=== PATIENT | male | born 1935 | race Caucasian/White ===

== ENCOUNTER 2023-01-03 14:04 | Inpatient (IN) ==
--- NOTE | 2023-01-03 14:29 | Emergency Department Note ---
Impression & Plan SOB (shortness of breath), Bilateral edema of lower extremity, CHF (congestive heart failure), PAD (peripheral artery disease) ED Provider Note INFORMANT: Patient and ED PROVIDER(S): Roberto Up MD CHIEF COMPLAINT: Shortness of breath PLAN: Disposition: Admitted Condition: Good Outpatient prescription management: none Referral: None MEDICAL DECISION MAKING: Patient was evaluated. Physical examination was concerning for possible CHF. He did have swelling in there was asymmetry in coloration of the legs. With decreased pulses the patient underwent ultrasound imaging as well as blood work. Chest x-ray was concerning for CHF. The patient's ECG did show a mildly fast A-fib. There is no ischemia. Urinalysis was unremarkable. Thankfully ultrasound did not reveal any evidence of DVT. The patient did have peripheral artery disease noted on arterial scan but no significant occlusion warrant emergent intervention. CBC showed a mild anemia. The patient's lactate was negative. Chemistry panel was unremarkable. Troponin negative but the BNP was elevated consistent with CHF. Patient was given IV Lasix. Since this is a new diagnosis for him further management in the hospital is felt to be appropriate. Patient and were informed and were in agreement. [facility] Case was discussed and diagnostics were reviewed. Patient was evaluated in the ER and admitted for further management. After review of the information above and other included data, I feel the patient requires admission for further management. Triage Nursing notes reviewed and agree them. Vital Signs: reviewed and remarkable for no significant abnormalities Prior /Outside records reviewed: Prior outside hospitalization for GI bleed discharge summary reviewed. Differential diagnosis: CHF, anemia, reactive airway disease, pneumonia, pneumothorax, COPD, infections, cardiac ischemia, pulmonary embolism, musculoskeletal, gastrointestinal, as well as other pathologies. Diagnostics, as interpreted by me: ECG: Twelve-lead ECG reveals atrial fibrillation at [address] elevation. Cardiac Monitoring: Cardiac monitoring ordered by me: The patient was placed on continuous cardiac monitoring and observed. It revealed a atrial fibrillation at 88 bpm. Imaging studies: Chest x-ray consistent with CHF. Ultrasound and arterial duplex as noted above. I refer you to the EMR for further details. HPI: The patient is a 87 year old male who presents to the Emergency Room with complaints of shortness of breath. This started over the last week and is worse today. Patient states he has had swelling in his legs from time to time but they seem to be worse. He also notes some occasional redness in the left leg but it is much worse today. The the patient also notes the following associated symptoms, fatigue. Patient was admitted for a GI bleed last month at [facility] in [place]. He did receive a blood transfusion. No identifiable source was found. The patient has taken no medication for relieving factors. Current pain is rated as 0/10. Pt denies LOC, headache, fevers, chills, diaphoresis, visual changes, neck pain, chest pain, nausea, vomiting, abdominal pain, back pain, melena, hematochezia, urinary symptoms, numbness, lymphadenopathy, rash, or other complaints. PAST MEDICAL HISTORY: See Below, GI bleed PAST SURGICAL HISTORY: See Below, SOCIAL HISTORY: See Below, retired HOME MEDICATIONS: See Below ALLERGIES: See Below VITALS: See Below PHYSICAL EXAMINATION: GENERAL: Awake, alert, tired-appearing, in no distress HENT: Normocephalic, atraumatic. Oropharynx unremarkable. EYES: Normal conjunctiva. Sclera non-icteric. NECK: Inspection normal. Non-tender. Supple. No nuchal rigidity. FROM. No masses. RESPIRATORY: Clear to auscultation. No wheezes. No rales. Normal respiratory effort. CARDIAC: Tachycardic rate. Normal rhythm. No murmurs. No rubs. Extremities warm and well perfused. Pulses equal. No JVD. GI: Soft, non-distended. No tenderness to palpation. No rebound or guarding. No masses. RECTAL: Deferred. MUSCULOSKELETAL: Atraumatic. Chest examination reveals no tenderness. The back is symmetrical on inspection without obvious abnormality. There is no CVA tenderness to palpation. No joint edema. LOWER EXTREMITIES: Calves are equal size bilaterally and non-tender. 2+ pitting edema. Left-sided erythematous discoloration. Capillary refill is diminished on the left side to about 3 to 4 seconds. NEURO: Normal sensorium. No sensory or motor deficits noted. SKIN: No rash or jaundice noted. Past Med/Surg History Medical History (Updated 01/03/23 @ 22:50 by Roberto Up MD) Aortic stenosis Benign prostatic hyperplasia without urinary obstruction Elevated PSA GIB (gastrointestinal bleeding) No pertinent family history No pertinent past medical history PAF (paroxysmal atrial fibrillation) Surgical History History of dental surgery Family History (Updated 01/03/23 @ 19:04 by Gisel Hughes DO) Other Heart disease Social History Smoking Status: Current some day smoker Second Hand Exposure: No; Do You Dip or Chew Tobacco: No; Tobacco Cessation Education Requested by Patient: No Hx Alcohol Use: Yes Alcohol type: beer Hx Substance Use: No Preferred Language: Vietnamese Communication Ability: Effective As400 Developer Required: No Beliefs That Will Affect Care: None marital status: Current Living Situation: Spouse current occupational status: employed Other Information That Helps Us Care for You: No Feels Safe at Home: Yes Safety Concerns: Feels Safe At This Time Assistive Devices: Brace/Splint/Immobilizer, Cane, Glasses and Walker Assistive Devices Comment: top partial Allergies Allergies Allergy/AdvReac Type Severity Reaction Status Date / Time No Known Allergies Allergy Unknown Verified 01/03/23 15:26 Home Meds Home Medications Medication Instructions Recorded Confirmed latanoprost 0.005 % eye drops 1 drp OPB HS 02/06/20 01/03/23 calcium 600 mg-D3 800 unit-mag11 1 tab PO DAILY 11/20/22 01/03/23 50 ew-egci-zllxki-susanne-s.borat tablet (Caltrate 600-D Plus Minerals) cholecalciferol (vitamin D3) 50 50 mcg PO DAILY 11/20/22 01/03/23 mcg (2,000 unit) tablet metoprolol succinate 25 mg 12.5 mg PO BID 11/20/22 01/03/23 tablet,extended release 24 hr pantoprazole 40 mg tablet,delayed 40 mg PO DAILY 11/20/22 01/03/23 release denosumab 60 mg/mL subcutaneous See Rx Instructions subcut .COMPLEX 12/02/22 01/03/23 syringe (Prolia) Previous Rx's Medication Instructions Recorded tamsulosin 0.4 mg capsule 0.4 mg PO DAILY #30 caps 06/01/22 apixaban 2.5 mg tablet (Eliquis) 2.5 mg PO BID #60 tabs 12/04/22 Results & Data (ED) Vital Signs Vital Signs - 24 hr 01/03/23 14:06 01/03/23 16:38 01/03/23 16:38 Temperature 36.4 C L Temperature Source Temporal Artery Scan Pulse Rate 107 H 93 H Pulse Rate [Apical] 92 H Respiratory Rate 18 14 14 Respiratory Effort / Characteristics Non-Labored Non-Labored Spontaneous Respiratory Depth Normal Normal Respiratory Pattern Regular Blood Pressure 123/73 Blood Pressure [Left Arm] 124/105 H Blood Pressure Mean 89 Blood Pressure Mean [Left Arm] 111 Blood Pressure Position Sitting Pulse Oximetry 96 95 95 Oxygen Delivery Method Room Air Room Air Room Air Sepsis Recent Fever Within 48 Hours No Sepsis New/Unexplained Change in Mental Status No Sepsis Action Taken by Nursing No Action Required Laboratory Data 01/03/23 14:25 01/03/23 14:25 Lab Results 01/03/23 01/03/23 01/03/23 Range/Units 14:13 14:25 14:25 WBC (4.8-10.8) K/ul RBC (4.70-6.10) M/uL Hgb (14.0-18.0) g/dl Hct (42.0-52.0) % MCV (80.0-100.0) fL MCH (25.0-34.0) pg MCHC (32.0-36.0) g/dL RDW Std Deviation (36.4-46.3) fL RDW Coeff of Don (11.5-14.5) % Plt Count (130-400) K/uL MPV (9.4-12.4) fL Immature Gran % (Auto) % Neut % (Auto) % Lymph % (Auto) % Cottle % (Auto) % Eos % (Auto) % Baso % (Auto) % Neut # (Auto) (1.40-6.50) K/uL Lymph # (Auto) (1.2-3.4) K/uL Cottle # (Auto) (0.11-0.59) K/uL Eos # (Auto) (0-0.50) K/uL Baso # (Auto) (0-0.2) K/uL Immature Gran # (Auto) (0.01-0.20) K/uL PT 10.8 (9.0-12.0) Seconds INR 1.0 (0.9-1.1) Sodium (136-145) mmol/L Potassium (3.5-5.1) mmol/L Chloride (98-107) mmol/L Carbon Dioxide (21-32) mmol/L Anion Gap (3-11) BUN (6-23) mg/dl Creatinine (0.6-1.4) mg/dl Est Cr Clr Drug Dosing ml/min Est GFR ( Amer) ml/min Est GFR (Non-Af Amer) ml/min BUN/Creatinine Ratio (10-20) Glucose (70-99(Fasting)) mg/dl Lactate (0.4-2.0) mmol/L Calcium (8.5-10.1) mg/dl Magnesium (1.7-2.4) mg/dl Total Bilirubin (0.2-1.0) mg/dl AST (13-39) U/L ALT (7-52) U/L Alkaline Phosphatase (34-104) U/L Troponin I High Sens (0-20) pg/ml B-Natriuretic Peptide (0-100) pg/ml Total Protein (6.0-8.3) gm/dl Albumin (3.4-5.0) gm/dl Globulin (2.5-4.0) gm/dl Albumin/Globulin Ratio (0.9-2) TSH (0.300-4.500) uIu/ml Urine Color Urine Appearance (Clear) Urine pH (4.5-7.5) Ur Specific [place] (1.000-1.030) Urine Protein (Negative) Urine Glucose (UA) (Negative) Urine Ketones (Negative) Urine Blood (Negative) Urine Nitrite (Negative) Urine Bilirubin (Negative) Urine Urobilinogen (Negative) Ur Leukocyte Esterase (Negative) SARS-CoV-2, RNA, NAAT NEGATIVE (NEGATIVE) Blood Type A Positive Antibody Screen NEGATIVE 01/03/23 01/03/23 01/03/23 Range/Units 14:25 14:25 14:25 WBC 6.26 (4.8-10.8) K/ul RBC 3.42 L (4.70-6.10) M/uL Hgb 10.3 L (14.0-18.0) g/dl Hct 30.9 L (42.0-52.0) % MCV 90.4 (80.0-100.0) fL MCH 30.1 (25.0-34.0) pg MCHC 33.3 (32.0-36.0) g/dL RDW Std Deviation 50.0 H (36.4-46.3) fL RDW Coeff of Don 15.0 H (11.5-14.5) % Plt Count 266 (130-400) K/uL MPV 9.6 (9.4-12.4) fL Immature Gran % (Auto) 0.5 % Neut % (Auto) 74.9 % Lymph % (Auto) 13.1 % Cottle % (Auto) 9.7 % Eos % (Auto) 1.6 % Baso % (Auto) 0.2 % Neut # (Auto) 4.69 (1.40-6.50) K/uL Lymph # (Auto) 0.82 L (1.2-3.4) K/uL Cottle # (Auto) 0.61 H (0.11-0.59) K/uL Eos # (Auto) 0.10 (0-0.50) K/uL Baso # (Auto) 0.01 (0-0.2) K/uL Immature Gran # (Auto) 0.03 (0.01-0.20) K/uL PT (9.0-12.0) Seconds INR (0.9-1.1) Sodium 136 (136-145) mmol/L Potassium 4.4 (3.5-5.1) mmol/L Chloride 107 (98-107) mmol/L Carbon Dioxide 26 (21-32) mmol/L Anion Gap 3 (3-11) BUN 31 H (6-23) mg/dl Creatinine 1.20 (0.6-1.4) mg/dl Est Cr Clr Drug Dosing 37.0 ml/min Est GFR ( Amer) 63.1 ml/min Est GFR (Non-Af Amer) 54.4 ml/min BUN/Creatinine Ratio 25.8 H (10-20) Glucose 102 H (70-99(Fasting)) mg/dl Lactate (0.4-2.0) mmol/L Calcium 9.9 (8.5-10.1) mg/dl Magnesium 1.9 (1.7-2.4) mg/dl Total Bilirubin 0.5 (0.2-1.0) mg/dl AST 30 (13-39) U/L ALT 22 (7-52) U/L Alkaline Phosphatase 64 (34-104) U/L Troponin I High Sens 9.2 (0-20) pg/ml B-Natriuretic Peptide 237 H (0-100) pg/ml Total Protein 7.6 (6.0-8.3) gm/dl Albumin 4.0 (3.4-5.0) gm/dl Globulin 3.6 (2.5-4.0) gm/dl Albumin/Globulin Ratio 1.1 (0.9-2) TSH (0.300-4.500) uIu/ml Urine Color Urine Appearance (Clear) Urine pH (4.5-7.5) Ur Specific [place] (1.000-1.030) Urine Protein (Negative) Urine Glucose (UA) (Negative) Urine Ketones (Negative) Urine Blood (Negative) Urine Nitrite (Negative) Urine Bilirubin (Negative) Urine Urobilinogen (Negative) Ur Leukocyte Esterase (Negative) SARS-CoV-2, RNA, NAAT (NEGATIVE) Blood Type Antibody Screen 01/03/23 01/03/23 01/03/23 Range/Units 14:25 14:26 14:47 WBC (4.8-10.8) K/ul RBC (4.70-6.10) M/uL Hgb (14.0-18.0) g/dl Hct (42.0-52.0) % MCV (80.0-100.0) fL MCH (25.0-34.0) pg MCHC (32.0-36.0) g/dL RDW Std Deviation (36.4-46.3) fL RDW Coeff of Don (11.5-14.5) % Plt Count (130-400) K/uL MPV (9.4-12.4) fL Immature Gran % (Auto) % Neut % (Auto) % Lymph % (Auto) % Cottle % (Auto) % Eos % (Auto) % Baso % (Auto) % Neut # (Auto) (1.40-6.50) K/uL Lymph # (Auto) (1.2-3.4) K/uL Cottle # (Auto) (0.11-0.59) K/uL Eos # (Auto) (0-0.50) K/uL Baso # (Auto) (0-0.2) K/uL Immature Gran # (Auto) (0.01-0.20) K/uL PT (9.0-12.0) Seconds INR (0.9-1.1) Sodium (136-145) mmol/L Potassium (3.5-5.1) mmol/L Chloride (98-107) mmol/L Carbon Dioxide (21-32) mmol/L Anion Gap (3-11) BUN (6-23) mg/dl Creatinine (0.6-1.4) mg/dl Est Cr Clr Drug Dosing ml/min Est GFR ( Amer) ml/min Est GFR (Non-Af Amer) ml/min BUN/Creatinine Ratio (10-20) Glucose (70-99(Fasting)) mg/dl Lactate 1.0 (0.4-2.0) mmol/L Calcium (8.5-10.1) mg/dl Magnesium (1.7-2.4) mg/dl Total Bilirubin (0.2-1.0) mg/dl AST (13-39) U/L ALT (7-52) U/L Alkaline Phosphatase (34-104) U/L Troponin I High Sens (0-20) pg/ml B-Natriuretic Peptide (0-100) pg/ml Total Protein (6.0-8.3) gm/dl Albumin (3.4-5.0) gm/dl Globulin (2.5-4.0) gm/dl Albumin/Globulin Ratio (0.9-2) TSH 2.603 (0.300-4.500) uIu/ml Urine Color Yellow Urine Appearance Clear (Clear) Urine pH 6.5 (4.5-7.5) Ur Specific [place] 1.015 (1.000-1.030) Urine Protein Negative (Negative) Urine Glucose (UA) Negative (Negative) Urine Ketones Negative (Negative) Urine Blood Negative (Negative) Urine Nitrite Negative (Negative) Urine Bilirubin Negative (Negative) Urine Urobilinogen Negative (Negative) Ur Leukocyte Esterase Negative (Negative) SARS-CoV-2, RNA, NAAT (NEGATIVE) Blood Type Antibody Screen Administered Medications Apixaban (Apixaban 2.5 Mg Tab) 2.5 mg PO BID UYKI Stop: 02/02/23 21:30 Last Admin: 02/19/23 22:22 Dose: 2.5 mg Documented By: MILAN Latanoprost (Latanoprost 0.005% Op Soln 2.5 Ml Btl) 1 drops OPB HS YUKI Stop: 02/02/23 21:30 Last Admin: 01/03/23 21:55 Dose: Not Given Documented By: MILAN Metoprolol Succinate (Metoprolol Succ 25mg Ext Rel Tab) 25 mg PO BID YUKI Stop: 02/02/23 21:30 Last Admin: 01/03/23 22:22 Dose: 25 mg Documented By: MILAN Discontinued Medications Furosemide (Furosemide Inj 20 Mg/2 Ml Vial) 20 mg IV ONE ONE Stop: 01/03/23 17:55 Last Admin: 01/03/23 18:06 Dose: 20 mg Documented By: RACHEL Ioversol (Optiray 320 500ml) 109 ml IV ONCE ONE Stop: 01/03/23 20:08 Last Admin: 01/03/23 20:09 Dose: 109 ml Documented By: EDK Imaging Data Radiologist's Impression: Chest X-Ray 01/03/23 14:14 SINGLE VIEW CHEST CLINICAL HISTORY: Dyspnea. FINDINGS: An AP, portable, upright chest radiograph is compared to study dated 01/24/2008. The examination is degraded by portable technique and patient rotation. The heart is enlarged noting atherosclerotic calcification of the thoracic ureter. There is pulmonary vascular congestion with mild interstitial edema. There are small pleural effusions with dependent consolidation. No pneumothorax is seen. The skeletal structures are osteopenic. There are healed left-sided rib fractures. IMPRESSION: 1. Cardiomegaly with evidence of congestive failure and pulmonary edema. 2. Small pleural effusions. ACT 112: Negative or not required by law. Electronically signed by: Zhou Gregg M.D. 01/03/2023 3:05 PM Duplex Scan Lower Extremity Artery 01/03/23 14:24 ULTRASOUND LEFT LOWER EXTREMITY ARTERIAL CLINICAL HISTORY: Left leg swelling. Decreased capillary refill and pulses in the left leg. COMPARISON STUDY: No priors. FINDINGS: Real-time grayscale and color Doppler sonography of the arteries of the left lower extremity is performed from the inguinal crease to the foot. FINDINGS: Atherosclerotic plaque and irregularity is seen throughout the arteries of the left lower extremity. There are triphasic waveforms in the common femoral artery with velocities measuring up to 117 cm/s. The profunda femoris artery is patent with velocities measuring up to 95 cm/s. Triphasic and biphasic arterial waveforms are seen within the superficial femoral and popliteal arteries. Velocities in the superficial femoral artery measure up to 90 cm/s, and velocities in the popliteal artery measure up to 133 cm/s. There is a blunted arterial upstroke in the calf arteries. The waveforms are monophasic. There is two-vessel runoff to the foot. No flow is seen within the mid to distal peroneal artery. The anterior tibial and posterior tibial arteries are patent of the foot. Arterial velocities within the calf vessels measure up to 112 cm/s. The dorsalis pedis is patent with velocities measuring up to 41 cm/s. Soft tissue edema is present in the calf. IMPRESSION: 1. Atherosclerotic plaque and peripheral vascular disease as above. 2. There is no flow shown within the mid to distal peroneal artery in the calf. The vessel may be diminutive or occluded. 3. The remaining arteries of the left lower extremity are patent. There is no sonographic evidence of focal high-grade stenosis. Dictated: 01/03/2023 4:09 PM Transcribed: 01/03/2023 4:33 PM Etelvina [id number] Electronically signed by: Zhou Gregg M.D. 01/03/2023 5:08 PM Venous Doppler Study 01/03/23 14:24 ULTRASOUND LEFT LOWER EXTREMITY VENOUS CLINICAL HISTORY: Left lower extremity edema. COMPARISON STUDY: No priors. TECHNIQUE: Real-time, grayscale, and color Doppler sonography of the deep veins of the left lower extremity was performed from the inguinal crease to the calf. Compression and augmentation were utilized. FINDINGS: There is no sonographic evidence of deep venous thrombosis identified in the left lower extremity. The common femoral, superficial femoral, and popl iteal veins are patent and normally compressible. The greater saphenous vein and the profunda femoris vein at the junction with the common femoral vein are clear. The visualized calf veins are patent. Soft tissue edema is seen in the left leg. IMPRESSION: There is no sonographic evidence of deep venous thrombosis identified in the left lower extremity. ACT 112: Negative or not required by law. Electronically signed by: Zhou Gregg M.D. 01/03/2023 4:06 PM Discharge Plan Visit Data Chief Complaint: Weakness Stated Complaint: WEAKNESS,FILLING UP WITH FLUID ED Provider: Roberto Up Discharge Problem: SOB (shortness of breath), Bilateral edema of lower extremity, CHF (congestive heart failure), PAD (peripheral artery disease) Patient Disposition: Admitted As Inpatient Discharge Instructions Interventions: ED Discharge Assessment Last Done: 01/03/23 21:14
[2023-01-03 14:40] LABS: Basophils # (auto) 0.01 K/uL (0-0.2); Basophils % (auto) 0.2 %; Eosinophils % (auto) 1.6 %; Hematocrit (blood only) 30.9 % (42.0-52.0); Hemoglobin 10.3 g/dl (14.0-18.0); Immature Granulocytes # (auto) 0.03 K/uL (0.01-0.20); Immature Granulocytes % (auto) 0.5 %; Lymphocytes # (auto) 0.82 K/uL (1.2-3.4); Lymphocytes % (auto) 13.1 %; Mean Corpuscular Hemoglobin 30.1 pg (25.0-34.0); Mean Corpuscular Hgb Conc 33.3 g/dL (32.0-36.0); Mean Corpuscular Volume 90.4 fL (80.0-100.0); Mean Platelet Volume 9.6 fL (9.4-12.4); Monocytes # (auto) 0.61 K/uL (0.11-0.59); Monocytes % (auto) 9.7 %; Neutrophils # (auto) 4.69 K/uL (1.40-6.50); Neutrophils % (auto) 74.9 %; Platelet Count 266 K/uL (130-400); Red Blood Count 3.42 M/uL (4.70-6.10); White Blood Count 6.26 K/ul (4.8-10.8)
[2023-01-03 14:58] LABS: Albumin Globulin Ratio 1.1 (0.9-2); BUN Creatinine Ratio 25.8 (10-20); Bilirubin,Total 0.5 mg/dl (0.2-1.0); Calcium 9.9 mg/dl (8.5-10.1); Est GFR (African American) 63.1 ml/min; Est GFR (Non-African American) 54.4 ml/min; Globulin 3.6 gm/dl (2.5-4.0); Magnesium 1.9 mg/dl (1.7-2.4); Potassium 4.4 mmol/L (3.5-5.1); Total Protein 7.6 gm/dl (6.0-8.3)
[2023-01-03 15:01] LABS: Appearance Urine Clear (Clear); Bilirubin Urine Negative (Negative); Blood Urine Negative (Negative); Color Urine Yellow; Glucose Urine UA Negative (Negative); Ketones Urine Negative (Negative); Leukocyte Esterase Urine Negative (Negative); Nitrite Urine Negative (Negative); Protein Urine Negative (Negative); Specific Gravity Urine 1.015 (1.000-1.030); Urobilinogen Urine Negative (Negative); pH Urine 6.5 (4.5-7.5)
[2023-01-03 15:04] LABS: Troponin I High Sensitivity 9.2 pg/ml (0-20)
--- NOTE | 2023-01-03 15:07 | XRay Report ---
SINGLE VIEW CHEST CLINICAL HISTORY: Dyspnea. FINDINGS: An AP, portable, upright chest radiograph is compared to study dated 01/24/2008. The examina tion is degraded by portable technique and patient rotation. The heart is enlarged noting atheroscle rotic calcification of the thoracic ureter. There is pulmonary vascular congestion with mild intersti tial edema. There are small pleural effusions with dependent consolidation. No pneumothorax is seen. The skeletal structures are osteopenic. There are healed left-sided rib fractures. IMPRESSION: 1. Cardiomegaly with evidence of congestive failure and pulmonary edema. 2. Small pleural effusions. ACT 112: Negative or not required by law. Electronically signed by: Zhou Gregg M.D. 01/03/2023 3:05 PM
[2023-01-03 15:18] LABS: Prothrombin Time 10.8 Seconds (9.0-12.0)
--- NOTE | 2023-01-03 16:09 | Ultrasound Report ---
ULTRASOUND LEFT LOWER EXTREMITY VENOUS CLINICAL HISTORY: Left lower extremity edema. COMPARISON STUDY: No priors. TECHNIQUE: Real-time, grayscale, and color Doppler sonography of the deep veins of the left lower ext remity was performed from the inguinal crease to the calf. Compression and augmentation were utilized . FINDINGS: There is no sonographic evidence of deep venous thrombosis identified in the left lower ext remity. The common femoral, superficial femoral, and popliteal veins are patent and normally compress ible. The greater saphenous vein and the profunda femoris vein at the junction with the common femora l vein are clear. The visualized calf veins are patent. Soft tissue edema is seen in the left leg. IMPRESSION: There is no sonographic evidence of deep venous thrombosis identified in the left lower e xtremity. ACT 112: Negative or not required by law. Electronically signed by: Zhou Gregg M.D. 01/03/2023 4:06 PM
--- NOTE | 2023-01-03 17:10 | Ultrasound Report ---
ULTRASOUND LEFT LOWER EXTREMITY ARTERIAL CLINICAL HISTORY: Left leg swelling. Decreased capillary refill and pulses in the left leg. COMPARISON STUDY: No priors. FINDINGS: Real-time grayscale and color Doppler sonography of the arteries of the left lower extremit y is performed from the inguinal crease to the foot. FINDINGS: Atherosclerotic plaque and irregularity is seen throughout the arteries of the left lower e xtremity. There are triphasic waveforms in the common femoral artery with velocities measuring up to 117 cm/s. The profunda femoris artery is patent with velocities measuring up to 95 cm/s. Triphasic an d biphasic arterial waveforms are seen within the superficial femoral and popliteal arteries. Velocit ies in the superficial femoral artery measure up to 90 cm/s, and velocities in the popliteal artery m easure up to 133 cm/s. There is a blunted arterial upstroke in the calf arteries. The waveforms are m onophasic. There is two-vessel runoff to the foot. No flow is seen within the mid to distal peroneal artery. The anterior tibial and posterior tibial arteries are patent of the foot. Arterial velocities within the calf vessels measure up to 112 cm/s. The dorsalis pedis is patent with velocities measuri ng up to 41 cm/s. Soft tissue edema is present in the calf. IMPRESSION: 1. Atherosclerotic plaque and peripheral vascular disease as above. 2. There is no flow shown within the mid to distal peroneal artery in the calf. The vessel may be dim inutive or occluded. 3. The remaining arteries of the left lower extremity are patent. There is no sonographic evidence of focal high-grade stenosis. Dictated: 01/03/2023 4:09 PM Transcribed: 01/03/2023 4:33 PM Etelvina [id number] [email or web address] Electronically signed by: Zhou Gregg M.D. 01/03/2023 5:08 PM
[2023-01-03] MEDS ORDERED: FUROSEMIDE INJ 20 MG/2 ML VIAL IV ONE (17:54)
--- NOTE | 2023-01-03 18:20 | History & Physical Report ---
Date of Service January 03, 2023 Assessment & Plan (1) Acute diastolic (congestive) heart failure: Plan: Possible episode of acute diastolic heart failure, as patient was given this diagnosis at recent admission at [facility] in [place] over the holidays. Chest x-ray does show evidence of congestive failure and pulmonary edema with small bilateral pleural effusions. Patient received Lasix 20 mg IV in the ER, will measure intake/output overnight and if tolerated by kidneys and with good output will continue in the morning. Echocardiogram to evaluate for diastolic dysfunction. Low-sodium diet while admitted. (2) Aortic stenosis: Plan: Per Cardiology notes, previous Echo suggests moderate , but may be closer to severe given his small stature. Patient with about 6 months of worsening SOB having to take breaks (for example when he was working on his yard this summer), though acutely worse over the last week or so. While patient could have possible exacerbation of diastolic heart failure as described above, it is also possible that severe aortic stenosis could cause buildup of fluid and pulmonary edema. Lasix as described above. Cardiology consulted and appreciate recommendations, given patient's age I am unsure if surgery for (if deemed to be severe enough for surgical correction) would even be an option, however would appreciate Cardiology's input. Repeat echocardiogram as described above. (3) Persistent atrial fibrillation: Plan: History of persistent A-fib per recent cardiology notes, on Eliquis 2.5 mg twice daily and metoprolol succinate 12.5 mg twice daily. Heart rate on admission of 107, now down to 90s without intervention. Telemetry for cardiac monitoring. Continue Eliquis, and will increase metoprolol succinate to 25 mg twice daily given heart rate of 90-100s and elevated diastolic blood pressure. (4) Occlusion of left peroneal artery: Plan: Patient with 1 week history of left lower extremity rubor from the knee down, as well as some cramping with walking that he has noticed over the last several days. Ultrasound duplex/Doppler done, no signs of deep vein thrombosis however does have a mid/distal left peroneal artery occlusion. CTA aorta with runoff ordered, and vascular surgery consulted, appreciate re commendations. (5) Hypertension: Plan: Will increase metoprolol succinate dosing as above. Plan Presents presented to the patient is a full code Low-sodium diet Patient will continue Eliquis for DVT prophylaxis To med/telemetry for cardiac monitoring History of Present Illness Chief Complaint: Shortness of breath Primary Care Provider: Fransisco Moncada MD 87-year-old male past medical history significant for persistent atrial fibrillation on Eliquis 2.5 mg twice daily, moderate aortic stenosis, recent hospitalization for upper GI bleed and acute diastolic heart failure at [facility] from 11/08/2022 - 11/18/2022 presented to the ER for a couple of days to 1 week of worsening shortness of breath, but no chest pain, abdominal pain. He also notes some pain in the lower extremities he describes as cramping over the last few days. In the ER patient vital signs were 36.4 C, heart rate of 107, blood pressure 123/73, saturating to 96% on room air. Patient was noted to have a WBC count of 6.26, hemoglobin 10.3, creatinine 1.20 with a baseline around 1.1, BNP of 237 without a baseline to compare, normal TSH, normal UA, COVID negative. Due to left lower extremity redness/swelling compared to the right lower extremity, Doppler was done without evidence of DVT. Patient also had an arterial duplex of the same leg that showed mid/distal peroneal artery reduced/absent flow, otherwise no sonographic evidence of focal high-grade stenosis. Chest x-ray showed cardiomegaly with evidence of congestive failure and pulmonary edema, with small bilateral pleural effusions. Patient was given furosemide 20 mg IV x1 and blood cultures were collected. Hospitalist service was consulted for pulmonary edema/suspicion of acute diastolic CHF exacerbation. Allergies Allergy/AdvReac Type Severity Reaction Status Date / Time No Known Allergies Allergy Unknown Verified 01/03/23 15:26 Home Medications Medication Instructions Recorded Confirmed Type latanoprost 0.005 % eye drops 1 drp OPB HS 02/06/20 01/03/23 History tamsulosin 0.4 mg capsule 0.4 mg PO DAILY #30 caps 06/01/22 01/03/23 Rx calcium 600 mg-D3 800 unit-mag11 1 tab PO DAILY 11/20/22 01/03/23 History 50 lt-gjab-hhvgip-susanne-s.borat tablet (Caltrate 600-D Plus Minerals) cholecalciferol (vitamin D3) 50 50 mcg PO DAILY 11/20/22 01/03/23 History mcg (2,000 unit) tablet metoprolol succinate 25 mg 12.5 mg PO BID 11/20/22 01/03/23 History tablet,extended release 24 hr pantoprazole 40 mg tablet,delayed 40 mg PO DAILY 11/20/22 01/03/23 History release denosumab 60 mg/mL subcutaneous See Rx Instructions subcut .COMPLEX 12/02/22 01/03/23 History syringe (Prolia) apixaban 2.5 mg tablet (Eliquis) 2.5 mg PO BID #60 tabs 12/04/22 01/03/23 Rx Past Med/Surg History Medical History (Updated 01/03/23 @ 19:19 by Gisel Hughes, ) Aortic stenosis Benign prostatic hyperplasia without urinary obstruction Elevated PSA GIB (gastrointestinal bleeding) No pertinent family history No pertinent past medical history PAF (paroxysmal atrial fibrillation) Surgical History History of dental surgery Family History (Updated 01/03/23 @ 19:04 by Gisel Hughes DO) Other Heart disease Social History Smoking Status: Never smoker Hx Alcohol Use: Yes Hx Substance Use: No marital status: current occupational status: employed Feels Safe at Home: Yes Review of Systems Review of Systems: All systems reviewed & are unremarkable except as noted in HPI & below Physical Exam Constitutional: well developed and well nourished; no acute distress Eyes: PERRL, conjunctivae normal, anicteric sclerae ENMT: external ear and nose normal, oropharynx normal Neck: trachea midline, no thyromegaly Respiratory: normal respiratory effort, lungs clear to auscultation Cardiovascular: RRR, no murmur, no edema Gastrointestinal (Abdomen): normal bowel sounds, soft, nontender, no hepatosplenomegaly Musculoskeletal: no cyanosis or clubbing, extremities motor strength 5/5 Skin: no rashes, warm and dry Neurologic: AAOx3, normal speech. PERRLA, EOMI, no nystagmus. Normal visual acuity bilaterally. Bilateral UE, LE, and face without sensory or motor deficits. No pronator drift. No tremor. No ataxia. Psychiatric: A+Ox3, euthymic affect Results & Data Results & Data ([facility]) Vital Signs (Past 12 Hours) Vital Signs Temp Pulse Pulse Resp BP BP Pulse Ox 01/03/23 16:38 93 H 14 95 01/03/23 16:38 92 H 14 124/105 H 95 01/03/23 14:06 36.4 C L 107 H 18 123/73 96 O2 Del Method 01/03/23 16:38 Room Air 01/03/23 16:38 Room Air 01/03/23 14:06 Room Air PG Care Time/CCT Total # of Minutes Spent Total Time Spent with Patient: Total time spent is greater than 50% in coordination of care (as documented) at patient's floor/unit and/or counseling patient: Coding Level of Care Code 27859 INT INP/OBS CARE 3/75MIN Diagnoses Acute diastolic (congestive) heart failure I50.31 Aortic stenosis I35.0 Persistent atrial fibrillation I48.19 Occlusion of left peroneal artery I70.202 Hypertension I10
[2023-01-03] MEDS ORDERED: OPTIRAY 320 500ml IV ONE (20:07)
[2023-01-03] MEDS ORDERED: POLYETHYLENE (MIRALAX) 17 GM PACK PO PRN (21:31)
[2023-01-03] MEDS ORDERED: ACETAMINOPHEN 325 MG TAB PO PRN (21:31)
[2023-01-03] MEDS ORDERED: ONDANSETRON INJ 2 MG/ML 2 ML VIAL IV PRN (21:31)
[2023-01-03] MEDS: LATANOPROST 0.005% OP SOLN 2.5 ML BTL OPB SCH (21:55)
[2023-01-03] MEDS: APIXABAN 2.5 MG TAB PO SCH (22:22)
[2023-01-03] MEDS: METOPROLOL SUCC 25MG EXT REL TAB PO SCH (22:22)
--- NOTE | 2023-01-04 07:52 | CT Scan Report ---
BRANDON turner shanice CLINICAL HISTORY: left peroneal artery occlusion TECHNIQUE: TECHNIQUE: Multidetector row helical CT of the abdomen, pelvis and bilateral lower extremi ties down through the feet was performed, following intravenous administration of iodinated contrast. No oral contrast was administered. Automated dose lowering techniques and/or adjustment according to patient size were utilized for this exam. Coronal and sagittal reformations were obtained. MIP and 3 D volume rendered reconstructions were obtained. CT DOSE: 750.79 mGy.cm Comparison: None available at the time of this dictation. FINDINGS: Lower chest: Bilateral pleural effusions are seen with underlying atelectasis. Liver: Unremarkable. No focal lesions are seen. Gallbladder and biliary tree: No calcified gallstones. Normal caliber wall. No intra- or extrahepatic biliary ductal dilation. Pancreas: Unremarkable, no focal lesions. Spleen: Unremarkable. Adrenals: Unremarkable. Kidneys and ureters: Subcentimeter hypodensities are too small to characterize. Bladder: Unremarkable. Reproductive organs: Marked prostatomegaly is seen. Bowel: Unremarkable. Lymph nodes Retroperitoneal: Unremarkable. Pelvic: Unremarkable. Mesenteric: Unremarkable. Peritoneum: Normal. Abdominal wall: Bilateral inguinal hernias containing loops of bowel noted. Bones: Posterior fixation hardware is in the lumbosacral spine. CT angiogram: The abdominal aortic contours appear intact without evidence of aneurysmal dilatation a nd/or dissection. Scattered atherosclerotic calcifications of the abdominal aorta and its major bran ches. The origins of the celiac axis, superior mesenteric, inferior mesenteric and bilateral renal arteries are remarkable for a critical stenosis of the superior mesenteric artery and approximately 50% steno sis of the celiac. Single bilateral renal arteries are noted.. The right common iliac artery is patent. The right internal iliac artery is patent. The right exter nal iliac artery is patent. The right common femoral artery is patent. The right deep femoral arter y is patent. The right superficial femoral artery is patent. The right popliteal artery is patent. There is three-vessel runoff of the origins of the calf vessels, although evaluation is limited by e xtensive atherosclerotic disease. The right anterior tibial is patent. The posterior tibial artery i s occluded. The right peroneal artery is patent. Two-vessel runoff is identified down to the level o f the right foot. The left common iliac artery is patent. The left internal iliac artery is patent. The left external iliac artery is patent. The left common femoral artery is patent. The left deep femoral artery con tains extensive multifocal atherosclerotic disease with likely hemodynamically significant stenosis. The left superficial femoral artery contains extensive multifocal atherosclerotic disease of hemodyna mically significant stenosis. The left popliteal artery is patent. Evaluation of runoff vessels is l imited by extensive atherosclerosis. The left anterior tibial is patent. The left posterior tibial artery may be occludedThe left peroneal artery is patent. Vessel is identified down to the level of the left foot. There is extensive subcutaneous soft tissue edema and fat stranding, left greater than right. IMPRESSION: Atherosclerotic disease is seen with atherosclerotic disease is seen with critical stenosis at the benz perior mesenteric artery. Two-vessel runoff is seen bilaterally with apparent occlusion of the tire worker ior tibial arteries. The left peroneal artery appears patent although significant atherosclerotic dis ease is seen. Multifocal hemodynamically significant stenosis is seen in the left superficial femoral vein. Soft tissue stranding is seen in the lower extremities. Additional findings as above. ACT 112: Negative or not required by law. Electronically signed by: Amandeep Winter M.D. 01/04/2023 7:50 AM
[2023-01-04 08:02] LABS: Basophils # (auto) 0.01 K/uL (0-0.2); Basophils % (auto) 0.2 %; Eosinophils # (auto) 0.16 K/uL (0-0.50); Eosinophils % (auto) 2.8 %; Hemoglobin 10.4 g/dl (14.0-18.0); Immature Granulocytes # (auto) 0.02 K/uL (0.01-0.20); Immature Granulocytes % (auto) 0.4 %; Lymphocytes # (auto) 0.75 K/uL (1.2-3.4); Lymphocytes % (auto) 13.3 %; Mean Corpuscular Hemoglobin 29.9 pg (25.0-34.0); Mean Corpuscular Hgb Conc 33.5 g/dL (32.0-36.0); Mean Corpuscular Volume 89.1 fL (80.0-100.0); Mean Platelet Volume 9.9 fL (9.4-12.4); Monocytes # (auto) 0.57 K/uL (0.11-0.59); Monocytes % (auto) 10.1 %; Neutrophils # (auto) 4.14 K/uL (1.40-6.50); Neutrophils % (auto) 73.2 %; Platelet Count 249 K/uL (130-400); RDW Coefficient of Variation 14.7 % (11.5-14.5); RDW Standard Deviation 47.7 fL (36.4-46.3); Red Blood Count 3.48 M/uL (4.70-6.10); White Blood Count 5.65 K/ul (4.8-10.8)
[2023-01-04] MEDS: METOPROLOL SUCC 25MG EXT REL TAB PO SCH (08:09)
[2023-01-04] MEDS: PANTOprazole 40 MG TAB PO SCH (08:14)
[2023-01-04] MEDS: APIXABAN 2.5 MG TAB PO SCH ×2 (08:15→20:08)
[2023-01-04] MEDS: TAMSULOSIN HCL 0.4 MG CAP PO SCH (08:15)
[2023-01-04 08:20] LABS: BUN Creatinine Ratio 22.7 (10-20); Calcium 9.5 mg/dl (8.5-10.1); Creatinine Clr Calc Pharmacy 35.3 ml/min; Est GFR (African American) 63.7 ml/min; Potassium 4.3 mmol/L (3.5-5.1)
[2023-01-04] MEDS ORDERED: FUROSEMIDE INJ 20 MG/2 ML VIAL IV SCH (09:00)
--- NOTE | 2023-01-04 09:21 | Electrocardiogram Report ---
Test Reason : Blood Pressure : / mmHG Vent. Rate : 102 BPM Atrial Rate : 119 BPM P-R Int : 000 ms QRS Dur : 082 ms QT Int : 346 ms P-R-T Axes : 000 027 038 degrees QTc Int : 450 ms Poor data quality, interpretation may be adversely affected Atrial fibrillation with rapid ventricular response Abnormal ECG When compared with ECG of 24-JAN-2008 15:15, Atrial fibrillation has replaced Sinus rhythm Nonspecific T wave abnormality now evident in Inferior leads Confirmed by Erick Mayes ([id number]) on 01/04/2023 9:21:17 AM Referred By: Confirmed By:Carlos Mayes
--- NOTE | 2023-01-04 09:51 | Hospitalist Progress Note ---
Date of Service January 04, 2023 Assessment & Plan (1) Acute diastolic (congestive) heart failure: Plan: Joey Mejia is a 87 male with a PMH of persistent atrial fibrillation on Eliquis 2.5 mg twice daily, moderate aortic stenosis, recent hospitalization for upper GI bleed and acute diastolic heart failure at [facility] from 11/08/2022 - 11/18/2022 presented with progressive SOB and leg swelling. Differential diagnosis for the dyspnea includes diastolic CHF vs. Atrial fibrillation vs. Aortic stenosis. Acute diastolic congestive heart failure - Possible episode of acute diastolic heart failure, as patient was given this d iagnosis at recent admission at [facility] in [place] over the holidays. - Chest x-ray does show evidence of congestive failure and pulmonary edema with small bilateral pleural effusions. - Patient received Lasix 20 mg IV in the ER 01/03, - 01/04 BUN and Cr 1.19 , continue Lasix 20 mg, diuresing 900 mL - Per cardiology's recommendations, okay to switch to Lasix 40mg PO daily - Echocardiogram: EF 55-60%, unable to evaluate for diastolic dysfunction given Afib - Admitted at 59 kg, down to 56 kg 01/04 - Low-sodium diet while admitted. (2) Aortic stenosis: Plan: - Per Cardiology notes, previous Echo suggests moderate , but may be closer to severe given his small stature. - Patient with about 6 months of worsening SOB having to take breaks (for example when he was working on his yard this summer), though acutely worse over the last week or so. - While patient could have possible exacerbation of diastolic heart failure as described above, it is also possible that severe aortic stenosis could cause buildup of fluid and pulmonary edema. Lasix as described above. - Cardiology consulted and appreciate recommendations, given patient's age I am unsure if surgery for (if deemed to be severe enough for surgical correction) would even be an option, however would appreciate Cardiology's input. - ECHO 01/04 - Aortic valve heavily calcified, severity could not be determined (3) Persistent atrial fibrillation: Plan: - History of persistent A-fib per recent cardiology notes, on Eliquis 2.5 mg twice daily and metoprolol succinate 12.5 mg twice daily. - Heart rate on admission of 107, now down to 90s without intervention. Telemetry for cardiac monitoring. - Continue Eliquis, metoprolol succinate 25mg BID, decreased to 12.5 2/20 pm as pressures running 120s/60s, heart rate of 90-100s (4) Occlusion of left peroneal artery: Plan: - Patient with 1 week history of left lower extremity rubor from the knee down, as well as some cramping with walking that he has noticed over the last several days. - Ultrasound duplex/Doppler done, no signs of deep vein thrombosis however does have a mid/distal left peroneal artery occlusion. - CTA aorta with runoff showed atherosclerotic disease and SMA stenosis, and vascular surgery consulted, no evidence of peripheral vascular disease noted (5) Hypertension: Plan: - Metoprolol 25 mg BID, 12.5mg given 2/20 pm, will hold and reassess tomorrow Plan Code status: full Diet: Low-sodium DVT ppx: continue Eliquis Diso: med/telemetry Admission and Anticipated Discharge Date Admission Date: January 03, 2023 Supervising Physician Co-Signing Physician Notes Attending attestation Pt seen and examined in concert with Dr. Howard, St. Dr. Gautam. In agreement with the documented findings as noted in the documentation with any exceptions or additions as noted here. Reports ongoing improvement in shortness of breath and good response to diuretic subjectively. On examination, S1/S2 nl IRR no audible MCG. CTAB without rales, possibly some decreased BS bilateral bases. Abd NT/ND BS+ve. 1+ pitting edema to the midshin bilaterally, nonTTP HFpEF with acute exacerbation in the setting of moderate - good response to diuresis. Dry wt appears to be ~54 kg. Cr non-elevated today. Will continue furosemide diuresis and monitor response. Hypotension, mild, in the setting of HTN - rec'd half dose of metoprolol 12.5mg in PM and holding tomorrow - consider 12.5mg BID vs. alternative regimen. Close BP monitoring for PM hours Else see resident documentation as noted. Subjective Joey Mejia is 87-year-old male past medical history significant for persistent atrial fibrillation on Eliquis 2.5 mg twice daily, moderate aortic stenosis, recent hospitalization for upper GI bleed and acute diastolic heart failure at [facility] from 11/08/2022 - 11/18/2022 presented to the ER for a couple of days to 1 week of worsening shortness of breath, but no chest pain, and some pain in the left lower extremity he describes as cramping over the last few days. BNP on admission was 237 and workup thus far has been CXR positive for cardiomegaly and small b/t pleural effusions without pulmonary edema. Doppler negative for DVT. He was given furosemide 20 mg IV in the ED and today. Today he feels improved from admission. He reports no shortness of breath and mild discomfort in the left leg. He reports no orthopnea and no changes in his diet this weekend prior to admission. He has not previously been admitted with shortness of breath since a diagnosis of diastolic CHF in [place] 11/05. Review of Systems Review of Systems: See HPI Physical Exam Constitutional: well developed and well nourished; no acute distress Eyes: PERRL, conjunctivae normal, anicteric sclerae ENMT: external ear and nose normal, oropharynx normal Respiratory: normal respiratory effort, lungs clear to auscultation Cardiovascular: RRR, no murmur, no edema Gastrointestinal (Abdomen): normal bowel sounds, soft, nontender, no hepatosplenomegaly Musculoskeletal: no cyanosis or clubbing, extremities motor strength 5/5 Trace edema left ankle Psychiatric: A+Ox3, euthymic affect Results & Data Results & Data ([facility]) Vital Signs (Past 12 Hours) Vital Signs Temp Pulse Resp BP Pulse Ox O2 Del Method 01/04/23 07:43 37.6 C H 72 18 127/65 90 Room Air 01/04/23 05:01 36.6 C 97 H 19 118/67 94 Room Air 01/03/23 22:00 Room Air 01/03/23 22:54 36.5 C 96 H 18 124/68 94 Room Air Laboratory Results 01/04/23 07:33 01/04/23 07:33
--- NOTE | 2023-01-04 11:19 | Consultation ---
Date of Consultation January 04, 2023 Assessment & Plan (1) PAD (peripheral artery disease): This patient's leg discomfort is not associated with peripheral vascular occlusive disease. He does however have significant peripheral disease with no evidence of tissue loss of the lower extremity and no complaints of claudication. At this point no intervention is needed. He can be followed up as an outpatient for his peripheral disease. If he develops ulceration of the lower extremities or rest pain or significant claudication then intervention may be needed of the infrapopliteal arteries and the stenotic superficial femoral arteries of the lower extremities. Thank you very much for letting us participate in the care of this patient. History of Present Illness Reason for Consultation: Peripheral vascular occlusive disease Attending Physician: Arnav Rodriguez MD History of Present Illness This is an 87-year-old gentleman who was admitted for congestive heart failure both systolic and diastolic. He is also complaining of leg discomfort over the last few weeks. This was not associated with walking. Prior to this he was walking daily and not having any claudication. He denies any ulcerations of his lower extremities. He did have a lower extremity arterial and CT angiogram which showed multiple areas of stenosis in his lower extremity arteries and occlusions in the infrapopliteal arteries. Allergies Allergy/AdvReac Type Severity Reaction Status Date / Time No Known Allergies Allergy Unknown Verified 01/03/23 15:26 Home Medications Medication Instructions Recorded Confirmed Type latanoprost 0.005 % eye drops 1 drp OPB HS 02/06/20 01/03/23 History tamsulosin 0.4 mg capsule 0.4 mg PO DAILY #30 caps 06/01/22 01/03/23 Rx calcium 600 mg-D3 800 unit-mag11 1 tab PO DAILY 11/20/22 01/03/23 History 50 ym-nizs-rracqj-susanne-s.borat tablet (Caltrate 600-D Plus Minerals) cholecalciferol (vitamin D3) 50 50 mcg PO DAILY 11/20/22 01/03/23 History mcg (2,000 unit) tablet metoprolol succinate 25 mg 12.5 mg PO BID 11/20/22 01/03/23 History tablet,extended release 24 hr pantoprazole 40 mg tablet,delayed 40 mg PO DAILY 11/20/22 01/03/23 History release denosumab 60 mg/mL subcutaneous See Rx Instructions subcut .COMPLEX 12/02/22 01/03/23 History syringe (Prolia) apixaban 2.5 mg tablet (Eliquis) 2.5 mg PO BID #60 tabs 12/04/22 01/03/23 Rx Patient History Medical History Aortic stenosis Benign prostatic hyperplasia without urinary obstruction Elevated PSA GIB (gastrointestinal bleeding) No pertinent family history No pertinent past medical history PAF (paroxysmal atrial fibrillation) Surgical History History of dental surgery Family History Other Heart disease Social History Smoking Status: Current some day smoker Second Hand Exposure: No; Do You Dip or Chew Tobacco: No; Tobacco Cessation Education Requested by Patient: No Hx Alcohol Use: Yes Alcohol type: beer Hx Substance Use: No Preferred Language: Yoruba Communication Ability: Effective Mixer Tender Required: No Beliefs That Will Affect Care: None marital status: Current Living Situation: Spouse current occupational status: employed Other Information That Helps Us Care for You: No Feels Safe at Home: Yes Safety Concerns: Feels Safe At This Time Assistive Devices: Brace/Splint/Immobilizer, Cane, Glasses and Walker Assistive Devices Comment: top partial Review of Systems Review of Systems: All systems reviewed & are unremarkable except as noted in HPI & below Physical Exam Constitutional: WD/WN, vitals as above Cardiovascular: Rate/Rhythm: regular rate and regular rhythm Vessels: femoral pulses present; + posterior tibial pulses abnormal and + dorsalis pedis pulses abnormal Extremities: normal capillary refill and + edema Gastrointestinal (Abdomen): Inspection/Auscultation: abdomen normal to inspection; abdomen not distended Percussion/Palpation: abdomen nontender Musculoskeletal: no cyanosis or clubbing, extremities motor strength 5/5 Neurologic: CN's II-XI intact bilaterally and moves all extremities Psychiatric: Orientation: alert and oriented x 3 Results & Data ([facility]) Vital Signs (Past 12 Hours) Vital Signs Temp Pulse Resp BP Pulse Ox O2 Del Method 01/04/23 10:17 Room Air 01/04/23 07:43 37.6 C H 72 18 127/65 90 Room Air 01/04/23 05:01 36.6 C 97 H 19 118/67 94 Room Air
--- NOTE | 2023-01-04 11:24 | Electrocardiogram Report ---
Test Reason : Blood Pressure : / mmHG Vent. Rate : 093 BPM Atrial Rate : 192 BPM P-R Int : 000 ms QRS Dur : 088 ms QT Int : 372 ms P-R-T Axes : 000 040 039 degrees QTc Int : 462 ms Poor data quality, interpretation may be adversely affected Atrial fibrillation Abnormal ECG When compared with ECG of 03-JAN-2023 14:27, (unconfirmed) No significant change was found Confirmed by Erick Mayes ([id number]) on 01/04/2023 11:23:54 AM Referred By: REFERRED SELF Confirmed By:Carlos Mayes
--- NOTE | 2023-01-04 12:04 | XCELERA ---
[id number]
--- NOTE | 2023-01-04 14:16 | Cardiology Consultation ---
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 Chronic severe valvular disorder accounts for the diastolic heart failure even in the absence of known diastolic dysfunction. He is diuresed about 900 mL net negative. By physical exam he is near euvolemic. He had not been on any loop diuretic prior to admission as an outpatient. I would transition him to oral Lasix 40 mg p.o. daily. (2) Persistent atrial fibrillation: Heart rate was up but is now back down to normal. Treat infection. He should be taking metoprolol succinate ER which was provided as 12.5 mg p.o. twice daily because of hypotensive episodes when taking a full dose at 1 time. He should also take the Eliquis 2.5 mg p.o. twice daily. Caveat to that would be hold the Eliquis if he is to undergo any vascular procedures. (3) PAD (peripheral artery disease): It appears that most of his disease is chronic. No acute occlusions. No evidence of critical limb ischemia. Does not report claudication. Vascular surgery to evaluate. Probably continued Eliquis plus or minus aspirin/Plavix. He does have a history of GI bleed which is why he is not currently on aspirin. Further recommendations per vascular surgery. (4) Hypertension: Blood pressure is adequately controlled at this time. Continue metoprolol succinate. (5) Atherogenic dyslipidemia: This was not previously documented. Patient is high risk. High intensity statin therapy has been recommended. Plan Patient most likely appropriate for discharge by tomorrow. We will follow. History of Present Illness Reason for Consultation: CHF, aortic stenosis Attending Physician: Arnav Rodriguez MD History of Present Illness 87-year-old gentleman whom I see in the outpatient setting for aortic stenosis and atrial fibrillation. He is admitted at this time for acute on chronic decompensated diastolic heart failure and UTI. Patient states that he actually had significant left lower extremity pain and swelling with associated redness. He says it is mostly numb at this point. He also had been noting increased shortness of breath. BNP was found to be mildly elevated and his chest x-ray was suggestive of mild pulmonary edema and small bilateral pleural effusions. He has persistent atrial fibrillation and his heart rate has been elevated somewhat compared to baseline. Patient's had no change in his medical regimen. He was admitted and diuresed. At this time, he reports significantly improved shortness of breath. He denies any anginal type chest pain. Denies syncope, near syncope, orthopnea, PND, racing heartbeat, and states that his edema is improving. He has undergone abdominal aortography and bilateral lower extremity arterial runoff. 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 There was no significant aortopathy. The bilateral iliofemoral vessels were patent. There was atherosclerosis in the more distal vessels although the popliteals were patent. Left SFA was noted to have likely hemodynamically significant disease which is asymmetric compared to the right SFA. Appears to have occluded bilateral posterior tibialis arteries (likely chronic) the left peroneal has severe disease whereas the right does not. Bilateral dorsalis pedis were patent. DVT was excluded. An echocardiogram was performed. He has normal LV size and systolic function, normal EF. Diastolic dysfunction cannot be assessed secondary to persistent atrial fibrillation. Unfortunately, assessment of the aortic valve was inadequate with regard to evaluation for severity. At least mild eccentric mitral regurgitation was noted. Heavily calcified aortic and mitral valve. Allergies Allergy/AdvReac Type Severity Reaction Status Date / Time No Known Allergies Allergy Unknown Verified 01/03/23 15:26 Home Medications Medication Instructions Recorded Confirmed Type latanoprost 0.005 % eye drops 1 drp OPB HS 02/06/20 01/03/23 History tamsulosin 0.4 mg capsule 0.4 mg PO DAILY #30 caps 06/01/22 01/03/23 Rx calcium 600 mg-D3 800 unit-mag11 1 tab PO DAILY 11/20/22 01/03/23 History 50 ru-dmyu-dhlxhl-susanne-s.borat tablet (Caltrate 600-D Plus Minerals) cholecalciferol (vitamin D3) 50 50 mcg PO DAILY 11/20/22 01/03/23 History mcg (2,000 unit) tablet metoprolol succinate 25 mg 12.5 mg PO BID 11/20/22 01/03/23 History tablet,extended release 24 hr pantoprazole 40 mg tablet,delayed 40 mg PO DAILY 11/20/22 01/03/23 History release denosumab 60 mg/mL subcutaneous See Rx Instructions subcut .COMPLEX 12/02/22 01/03/23 History syringe (Prolia) apixaban 2.5 mg tablet (Eliquis) 2.5 mg PO BID #60 tabs 12/04/22 01/03/23 Rx Patient History Medical History Aortic stenosis Benign prostatic hyperplasia without urinary obstruction Elevated PSA GIB (gastrointestinal bleeding) No pertinent family history No pertinent past medical history PAF (paroxysmal atrial fibrillation) Surgical History History of dental surgery Family History Other Heart disease Social History Smoking Status: Current some day smoker Second Hand Exposure: No; Do You Dip or Chew Tobacco: No; Tobacco Cessation Education Requested by Patient: No Hx Alcohol Use: Yes Alcohol type: beer Hx Substance Use: No Preferred Language: Sammarinese Communication Ability: Effective Magnetic Locater Required: No Beliefs That Will Affect Care: None marital status: Current Living Situation: Spouse current occupational status: employed Other Information That Helps Us Care for You: No Feels Safe at Home: Yes Safety Concerns: Feels Safe At This Time Assistive Devices: Brace/Splint/Immobilizer, Cane, Glasses and Walker Assistive Devices Comment: top partial Review of Systems Review of Systems: Negative except as per HPI Physical Exam Constitutional: WD/WN, vitals as above Eyes: Extraocular muscles intact. Sclera are anicteric ENMT: Oral mucosa is pink, dry, and intact. Neck: No JVD. Respiratory: Clear to auscultation bilaterally. No wheezing, rhonchi, or rales. Fair air movement. Cardiovascular: Irregular rhythm with a normal rate. Grade 3 out of 6 systolic murmur. Trace to 1+ bilateral ankle edema. Musculoskeletal: no cyanosis or clubbing, extremities motor strength 5/5 Left lower extremity with erythema. Left foot cool and pale. No cyanosis. Neurologic: Cognition is intact. Speech is fluent. No focal deficits. Ambulates to the bedside commode. Psychiatric: A+Ox3, euthymic affect Results & Data ([facility]) Vital Signs (Past 12 Hours) Vital Signs Temp Pulse Pulse Resp BP Pulse Ox O2 Del Method 01/04/23 12:09 93 H 01/04/23 11:44 36.6 C 80 14 108/59 L 95 Room Air 01/04/23 10:17 Room Air 01/04/23 07:43 37.6 C H 72 18 127/65 90 Room Air 01/04/23 05:01 36.6 C 97 H 19 118/67 94 Room Air PG Care Time/CCT Total # of Minutes Spent Total Time Spent with Patient: Total time spent is greater than 50% in coordination of care (as documented) at patient's floor/unit and/or counseling patient: [place] [address] INT INP/OBS CARE 255MIN Patient Type New Diagnoses Acute diastolic (congestive) heart failure I50.31 Persistent atrial fibrillation I48.19 PAD (peripheral artery disease) I73.9 Hypertension I10 Atherogenic dyslipidemia E78.5
[2023-01-04] MEDS: LATANOPROST 0.005% OP SOLN 2.5 ML BTL OPB SCH (20:07)
[2023-01-04] MEDS ORDERED: METOPROLOL SUCC 25MG EXT REL TAB PO ONE ×2 (21:00)
--- NOTE | 2023-01-05 07:14 | Hospitalist Progress Note ---
Date of Service January 05, 2023 Assessment & Plan (1) Acute diastolic (congestive) heart failure: Plan: Joey Mejia is a 87 male with a PMH of persistent atrial fibrillation on Eliquis 2.5 mg twice daily, moderate aortic stenosis, recent hospitalization for upper GI bleed and acute diastolic heart failure at [facility] from 11/08/2022 - 11/18/2022 presented with progressive SOB and leg swelling. Differential diagnosis for the dyspnea includes diastolic CHF vs. Atrial fibrillation vs. Aortic stenosis. Acute diastolic congestive heart failure - Possible episode of acute diastolic heart failure, as patient was given this d iagnosis at recent admission at [facility] in [place] over the holidays. - Chest x-ray does show evidence of congestive failure and pulmonary edema with small bilateral pleural effusions. - Patient received Lasix 20 mg IV in the ER 01/03, - 01/05 BUN 34 and Cr 1.41 , continue Lasix 40 mg, diuresing 900 mL - Per cardiology's recommendations, okay to switch to Lasix 40mg PO daily - Echocardiogram: EF 55-60%, unable to evaluate for diastolic dysfunction given Afib - Admitted 01/03 at 59 kg, down to 52.8 kg 01/05 - Low-sodium diet while admitted. (2) Aortic stenosis: Plan: - Per Cardiology notes, previous Echo suggests moderate , but may be closer to severe given his small stature. - Patient with about 6 months of worsening SOB having to take breaks (for example when he was working on his yard this summer), though acutely worse over the last week or so. - While patient could have possible exacerbation of diastolic heart failure as described above, it is also possible that severe aortic stenosis could cause buildup of fluid and pulmonary edema. Lasix as described above. - Cardiology consulted and appreciate recommendations, given patient's age I am unsure if surgery for (if deemed to be severe enough for surgical correction) would even be an option, however would appreciate Cardiology's input. - ECHO 01/04 - Aortic valve heavily calcified, severity could not be determined (3) Persistent atrial fibrillation: Plan: - History of persistent A-fib per recent cardiology notes, on Eliquis 2.5 mg twice daily and metoprolol succinate 12.5 mg twice daily. - Heart rate on admission of 107, now down to 90s without intervention. Telemetry for cardiac monitoring. - Continue Eliquis, metoprolol succinate 25mg BID, decreased to 12.5 2/20 pm as pressures running 120s/60s, heart rate of 90-100s (4) Occlusion of left peroneal artery: Plan: - Patient with 1 week history of left lower extremity rubor from the knee down, as well as some cramping with walking that he has noticed over the last several days. - Ultrasound duplex/Doppler done, no signs of deep vein thrombosis however does have a mid/distal left peroneal artery occlusion. - CTA aorta with runoff showed atherosclerotic disease and SMA stenosis, and vascular surgery consulted, no evidence of peripheral vascular disease noted (5) Hypertension: Plan: - Metoprolol 25 mg BID, 12.5mg given 2/20 pm, will hold and reassess tomorrow Plan Code status: full Diet: Low-sodium DVT ppx: continue Eliquis Diso: med/telemetry Admission and Anticipated Discharge Date Admission Date: January 04, 2023 Subjective Joey Mejia is 87-year-old male past medical history significant for persistent atrial fibrillation on Eliquis 2.5 mg twice daily, moderate aortic stenosis, recent hospitalization for upper GI bleed and acute diastolic heart failure at [facility] from 11/08/2022 - 11/18/2022 presented to the ER for a couple of days to 1 week of worsening shortness of breath, but no chest pain, and some pain in the left lower extremity he describes as cramping over the last few days. BNP on admission was 237 and workup thus far has been CXR positive for cardiomegaly and small b/t pleural effusions without pulmonary edema. Doppler negative for DVT. He was given furosemide 20 mg IV in the ED. Feels the same as yesterday. He reports no shortness of breath at rest or on exertion and significant decrease in fluid in left leg. Review of Systems Review of Systems: See HPI Physical Exam Constitutional: well developed and well nourished; no acute distress Eyes: PERRL, conjunctivae normal, anicteric sclerae ENMT: external ear and nose normal, oropharynx normal Respiratory: normal respiratory effort, lungs clear to auscultation Cardiovascular: Rate/Rhythm: + irregularly irregular Heart Sounds: normal S1 and normal S2 trace left ankel edema Gastrointestinal (Abdomen): normal bowel sounds, soft, nontender, no hepatosplenomegaly Musculoskeletal: no cyanosis or clubbing, extremities motor strength 5/5 Skin: left leg erythema Psychiatric: A+Ox3, euthymic affect Results & Data Results & Data ([facility]) Vital Signs (Past 12 Hours) Vital Signs Temp Pulse Resp BP Pulse Ox O2 Del Method 01/05/23 04:38 36.6 C 86 18 104/74 91 Room Air 01/04/23 20:00 36.7 C 82 19 122/77 97 Room Air 01/04/23 19:57 Room Air 01/04/23 19:52 36.4 C L 82 20 101/62 96 Room Air Laboratory Results 01/04/23 07:33 01/05/23 06:59
[2023-01-05] MEDS: TAMSULOSIN HCL 0.4 MG CAP PO SCH (07:25)
[2023-01-05] MEDS: APIXABAN 2.5 MG TAB PO SCH (07:26)
[2023-01-05] MEDS: PANTOprazole 40 MG TAB PO SCH (07:27)
[2023-01-05 07:42] LABS: Albumin Globulin Ratio 1.1 (0.9-2); Albumin Level 3.8 gm/dl (3.4-5.0); BUN Creatinine Ratio 24.1 (10-20); Bilirubin,Total 0.8 mg/dl (0.2-1.0); Calcium 9.2 mg/dl (8.5-10.1); Chol HDL Ratio 2.6 (0-5); Creatinine Clr Calc Pharmacy 28.1 ml/min; Est GFR (African American) 51.9 ml/min; Est GFR (Non-African American) 44.8 ml/min; Globulin 3.5 gm/dl (2.5-4.0); Potassium 4.2 mmol/L (3.5-5.1); Total Protein 7.3 gm/dl (6.0-8.3)
[2023-01-05] MEDS ORDERED: METOPROLOL SUCC 25MG EXT REL TAB PO SCH (09:00)
[2023-01-05] MEDS ORDERED: FUROSEMIDE 40 MG TAB PO SCH (09:00)
[2023-01-05] MEDS ORDERED: ATORVASTATIN 40 MG TAB PO SCH (09:00)
--- NOTE | 2023-01-05 10:49 | Electrocardiogram Report ---
Test Reason : Blood Pressure : / mmHG Vent. Rate : 082 BPM Atrial Rate : 375 BPM P-R Int : 000 ms QRS Dur : 092 ms QT Int : 388 ms P-R-T Axes : 000 038 034 degrees QTc Int : 453 ms Atrial fibrillation Nonspecific ST abnormality Abnormal ECG When compared with ECG of 04-JAN-2023 04:39, No significant change was found Confirmed by Erick Mayes ([id number]) on 01/05/2023 10:48:56 AM Referred By: REFERRED SELF Confirmed By:Carlos Mayes
--- NOTE | 2023-01-05 15:29 | Discharge Summary ---
Date of Service January 05, 2023 Admission HPI Per Admitting Provider 87-year-old male past medical history significant for persistent atrial fibrillation on Eliquis 2.5 mg twice daily, moderate aortic stenosis, recent hospitalization for upper GI bleed and acute diastolic heart failure at [facility] from 11/08/2022 - 11/18/2022 presented to the ER for a couple of days to 1 week of worsening shortness of breath, but no chest pain, abdominal pain. He also notes some pain in the lower extremities he describes as cramping over the last few days. In the ER patient vital signs were 36.4 C, heart rate of 107, blood pressure 123/73, saturating to 96% on room air. Patient was noted to have a WBC count of 6.26, hemoglobin 10.3, creatinine 1.20 with a baseline around 1.1, BNP of 237 without a baseline to compare, normal TSH, normal UA, COVID negative. Due to left lower extremity redness/swelling compared to the right lower extremity, Doppler was done without evidence of DVT. Patient also had an arterial duplex of the same leg that showed mid/distal peroneal artery reduced/absent flow, otherwise no sonographic evidence of focal high-grade stenosis. Chest x-ray showed cardiomegaly with evidence of congestive failure and pulmonary edema, with small bilateral pleural effusions. Patient was given furosemide 20 mg IV x1 and blood cultures were collected. Hospitalist service was consulted for pulmonary edema/suspicion of acute diastolic CHF exacerbation. Admission Exam Per Admitting Provider Constitutional: well developed and well nourished; no acute distress Eyes: PERRL, conjunctivae normal, anicteric sclerae ENMT: external ear and nose normal, oropharynx normal Neck: trachea midline, no thyromegaly Respiratory: normal respiratory effort, lungs clear to auscultation Cardiovascular: RRR, no murmur, no edema Gastrointestinal (Abdomen): normal bowel sounds, soft, nontender, no hepatosplenomegaly Musculoskeletal: no cyanosis or clubbing, extremities motor strength 5/5 Skin: no rashes, warm and dry Neurologic: AAOx3, normal speech. PERRLA, EOMI, no nystagmus. Normal visual acuity bilaterally. Bilateral UE, LE, and face without sensory or motor deficits. No pronator drift. No tremor. No ataxia. Psychiatric: A+Ox3, euthymic affect Principal Diagnosis Fluid overload Discharge Exam Constitutional WD/WN, vitals as above Eyes PERRL, conjunctivae normal, anicteric sclerae Respiratory normal respiratory effort, lungs clear to auscultation Cardiovascular Rate/Rhythm: + irregularly irregular Heart Sounds: normal S1 and normal S2 no edema Gastrointestinal (Abdomen) normal bowel sounds, soft, nontender, no hepatosplenomegaly Skin Mild erythema left lower leg without rash, abrasions, or tenderness Psychiatric A+Ox3, euthymic affect Discharge Data Allergies Allergy/AdvReac Type Severity Reaction Status Date / Time No Known Allergies Allergy Unknown Verified 01/03/23 15:26 Consultations 01/03/23 18:09 ED Decision to Admit Stat 01/03/23 19:03 Consult Vascular Surgery Routine 01/04/23 07:00 Consult Cardiology Routine Ordered Studies 01/03/23 14:24 US arterial duplex LE LT Stat US venous doppler LE LT Stat 01/03/23 19:18 CTA abd aorta runof w con [CT ang AA runof w inc wo ifdon] Routine Hospital Course (1) Acute diastolic (congestive) heart failure: (2) Aortic stenosis: (3) Persistent atrial fibrillation: (4) Occlusion of left peroneal artery: (5) Hypertension: Plan Joey Mejia is a 87 male with a PMH of persistent atrial fibrillation on Eliquis 2.5 mg twice daily, moderate aortic stenosis, recent hospitalization for upper GI bleed and acute diastolic heart failure at [facility] from 11/08/2022 - 11/18/2022 presented with progressive SOB and leg swelling. Differential diagnosis for the dyspnea includes diastolic CHF vs. Atrial fibrillation vs. Aortic stenosis. Acute diastolic congestive heart failure - Possible episode of acute diastolic heart failure, as patient was given this diagnosis at recent admission at [facility] in [place] over the holidays. - Chest x-ray does show evidence of congestive failure and pulmonary edema with small bilateral pleural effusions. - Patient received Lasix 20 mg IV 01/03 +01/04, transitioned - Transitioned to PO Lasix 40mg on 01/05, cummulitive I & O's I: 1495 ml O:2975 ml Balance: -1480 ml - Echocardiogram: EF 55-60%, unable to evaluate for diastolic dysfunction given Afib - Admitted at 59 kg, down to 52.8 kg - Admitted Cr 1.2, Cr 1.41 on 01/05 - Recommend BMP in 1 week to monitor renal function, outpatient PCP and cardiology appointment Aortic stenosis: Plan: - Per Cardiology notes, previous Echo suggests moderate , but may be closer to severe given his small stature. - Patient with about 6 months of worsening SOB having to take breaks (for example when he was working on his yard this summer), though acutely worse over the last week or so. - While patient could have possible exacerbation of diastolic heart failure as described above, it is also possible that severe aortic stenosis could cause buildup of fluid and pulmonary edema. Lasix as described above. - Cardiology consulted and appreciate recommendations, given patient's age I am unsure if surgery for (if deemed to be severe enough for surgical correction) would even be an option, however would appreciate Cardiology's input. - ECHO 01/04 - Aortic valve heavily calcified, severity could not be determined Persistent atrial fibrillation: Plan: - History of persistent A-fib per recent cardiology notes, on Eliquis 2.5 mg twice daily and metoprolol succinate 12.5 mg twice daily. - Heart rate on admission of 107, now down to 90s without intervention. Telemetry for cardiac monitoring. - Metoprol increased to 25mg BID 01/03 and 01/04 as pressures running 120s/60s, heart rate of 90-100s, reduced back to 12.5mg - Recommend continue Eliquis 2.5mg BID and Metoprolol 12.5mg BID Occlusion of left peroneal artery: Plan: - Patient with 1 week history of left lower extremity rubor from the knee down, as well as some cramping with walking that he has noticed over the last several days. - Ultrasound duplex/Doppler done, no signs of deep vein thrombosis however does have a mid/distal left peroneal artery occlusion. - CTA aorta with runoff showed atherosclerotic disease and SMA stenosis, and vascular surgery consulted and his symptoms do not appear to be associated with PAD - Started on atorvastatin 40 mg daily per cardiology recommendations - Vascular intervention recommended only if patient develops rest pain, claudication, or ulceration of the lower extremity Hypertension: Plan: - Pressures running 100s/50s on 25 mg metoprolol BID, dose reduced - Metoprolol 12.5 mg BID per cardiology recommendation Total Time Total Time Spent Total Time Spent (In Minutes): See attending attestation Discharge Plan Discharge Items Patient Disposition: Home - Self-Care Reason For Visit: SOB, /DISTOLIC CHF, LLE PERONEAL OCCL. Discharge Diagnosis: Acute on chronic diastolic heart failure Activity: Per Instructions section Non-emergency contact: Primary Care Provider and Associate Sales Representative Call non-emergency contact if: you have any medication questions and your symptoms worsen Follow-up/Referrals: Fransisco Moncada MD [Primary Care Provider] - Diet: Regular Addtl Attending Provider Instructions: You were admitted with hypervolemia, or extra fluid that was likely caused by a combination of factors related to your heart. We started you on a dieretic m ediation to help you get rid of some of the fluid. This medication is called Laxis. We would like you to continue to take this medication once a day. You should have lab work checked in 1 week by either your manager business process or your primary care doctor to make sure that your kidneys are tolerating this medication. You should check you weight a few times a week. If it increases or decreases by more than a few pounds, you should call your manager business process or primary care doctor as your dose of Lasix may need to be adjusted. Medication Changes We would started you on Atorvastatin for your cholesterol. This was sent to your pharmacy. You should take your metoprolol 12.5mg BID. A discharge summary will be sent to your primary care physician to ensure continuity of care. Please bring this discharge summary with you to your next office appointment so that your provider can review it at that time. Follow-up appointments: Make a follow-up appointment with your PCP within the next week. It is very important that you follow up with them shortly after discharge from the hospital. Please go to cardiology appointment on 01/12. Medications: Your medication list has been reviewed and reconciled upon discharge to ensure accuracy and continuity of care. An updated list of all your medications is included with your hospital discharge paperwork. Please review this list closely, and make note of any changes. CONTACT YOUR PRIMARY CARE PROVIDER if you experience any of the following: You have increased swelling or weight gain. Difficulty following your treatment plan, or difficulty taking medications CALL 911 OR GO TO THE EMERGENCY DEPARTMENT if you experience any of the following: Sudden, severe abdominal pain or nausea/vomiting Severe chest pain, or chest pain that radiates (moves) to your jaw or arm Sudden, severe shortness of breath or difficulty breathing Thank you for allowing us to participate in your care. Pending Studies at Discharge: No Stand-Alone Forms: My [facility] [place], Smoking Cessation Medications and DC Order Prescriptions: New furosemide 40 mg Tablet 40 mg PO QAM 30 Days Qty: 30 0RF metoprolol succinate 25 mg Tablet Extended Release 24 Hr 12.5 mg PO BID 30 Days Qty: 60 0RF atorvastatin 40 mg Tablet 40 mg PO QAM Qty: 30 0RF Continued tamsulosin 0.4 mg capsule 0.4 mg PO DAILY Qty: 30 11RF latanoprost 0.005 % drops 1 drp OPB HS cholecalciferol (vitamin D3) 50 mcg (2,000 unit) tablet 50 mcg PO DAILY Caltrate 600-D Plus Minerals 600 mg calcium- 800 unit-50 mg tablet 1 tab PO DAILY pantoprazole 40 mg tablet,delayed release (DR/EC) 40 mg PO DAILY Prolia 60 mg/mL syringe See Rx Instructions subcut .COMPLEX Rx Instructions: subcutaneously q 6 months; Last rec. before winter due soon Eliquis 2.5 mg tablet 2.5 mg PO BID Qty: 60 11RF Discontinued metoprolol succinate 25 mg tablet extended release 24 hr 12.5 mg PO BID Discharge Orders: Discharge Order- CHF (Routine); Ordered 01/05/23 Ordered By: Madyson Howard Admission Data Admit Date/Time: 01/04/23 15:45 Attending Provider: Arnav Rodriguez Admit Provider: Gisel Hughes Primary Care Provider: Fransisco Moncada Other Providers: Rush Connell ; Elmer Montgomery ; Gisel Hughes Other Interventions: Discharge Summary Assessment (RN) Last Done: 01/05/23 16:25 Supervising Physician Co-Signing Physician Notes Attending attestation Pt seen and examined in concert with Dr. Howard, . Dr. Gautam. In agreement with the documented findings as noted in the resident documentation with any exceptions or additions as noted here. Significant improvement in shortness of breath and leg swelling subjectively. On examination, S1/S2 nl RRR no MCG. CTAB. Abd NT/ND BS+ve. Resolution of bilateral lower extremity edema without appreciable TTP, induration or erythema of the LE. HFpEF with acute exacerbation in the setting of aortic stenosis - cardio consult - transition to PO furosemide 40mg daily on discharge with recommendation for repeat BMP in 1 wk to assess renal function. Counseling re: sodium intake (including in candy, which he has at bedside). Follow up encourage w/ cardiology for ongoing management. Atrial fibrillation - metoprolol 12.5mg BID 2/2 low BP and stable HR. Continue apixaban. Else see resident documentation as noted. Total attending physician time spent with this patient's care on the day of discharge: 35 minutes.
== END 2023-01-05 17:53 | disposition home or self-care (01) | DRG 291 ==
LOC: 2S 14:04 → ED 14:04 → SUATTDRO 19:03 → 2S 21:14

== ENCOUNTER 2023-03-18 09:59 | Inpatient (IN) ==
[2023-03-18 11:32] LABS: Alanine Aminotransferase 28 U/L (7-52); Albumin Globulin Ratio 1.2 (0.9-2); Alkaline Phosphatase 69 U/L (34-104); Anion Gap 9 (3-11); Aspartate Aminotransferase 38 U/L (13-39); BUN Creatinine Ratio 27.3 (10-20); Bilirubin,Total 0.6 mg/dl (0.2-1.0); Blood Urea Nitrogen 45 mg/dl (6-23); Calcium 9.2 mg/dl (8.6-10.3); Carbon Dioxide 26 mmol/L (21-32); Chloride 102 mmol/L (98-107); Est GFR (African American) 42.9 ml/min; Globulin 3.4 gm/dl (2.5-4.0); Glucose 97 mg/dl (70-99(Fasting)); Sodium 137 mmol/L (136-145); Total Protein 7.4 gm/dl (6.0-8.3)
[2023-03-18 11:38] LABS: Troponin I High Sensitivity 14.8 pg/ml (0-20)
[2023-03-18 12:08] LABS: Hemoglobin 6.3 g/dl (14.0-18.0); Mean Corpuscular Hemoglobin 24.3 pg (25.0-34.0); Mean Corpuscular Hgb Conc 31.5 g/dL (32.0-36.0); Mean Corpuscular Volume 77.2 fL (80.0-100.0); Mean Platelet Volume 9.5 fL (9.4-12.4); Platelet Count 248 K/uL (130-400); RDW Coefficient of Variation 16.1 % (11.5-14.5); RDW Standard Deviation 45.4 fL (36.4-46.3); Red Blood Count 2.59 M/uL (4.70-6.10); White Blood Count 5.27 K/ul (4.8-10.8)
[2023-03-18 12:11] LABS: Anisocytosis Present; Basophils # (auto) 0.01 K/uL (0-0.2); Basophils % (auto) 0.2 %; Eosinophils # (auto) 0.05 K/uL (0-0.50); Eosinophils % (auto) 0.9 %; Immature Granulocytes # (auto) 0.02 K/uL (0.01-0.20); Immature Granulocytes % (auto) 0.4 %; Lymphocytes # (auto) 0.57 K/uL (1.2-3.4); Lymphocytes % (auto) 10.8 %; Monocytes # (auto) 0.55 K/uL (0.11-0.59); Monocytes % (auto) 10.4 %; Neutrophils # (auto) 4.07 K/uL (1.40-6.50); Neutrophils % (auto) 77.3 %; Ovalocytes 1+; Polychromasia 1+; Tear Drop Cells 1+
--- NOTE | 2023-03-18 12:31 | XRay Report ---
TWO VIEW CHEST CLINICAL HISTORY: Atypical chest pain. FINDINGS: PA and lateral chest radiographs are compared to study dated 01/03/2023. The PA view is degr aded by patient rotation and apical lordotic positioning. The heart is enlarged indenting atheroscler otic calcification of the thoracic aorta. The pulmonary vasculature is noncongested. Emphysematous ch vinay is suspected. Chronic interstitial thickening is similar to previous. There is a small right ple ural effusion with right basilar atelectasis. There is no airspace consolidation typical for pneumoni a. No pneumothorax is seen. The skeletal structures are osteopenic. There are chronic/healed left-gaviota ed rib fractures. Fusion hardware is noted the lumbar spine. An indeterminant metallic structure proj ects over the left upper quadrant. IMPRESSION: 1. Cardiomegaly and suspect emphysema. There is no radiographic evidence of congestive failure. 2. Small right pleural effusion. This was also seen on 01/03/2023. 3. An indeterminant metallic structure projects over the left upper quadrant of the abdomen. Correlat e clinically. ACT 112: Negative or not required by law. Electronically signed by: Zhou Gregg M.D. 03/18/2023 12:30 PM
[2023-03-18 12:32] LABS: Partial Thromboplastin Ratio 0.8; Partial Thromboplastin Time 23.8 Seconds (21.0-31.0); Prothrombin Time 11.4 Seconds (9.0-12.0)
[2023-03-18] MEDS ORDERED: SODIUM CHLORIDE 0.9% 250 ML IV PRN (13:11)
[2023-03-18] MEDS ORDERED: PANTOprazole 40 MG in SYRINGE 0 ML IV ONE (13:39)
--- NOTE | 2023-03-18 13:45 | Emergency Department Note ---
Impression & Plan GRAY (dyspnea on exertion), Anemia ED Provider Note ED Provider Note NAME: MACK CADENA AGE:87 SEX: Male : 1935 ARRIVES VIA: Private vehicle INFORMANT: Patient ED PROVIDER(s): Sunni Jaimes DO CHIEF COMPLAINT: Shortness of breath with exertion HPI: This is an 87-year-old male was sent to the emergency room from the cardiology office today due to concern for increased dyspnea with exertion. Patient with extensive cardiac history. Patient has had prior congestive heart failure, does have atrial fibrillation and is anticoagulated. Patient denies any recent fevers, chills, URI symptoms, or worsening cough. He states his breathing is worse with any movement or exertion but improves with rest. He d enies any coming chest pain or pressure. Family at bedside states he has been having issues since he was hospitalized at [facility] outside of [place] around [place]. She states at that time he was found to have a GI bleed. He states he is still taking the stomach medication daily. He does not know what his last blood counts were. He is still taking anticoagulation. Patient denies noting any recent black or bloody stools. Denies hemoptysis or hematuria. He denies any abdominal pain. Patient states he does have leg swelling and takes a diuretic daily. He states the diuretic does help with his leg swelling. states yesterday he swallowed the capsule for a capsule endoscopy due to his prior history of GI bleed. PAST MEDICAL HISTORY:See Below PAST SURGICAL HISTORY:See Below FAMILY HISTORY:See Below SOCIAL HISTORY:See Below HOME MEDICATIONS:See Below ALLERGIES:See Below VITALS:See Below PHYSICAL EXAMINATION: GENERAL: alert, well appearing, well nourished, no distress, non-toxic EYE EXAM: normal conjunctiva, PERRL and EOM's grossly intact OROPHARYNX: no exudate, no erythema, lips, buccal mucosa, and tongue normal and mucous membranes are moist NECK: supple, no nuchal rigidity, no adenopathy, non-tender LUNGS: Clear to auscultation. Normal chest wall mechanics, no w/r/r HEART: no murmurs, S1 normal and S2 normal ABDOMEN: abdomen soft, non-tender, normo-active bowel sounds, no masses, no rebound or guarding. BACK: Back is symmetrical on inspection and there is no deformity, no midline tenderness, no CVA tenderness. SKIN: no rashes, petechiae, orbruising UPPER EXTREMITIES: upper extremities are grossly normal. FROM, nml pulses b/l. LOWER EXTREMITIES: 2+ b/l L>R pitting edema. FROM, nml pulses b/l. NEURO EXAM: Normal sensorium, cranial nerves II-XII grossly intact, normal speech, no facial droop,nogross weakness of arms, no gross weakness of legs. Gross sensation intact. No ataxia. Vital Signs: reviewed and remarkable Differential Diagnosis: CHF, ACS, dysrhythmia, electrolyte abnormality, JOSEPH, anemia, pneumonia, URI, as well as others were considered MEDICAL DECISION MAKING: This is an 87-year-old male presents emergency department due to concern for dyspnea with exertion worsening over the last 2 weeks. Patient was seen by cardiology and referred here for additional evaluation given his extensive cardi ac history as well as concern for other pathology. Labs drawn and sent, IV established, EKG and chest x-ray performed and interpreted by me at bedside. Patient found to have profound anemia despite not noting any recent blood loss including no melena or hematochezia. Patient is still anticoagulated. We did discuss transfusion at bedside as well as need for additional imaging. Patient states he has been compliant with his pantoprazole as with his prior episode back in October it was thought he had had GI bleed secondary to peptic ulcer disease. Blood consent signed at bedside and 2 units were ordered. IV Protonix was added additionally as a precaution. While patient does have significant cardiac history I suspect more acutely that the new anemia especially in comparison to prior H&H in EMR and is likely contributing to his symptoms. Case discussed with hospitalist for additional evaluation and management. Consultation(s): 1348: Discussed with Dr. Hinton. ER Treatment Provided: See below Diagnostics Interpreted By Me: -ECG: Atrial flutter at 110, normal QRS and QTc, normal axis, nonspecific ST/T w ave changes -Cardiac Monitoring: An order was placed for continuous cardiac monitoring. The monitor shows a rate of 104 with a.fib rhythm. -Laboratory studies: As stated above and show below. -Imaging studies: X-ray Chest: A single view study of the chest was reviewed and was negative for cardiomegaly, focal infiltrate, effusion, pulmonary edema, or wide mediastinum. Triage Nursing Note Reviewed Prior/Outside Records Reviewed - prior cardiology visit Critical Care: Critical care of 41 min performed to assess and manage high likelihood of life- threatening anemia, involving labs and imaging performed with assessment to evaluate dyspnea on exertion diagnosis with frequent reassessment. This time includes bedside time, treatment discussions with patient/family/consultants, documentation time and excludes procedure time. Past Med/Surg History Medical History Aortic stenosis Benign prostatic hyperplasia without urinary obstruction Bilateral edema of lower extremity Elevated PSA GIB (gastrointestinal bleeding) No pertinent family history No pertinent past medical history PAF (paroxysmal atrial fibrillation) SOB (shortness of breath) Surgical History History of dental surgery Family History Other Heart disease Social History Smoking Status: Current every day smoker Second Hand Exposure: No; Do You Dip or Chew Tobacco: No; Hx Alcohol Use: Yes Alcohol type: beer Hx Substance Use: No Preferred Language: Maldivian Communication Ability: Effective 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 Beliefs That Will Affect Care: None marital status: Current Living Situation: Spouse current occupational status: employed Other Information That Helps Us Care for You: No Feels Safe at Home: Yes Safety Concerns: Feels Safe At This Time Assistive Devices: Walker Allergies Allergies Allergy/AdvReac Type Severity Reaction Status Date / Time No Known Allergies Allergy Unknown Verified 03/18/23 09:08 Home Meds Home Medications Medication Instructions Recorded Confirmed latanoprost 0.005 % eye drops 1 drp OPB HS 02/06/20 03/18/23 calcium 600 mg-D3 800 unit-mag11 1 tab PO DAILY 11/20/22 03/18/23 50 kc-qqaj-pvruwi-susanne-s.borat tablet (Caltrate 600-D Plus Minerals) cholecalciferol (vitamin D3) 50 50 mcg PO DAILY 11/20/22 03/18/23 mcg (2,000 unit) tablet pantoprazole 40 mg tablet,delayed 40 mg PO DAILY 11/20/22 03/18/23 release denosumab 60 mg/mL subcutaneous See Rx Instructions subcut .COMPLEX 12/02/22 03/18/23 syringe (Prolia) diphenhydramine 25 1 - 2 tab PO HS 03/18/23 03/18/23 mg-acetaminophen 500 mg tablet (Tylenol PM Extra Strength) metoprolol succinate 25 mg 25 mg PO .ON HOLD 03/18/23 03/18/23 tablet,extended release 24 hr multivitamin 1 tab PO DAILY 03/18/23 03/18/23 tamsulosin 0.4 mg capsule 0.4 mg PO QPM 03/18/23 03/18/23 Previous Rx's Medication Instructions Recorded apixaban 2.5 mg tablet (Eliquis) 2.5 mg PO BID #180 tabs 02/23/23 atorvastatin 40 mg tablet 20 mg PO QAM #45 tabs 02/23/23 furosemide 40 mg tablet 40 mg PO QAM #90 tabs 03/02/23 Results & Data (ED) Vital Signs Vital Signs - 24 hr 03/18/23 10:08 03/18/23 12:51 03/18/23 12:51 Temperature Source Oral Pulse Rate 112 H 113 H Pulse Rate [Apical] 113 H Pulse Rhythm [Apical] Regular Pulse Strength [Apical] Normal Respiratory Rate 16 15 15 Respiratory Effort / Characteristics Non-Labored Spontaneous Respiratory Depth Normal Respiratory Pattern Regular Blood Pressure 101/60 Blood Pressure [Right Arm] 130/80 Blood Pressure Mean 73 Blood Pressure Mean [Right Arm] 96 Blood Pressure Position Sitting Blood Pressure Position [Right Arm] Semi-fowlers Pulse Oximetry 99 98 99 Oxygen Delivery Method Room Air Room Air Room Air Sepsis Recent Fever Within 48 Hours No Sepsis New/Unexplained Change in Mental Status No Sepsis Action Taken by Nursing No Action Required 03/18/23 12:53 03/18/23 13:02 Temperature Source Pulse Rate 104 H Pulse Rate [Apical] Pulse Rhythm [Apical] Pulse Strength [Apical] Respiratory Rate Respiratory Effort / Characteristics Respiratory Depth Respiratory Pattern Blood Pressure Blood Pressure [Right Arm] Blood Pressure Mean Blood Pressure Mean [Right Arm] Blood Pressure Position Blood Pressure Position [Right Arm] Pulse Oximetry 98 Oxygen Delivery Method Room Air Sepsis Recent Fever Within 48 Hours Sepsis New/Unexplained Change in Mental Status Sepsis Action Taken by Nursing Laboratory Data 03/18/23 10:55 03/18/23 10:55 Lab Results 03/18/23 03/18/23 03/18/23 Range/Units 10:55 10:55 10:55 WBC 5.27 (4.8-10.8) K/ul RBC 2.59 L (4.70-6.10) M/uL Hgb 6.3 L* (14.0-18.0) g/dl Hct 20.0 L* (42.0-52.0) % MCV 77.2 L (80.0-100.0) fL MCH 24.3 L (25.0-34.0) pg MCHC 31.5 L (32.0-36.0) g/dL RDW Std Deviation 45.4 (36.4-46.3) fL RDW Coeff of Don 16.1 H (11.5-14.5) % Plt Count 248 (130-400) K/uL MPV 9.5 (9.4-12.4) fL Immature Gran % (Auto) 0.4 % Neut % (Auto) 77.3 % Lymph % (Auto) 10.8 % [place] % (Auto) 10.4 % Eos % (Auto) 0.9 % Baso % (Auto) 0.2 % Neut # (Auto) 4.07 (1.40-6.50) K/uL Lymph # (Auto) 0.57 L (1.2-3.4) K/uL [place] # (Auto) 0.55 (0.11-0.59) K/uL Eos # (Auto) 0.05 (0-0.50) K/uL Baso # (Auto) 0.01 (0-0.2) K/uL Immature Gran # (Auto) 0.02 (0.01-0.20) K/uL Polychromasia 1+ Anisocytosis Present Tear Drop Cells 1+ Ovalocytes 1+ PT 11.4 (9.0-12.0) Seconds INR 1.0 (0.9-1.1) APTT 23.8 (21.0-31.0) Seconds PTT Ratio 0.8 Sodium 137 (136-145) mmol/L Potassium 4.0 (3.5-5.1) mmol/L Chloride 102 (98-107) mmol/L Carbon Dioxide 26 (21-32) mmol/L Anion Gap 9 (3-11) BUN 45 H (6-23) mg/dl Creatinine 1.65 H (0.6-1.4) mg/dl Est Cr Clr Drug Dosing Not Reportable Est GFR ( Amer) 42.9 ml/min Est GFR (Non-Af Amer) 37.0 ml/min BUN/Creatinine Ratio 27.3 H (10-20) Glucose 97 (70-99(Fasting)) mg/dl Calcium 9.2 (8.6-10.3) mg/dl Total Bilirubin 0.6 (0.2-1.0) mg/dl AST 38 (13-39) U/L ALT 28 (7-52) U/L Alkaline Phosphatase 69 (34-104) U/L Troponin I High Sens 14.8 (0-20) pg/ml Total Protein 7.4 (6.0-8.3) gm/dl Albumin 4.0 (3.4-5.0) gm/dl Globulin 3.4 (2.5-4.0) gm/dl Albumin/Globulin Ratio 1.2 (0.9-2) SARS-CoV-2 (PCR) (Negative) Influenza Type A (PCR) (Neg) Influenza Type B (PCR) (Neg) RSV (RT-PCR) (Neg) 03/18/23 Range/Units 13:58 WBC (4.8-10.8) K/ul RBC (4.70-6.10) M/uL Hgb (14.0-18.0) g/dl Hct (42.0-52.0) % MCV (80.0-100.0) fL MCH (25.0-34.0) pg MCHC (32.0-36.0) g/dL RDW Std Deviation (36.4-46.3) fL RDW Coeff of Don (11.5-14.5) % Plt Count (130-400) K/uL MPV (9.4-12.4) fL Immature Gran % (Auto) % Neut % (Auto) % Lymph % (Auto) % [place] % (Auto) % Eos % (Auto) % Baso % (Auto) % Neut # (Auto) (1.40-6.50) K/uL Lymph # (Auto) (1.2-3.4) K/uL [place] # (Auto) (0.11-0.59) K/uL Eos # (Auto) (0-0.50) K/uL Baso # (Auto) (0-0.2) K/uL Immature Gran # (Auto) (0.01-0.20) K/uL Polychromasia Anisocytosis Tear Drop Cells Ovalocytes PT (9.0-12.0) Seconds INR (0.9-1.1) APTT (21.0-31.0) Seconds PTT Ratio Sodium (136-145) mmol/L Potassium (3.5-5.1) mmol/L Chloride (98-107) mmol/L Carbon Dioxide (21-32) mmol/L Anion Gap (3-11) BUN (6-23) mg/dl Creatinine (0.6-1.4) mg/dl Est Cr Clr Drug Dosing Est GFR ( Amer) ml/min Est GFR (Non-Af Amer) ml/min BUN/Creatinine Ratio (10-20) Glucose (70-99(Fasting)) mg/dl Calcium (8.6-10.3) mg/dl Total Bilirubin (0.2-1.0) mg/dl AST (13-39) U/L ALT (7-52) U/L Alkaline Phosphatase (34-104) U/L Troponin I High Sens (0-20) pg/ml Total Protein (6.0-8.3) gm/dl Albumin (3.4-5.0) gm/dl Globulin (2.5-4.0) gm/dl Albumin/Globulin Ratio (0.9-2) SARS-CoV-2 (PCR) NEGATIVE (Negative) Influenza Type A (PCR) Negative (Neg) Influenza Type B (PCR) Negative (Neg) RSV (RT-PCR) Negative (Neg) Administered Medications Atorvastatin Calcium (Atorvastatin 20 Mg Tab) 20 mg PO QAM YUKI Stop: 04/18/23 08:59 Last Admin: 03/19/23 08:54 Dose: 20 mg Documented By: CA Calcium/Vitamin D (Calcium 600mg + Vit D 400 Iu Tab) 1 tab PO DAILY YUKI Stop: 04/18/23 08:59 Last Admin: 03/19/23 08:54 Dose: 1 tab Documented By: JOHN Pantoprazole Sodium 40 mg/ (Syringe) 10 mls @ 5 mls/min IV BID YUKI Stop: 04/17/23 20:59 Last Admin: 03/19/23 08:53 Dose: 5 mls/min Documented By: Admin: 03/18/23 21:19 Dose: 5 mls/min Documented By: TARIK Sodium Chloride (Nss 1000ml) 1,000 mls @ 80 mls/hr IV .[id number] YUKI Stop: 04/18/23 08:29 Last Admin: 03/19/23 08:59 Dose: 80 mls/hr Documented By: JOHN Latanoprost (Latanoprost 0.005% Op Soln 2.5 Ml Btl) 1 drops OPB HS YUKI Stop: 04/17/23 20:59 Last Admin: 03/18/23 21:16 Dose: 1 drops Documented By: TARIK Melatonin (Melatonin 3 Mg Tab) 3 mg PO HS PRN PRN Reason: Sleep Stop: 04/17/23 22:00 Last Admin: 03/18/23 22:21 Dose: 3 mg Documented By: TARIK Tamsulosin HCl (Tamsulosin Hcl 0.4 Mg Cap) 0.4 mg PO QPM YUKI Stop: 04/17/23 20:59 Last Admin: 03/18/23 21:17 Dose: 0.4 mg Documented By: TARIK Vitamin D (Cholecalciferol 1,000 Units 25 Mcg Tab) 2,000 units PO DAILY YUKI Stop: 04/18/23 08:59 Last Admin: 03/19/23 08:54 Dose: 2,000 units Documented By: JOHN Discontinued Medications Pantoprazole Sodium 40 mg/ (Syringe) 10 mls @ 5 mls/min IV NOW ONE Stop: 03/18/23 13:40 Last Admin: 03/18/23 14:02 Dose: 5 mls/min Documented By: Imaging Data Radiologist's Impression: Chest X-Ray 03/18/23 10:09 TWO VIEW CHEST CLINICAL HISTORY: Atypical chest pain. FINDINGS: PA and lateral chest radiographs are compared to study dated 01/03/2023. The PA view is degraded by patient rotation and apical lordotic positioning. The heart is enlarged indenting atherosclerotic calcification of the thoracic aorta. The pulmonary vasculature is noncongested. Emphysematous change is suspected. Chronic interstitial thickening is similar to previous. There is a small right pleural effusion with right basilar atelectasis. There is no airspace consolidation typical for pneumonia. No pneumothorax is seen. The skeletal structures are osteopenic. There are chronic/healed left-sided rib fractures. Fusion hardware is noted the lumbar spine. An indeterminant metallic structure projects over the left upper quadrant. IMPRESSION: 1. Cardiomegaly and suspect emphysema. There is no radiographic evidence of congestive failure. 2. Small right pleural effusion. This was also seen on 01/03/2023. 3. An indeterminant metallic structure projects over the left upper quadrant of the abdomen. Correlate clinically. ACT 112: Negative or not required by law. Electronically signed by: Zhou Gregg M.D. 03/18/2023 12:30 PM Discharge Plan Visit Data Chief Complaint: Cardiac Assessment Stated Complaint: HEART ISSUE, REF BY DOC ED Provider: Sunni Jaimes Discharge Problem: GRAY (dyspnea on exertion), Anemia Patient Disposition: Admitted As Inpatient Discharge Instructions Interventions: ED Discharge Assessment Last Done: 03/18/23 15:44
--- NOTE | 2023-03-18 14:02 | History & Physical Report ---
Date of Service March 18, 2023 Assessment & Plan (1) Acute blood loss anemia: Plan: Hgb 6.6. Suspect acute blood loss with symptoms getting worse over the last 2 weeks. FOB pending Video capsule endoscopy performed at [facility] GI clinic yesterday - results not available on admission Consult GI to consider repeat EGD NPO Pantoprazole 40mg IV BID Hold Eliquis Transfuse 2 units of packed RBCs. Aim Hgb > 8 in setting of continued GI bleed. (2) GIB (gastrointestinal bleeding): Plan: as above (3) CHF (congestive heart failure): Plan: LVEF 55-60%. Appears euvolemic currently. Suspect this shortness of breath due to acute blood loss anemia rather than CHF. Continue Lasix in AM (4) PAD (peripheral artery disease): (5) Persistent atrial fibrillation: Plan: Current rate appropriate for anemia. Usually on metoprolol succinate 25mg PO daily, will continue with hold parameters starting tomorrow Anticoagulation on hold due to acute blood loss anemia (6) Benign prostatic hyperplasia with urinary obstruction: Plan: Continue tamsulosin 0.4mg PO HS (7) Aortic stenosis: Plan: Mild to moderate on echo in February Plan VTE Prophylaxis - SCDs Diet - NPO Disposition - admit to PCU Admission and Anticipated Discharge Date Admission Date: March 18, 2023 History of Present Illness Chief Complaint: Shortness of breath Primary Care Provider: Fransisco Moncada MD Joey Mejia is an 87 year old male who presents to the ER with 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 No associated dizziness or chest pain. He followed up with cardiology today and was advised to go to the ER due to low BP and concern for hypervolemia. In the ER he was noted to be significantly anemic with hemoglobin 6.3 (previously 10.2 in January 25). He denies any melena, hematochezia, hematemesis or hemoptysis. He was hospitalized at [facility] from November 08, 2022 to November 18, 2022 due to an upper GI bleed. EGD showed LA grade A esophagitis, small punctate ulcer seen in lower esophagus and gastritis. He was treated with IV pantoprazole and transfused 1 unit packed RBCs. He reports ongoing shortness of breath on exertion since then but much worse in the last 2 weeks. He underwent small bowel capsule endoscopy at [facility] GI yesterday - no known results at this time and gastroenterology notes not available on admission. Allergies Allergy/AdvReac Type Severity Reaction Status Date / Time No Known Allergies Allergy Unknown Verified 03/18/23 09:08 Home Medications Medication Instructions Recorded Confirmed Type latanoprost 0.005 % eye drops 1 drp OPB HS 02/06/20 03/18/23 History calcium 600 mg-D3 800 unit-mag11 1 tab PO DAILY 11/20/22 03/18/23 History 50 mw-rfcs-uhdiez-susanne-s.borat tablet (Caltrate 600-D Plus Minerals) cholecalciferol (vitamin D3) 50 50 mcg PO DAILY 11/20/22 03/18/23 History mcg (2,000 unit) tablet pantoprazole 40 mg tablet,delayed 40 mg PO DAILY 11/20/22 03/18/23 History release denosumab 60 mg/mL subcutaneous See Rx Instructions subcut .COMPLEX 12/02/22 03/18/23 History syringe (Prolia) apixaban 2.5 mg tablet (Eliquis) 2.5 mg PO BID #180 tabs 02/23/23 03/18/23 Rx atorvastatin 40 mg tablet 20 mg PO QAM #45 tabs 02/23/23 03/18/23 Rx furosemide 40 mg tablet 40 mg PO QAM #90 tabs 03/02/23 03/18/23 Rx diphenhydramine 25 1 - 2 tab PO HS 03/18/23 03/18/23 History mg-acetaminophen 500 mg tablet (Tylenol PM Extra Strength) metoprolol succinate 25 mg 25 mg PO .ON HOLD 03/18/23 03/18/23 History tablet,extended release 24 hr multivitamin 1 tab PO DAILY 03/18/23 03/18/23 History tamsulosin 0.4 mg capsule 0.4 mg PO QPM 03/18/23 03/18/23 History Past Med/Surg History Medical History Aortic stenosis Benign prostatic hyperplasia without urinary obstruction Bilateral edema of lower extremity Elevated PSA GIB (gastrointestinal bleeding) No pertinent family history No pertinent past medical history PAF (paroxysmal atrial fibrillation) SOB (shortness of breath) Surgical History History of dental surgery Family History Other Heart disease Social History Smoking Status: Current every day smoker Second Hand Exposure: No; Do You Dip or Chew Tobacco: No; Hx Alcohol Use: Yes Alcohol type: beer Hx Substance Use: No Preferred Language: Armenian Communication Ability: Effective 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 Beliefs That Will Affect Care: None marital status: Current Living Situation: Spouse current occupational status: employed Other Information That Helps Us Care for You: No Feels Safe at Home: Yes Safety Concerns: Feels Safe At This Time Assistive Devices: Walker Review of Systems Review of Systems: All systems reviewed & are unremarkable except as noted in HPI & below Physical Exam Constitutional: well developed; + not well nourished and no acute distress Eyes: + corneal abnormality (pale); normal pupil size ENMT: external ear and nose normal, oropharynx normal Respiratory: normal respiratory effort; no respiratory distress Auscultation: + breath sounds absent (right base) and + crackles (left base); no diminished lung sounds, no rhonchi and no wheezes Cardiovascular: Rate/Rhythm: regular rate and + irregularly irregular Heart Sounds: + murmur Extremities: normal capillary refill and + pedal edema (L > R 1+ pitting edema); no calf tenderness Gastrointestinal (Abdomen): normal bowel sounds, soft, nontender, no hepatosplenomegaly Skin: no rashes, warm and dry Psychiatric: A+Ox3, euthymic affect Results & Data Results & Data Vital Signs (Past 12 Hours) Vital Signs Pulse Pulse Resp BP BP Pulse Ox O2 Del Method 03/18/23 13:02 104 H 03/18/23 12:53 98 Room Air 03/18/23 12:51 113 H 15 130/80 99 Room Air 03/18/23 12:51 113 H 15 98 Room Air 03/18/23 10:08 112 H 16 101/60 99 Room Air Laboratory Results Abnormal lab results 03/18/23 03/18/23 Range/Units 10:55 10:55 RBC 2.59 L (4.70-6.10) M/uL Hgb 6.3 L* (14.0-18.0) g/dl Hct 20.0 L* (42.0-52.0) % MCV 77.2 L (80.0-100.0) fL MCH 24.3 L (25.0-34.0) pg MCHC 31.5 L (32.0-36.0) g/dL RDW Coeff of Don 16.1 H (11.5-14.5) % Lymph # (Auto) 0.57 L (1.2-3.4) K/uL BUN 45 H (6-23) mg/dl Creatinine 1.65 H (0.6-1.4) mg/dl BUN/Creatinine Ratio 27.3 H (10-20) Diagnostic Findings TWO VIEW CHEST CLINICAL HISTORY: Atypical chest pain. FINDINGS: PA and lateral chest radiographs are compared to study dated 01/03/2023. The PA view is degraded by patient rotation and apical lordotic positioning. The heart is enlarged indenting atherosclerotic calcification of the thoracic aorta. The pulmonary vasculature is noncongested. Emphysematous change is suspected. Chronic interstitial thickening is similar to previous. There is a small right pleural effusion with right basilar atelectasis. There is no airspace consolidation typical for pneumonia. No pneumothorax is seen. The skeletal structures are osteopenic. There are chronic/healed left-sided rib fractures. Fusion hardware is noted the lumbar spine. An indeterminant metallic structure projects over the left upper quadrant. IMPRESSION: 1. Cardiomegaly and suspect emphysema. There is no radiographic evidence of congestive failure. 2. Small right pleural effusion. This was also seen on 01/03/2023. 3. An indeterminant metallic structure projects over the left upper quadrant of the abdomen. Correlate clinically. Medications Administered ER Medications Given: Pantoprazole 40mg IV ECG Rate (beats per minute): 109 Rhythm: atrial fibrillation Findings: no acute ischemic change Comparison ECG Date: from (Jan 05, 2023) Change: no significant change Code Status & VTE Plan Code Status Full VTE Prophylaxis Plan VTE Prophylaxis will be ordered: Yes PG Care Time/CCT Total # of Minutes Spent Total Time Spent with Patient: Total time spent is greater than 50% in coordination of care (as documented) at patient's floor/unit and/or counseling patient: Coding Level of Care Code 13542 INT INP/OBS CARE 3/75MIN Diagnoses Acute blood loss anemia D62 GIB (gastrointestinal bleeding) K92.2 CHF (congestive heart failure) I50.9 PAD (peripheral artery disease) I73.9 Persistent atrial fibrillation I48.19 Benign prostatic hyperplasia with urinary obstruction N40.1; N13.8 Aortic stenosis I35.0
[2023-03-18 14:35] LABS: Reticulocyte % 2.4 % (0.5-2.0); Reticulocytes # 0.06 10^6/uL (0.02-0.10)
[2023-03-18 14:52] LABS: Influenza A virus by PCR Negative (Neg); Influenza B virus by PCR Negative (Neg); RSV by PCR Negative (Neg); SARS CoV2 RNA(COVID-19) Ceph NEGATIVE (Negative)
[2023-03-18 15:03] LABS: Ferritin 14.3 ng/ml (8-388)
[2023-03-18 15:13] LABS: Vitamin B12 400 pg/ml (180-914)
[2023-03-18] MEDS ORDERED: ONDANSETRON INJ 2 MG/ML 2 ML VIAL IV PRN (15:50)
[2023-03-18 19:55] LABS: Hematocrit (blood only) 21.9 % (42.0-52.0); Hemoglobin 6.9 g/dl (14.0-18.0)
[2023-03-18] MEDS: LATANOPROST 0.005% OP SOLN 2.5 ML BTL OPB SCH (21:16)
[2023-03-18] MEDS: TAMSULOSIN HCL 0.4 MG CAP PO SCH (21:17)
[2023-03-18] MEDS: PANTOprazole 40 MG in SYRINGE 0 ML IV SCH (21:19)
[2023-03-18] MEDS ORDERED: MELATONIN 3 MG TAB PO PRN (22:01)
[2023-03-19 00:56] LABS: Mean Corpuscular Hemoglobin 25.6 pg (25.0-34.0); Mean Corpuscular Volume 79.9 fL (80.0-100.0); Mean Platelet Volume 10.2 fL (9.4-12.4); Platelet Count 210 K/uL (130-400); RDW Coefficient of Variation 15.6 % (11.5-14.5); RDW Standard Deviation 45.3 fL (36.4-46.3); Red Blood Count 3.13 M/uL (4.70-6.10); White Blood Count 4.71 K/ul (4.8-10.8)
[2023-03-19 06:55] LABS: Basophils # (auto) 0.01 K/uL (0-0.2); Basophils % (auto) 0.2 %; Eosinophils # (auto) 0.11 K/uL (0-0.50); Eosinophils % (auto) 2.3 %; Hemoglobin 8.4 g/dl (14.0-18.0); Immature Granulocytes # (auto) 0.01 K/uL (0.01-0.20); Immature Granulocytes % (auto) 0.2 %; Lymphocytes % (auto) 8.5 %; Mean Corpuscular Hemoglobin 25.8 pg (25.0-34.0); Mean Corpuscular Hgb Conc 32.3 g/dL (32.0-36.0); Mean Platelet Volume 9.6 fL (9.4-12.4); Monocytes # (auto) 0.43 K/uL (0.11-0.59); Monocytes % (auto) 9.1 %; Neutrophils # (auto) 3.74 K/uL (1.40-6.50); Neutrophils % (auto) 79.7 %; Platelet Count 200 K/uL (130-400); RDW Coefficient of Variation 15.6 % (11.5-14.5); RDW Standard Deviation 45.4 fL (36.4-46.3); Red Blood Count 3.25 M/uL (4.70-6.10)
[2023-03-19 07:19] LABS: Calcium 8.8 mg/dl (8.6-10.3); Creatinine Clr Calc Pharmacy 26.8 ml/min; Est GFR (African American) 52.4 ml/min; Est GFR (Non-African American) 45.2 ml/min; Potassium 3.6 mmol/L (3.5-5.1)
[2023-03-19] MEDS ORDERED: SODIUM CHLORIDE 0.9% 1000ML 1,000 ML IV SCH (08:30)
[2023-03-19] MEDS ORDERED: IRON SUCROSE 200 MG in 0.9 % SODIUM CHLORIDE 100 ML IV ONE (08:45)
[2023-03-19] MEDS: PANTOprazole 40 MG in SYRINGE 0 ML IV SCH (08:53)
[2023-03-19] MEDS: ATORVASTATIN 20 MG TAB PO SCH (08:54)
[2023-03-19] MEDS: CHOLECALCIFEROL 1,000 UNITS 25 MCG TAB PO SCH (08:54)
[2023-03-19] MEDS: CALCIUM 600MG + VIT D 400 IU TAB PO SCH (08:54)
[2023-03-19] MEDS ORDERED: FUROSEMIDE 40 MG TAB PO SCH (09:00)
--- NOTE | 2023-03-19 12:04 | Gastrointestinal Consultation ---
Date of Consultation March 19, 2023 Assessment & Plan (1) Iron deficiency anemia: (2) PAF (paroxysmal atrial fibrillation): (3) PAD (peripheral artery disease): Plan 87 y/o male with multiple co-morbidities including , heart failure, chronic anemia, now admitted with SOB and acute on chronic iron deficiency anemia without GI bleeding. He's he had no melena, hematochezia, hematemesis (prior to admission and since then). He recently had VCE 5/ w/o evidence of bleeding in the small bowel. He had h/o melena in 10/2022 and EGD findings at that time were mild (had LA Grade A esophagitis) and he has been tx w/ PPI. He had colonoscopy 2 years ago for TAN which showed only diverticular disease. HGB improved with transfusion x 2 (6.4->8.4). Abd soft, nontender. - As he had no overt GIB, HGB stable, and recent EGD in 10/2022 w/ mild disease - will defer repeat endoscopy at this time as it would likely be low yield - Etiology of his anemia isn't clear. It's possible he has AVM's with occult GIB in the setting of AC use, however again VCE was unremarkable - Would recommend considering hematology referral to manage his iron treatment and determine whether non-GI etiology could be sought of his anemia - Consider discussion w/ Cardiology whether pt would benefit from continued AC use - Agree with iron supplementation. Pt should have his blood counts monitored on an OP basis after DC - Pt has not seen VCE pass - metallic structure seen over the LUQ on CXR yesterd ay could be the capsule. Will discuss with attending whether he needs repeat imaging at this time - Clear liquid diet for now - Trend H&H, transfuse PRN Thank you for allowing us to participate in the care of this patient. Please call with any acute changes, questions or concerns. Please see addendum below with additional recommendation from my supervising physician. Supervising Physician Co-Signing Physician Notes I have personally seen and examined the patient with Emily Segura PA-C. Her note reflects my exam and findings. I agree with her impression and plan. Capsule seems to be in the colon (splenic flex). No abdominal pain so no need to follow progress of capsule (it will pass). Patient should stay on iron supplementation indefinitely. Raz Mar M.D. History of Present Illness Reason for Consultation: acute blood loss anemia, capsule endo yesterday Requesting Physician: Dr. Hinton Attending Physician: Jesus Lobato MD History of Present Illness This is an 87 y/o male with PMHx diastolic heart failure, , PAD, HTN, and others, admitted after presenting with SOB. Found to have acute on chronic iron deficiency anemia (HGB 6.4, was 10 in January 2023) and he was transfused 2 units pRBC and getting IV venofer this AM. HGB improved to 8.4. CXR w/ cardiomegaly, small pleural effusion. This AM states he feels somewhat better. Has some ongoing dyspnea with exertion but no CP, abd pain. Bowels move well (1 BM in the last few days) and stools are brown. Denies melena, hematochezia, hematemesis, change in appetite. Vit B12, and folic acid WNL. November 08 2022, he experienced several episodes of black, loose, tarry BMs and was admitted to [facility] in [place] and Hb was 10, received one unit of RBCs and underwent EGD on 11/10/2022 w/ Grade A esophagitis but no clear bleeding site/cause of melena. He was placed on Pantoprazole 40mg daily. After that episode of melena, in November 2022, he was started on Eliquis daily for persistent A-fib given his high CHADs2-VASC score. He has been diagnosed with moderate aortic stenosis. He has severe PAD (and was seen by vascular surgery who recommended medical mgmt only). The pt has been experiencing a lot of exertional SOB, all beginning at the time of the melena episode in October, and continuing since then. He has a chronic history of iron deficiency anemia going back at least a few years. A colonoscopy and EGD were done in 02/2021 for this reason and was unrevealing as to source. Colonoscopy showed pancolonic diverticulosis, hemorrhoids. I don't have the EGD report to review. Recommended repeat for colonoscopy was 5 years because he has a history of colon polyps. Recently had VCE on 03/17/23 - the visualized small intestine was normal, although exam somewhat limited by fair prep. Pt has not seen the capsule pass since swallowing it. Colonoscopy was deferred due to pt preference, hx of colonoscopy 2 yrs ago, general frailty including CHF, valvular heart disease. Recent Diagnostic Testing: Labs: Hb 10 at the time of melena at [place] ->13 at the time of discharge after transfusions -> 10.2 at [facility] on 01/25/23. MCV has been normal. Estimated GFR 40 - 50. EGD at [place] in [place] Nov 09 2022: Grade A esophagitis. Most recent colonoscopy 2020 - tics and hemorrhoids VCE 03/17/23: The entire visualized small intestine was normal, although exam somewhat limited by prep. CTA 2022: Atherosclerotic disease is seen with atherosclerotic disease is seen with critical stenosis at the superior mesenteric artery. Two-vessel runoff is seen bilaterally with apparent occlusion of the posterior tibial arteries. The left peroneal artery appears patent although significant atherosclerotic disease is seen. Multifocal hemodynamically significant stenosis is seen in the left sup erficial femoral vein. Soft tissue stranding is seen in the lower extremities. Additional findings as above. CTA 2021: 1. No evidence of active extravasation into the small or large bowel lumen. 2. Prominent vessels abutting the cecum which could represent a colonic angiodysplasia or AVM, as above. 3. Prominent atherosclerosis. 4. Small left lower lobe pulmonary nodule for which follow-up is recommended as per the Fleischner Society criteria listed below. 5. Complex cystic lesion with coarse calcification in the right kidney. This is incompletely assessed due to artifact from the orthopedic hardware. Further evaluation with MRI is recommended. 6. Colonic diverticulosis without definite evidence of acute diverticulitis. 7. Additional chronic and incidental findings, as above. Allergies Allergy/AdvReac Type Severity Reaction Status Date / Time No Known Allergies Allergy Unknown Verified 03/18/23 09:08 Home Medications Medication Instructions Recorded Confirmed Type latanoprost 0.005 % eye drops 1 drp OPB HS 02/06/20 03/18/23 History calcium 600 mg-D3 800 unit-mag11 1 tab PO DAILY 11/20/22 03/18/23 History 50 am-sjdx-nzrjgy-susanne-s.borat tablet (Caltrate 600-D Plus Minerals) cholecalciferol (vitamin D3) 50 50 mcg PO DAILY 11/20/22 03/18/23 History mcg (2,000 unit) tablet pantoprazole 40 mg tablet,delayed 40 mg PO DAILY 11/20/22 03/18/23 History release denosumab 60 mg/mL subcutaneous See Rx Instructions subcut .COMPLEX 12/02/22 03/18/23 History syringe (Prolia) apixaban 2.5 mg tablet (Eliquis) 2.5 mg PO BID #180 tabs 02/23/23 03/18/23 Rx atorvastatin 40 mg tablet 20 mg PO QAM #45 tabs 02/23/23 03/18/23 Rx furosemide 40 mg tablet 40 mg PO QAM #90 tabs 03/02/23 03/18/23 Rx diphenhydramine 25 1 - 2 tab PO HS 03/18/23 03/18/23 History mg-acetaminophen 500 mg tablet (Tylenol PM Extra Strength) metoprolol succinate 25 mg 25 mg PO .ON HOLD 03/18/23 03/18/23 History tablet,extended release 24 hr multivitamin 1 tab PO DAILY 03/18/23 03/18/23 History tamsulosin 0.4 mg capsule 0.4 mg PO QPM 03/18/23 03/18/23 History Patient History Medical History Aortic stenosis Benign prostatic hyperplasia without urinary obstruction Bilateral edema of lower extremity Elevated PSA GIB (gastrointestinal bleeding) No pertinent family history No pertinent past medical history PAF (paroxysmal atrial fibrillation) SOB (shortness of breath) Surgical History History of dental surgery Family History Other Heart disease Social History Smoking Status: Current every day smoker Second Hand Exposure: No; Do You Dip or Chew Tobacco: No; Hx Alcohol Use: Yes Alcohol type: beer Hx Substance Use: No Preferred Language: Turkish Communication Ability: Effective Naturopathic Doctor Required: No Beliefs That Will Affect Care: None marital status: Current Living Situation: Spouse current occupational status: employed Other Information That Helps Us Care for You: No Feels Safe at Home: Yes Safety Concerns: Feels Safe At This Time Assistive Devices: Walker Review of Systems Review of Systems: All systems reviewed & are unremarkable except as noted in HPI & below Physical Exam Constitutional: well developed and comfortable; no acute distress (chronically ill) Eyes: Sclera anicteric, no conjunctival injection ENMT: moist mucous membranes, no pallor Neck: trachea midline supple Respiratory: normal respiratory effort, lungs clear to auscultation Cardiovascular: + systolic murmur, no edema Gastrointestinal (Abdomen): normal bowel sounds, soft, nontender, no hepatosplenomegaly Inspection/Auscultation: abdomen not distended Skin: no rashes, warm and dry Neurologic: alert and oriented x 3, no obvious focal neuro deficit Psychiatric: normal mood and affect Results & Data Vital Signs (Past 12 Hours) Vital Signs Temp Pulse Pulse Resp BP Pulse Ox O2 Del Method 03/19/23 08:07 36.4 C L 100 H 18 123/80 95 Room Air 03/19/23 07:00 98 H 03/19/23 03:58 36.8 C 98 H 20 117/82 92 Room Air 03/19/23 02:15 77 Laboratory Results 03/19/23 03/19/23 03/19/23 Range/Units 06:07 06:07 00:29 WBC 4.70 L 4.71 L (4.8-10.8) K/ul RBC 3.25 L 3.13 L (4.70-6.10) M/uL Hgb 8.4 L 8.0 L (14.0-18.0) g/dl Hct 26.0 L 25.0 L (42.0-52.0) % MCV 80.0 79.9 L (80.0-100.0) fL MCH 25.8 25.6 (25.0-34.0) pg MCHC 32.3 32.0 (32.0-36.0) g/dL RDW Std Deviation 45.4 45.3 (36.4-46.3) fL RDW Coeff of Don 15.6 H 15.6 H (11.5-14.5) % Plt Count 200 210 (130-400) K/uL MPV 9.6 10.2 (9.4-12.4) fL Immature Gran % (Auto) 0.2 % Neut % (Auto) 79.7 % Lymph % (Auto) 8.5 % [place] % (Auto) 9.1 % Eos % (Auto) 2.3 % Baso % (Auto) 0.2 % Reticulocyte % (Auto) (0.5-2.0) % Neut # (Auto) 3.74 (1.40-6.50) K/uL Lymph # (Auto) 0.40 L (1.2-3.4) K/uL [place] # (Auto) 0.43 (0.11-0.59) K/uL Eos # (Auto) 0.11 (0-0.50) K/uL Baso # (Auto) 0.01 (0-0.2) K/uL Reticulocyte # (0.02-0.10) 10^6/uL Immature Gran # (Auto) 0.01 (0.01-0.20) K/uL Polychromasia Anisocytosis Tear Drop Cells Ovalocytes PT (9.0-12.0) Seconds INR (0.9-1.1) APTT (21.0-31.0) Seconds PTT Ratio Sodium 139 (136-145) mmol/L Potassium 3.6 (3.5-5.1) mmol/L Chloride 106 (98-107) mmol/L Carbon Dioxide 24 (21-32) mmol/L Anion Gap 9 (3-11) BUN 35 H (6-23) mg/dl Creatinine 1.40 (0.6-1.4) mg/dl Est Cr Clr Drug Dosing 26.8 ml/min Est GFR ( Amer) 52.4 ml/min Est GFR (Non-Af Amer) 45.2 ml/min BUN/Creatinine Ratio 25.0 H (10-20) Glucose 81 (70-99(Fasting)) mg/dl Calcium 8.8 (8.6-10.3) mg/dl Iron (35-175) mcg/dl TIBC (250-450) mcg/dl Unsaturated IBC (155-355) mcg/dl Transferrin % Sat (20-50) % Ferritin (8-388) ng/ml B-Natriuretic Peptide (0-100) pg/ml Vitamin B12 (180-914) pg/ml Folate (>5.38) ng/ml SARS-CoV-2 (PCR) (Negative) Influenza Type A (PCR) (Neg) Influenza Type B (PCR) (Neg) RSV (RT-PCR) (Neg) Blood Type Antibody Screen Crossmatch 03/18/23 03/18/23 03/18/23 Range/Units 19:11 14:15 14:15 WBC (4.8-10.8) K/ul RBC (4.70-6.10) M/uL Hgb 6.9 L* (14.0-18.0) g/dl Hct 21.9 L (42.0-52.0) % MCV (80.0-100.0) fL MCH (25.0-34.0) pg MCHC (32.0-36.0) g/dL RDW Std Deviation (36.4-46.3) fL RDW Coeff of Don (11.5-14.5) % Plt Count (130-400) K/uL MPV (9.4-12.4) fL Immature Gran % (Auto) % Neut % (Auto) % Lymph % (Auto) % [place] % (Auto) % Eos % (Auto) % Baso % (Auto) % Reticulocyte % (Auto) (0.5-2.0) % Neut # (Auto) (1.40-6.50) K/uL Lymph # (Auto) (1.2-3.4) K/uL [place] # (Auto) (0.11-0.59) K/uL Eos # (Auto) (0-0.50) K/uL Baso # (Auto) (0-0.2) K/uL Reticulocyte # (0.02-0.10) 10^6/uL Immature Gran # (Auto) (0.01-0.20) K/uL Polychromasia Anisocytosis Tear Drop Cells Ovalocytes PT (9.0-12.0) Seconds INR (0.9-1.1) APTT (21.0-31.0) Seconds PTT Ratio Sodium (136-145) mmol/L Potassium (3.5-5.1) mmol/L Chloride (98-107) mmol/L Carbon Dioxide (21-32) mmol/L Anion Gap (3-11) BUN (6-23) mg/dl Creatinine (0.6-1.4) mg/dl Est Cr Clr Drug Dosing ml/min Est GFR ( Amer) ml/min Est GFR (Non-Af Amer) ml/min BUN/Creatinine Ratio (10-20) Glucose (70-99(Fasting)) mg/dl Calcium (8.6-10.3) mg/dl Iron (35-175) mcg/dl TIBC (250-450) mcg/dl Unsaturated IBC (155-355) mcg/dl Transferrin % Sat (20-50) % Ferritin (8-388) ng/ml B-Natriuretic Peptide 214 H (0-100) pg/ml Vitamin B12 400 (180-914) pg/ml Folate > 22.30 (>5.38) ng/ml SARS-CoV-2 (PCR) (Negative) Influenza Type A (PCR) (Neg) Influenza Type B (PCR) (Neg) RSV (RT-PCR) (Neg) Blood Type Antibody Screen Crossmatch 03/18/23 03/18/23 03/18/23 Range/Units 14:15 14:15 14:15 WBC (4.8-10.8) K/ul RBC (4.70-6.10) M/uL Hgb (14.0-18.0) g/dl Hct (42.0-52.0) % MCV (80.0-100.0) fL MCH (25.0-34.0) pg MCHC (32.0-36.0) g/dL RDW Std Deviation (36.4-46.3) fL RDW Coeff of Don (11.5-14.5) % Plt Count (130-400) K/uL MPV (9.4-12.4) fL Immature Gran % (Auto) % Neut % (Auto) % Lymph % (Auto) % [place] % (Auto) % Eos % (Auto) % Baso % (Auto) % Reticulocyte % (Auto) 2.4 H (0.5-2.0) % Neut # (Auto) (1.40-6.50) K/uL Lymph # (Auto) (1.2-3.4) K/uL [place] # (Auto) (0.11-0.59) K/uL Eos # (Auto) (0-0.50) K/uL Baso # (Auto) (0-0.2) K/uL Reticulocyte # 0.06 (0.02-0.10) 10^6/uL Immature Gran # (Auto) (0.01-0.20) K/uL Polychromasia Anisocytosis Tear Drop Cells Ovalocytes PT (9.0-12.0) Seconds INR (0.9-1.1) APTT (21.0-31.0) Seconds PTT Ratio Sodium (136-145) mmol/L Potassium (3.5-5.1) mmol/L Chloride (98-107) mmol/L Carbon Dioxide (21-32) mmol/L Anion Gap (3-11) BUN (6-23) mg/dl Creatinine (0.6-1.4) mg/dl Est Cr Clr Drug Dosing ml/min Est GFR ( Amer) ml/min Est GFR (Non-Af Amer) ml/min BUN/Creatinine Ratio (10-20) Glucose (70-99(Fasting)) mg/dl Calcium (8.6-10.3) mg/dl Iron 19 L (35-175) mcg/dl TIBC 407 (250-450) mcg/dl Unsaturated IBC 388 H (155-355) mcg/dl Transferrin % Sat 5 L (20-50) % Ferritin 14.3 (8-388) ng/ml B-Natriuretic Peptide (0-100) pg/ml Vitamin B12 (180-914) pg/ml Folate (>5.38) ng/ml SARS-CoV-2 (PCR) (Negative) Influenza Type A (PCR) (Neg) Influenza Type B (PCR) (Neg) RSV (RT-PCR) (Neg) Blood Type A Positive Antibody Screen NEGATIVE Crossmatch See Detail 03/18/23 03/18/23 03/18/23 Range/Units 13:58 10:55 10:55 WBC 5.27 (4.8-10.8) K/ul RBC 2.59 L (4.70-6.10) M/uL Hgb 6.3 L* (14.0-18.0) g/dl Hct 20.0 L* (42.0-52.0) % MCV 77.2 L (80.0-100.0) fL MCH 24.3 L (25.0-34.0) pg MCHC 31.5 L (32.0-36.0) g/dL RDW Std Deviation 45.4 (36.4-46.3) fL RDW Coeff of Odn 16.1 H (11.5-14.5) % Plt Count 248 (130-400) K/uL MPV 9.5 (9.4-12.4) fL Immature Gran % (Auto) 0.4 % Neut % (Auto) 77.3 % Lymph % (Auto) 10.8 % [place] % (Auto) 10.4 % Eos % (Auto) 0.9 % Baso % (Auto) 0.2 % Reticulocyte % (Auto) (0.5-2.0) % Neut # (Auto) 4.07 (1.40-6.50) K/uL Lymph # (Auto) 0.57 L (1.2-3.4) K/uL [place] # (Auto) 0.55 (0.11-0.59) K/uL Eos # (Auto) 0.05 (0-0.50) K/uL Baso # (Auto) 0.01 (0-0.2) K/uL Reticulocyte # (0.02-0.10) 10^6/uL Immature Gran # (Auto) 0.02 (0.01-0.20) K/uL Polychromasia 1+ Anisocytosis Present Tear Drop Cells 1+ Ovalocytes 1+ PT 11.4 (9.0-12.0) Seconds INR 1.0 (0.9-1.1) APTT 23.8 (21.0-31.0) Seconds PTT Ratio 0.8 Sodium (136-145) mmol/L Potassium (3.5-5.1) mmol/L Chloride (98-107) mmol/L Carbon Dioxide (21-32) mmol/L Anion Gap (3-11) BUN (6-23) mg/dl Creatinine (0.6-1.4) mg/dl Est Cr Clr Drug Dosing ml/min Est GFR ( Amer) ml/min Est GFR (Non-Af Amer) ml/min BUN/Creatinine Ratio (10-20) Glucose (70-99(Fasting)) mg/dl Calcium (8.6-10.3) mg/dl Iron (35-175) mcg/dl TIBC (250-450) mcg/dl Unsaturated IBC (155-355) mcg/dl Transferrin % Sat (20-50) % Ferritin (8-388) ng/ml B-Natriuretic Peptide (0-100) pg/ml Vitamin B12 (180-914) pg/ml Folate (>5.38) ng/ml SARS-CoV-2 (PCR) NEGATIVE (Negative) Influenza Type A (PCR) Negative (Neg) Influenza Type B (PCR) Negative (Neg) RSV (RT-PCR) Negative (Neg) Blood Type Antibody Screen Crossmatch Diagnostic Findings CXR: FINDINGS: PA and lateral chest radiographs are compared to study dated 01/03/2023. The PA view is degraded by patient rotation and apical lordotic positioning. The heart is enlarged indenting atherosclerotic calcification of the thoracic aorta. The pulmonary vasculature is noncongested. Emphysematous change is suspected. Chronic interstitial thickening is similar to previous. There is a small right pleural effusion with right basilar atelectasis. There is no airspace consolidation typical for pneumonia. No pneumothorax is seen. The skeletal structures are osteopenic. There are chronic/healed left-sided rib fractures. Fusion hardware is noted the lumbar spine. An indeterminant metallic structure projects over the left upper quadrant. IMPRESSION: 1. Cardiomegaly and suspect emphysema. There is no radiographic evidence of congestive failure. 2. Small right pleural effusion. This was also seen on 01/03/2023. 3. An indeterminant metallic structure projects over the left upper quadrant of the abdomen. Correlate clinically.
--- NOTE | 2023-03-19 16:08 | Hospitalist Progress Note ---
Date of Service March 19, 2023 Assessment & Plan (1) Acute blood loss anemia: Plan: He has been transfused up to a hemoglobin of 8.4. Serial labs ordered. No overt GI bleeding seen. Eliquis has been discontinued (2) GIB (gastrointestinal bleeding): Plan: No overt bleeding at this time. He just completed video capsule endoscopy with negative results. Eliquis has been discontinued. Iron replacement underway. Appreciate [facility] consultation and recommendations (3) CHF (congestive heart failure): Plan: Chronic diastolic CHF. No overt CHF at this time. Lasix temporarily on hold. Monitor intake and output. (4) PAD (peripheral artery disease): Plan: Stable. Continue current medical management. No intervention necessary at this time (5) Persistent atrial fibrillation: Plan: Rate controlled. Eliquis has been discontinued indefinitely. Telemetry. (6) Benign prostatic hyperplasia with urinary obstruction: Plan: Stable. Continue tamsulosin (7) Aortic stenosis: Plan: Mild to moderate on echo in February. No intervention necessary at this time (8) Iron deficiency anemia: Plan: Parenteral iron replacement underway. We will continue oral iron replacement at the time of discharge. Fecal occult blood pending. Eliquis has been discontinued Plan Hopeful discharge to home tomorrow, March 20 Admission and Anticipated Discharge Date Admission Date: March 18, 2023 Subjective Alert. No acute distress. Occasionally confused but otherwise stable. Hemoglobin now 8.4 after transfusion. We will repeat hemoglobin level again tonight and again in the morning. Eliquis will be indefinitely discontinued. Iron deficiency noted. Parenteral iron replacement underway with Venofer, day 1. Fecal occult blood is pending. Creatinine improved from 1.6 down to 1.4. Light Lasix temporarily on hold. [facility] consult noted. No plan for endoscopy right now. No overt GI bleeding. He just had a video capsule endoscopy which was negative for any active GI bleeding. Review of Systems Review of Systems: Constitutional-no fever or chills ENT-no blurred vision, no double vision, no epistaxis, no sore throat Respiratory-no cough, no wheezing, no shortness of breath Cardiac-no palpitations, no chest pain, no syncope GI-no nausea, vomiting, diarrhea, melena, hematochezia -no urinary retention, no urinary incontinence, no dysuria, no hematuria Musculoskeletal-no joint pain, no muscle tenderness Skin-no bruising, no rashes, no pruritus Neuro-no isolated weakness, no paresthesia, no weakness Psych-no depression, no anxiety Physical Exam Physical Exam: General-alert and oriented x3, no fevers, no chills HEENT-head atraumatic and normocephalic, pupils equal and reactive to light, extraocular muscles intact Neck-no lymphadenopathy or thyromegaly, trachea midline Chest-clear to auscultation percussion. No rales wheezing or rhonchi Cardiac-regular rate and rhythm, normal S1 and S2 Abdomen-normal bowel sounds, nontender, no hepatosplenomegaly Extremities-no cyanosis, clubbing, or edema Neuro-cranial nerves II through XII intact, motor and sensory function within normal limits, strength symmetrical , no focal deficits Psych-normal affect, normal mood Results & Data Results & Data Vital Signs (Past 12 Hours) Vital Signs Temp Pulse Pulse Resp BP Pulse Ox O2 Del Method 03/19/23 12:18 36.4 C L 109 H 18 121/89 92 Room Air 03/19/23 08:07 36.4 C L 100 H 18 123/80 95 Room Air 03/19/23 07:00 98 H Laboratory Results 03/19/23 06:07 03/19/23 06:07 PG Care Time/CCT Total # of Minutes Spent Total Time Spent with Patient: Total time spent is greater than 50% in coordination of care (as documented) at patient's floor/unit and/or counseling patient: Coding Level of Care Code 17617 SUB INP/OBS CARE 3/50MIN Diagnoses Acute blood loss anemia D62 GIB (gastrointestinal bleeding) K92.2 CHF (congestive heart failure) I50.9 PAD (peripheral artery disease) I73.9 Persistent atrial fibrillation I48.19 Benign prostatic hyperplasia with urinary obstruction N40.1; N13.8 Aortic stenosis I35.0 Iron deficiency anemia D50.9
[2023-03-19] MEDS: TAMSULOSIN HCL 0.4 MG CAP PO SCH (20:15)
[2023-03-19] MEDS: PANTOprazole 40 MG TAB PO SCH (20:15)
[2023-03-19] MEDS: LATANOPROST 0.005% OP SOLN 2.5 ML BTL OPB SCH (20:16)
[2023-03-19] MEDS ORDERED: MELATONIN 3 MG TAB PO SCH (21:00)
--- NOTE | 2023-03-19 21:03 | Electrocardiogram Report ---
Test Reason : Blood Pressure : / mmHG Vent. Rate : 110 BPM Atrial Rate : 288 BPM P-R Int : 000 ms QRS Dur : 088 ms QT Int : 356 ms P-R-T Axes : 000 043 073 degrees QTc Int : 481 ms Atrial flutter with variable A-V block Abnormal ECG When compared with ECG of 18-MAR-2023 08:50, (unconfirmed) No significant change Confirmed by Elmer Montgomery ([id number]) on 03/19/2023 9:03:14 PM Referred By: Confirmed By:Elmer Montgomery
[2023-03-20 06:43] LABS: Basophils # (auto) 0.01 K/uL (0-0.2); Basophils % (auto) 0.2 %; Eosinophils # (auto) 0.12 K/uL (0-0.50); Eosinophils % (auto) 2.5 %; Hematocrit (blood only) 24.8 % (42.0-52.0); Hemoglobin 7.9 g/dl (14.0-18.0); Immature Granulocytes # (auto) 0.02 K/uL (0.01-0.20); Immature Granulocytes % (auto) 0.4 %; Lymphocytes # (auto) 0.58 K/uL (1.2-3.4); Lymphocytes % (auto) 11.9 %; Mean Corpuscular Hemoglobin 25.6 pg (25.0-34.0); Mean Corpuscular Hgb Conc 31.9 g/dL (32.0-36.0); Mean Corpuscular Volume 80.3 fL (80.0-100.0); Mean Platelet Volume 10.8 fL (9.4-12.4); Monocytes # (auto) 0.61 K/uL (0.11-0.59); Monocytes % (auto) 12.5 %; Neutrophils # (auto) 3.54 K/uL (1.40-6.50); Neutrophils % (auto) 72.5 %; Platelet Count 207 K/uL (130-400); RDW Standard Deviation 46.5 fL (36.4-46.3); Red Blood Count 3.09 M/uL (4.70-6.10); White Blood Count 4.88 K/ul (4.8-10.8)
[2023-03-20 07:04] LABS: Calcium 8.6 mg/dl (8.6-10.3); Creatinine Clr Calc Pharmacy 25.5 ml/min; Est GFR (African American) 49.4 ml/min; Est GFR (Non-African American) 42.6 ml/min; Potassium 3.7 mmol/L (3.5-5.1)
[2023-03-20 07:18] LABS: Poikilocytosis Present; Polychromasia 1+
[2023-03-20] MEDS ORDERED: IRON SUCROSE 200 MG in 0.9 % SODIUM CHLORIDE 100 ML IV SCH (09:00)
[2023-03-20] MEDS: PANTOprazole 40 MG TAB PO SCH (09:14)
[2023-03-20] MEDS: CHOLECALCIFEROL 1,000 UNITS 25 MCG TAB PO SCH (09:15)
[2023-03-20] MEDS: CALCIUM 600MG + VIT D 400 IU TAB PO SCH (09:15)
[2023-03-20] MEDS: ATORVASTATIN 20 MG TAB PO SCH (09:15)
--- NOTE | 2023-03-20 10:13 | Discharge Summary ---
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 No associated dizziness or chest pain. He followed up with cardiology today and was advised to go to the ER due to low BP and concern for hypervolemia. In the ER he was noted to be significantly anemic with hemoglobin 6.3 (previously 10.2 in January 25). He denies any melena, hematochezia, hematemesis or hemoptysis. He was hospitalized at [facility] from November 08, 2022 to November 18, 2022 due to an upper GI bleed. EGD showed LA grade A esophagitis, small punctate ulcer seen in lower es ophagus and gastritis. He was treated with IV pantoprazole and transfused 1 unit packed RBCs. He reports ongoing shortness of breath on exertion since then but much worse in the last 2 weeks. He underwent small bowel capsule endoscopy at [facility] yesterday - no known results at this time and gastroenterology notes not available on admission. Principal Diagnosis Severe iron deficiency anemia, possible associated acute blood loss anemia, acute kidney injury Discharge Exam General-alert and oriented x3, no fevers, no chills HEENT-head atraumatic and normocephalic, pupils equal and reactive to light, extraocular muscles intact Neck-no lymphadenopathy or thyromegaly, trachea midline Chest-clear to auscultation percussion. No rales wheezing or rhonchi Cardiac-regular rate and rhythm, normal S1 and S2 Abdomen-normal bowel sounds, nontender, no hepatosplenomegaly Extremities-no cyanosis, clubbing, or edema Neuro-cranial nerves II through XII intact, motor and sensory function within normal limits, strength symmetrical , no focal deficits Psych-normal affect, normal mood Discharge Data Allergies Allergy/AdvReac Type Severity Reaction Status Date / Time No Known Allergies Allergy Unknown Verified 03/18/23 09:08 Consultations 03/18/23 13:51 ED Decision to Admit Stat 03/18/23 14:24 Consult Gastroenterology Routine Hospital Course (1) Acute blood loss anemia: He has been transfused up to a hemoglobin of 8.4. Hemoglobin 7.9 today, march 20. No overt GI bleeding. He is now off Eliquis. He is receiving parenteral iron supplementation daily while hospitalized (2) GIB (gastrointestinal bleeding): No overt bleeding at this time. He just completed video capsule endoscopy with negative results. Eliquis has been discontinued. Iron replacement underway. Appreciate [facility] consultation and recommendations (3) CHF (congestive heart failure): Chronic diastolic CHF. No overt CHF at this time. Lasix temporarily on hold. Will restart at discharge. Monitor intake and output. (4) PAD (peripheral artery disease): Stable. Continue current medical management. No intervention necessary at this time (5) Persistent atrial fibrillation: Rate controlled. Eliquis has been discontinued indefinitely. Telemetry. (6) Benign prostatic hyperplasia with urinary obstruction: Stable. Continue tamsulosin (7) Aortic stenosis: Mild to moderate on echo in February. No intervention necessary at this time (8) Iron deficiency anemia: Parenteral iron replacement underway. We will continue oral iron replacement at the time of discharge. Fecal occult blood pending. Eliquis has been discontinued Plan Discharge to home today, March 20 Total Time Total Time Spent Total Time Spent (In Minutes): 40 minutes Discharge Plan Discharge Items Patient Disposition: Home - Self-Care Reason For Visit: ACUTE BLOOD LOSS ANEMIA Discharge Diagnosis: Severe iron deficiency anemia, acute kidney injury, possible associated acute blood loss anemia Activity: Resume your previous activity Non-emergency contact: Primary Care Provider Call non-emergency contact if: you have any medication questions Follow-up/Referrals: Fransisco Moncada MD [Primary Care Provider] - Diet: Regular and Heart Healthy Addtl Attending Provider Instructions: Eliquis has been discontinued. Take iron supplement daily as directed Pending Studies at Discharge: No Stand-Alone Forms: [facility] [employer] Smoking Cessation Medications and DC Order Prescriptions: New ferrous sulfate 325 mg (65 mg iron) tablet 325 mg PO BID Qty: 60 0RF Continued furosemide 40 mg tablet 40 mg PO QAM Qty: 90 3RF latanoprost 0.005 % drops 1 drp OPB HS cholecalciferol (vitamin D3) 50 mcg (2,000 unit) tablet 50 mcg PO DAILY Caltrate 600-D Plus Minerals 600 mg calcium- 800 unit-50 mg tablet 1 tab PO DAILY pantoprazole 40 mg tablet,delayed release (DR/EC) 40 mg PO DAILY Prolia 60 mg/mL syringe See Rx Instructions subcut .COMPLEX Rx Instructions: subcutaneously q 6 months atorvastatin 40 mg tablet 20 mg PO QAM Qty: 45 3RF tamsulosin 0.4 mg capsule 0.4 mg PO QPM metoprolol succinate 25 mg tablet extended release 24 hr 25 mg PO .ON HOLD multivitamin Tablet 1 tab PO DAILY diphenhydramine-acetaminophen [Tylenol PM Extra Strength] 25-500 mg Tablet 1 - 2 tab PO HS Discontinued Eliquis 2.5 mg tablet 2.5 mg PO BID Qty: 180 3RF Discharge Orders: Discharge Order (Routine); Ordered 03/20/23 Ordered By: Jesus Lobato Admission Data Admit Date/Time: 03/18/23 14:15 Attending Provider: Jesus Lobato Admit Provider: Andrea Hinton Primary Care Provider: Fransisco Moncada Other Providers: Andrea Hinton ; Raz Mar Coding Level of Care Code 64476 INP/OBS DISCH >30 MIN Diagnoses Acute blood loss anemia D62 GIB (gastrointestinal bleeding) K92.2 CHF (congestive heart failure) I50.9 PAD (peripheral artery disease) I73.9 Persistent atrial fibrillation I48.19 Benign prostatic hyperplasia with urinary obstruction N40.1; N13.8 Aortic stenosis I35.0 Iron deficiency anemia D50.9
[2023-03-20] MEDS ORDERED: FERROUS SULFATE 325 MG TAB PO SCH (17:00)
== END 2023-03-20 11:41 | disposition home or self-care (01) | DRG 378 ==
LOC: ED 09:59 → EDINP 14:15 → SUATTDRO 14:15 → EDINP 15:44 → 2E 19:53

== ENCOUNTER 2025-05-14 12:11 | Inpatient (IN) ==
[2025-05-14 13:01] LABS: Appearance Urine Clear (Clear); Bacteria Urine Automated None Seen (None Seen); Cast Urine Automated 0-2 /lpf (0-2); Epithelial Cell Urine Auto 0-2 /hpf (0-2); Glucose Urine UA Negative (Negative); RBC Urine Automated 0-2 /hpf (0-2); WBC Urine Automated 0-5 /hpf (0-5)
--- NOTE | 2025-05-14 13:04 | Emergency Department Note ---
Impression & Plan Hypotension, GI bleed, Weakness, Anticoagulated, Anemia, CHF (congestive heart failure) ED Provider Note NAME: MACK CADENA AGE: 89 SEX: M : 1935 ARRIVES VIA: Walk-In INFORMANT: [Patient][family] ED PROVIDER(S): [Zhou Cantor MD] CHIEF COMPLAINT: Lethargic HISTORY OF PRESENT ILLNESS: The patient is an 89-year-old male whose had 2, maybe 3 days of dizziness, lightheadedness and feeling off balance. He has been slower to respond and a bit somnolent as per his family. The patient admits to some mild shortness of breath at times, nothing persistent. He does not have a cough, there has been no fever, no chest pain, no urinary complaints. No vomiting. He may have had 1 bout of diarrhea but this complaint has not persisted. Patient does have a history of A-fib, he is on Eliquis. Of note, the patient's blood pressure was noticed to be somewhat low by the nursing staff. The patient states his blood pressure is usually not on the lower side of things. He has not had any recent medication changes. PMHx/PSHx/Social Hx: See Below PHYSICAL EXAM: GENERAL: Patient is in no acute distress. HEENT: No acute trauma, normocephalic atraumatic, mucous membranes moist, no nasal congestion. NECK: No stridor, no adenopathy, no meningismus, trachea is midline. LUNGS: A few scattered crackles heard, no respiratory distress, no wheezing. HEART: 3/6 systolic murmur, irregular rhythm, normal rate. ABDOMEN: Soft, nontender, no peritonitis. EXTREMITIES: No cyanosis, full range of motion of all the joints without pain or difficulty. NEUROLOGIC: No speech slur, somewhat slow to respond at times to questions. No obvious focal motor deficit. Awake and seems alert. SKIN: No jaundice, no diaphoresis. Pale. Rectal: Black stool, heme positive. DIFFERENTIAL DIAGNOSIS: Anemia, electrolyte imbalance, hypotension, NM, stroke, UTI, bacteremia, among others. EMERGENCY DEPARTMENT PROCEDURES: MEDICAL DECISION MAKING: There is no leukocytosis. The patient is quite anemic with a hemoglobin of 6.2. A rectal exam was performed, the stool was black and heme positive. There was a normal platelet count. No coagulopathy by our testing. There was a slight elevation to the creatinine at 1.74. No electrolyte abnormality in need of emergent correction. Lactic acid level was not elevated making sepsis less likely. No worrisome liver enzyme elevation. ECG showed atrial fibrillation, no ST elevation. Cardiac enzyme testing x 1 is not consistent with acute cardiac injury. Chest x-ray does show cardiomegaly and some mild heart failure. BNP is elevated consistent with CHF. Urinalysis does not show findings of infection. Influenza, COVID and RSV test were negative. Brain CT showed no acute bleed or mass effect. The patient was borderline hypotensive, at times a bit tachycardic. He seemed pale. He was found to be anemic with heme positive stool. I did speak with the coagulation team, the patient was given IV Kcentra. He received a small amount of IV saline, he was ordered for 1 unit of packed red blood cells to be transfused. He was given IV Protonix and IV Pepcid. The appropriate paperwork for the blood transfusion was completed and signed. The patient is clearly in need of a hospital stay. I suspect his presentation is from the anemia/GI bleeding. I did speak with case management, the on-call hospitalist was consulted. Prior/Outside records/notes reviewed: None ECG per my interpretation: Indication was weakness. ECG shows atrial fibrillation with a rate of 99. There is no acute ST elevation, no PVCs. The QTc is 459. Continuous Cardiac Monitoring per my interpretation: An order was placed for continuous cardiac monitoring. The monitor shows a rate of 96 with atrial fibrillation. Imaging/x-ray results per my interpretation: Chest x-ray does show cardiomegaly and what appears to be mild heart failure. Chronic Medical/Social conditions affecting care: Advanced age. Takes Eliquis. Care/Management discussed with: Case management, the on-call hospitalist. Coagulation consult-Dr. Galloway. Level of care consideration(s): After review of the information above and other included data: --I believe the patient requires escalation of care to admission Critical Care Note: I have personally spent 49 minutes of critical care time in the direct management of this patient. This includes bedside care, interpretation of diagnostic studies, and testing, discussion with consultants, patient, and family members, and other required patient management activities. This 49 minutes is in excess of all separately billable procedures. 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 Hypertension Acute diastolic (congestive) heart failure GIB (gastrointestinal bleeding) Arthritis (Acute) Medical History Benign prostatic hyperplasia without urinary obstruction PAD (peripheral artery disease) CHF (congestive heart failure) Bilateral edema of lower extremity SOB (shortness of breath) Elevated PSA Benign prostatic hyperplasia with urinary obstruction Surgical History History of dental surgery Family History Other Heart disease Social History Smoking Status: Current every day smoker Second Hand Exposure: No; Do You Dip or Chew Tobacco: No; Hx Alcohol Use: Yes Alcohol type: beer Hx Substance Use: No Preferred Language: Upper Sorbian Communication Ability: Effective Bridge Worker Required: No Beliefs That Will Affect Care: None marital status: Current Living Situation: Spouse current occupational status: employed Feels Safe at Home: Yes Assistive Devices: Walker Allergies Allergies Allergy/AdvReac Type Severity Reaction Status Date / Time No Known Allergies Allergy Unknown Verified 05/14/25 14:13 Home Meds Home Medications Medication Instructions Recorded Confirmed latanoprost 0.005 % eye drops 1 drp OPB HS 02/06/20 05/14/25 calcium 600 mg-D3 800 unit-mag11 1 tab PO DAILY 11/20/22 05/14/25 50 [id number]-[id number].borat tablet (Caltrate 600-D Plus Minerals) pantoprazole 40 mg tablet,delayed 40 mg PO DAILY 11/20/22 05/14/25 release denosumab 60 mg/mL subcutaneous 60 mg subcut DIRECTED 12/02/22 05/14/25 syringe (Prolia) diphenhydramine 25 1 - 2 tab PO HS 03/18/23 05/14/25 mg-acetaminophen 500 mg tablet (Tylenol PM Extra Strength) multivitamin 1 tab PO DAILY 03/18/23 05/14/25 coenzyme Q10 100 mg capsule (Co 100 mg PO DAILY 05/14/25 05/14/25 Q-10) Previous Rx's Medication Instructions Recorded ferrous sulfate 325 mg (65 mg 325 mg PO BID #60 tabs 03/20/23 iron) tablet apixaban 2.5 mg tablet (Eliquis) 2.5 mg PO BID #60 tabs 12/30/23 atorvastatin 40 mg tablet 40 mg PO Q OTHER DAY #45 tabs 03/14/24 furosemide 40 mg tablet 40 mg PO QAM #90 tabs 01/22/25 tamsulosin 0.4 mg capsule 0.4 mg PO QPM #30 caps 03/14/25 Results & Data (ED) Vital Signs Vital Signs - 24 hr 05/14/25 12:14 05/14/25 12:55 05/14/25 13:32 Temperature 36.8 C Temperature Source Temporal Artery Scan Pulse Rate 102 H 96 H Pulse Rate [Apical] 102 H Respiratory Rate 19 18 Respiratory Effort / Characteristics Non-Labored Spontaneous Respiratory Depth Normal Respiratory Pattern Regular Blood Pressure 112/46 L Blood Pressure [Right Arm] 104/65 Blood Pressure Mean 68 Blood Pressure Mean [Right Arm] 78 Pulse Oximetry 93 98 Oxygen Delivery Method Room Air Room Air Sepsis Recent Fever Within 48 Hours No Sepsis New/Unexplained Change in Mental Status N/A Sepsis Action Taken by Nursing No Action Required 05/14/25 14:00 05/14/25 14:19 Temperature Temperature Source Pulse Rate 93 H 106 H Pulse Rate [Apical] Respiratory Rate 16 15 Respiratory Effort / Characteristics Respiratory Depth Respiratory Pattern Blood Pressure 91/59 L 106/66 Blood Pressure [Right Arm] Blood Pressure Mean 64 75 Blood Pressure Mean [Right Arm] Pulse Oximetry 97 97 Oxygen Delivery Method Sepsis Recent Fever Within 48 Hours Sepsis New/Unexplained Change in Mental Status Sepsis Action Taken by [facility] Medications Current Medication List: was personally reviewed by me Laboratory Data Attestation: I reviewed the patient's lab results. 05/14/25 12:35 05/14/25 12:35 Lab Results 06/30/25 06/30/25 06/30/25 Range/Units 12:35 13:11 13:54 WBC 5.86 (4.8-10.8) K/ul RBC 2.33 L (4.70-6.10) M/uL Hgb 6.2 L* (14.0-18.0) g/dl Hct 20.0 L* (42.0-52.0) % MCV 85.8 (80.0-100.0) fL MCH 26.6 (25.0-34.0) pg MCHC 31.0 L (32.0-36.0) g/dL RDW Std Deviation 47.3 H (36.4-46.3) fL RDW Coeff of Don 15.9 H (11.5-14.5) % Plt Count 251 (130-400) K/uL MPV 9.7 (9.4-12.4) fL Immature Gran % (Auto) 0.5 % Neut % (Auto) 83.2 % Lymph % (Auto) 8.0 % [place] % (Auto) 7.8 % Eos % (Auto) 0.3 % Baso % (Auto) 0.2 % Neut # (Auto) 4.87 (1.40-6.50) K/uL Lymph # (Auto) 0.47 L (1.20-3.40) K/uL [place] # (Auto) 0.46 (0.11-0.59) K/uL Eos # (Auto) 0.02 (0.00-0.50) K/uL Baso # (Auto) 0.01 (0.00-0.20) K/uL Immature Gran # (Auto) 0.03 (0.01-0.20) K/uL Polychromasia 1+ Hypochromasia Present PT (9.0-12.0) Seconds INR (0.9-1.1) APTT (21-31) Seconds PTT Ratio Sodium 137 (136-145) mmol/L Potassium 3.8 (3.5-5.1) mmol/L Chloride 103 (98-107) mmol/L Carbon Dioxide 24 (21-32) mmol/L Anion Gap 10 (3-11) BUN 48 H (6-23) mg/dl Creatinine 1.74 H (0.6-1.4) mg/dl Est Cr Clr Drug Dosing Not Reportable eGFR 37.01 BUN/Creatinine Ratio 27.6 H (10-20) Glucose 103 H (70-99(Fasting)) mg/dl Lactate 1.2 (0.4-2.0) mmol/L Calcium 9.1 (8.6-10.3) mg/dl Magnesium (1.7-2.4) mg/dl Total Bilirubin 0.4 (0.2-1.0) mg/dl AST 29 (13-39) U/L ALT 17 (7-52) U/L Alkaline Phosphatase 66 (34-104) U/L Troponin I High Sens (0-20) pg/ml B-Natriuretic Peptide (0-100) pg/ml Total Protein 7.1 (6.0-8.3) gm/dl Albumin 3.5 (3.4-5.0) gm/dl Globulin 3.6 (2.5-4.0) gm/dl Albumin/Globulin Ratio 1.0 (0.9-2) Urine Color Yellow Urine Appearance Clear (Clear) Urine pH 6.5 (4.5-7.5) Ur Specific [place] 1.010 (1.000-1.030) Urine Protein Negative (Negative) Urine Glucose (UA) Negative (Negative) Urine Ketones Negative (Negative) Urine Blood Negative (Negative) Urine Nitrite Negative (Negative) Urine Bilirubin Negative (Negative) Urine Urobilinogen Negative (Negative) Ur Leukocyte Esterase Trace H (Negative) Urine WBC (Auto) 0-5 (0-5) /hpf Urine RBC (Auto) 0-2 (0-2) /hpf U Hyaline Cast (Auto) 0-2 (0-2) /lpf U Epithel Cells (Auto) 0-2 (0-2) /hpf Urine Bacteria (Auto) None Seen (None Seen) Urine Comment SARS-CoV-2 (PCR) NEGATIVE (Negative) Influenza Type A (PCR) Negative (Neg) Influenza Type B (PCR) Negative (Neg) RSV (RT-PCR) Negative (Neg) Blood Type Antibody Screen Crossmatch 05/14/25 Range/Units 14:18 WBC (4.8-10.8) K/ul RBC (4.70-6.10) M/uL Hgb (14.0-18.0) g/dl Hct (42.0-52.0) % MCV (80.0-100.0) fL MCH (25.0-34.0) pg MCHC (32.0-36.0) g/dL RDW Std Deviation (36.4-46.3) fL RDW Coeff of Don (11.5-14.5) % Plt Count (130-400) K/uL MPV (9.4-12.4) fL Immature Gran % (Auto) % Neut % (Auto) % Lymph % (Auto) % [place] % (Auto) % Eos % (Auto) % Baso % (Auto) % Neut # (Auto) (1.40-6.50) K/uL Lymph # (Auto) (1.20-3.40) K/uL [place] # (Auto) (0.11-0.59) K/uL Eos # (Auto) (0.00-0.50) K/uL Baso # (Auto) (0.00-0.20) K/uL Immature Gran # (Auto) (0.01-0.20) K/uL Polychromasia Hypochromasia PT 11.3 (9.0-12.0) Seconds INR 1.0 (0.9-1.1) APTT 25 (21-31) Seconds PTT Ratio 0.9 Sodium (136-145) mmol/L Potassium (3.5-5.1) mmol/L Chloride (98-107) mmol/L Carbon Dioxide (21-32) mmol/L Anion Gap (3-11) BUN (6-23) mg/dl Creatinine (0.6-1.4) mg/dl Est Cr Clr Drug Dosing eGFR BUN/Creatinine Ratio (10-20) Glucose (70-99(Fasting)) mg/dl Lactate (0.4-2.0) mmol/L Calcium (8.6-10.3) mg/dl Magnesium 1.8 (1.7-2.4) mg/dl Total Bilirubin (0.2-1.0) mg/dl AST (13-39) U/L ALT (7-52) U/L Alkaline Phosphatase (34-104) U/L Troponin I High Sens 13.1 (0-20) pg/ml B-Natriuretic Peptide 197 H (0-100) pg/ml Total Protein (6.0-8.3) gm/dl Albumin (3.4-5.0) gm/dl Globulin (2.5-4.0) gm/dl Albumin/Globulin Ratio (0.9-2) Urine Color Urine Appearance (Clear) Urine pH (4.5-7.5) Ur Specific [place] (1.000-1.030) Urine Protein (Negative) Urine Glucose (UA) (Negative) Urine Ketones (Negative) Urine Blood (Negative) Urine Nitrite (Negative) Urine Bilirubin (Negative) Urine Urobilinogen (Negative) Ur Leukocyte Esterase (Negative) Urine WBC (Auto) (0-5) /hpf Urine RBC (Auto) (0-2) /hpf U Hyaline Cast (Auto) (0-2) /lpf U Epithel Cells (Auto) (0-2) /hpf Urine Bacteria (Auto) (None Seen) Urine Comment SARS-CoV-2 (PCR) (Negative) Influenza Type A (PCR) (Neg) Influenza Type B (PCR) (Neg) RSV (RT-PCR) (Neg) Blood Type A Positive Antibody Screen NEGATIVE Crossmatch See Detail Administered Medications Discontinued Medications Sodium Chloride (Nss) 250 mls @ 999 mls/hr IV .Q16M ONE Stop: 05/14/25 13:11 Last Infusion: 05/14/25 14:18 Dose: Infused Documented By: Admin: 05/14/25 13:32 Dose: 999 mls/hr Documented By: REDD Pantoprazole Sodium 80 mg/ (Dextrose) 120 mls @ 400 mls/hr IV NOW ONE Stop: 05/14/25 13:57 Last Infusion: 05/14/25 14:29 Dose: Infused Documented By: Admin: 05/14/25 14:00 Dose: 400 mls/hr Documented By: DAMION Famotidine (Pepcid 20mg Iv Push) 20 mg in 5 mls @ 2.5 mls/min IV NOW STA Stop: 05/14/25 13:41 Last Admin: 05/14/25 14:00 Dose: 2.5 mls/min Documented By: DAMION Prothrombin Complex Concent ( (Human) 2,000 units/ Syringe) 80 mls @ 10 mls/min IV NOW ONE; Protocol Stop: 05/14/25 13:52 Last Admin: 05/14/25 14:00 Dose: 10 mls/min Documented By: DAMION Imaging Data Radiologist's Impression: Chest X-Ray 05/14/25 12:56 XR chest 1V portable CLINICAL HISTORY: weak COMPARISON STUDY: 03/18/2023 FINDINGS: There is mild cardiomegaly with pulmonary vascular congestion. There is reticular and faint patchy opacity in the lung bases. No pleural effusion or pneumothorax. IMPRESSION: 1. CHF. 2. Pneumonia versus atelectasis in the lung bases. ACT 112: Negative or not required by law. Electronically signed by: Ace Santoyo M.D. 05/14/2025 1:[address] 05/14/25 12:56 CT head/brain wo con CLINICAL HISTORY: 89 years-old Male with weak. Acute weakness TECHNIQUE: Multiple axial CT images of the head were obtained without contrast. A dose lowering technique was utilized adhering to the principles of ALARA. CT DOSE: 625.8 mGy.cm COMPARISON: 03/29/2024. FINDINGS: No acute intracranial hemorrhage, midline shift, intracranial mass, hydrocephalus, territorial ischemia or abnormal extra-axial collection. Involutional changes with chronic microvascular ischemic disease. The calvarium is intact. The paranasal sinuses, mastoid air cells, and middle ear cavities are clear. IMPRESSION: No acute intracranial abnormality. ACT 112: Negative or not required by law. The above report was generated using voice recognition software. It may contain grammatical, syntax or spelling errors. Electronically signed by: Bobby Blackman M.D. 05/14/2025 1:31 PM Discharge Plan Visit Data Chief Complaint: Lethargic Stated Complaint: LETHARGIC, DIZZY, FATIGUED, CAN'T STAY AWAKE ED Provider: Zhou Cantor Discharge Problem: Hypotension, GI bleed, Weakness, Anticoagulated, Anemia, CHF (congestive heart failure) Patient Disposition: Admitted As Inpatient Condition: Serious Forms Stand Alone Forms: My [employer] Prescriptions Prescriptions: No Action Eliquis 2.5 mg tablet 2.5 mg PO BID Qty: 60 11RF atorvastatin 40 mg tablet 40 mg PO Q OTHER DAY Qty: 45 3RF furosemide 40 mg tablet 40 mg PO QAM Qty: 90 3RF latanoprost 0.005 % drops 1 drp OPB HS Caltrate 600-D Plus Minerals 600 mg calcium- 800 unit-50 mg tablet 1 tab PO DAILY pantoprazole 40 mg tablet,delayed release (DR/EC) 40 mg PO DAILY Prolia 60 mg/mL syringe 60 mg subcut DIRECTED Rx Instructions: subcutaneously q 6 months tamsulosin 0.4 mg capsule 0.4 mg PO QPM Qty: 30 11RF multivitamin Tablet 1 tab PO DAILY diphenhydramine-acetaminophen [Tylenol PM Extra Strength] 25-500 mg Tablet 1 - 2 tab PO HS ferrous sulfate 325 mg (65 mg iron) tablet 325 mg PO BID Qty: 60 0RF coenzyme Q10 [Co Q-10] 100 mg Capsule 100 mg PO DAILY Referrals Referrals: Fransisco Moncada MD [Primary Care Provider] - Discharge Problem: Hypotension Qualifiers: Hypotension type: unspecified hypotension type Qualified Code(s): I95.9 - Hypotension, unspecified GI bleed Qualifiers: GI bleed type/associated pathology: melena Qualified Code(s): K92.1 - Melena Anemia Qualifiers: Anemia type: unspecified type Qualified Code(s): D64.9 - Anemia, unspecified CHF (congestive heart failure) Qualifiers: Heart failure type: unspecified Heart failure chronicity: acute on chronic Q ualified Code(s): I50.9 - Heart failure, unspecified
--- NOTE | 2025-05-14 13:15 | XRay Report ---
XR chest 1V portable CLINICAL HISTORY: weak COMPARISON STUDY: 03/18/2023 FINDINGS: There is mild cardiomegaly with pulmonary vascular congestion. There is reticular and faint patchy opacity in the lung bases. No pleural effusion or pneumothorax. IMPRESSION: 1. CHF. 2. Pneumonia versus atelectasis in the lung bases. ACT 112: Negative or not required by law. Electronically signed by: Ace Santoyo M.D. 05/14/2025 1:13 PM
[2025-05-14 13:24] LABS: Hematocrit (blood only) 20.0 % (42.0-52.0); Hemoglobin 6.2 g/dl (14.0-18.0); Mean Corpuscular Hemoglobin 26.6 pg (25.0-34.0); Mean Corpuscular Volume 85.8 fL (80.0-100.0); Platelet Count 251 K/uL (130-400); RDW Standard Deviation 47.3 fL (36.4-46.3); Red Blood Count 2.33 M/uL (4.70-6.10); White Blood Count 5.86 K/ul (4.8-10.8)
[2025-05-14] MEDS ORDERED: SODIUM CHLORIDE 0.9% 100 ML IV PRN (13:26)
[2025-05-14 13:31] LABS: Alanine Aminotransferase 17 U/L (7-52); Albumin Globulin Ratio 1.0 (0.9-2); Alkaline Phosphatase 66 U/L (34-104); Anion Gap 10 (3-11); Bilirubin,Total 0.4 mg/dl (0.2-1.0); Blood Urea Nitrogen 48 mg/dl (6-23); Calcium 9.1 mg/dl (8.6-10.3); Carbon Dioxide 24 mmol/L (21-32); Chloride 103 mmol/L (98-107); Globulin 3.6 gm/dl (2.5-4.0); Glucose 103 mg/dl (70-99(Fasting)); Potassium 3.8 mmol/L (3.5-5.1); Sodium 137 mmol/L (136-145); Total Protein 7.1 gm/dl (6.0-8.3)
[2025-05-14] MEDS: SODIUM CHLORIDE 0.9% 250 ML IV ONE (13:32)
--- NOTE | 2025-05-14 13:34 | CT Scan Report ---
CT head/brain wo con CLINICAL HISTORY: 89 years-old Male with weak. Acute weakness TECHNIQUE: Multiple axial CT images of the head were obtained without contrast. A dose lowering tech nique was utilized adhering to the principles of ALARA. CT DOSE: 625.8 mGy.cm COMPARISON: 03/29/2024. FINDINGS: No acute intracranial hemorrhage, midline shift, intracranial mass, hydrocephalus, territorial ischem ia or abnormal extra-axial collection. Involutional changes with chronic microvascular ischemic disea se. The calvarium is intact. The paranasal sinuses, mastoid air cells, and middle ear cavities are clear . IMPRESSION: No acute intracranial abnormality. ACT 112: Negative or not required by law. The above report was generated using voice recognition software. It may contain grammatical, syntax o r spelling errors. Electronically signed by: Bobby Blackman M.D. 05/14/2025 1:31 PM
[2025-05-14 13:44] LABS: Hypochromasia Present; Immature Granulocytes # (auto) 0.03 K/uL (0.01-0.20); Immature Granulocytes % (auto) 0.5 %; Polychromasia 1+
[2025-05-14] MEDS: KCENTRA (500unit vial) 2000 units IVP IV ONE (14:00)
[2025-05-14] MEDS: FAMOTIDINE 20MG IV PUSH 20 MG/5 ML SYR IV STA (14:00)
[2025-05-14 14:10] LABS: Influenza A virus by PCR Negative (Neg); Influenza B virus by PCR Negative (Neg); SARS CoV2 RNA(COVID-19) Ceph NEGATIVE (Negative)
[2025-05-14 14:50] LABS: Magnesium 1.8 mg/dl (1.7-2.4)
[2025-05-14 15:23] LABS: INR 1.0 (0.9-1.1); Partial Thromboplastin Time 25 Seconds (21-31); Prothrombin Time 11.3 Seconds (9.0-12.0)
--- NOTE | 2025-05-14 15:33 | History & Physical Report ---
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 He reports taking iron pills which make his stool turned dark but he may have noticed some red blood in the stool in the recent past. He denies any bleeding from anywhere else, no vomiting. Denies abdominal pains or nausea. In the ED, he was found to have a hemoglobin of 6.2. He was found to have Hemoccult positive black stool on rectal exam in the ED. He was started on IV PPI and started transfusion of 1 unit of PRBCs. He was given a dose of Kcentra. He will be admitted for acute symptomatic anemia with GI bleed. #Acute blood loss anemia/GI bleed/symptomatic anemia-with black stools from iron pills versus upper GI bleed. Also with red blood in the stool prior to that, could be lower GI bleed as well. He was told by his PCP that his Hgb was around 11 a month ago and that he did not need to take the iron pills anymore so he did stop for a few weeks but resumed them for 5 days ago as they help him move his bowels regularly. His thinks he had an EGD at [facility] several years ago when he had another GI bleed. - Continue IV Protonix drip - Check CBC 2 hours after 1 unit of PRBCs and give 1 more unit PRBCs if hemoglobin less than 7 - Follow CBC BMP in the morning - Consult GI to see about EGD and possibly colonoscopy-keep n.p.o. except for ice chips for now and then n.p.o. after midnight - Avoid maintenance IV fluids due to heart failure and getting PRBC transfusion - Hold Eliquis #JOSEPH on CKD stage III-creatinine elevated from baseline at 1.7. Likely on the basis of hypovolemia/ATN from acute blood loss anemia - Transfusing PRBCs - Okay to continue Lasix due to heart failure and need for blood transfusion - Follow BMP #Chronic HFpEF/permanent atrial fibrillation on Eliquis/mild aortic steno sis/HTN/HLD-with crackles on examination and CXR with evidence of CHF. In permanent atrial fibrillation, rate controlled. With mild aortic stenosis on last echo reviewed in the chart. Blood pressures here are soft due to acute blood loss. - Give blood transfusion slowly over 4 hours - Continue home Lasix 40 mg p.o. 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 He reports taking iron pills which make his stool turned dark but he may have noticed some red blood in the stool in the recent past. He denies any bleeding from anywhere else, no vomiting. Denies abdominal pains or nausea. In the ED, he was found to have a hemoglobin of 6.2. He was found to have Hemoccult positive black stool on rectal exam in the ED. He was started on IV PPI and started transfusion of 1 unit of PRBCs. He was also given a dose of Kcentra He will be admitted for acute symptomatic anemia with GI bleed. Allergies Allergy/AdvReac Type Severity Reaction Status Date / Time No Known Allergies Allergy Unknown Verified 05/14/25 14:13 Home Medications Medication Instructions Recorded Confirmed Type latanoprost 0.005 % eye drops 1 drp OPB HS 02/06/20 05/14/25 History calcium 600 mg-D3 800 unit-mag11 1 tab PO DAILY 11/20/22 05/14/25 History 50 ur-afgt-qxhexg-susanne-s.borat tablet (Caltrate 600-D Plus Minerals) pantoprazole 40 mg tablet,delayed 40 mg PO DAILY 11/20/22 05/14/25 History release denosumab 60 mg/mL subcutaneous 60 mg subcut DIRECTED 12/02/22 05/14/25 History syringe (Prolia) diphenhydramine 25 1 - 2 tab PO HS 03/18/23 05/14/25 History mg-acetaminophen 500 mg tablet (Tylenol PM Extra Strength) multivitamin 1 tab PO DAILY 03/18/23 05/14/25 History ferrous sulfate 325 mg (65 mg 325 mg PO BID #60 tabs 03/20/23 05/14/25 Rx iron) tablet apixaban 2.5 mg tablet (Eliquis) 2.5 mg PO BID #60 tabs 12/30/23 05/14/25 Rx atorvastatin 40 mg tablet 40 mg PO Q OTHER DAY #45 tabs 03/14/24 05/14/25 Rx furosemide 40 mg tablet 40 mg PO QAM #90 tabs 01/22/25 05/14/25 Rx tamsulosin 0.4 mg capsule 0.4 mg PO QPM #30 caps 03/14/25 05/14/25 Rx coenzyme Q10 100 mg capsule (Co 100 mg PO DAILY 05/14/25 05/14/25 History Q-10) Past Med/Surg History Problem List CHF (congestive heart failure) (Acute) Anemia (Acute) Anticoagulated (Acute) Weakness (Acute) GI bleed (Acute) Hypotension (Acute) Benign localized prostatic hyperplasia with lower urinary tract symptoms (LUTS) Chronic diastolic heart failure Aortic stenosis Persistent atrial fibrillation Iron deficiency anemia Acute blood loss anemia GRAY (dyspnea on exertion) (Acute) 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 Hypertension Acute diastolic (congestive) heart failure GIB (gastrointestinal bleeding) Arthritis (Acute) Medical History Benign prostatic hyperplasia without urinary obstruction PAD (peripheral artery disease) CHF (congestive heart failure) Bilateral edema of lower extremity SOB (shortness of breath) Elevated PSA Benign prostatic hyperplasia with urinary obstruction Surgical History History of dental surgery Family History Other Heart disease Social History Smoking Status: Current every day smoker Second Hand Exposure: No; Do You Dip or Chew Tobacco: No; Hx Alcohol Use: Yes Alcohol type: beer Hx Substance Use: No Preferred Language: Sinhala Communication Ability: Effective Conceptor Required: No Beliefs That Will Affect Care: None marital status: Current Living Situation: Spouse current occupational status: employed Feels Safe at Home: Yes Assistive Devices: Walker Review of Systems Review of Systems: All systems reviewed & are unremarkable except as noted in HPI & below Physical Exam Constitutional: WD/WN, vitals as above Eyes: PERRL, conjunctivae normal, anicteric sclerae ENMT: external ear and nose normal, oropharynx normal Neck: trachea midline, no thyromegaly Respiratory: normal respiratory effort; no cough Auscultation: + crackles (Bibasilar); no wheezes Cardiovascular: Rate/Rhythm: regular rate and + irregularly irregular Heart Sounds: + murmur (2/6 TIANNA at the RUSB) Extremities: + edema (Trace pitting edema left greater than right distal legs) Chest (Breasts): Chest: normal inspection of chest Gastrointestinal (Abdomen): normal bowel sounds, soft, nontender, no hepatosplenomegaly Musculoskeletal: Extremities: extremities normal to inspection; no cyanosis and no clubbing Skin: no rashes, warm and dry Neurologic: moves all extremities and awake; no focal motor deficits Psychiatric: A+Ox3, euthymic affect Lymphatic: no lymphedema Results & Data Results & Data Vital Signs (Past 12 Hours) Vital Signs Temp Pulse Pulse Resp BP BP Pulse Ox 05/14/25 14:19 106 H 15 106/66 97 05/14/25 14:00 93 H 16 91/59 L 97 05/14/25 13:32 102 H 18 104/65 98 05/14/25 12:55 96 H 05/14/25 12:14 36.8 C 102 H 19 112/46 L 93 O2 Del Method 05/14/25 14:19 05/14/25 14:00 05/14/25 13:32 Room Air 05/14/25 12:55 05/14/25 12:14 Room Air Laboratory Results CBC, PT/PTT/INR, BMP, lactate, magnesium, LFTs, BNP, troponin, UA, COVID/flu/RSV all reviewed Diagnostic Findings CT head and CXR reviewed: Chest X-Ray 05/14/25 12:56 XR chest 1V portable CLINICAL HISTORY: weak COMPARISON STUDY: 03/18/2023 FINDINGS: There is mild cardiomegaly with pulmonary vascular congestion. There is reticular and faint patchy opacity in the lung bases. No pleural effusion or pneumothorax. IMPRESSION: 1. CHF. 2. Pneumonia versus atelectasis in the lung bases. ACT 112: Negative or not required by law. Electronically signed by: Ace Santoyo M.D. 05/14/2025 1:[address] 05/14/25 12:56 CT head/brain wo con CLINICAL HISTORY: 89 years-old Male with weak. Acute weakness TECHNIQUE: Multiple axial CT images of the head were obtained without contrast. A dose lowering technique was utilized adhering to the principles of ALARA. CT DOSE: 625.8 mGy.cm COMPARISON: 03/29/2024. FINDINGS: No acute intracranial hemorrhage, midline shift, intracranial mass, hydrocephalus, territorial ischemia or abnormal extra-axial collection. Involutional changes with chronic microvascular ischemic disease. The calvarium is intact. The paranasal sinuses, mastoid air cells, and middle ear cavities are clear. IMPRESSION: No acute intracranial abnormality. ACT 112: Negative or not required by law. The above report was generated using voice recognition software. It may contain grammatical, syntax or spelling errors. Electronically signed by: Bobby Blackman M.D. 05/14/2025 1:31 PM ECG Additional Comments: ECG on 05/14/2025 at 1226 with atrial fibrillation, rate 99, no ischemic changes, QTc 459 Code Status & VTE Plan Code Status Full code VTE Prophylaxis Plan VTE Prophylaxis will be ordered: Yes PG Care Time/CCT Total # of Minutes Spent Total Time Spent with Patient: Total time spent is greater than 50% in coordination of care (as documented) at patient's floor/unit and/or counseling patient: Coding Level of Care Code 77050 INT INP/OBS CARE 3/75MIN Diagnoses Acute blood loss anemia D62 GIB (gastrointestinal bleeding) K92.2 CHF (congestive heart failure) I50.9 Heart failure chronicity: acute on chronic Heart failure type: unspecified Persistent atrial fibrillation I48.19 (3) CHF (congestive heart failure) Heart failure chronicity: acute on chronic Heart failure type: unspecified Qualified Code(s): I50.9 - Heart failure, unspecified
[2025-05-14] MEDS ORDERED: PANTOPRAZOLE BOLUS/DRIP IV STA (17:00)
[2025-05-14] MEDS ORDERED: ONDANSETRON INJ 2 MG/ML 2 ML VIAL IV PRN (17:00)
[2025-05-14] MEDS: PANTOprazole 40 MG in DEXTROSE 5% MINI-B 100 ML IV SCH (17:30)
[2025-05-14] MEDS ORDERED: NON-FORMULARY MEDICATION (Diphenhydramine-Acetaminophen [Tylenol Pm Extra Strength] 25-500 PO SCH (21:00)
[2025-05-14] MEDS: TAMSULOSIN HCL 0.4 MG CAP PO SCH (21:27)
[2025-05-14] MEDS: MELATONIN 3 MG TAB PO PRN (21:27)
[2025-05-14] MEDS: diphenhydrAMINE Capsule 25 MG CAP PO SCH (21:27)
[2025-05-14] MEDS: ACETAMINOPHEN 325 MG TAB PO PRN (21:27)
[2025-05-14] MEDS: ACETAMINOPHEN 500 MG TAB PO SCH (21:27)
[2025-05-14] MEDS: ATORVASTATIN 40 MG TAB PO SCH (21:27)
[2025-05-14] MEDS: LATANOPROST 0.005% OP SOLN 2.5 ML BTL OPB SCH (21:28)
[2025-05-14 22:54] LABS: Hematocrit (blood only) 21.9 % (42.0-52.0); Hemoglobin 6.9 g/dl (14.0-18.0); Mean Corpuscular Hemoglobin 27.0 pg (25.0-34.0); Mean Corpuscular Volume 85.5 fL (80.0-100.0); Platelet Count 208 K/uL (130-400); RDW Standard Deviation 45.7 fL (36.4-46.3); Red Blood Count 2.56 M/uL (4.70-6.10); White Blood Count 4.88 K/ul (4.8-10.8)
[2025-05-14] MEDS: SODIUM CHLORIDE 0.9% 100 ML IV PRN (23:32)
[2025-05-15 07:04] LABS: Hematocrit (blood only) 26.6 % (42.0-52.0); Hemoglobin 8.8 g/dl (14.0-18.0); Immature Granulocytes # (auto) 0.02 K/uL (0.01-0.20); Immature Granulocytes % (auto) 0.3 %; Mean Corpuscular Hemoglobin 28.2 pg (25.0-34.0); Mean Corpuscular Volume 85.3 fL (80.0-100.0); Platelet Count 210 K/uL (130-400); RDW Standard Deviation 45.7 fL (36.4-46.3); Red Blood Count 3.12 M/uL (4.70-6.10); White Blood Count 6.20 K/ul (4.8-10.8)
[2025-05-15 07:28] LABS: Anion Gap 9.0 (3-11); Blood Urea Nitrogen 43.0 mg/dl (6-23); Calcium 8.8 mg/dl (8.6-10.3); Carbon Dioxide 24.0 mmol/L (21-32); Chloride 106.0 mmol/L (98-107); Creatinine Clr Calc Pharmacy 22.9 ml/min; Glucose 89.0 mg/dl (70-99(Fasting)); Magnesium 1.9 mg/dl (1.7-2.4); Potassium 3.6 mmol/L (3.5-5.1); Sodium 139.0 mmol/L (136-145)
--- NOTE | 2025-05-15 07:49 | Gastrointestinal Consultation ---
Date of Consultation May 15, 2025 Assessment & Plan (1) Anemia: Significant anemia with Hemoccult positive stool consistent with GI blood loss cause for anemia. To consider both an upper GI and lower GI source such as peptic ulcer disease, occult neoplasm and vascular ectasias. Recommended an endoscopy and colonoscopy patient will consider his options. Continue to monitor hemoglobin hematocrit maintain hemoglobin above 7 higher if patient continues to be symptomatic. Continue proton pump inhibitor. Patient agrees to procedures will need to hold his Eliquis. (2) Iron deficiency anemia: History of Present Illness Reason for Consultation: Anemia GI bleed Attending Physician: Ngozi Marlow MD History of Present Illness Patient admitted to the hospital with 2 to 3 days of weakness and shortness of breath found to have a hemoglobin of 6.2. On admission stool was Hemoccult positive and black. Patient does take iron for history of anemia. He also possibly noticed some bright red blood per rectum as well. He denies any nausea vomiting abdominal pain change in bowel habits fever or chills. He had never prior colonoscopy several years ago which was unremarkable. He denies taking NSAIDs and no history of liver disease. He is on Eliquis. Allergies Allergy/AdvReac Type Severity Reaction Status Date / Time No Known Allergies Allergy Unknown Verified 05/14/25 14:13 Home Medications Medication Instructions Recorded Confirmed Type latanoprost 0.005 % eye drops 1 drp OPB HS 02/06/20 05/14/25 History calcium 600 mg-D3 800 unit-mag11 1 tab PO DAILY 11/20/22 05/14/25 History 50 nq-euyq-rgsiyz-susanne-s.borat tablet (Caltrate 600-D Plus Minerals) pantoprazole 40 mg tablet,delayed 40 mg PO DAILY 11/20/22 05/14/25 History release denosumab 60 mg/mL subcutaneous 60 mg subcut DIRECTED 12/02/22 05/14/25 History syringe (Prolia) diphenhydramine 25 1 - 2 tab PO HS 03/18/23 05/14/25 History mg-acetaminophen 500 mg tablet (Tylenol PM Extra Strength) multivitamin 1 tab PO DAILY 03/18/23 05/14/25 History ferrous sulfate 325 mg (65 mg 325 mg PO BID #60 tabs 03/20/23 05/14/25 Rx iron) tablet apixaban 2.5 mg tablet (Eliquis) 2.5 mg PO BID #60 tabs 12/30/23 05/14/25 Rx atorvastatin 40 mg tablet 40 mg PO Q OTHER DAY #45 tabs 03/14/24 05/14/25 Rx furosemide 40 mg tablet 40 mg PO QAM #90 tabs 01/22/25 05/14/25 Rx tamsulosin 0.4 mg capsule 0.4 mg PO QPM #30 caps 03/14/25 05/14/25 Rx coenzyme Q10 100 mg capsule (Co 100 mg PO DAILY 05/14/25 05/14/25 History Q-10) Patient History Medical History Benign prostatic hyperplasia without urinary obstruction PAD (peripheral artery disease) CHF (congestive heart failure) Bilateral edema of lower extremity SOB (shortness of breath) Elevated PSA Benign prostatic hyperplasia with urinary obstruction Surgical History History of dental surgery Family History Other Heart disease Social History Smoking Status: Current every day smoker Tobacco Type: Pipe Second Hand Exposure: No; Do You Dip or Chew Tobacco: No; Hx Alcohol Use: No Hx Substance Use: No Preferred Language: Sudanese Communication Ability: Effective Pneudraulic Systems Mechanic Required: No Beliefs That Will Affect Care: None marital status: Current Living Situation: Spouse current occupational status: employed Feels Safe at Home: Yes Safety Concerns: Feels Safe At This Time Assistive Devices: Cane and Walker Review of Systems Review of Systems: No fever No chills Mild SOB No CP No Abd pain Physical Exam Physical Exam: Eyes; anicteric HENT No masses Chest clear to A Cor S1, S2 physiologic systolic murmur Abd: softer nontender no masses Ext no edema Results & Data Vital Signs (Past 12 Hours) Vital Signs Temp Pulse Resp BP Pulse Ox 05/15/25 02:56 36.6 C 86 18 129/76 94 05/15/25 02:30 36.4 C L 80 19 121/78 96 05/15/25 01:30 36.3 C L 82 18 107/77 95 05/15/25 00:30 36.8 C 77 20 120/80 93 05/15/25 00:00 36.7 C 82 18 104/70 94 05/14/25 23:45 36.6 C 81 20 110/76 95 05/14/25 23:28 36.8 C 86 18 120/82 96 05/14/25 22:58 84 05/14/25 19:55 36.6 C 95 H 18 119/69 93 PG Care Time/CCT Total # of Minutes Spent Total Time Spent with Patient: Total time spent is greater than 50% in coordination of care (as documented) at patient's floor/unit and/or counseling patient: Coding Level of Care Code 16712 INT INP/OBS CARE 375MIN Diagnoses Anemia D64.9 Anemia type: unspecified type Iron deficiency anemia D50.9 (1) Anemia Anemia type: unspecified type Qualified Code(s): D64.9 - Anemia, unspecified
[2025-05-15] MEDS: MULTIVITAMIN TAB PO SCH (09:26)
[2025-05-15] MEDS: FUROSEMIDE 40 MG TAB PO SCH (09:26)
[2025-05-15] MEDS: CALCIUM 600MG + VIT D 400 IU TAB PO SCH (09:26)
--- NOTE | 2025-05-15 14:42 | Electrocardiogram Report ---
Test Reason : Blood Pressure : */* mmHG Vent. Rate : 99 BPM Atrial Rate : * BPM P-R Int : * ms QRS Dur : 92 ms QT Int : 358 ms P-R-T Axes : * 51 53 degrees QTcB Int : 459 ms Atrial fibrillation Abnormal ECG When compared with ECG of 29-Mar-2024 12:45, No significant change was found Confirmed by Mp Chen ([id number]) on 05/15/2025 2:42:45 PM Referred By: REFERRED SELF Confirmed By: Mp Chen
[2025-05-15] MEDS: LAVAGE SOLUTION 4000ML PO SCH (15:59)
--- NOTE | 2025-05-15 16:59 | Hospitalist Progress Note ---
Date of Service May 15, 2025 Assessment & Plan (1) Acute blood loss anemia: (2) GIB (gastrointestinal bleeding): (3) CHF (congestive heart failure): (4) Persistent atrial fibrillation: Plan This patient is an 89-year-old male with a history of chronic HFpEF, permanent atrial fibrillation on Eliquis, HLD, mild aortic stenosis, HTN, anemia with history of GI bleed, BPH who presents to the ED with weakness lethargy and shortness of breath worsening x 2 to 3 days. He reports taking iron pills which make his stool turned dark but he may have noticed some red blood in the stool in the recent past. He denies any bleeding from anywhere else, no vomiting. Denies abdominal pains or nausea. In the ED, he was found to have a hemoglobin of 6.2. He was found to have Hemoccult positive black stool on rectal exam in the ED. He was given a dose of Kcentra. He is admitted for acute symptomatic anemia with GI bleed. #Acute blood loss anemia/GI bleed/symptomatic anemia-with black stools from iron pills versus upper GI bleed. Also with red blood in the stool prior to that, could be lower GI bleed as well. He was told by his PCP that his Hgb was around 11 a month ago and that he did not need to take the iron pills anymore so he did stop for a few weeks but resumed them for 5 days ago as they help him move his bowels regularly. His thinks he had an EGD at [facility] several years ago when he had another GI bleed. Hgb improved after 2 units PRBCs, now at 8.8. No BMs since admission. Is hemodynamically stable - Continue IV Protonix drip - follow CBC in AM - Consult GI appreciated-plan for EGD and colonoscopy 05/16-NPO after midnight, thang wel prep ordered - Avoid maintenance IV fluids due to heart failure and getting PRBC transfusion - continue to hold Eliquis and will determine if safe to restart after scopes-if no source found, recommend remaining off Eliquis and having video capsule endoscopy #JOSEPH on CKD stage III-creatinine elevated from baseline at 1.7 on admission and improved to 1.69 with PRBC transfusion. Likely on the basis of hypovolemia/ATN from acute blood loss anemia. 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 In permanent atrial fibrillation, rate controlled. With mild aortic stenosis on last echo reviewed in the chart. Blood pressures here are soft due to acute blood loss. - will now hold lasix given ongoing JOSEPH and no crackles on exam - Continue atorvastatin every other day #BPH-no acute issues - Continue home tamsulosin and monitor for urinary retention #Glaucoma-no acute issues - Continue home latanoprost eyedrops #Osteoporosis-no acute issues, is on Prolia - Continue home Caltrate D DVT prophylaxis-SCDs Disposition-continued stay on tele Admission and Anticipated Discharge Date Admission Date: May 14, 2025 Subjective Pt had some confusion overnight and felt like he was drowsy all morning. He does take Tylenol PM at home and did receive benadryl here as a sub. No BMs all day. No SOB. Tele with Afib, normal rates in 70-80s, some PVCs Physical Exam Constitutional: WD/WN, vitals as above Neck: trachea midline, no thyromegaly Respiratory: normal respiratory effort; no cough Auscultation: no crackles and no wheezes Cardiovascular: Rate/Rhythm: regular rate and + irregularly irregular Heart Sounds: + murmur (2/6 TIANNA at the RUSB) Chest (Breasts): Chest: normal inspection of chest Gastrointestinal (Abdomen): normal bowel sounds, soft, nontender, no hepatosplenomegaly Musculoskeletal: Extremities: extremities normal to inspection; no cyanosis and no clubbing Skin: no rashes, warm and dry Neurologic: moves all extremities and awake; no focal motor deficits Psychiatric: A+Ox3, euthymic affect Lymphatic: no lymphedema Results & Data Results & Data Vital Signs (Past 12 Hours) Vital Signs Temp Pulse Pulse Resp BP Pulse Ox O2 Del Method 05/15/25 16:00 37.0 C 90 18 97/62 L 92 Room Air 05/15/25 12:08 36.5 C 83 19 112/73 93 Room Air 05/15/25 10:00 80 05/15/25 09:47 Room Air 05/15/25 08:04 36.5 C 94 H 18 123/75 94 Room Air Laboratory Results CBC, BMP reviewed PG Care Time/CCT Total # of Minutes Spent Total Time Spent with Patient: Total time spent is greater than 50% in coordination of care (as documented) at patient's floor/unit and/or counseling patient: Coding Level of Care Code 67691 SUB INP/OBS CARE 2/35MIN Diagnoses Acute blood loss anemia D62 GIB (gastrointestinal bleeding) K92.2 CHF (congestive heart failure) I50.9 Heart failure chronicity: acute on chronic Heart failure type: unspecified Persistent atrial fibrillation I48.19 (3) CHF (congestive heart failure) Heart failure chronicity: acute on chronic Heart failure type: unspecified Qualified Code(s): I50.9 - Heart failure, unspecified
[2025-05-16 07:50] LABS: Hematocrit (blood only) 25.6 % (42.0-52.0); Hemoglobin 8.6 g/dl (14.0-18.0); Immature Granulocytes # (auto) 0.01 K/uL (0.01-0.20); Immature Granulocytes % (auto) 0.2 %; Mean Corpuscular Hemoglobin 28.6 pg (25.0-34.0); Mean Corpuscular Volume 85.0 fL (80.0-100.0); Platelet Count 205 K/uL (130-400); RDW Standard Deviation 46.5 fL (36.4-46.3); Red Blood Count 3.01 M/uL (4.70-6.10); White Blood Count 4.27 K/ul (4.8-10.8)
[2025-05-16 08:06] LABS: Anion Gap 7.0 (3-11); Blood Urea Nitrogen 28.0 mg/dl (6-23); Calcium 8.6 mg/dl (8.6-10.3); Carbon Dioxide 27.0 mmol/L (21-32); Chloride 104.0 mmol/L (98-107); Creatinine Clr Calc Pharmacy 25.5 ml/min; Glucose 93.0 mg/dl (70-99(Fasting)); Magnesium 1.7 mg/dl (1.7-2.4); Potassium 3.1 mmol/L (3.5-5.1); Sodium 138.0 mmol/L (136-145)
--- NOTE | 2025-05-16 08:41 | Anesthesiology Consultation ---
Date of Service May 16, 2025 Assessment & Plan (1) Encounter for pre-operative examination: Chart Review Chart Review: Acceptable Risk for Surgery (urgent) History Surgery Operation Date: 05/16/25 16:45 Proposed Procedures p Colonoscopy EGD Dr. Fabienne Loving MD Height/Weight Height: 5 ft 2 in Weight: 53 kg Allergies Allergy/AdvReac Type Severity Reaction Status Date / Time No Known Allergies Allergy Unknown Verified 05/14/25 14:13 Medications Home Medications Medication Instructions Recorded Confirmed Last Taken latanoprost 0.005 % eye drops 1 drp OPB HS 02/06/20 05/14/25 05/13/25 calcium 600 mg-D3 800 unit-mag11 1 tab PO DAILY 11/20/22 05/14/25 05/14/25 50 cy-lsen-ykngsl-susanne-s.borat tablet (Caltrate 600-D Plus Minerals) pantoprazole 40 mg tablet,delayed 40 mg PO DAILY 11/20/22 05/14/25 05/14/25 release denosumab 60 mg/mL subcutaneous 60 mg subcut DIRECTED 12/02/22 05/14/25 6 Months Ago syringe (Prolia) ~11/13/24 diphenhydramine 25 1 - 2 tab PO HS 03/18/23 05/14/25 05/13/25 mg-acetaminophen 500 mg tablet (Tylenol PM Extra Strength) multivitamin 1 tab PO DAILY 03/18/23 05/14/25 05/14/25 ferrous sulfate 325 mg (65 mg 325 mg PO BID #60 tabs 03/20/23 05/14/25 05/14/25 iron) tablet apixaban 2.5 mg tablet (Eliquis) 2.5 mg PO BID #60 tabs 12/30/23 05/14/25 05/14/25 atorvastatin 40 mg tablet 40 mg PO Q OTHER DAY #45 tabs 03/14/24 05/14/25 Unknown furosemide 40 mg tablet 40 mg PO QAM #90 tabs 01/22/25 05/14/25 05/14/25 tamsulosin 0.4 mg capsule 0.4 mg PO QPM #30 caps 03/14/25 05/14/25 05/13/25 coenzyme Q10 100 mg capsule (Co 100 mg PO DAILY 05/14/25 05/14/25 05/14/25 Q-10) Active Medications Generic Name Dose Route Start Last Admin Trade Name Freq PRN Reason Stop Dose Admin Acetaminophen 650 mg 05/14/25 17:00 05/14/25 21:27 Acetaminophen 325 Mg Tab PO 06/13/25 16:59 650 mg Q4H PRN Administration Pain or Fever Atorvastatin Calcium 40 mg 05/14/25 21:00 05/14/25 21:27 Atorvastatin 40 Mg Tab PO 06/13/25 20:59 40 mg Q2D@2100 YUKI Administration Calcium/Vitamin D 1 tab 05/15/25 09:00 05/15/25 09:26 Calcium 600mg + Vit D 400 Iu Tab PO 06/14/25 08:59 1 tab DAILY YUKI Administration Furosemide 40 mg 05/15/25 09:00 05/15/25 09:26 Furosemide 40 Mg Tab PO 06/14/25 08:59 40 mg QAM YUKI Administration Pantoprazole Sodium 40 mg/ 100 mls @ 20 mls/hr 05/14/25 17:30 05/16/25 05:39 Dextrose IV 06/13/25 17:29 8 mg/hr Q5H YUKI 20 mls/hr Administration 8 MG/HR Latanoprost 1 drops 05/14/25 21:00 05/15/25 21:39 Latanoprost 0.005% Op Soln 2.5 Ml Btl OPB 06/13/25 20:59 1 drops HS YUKI Administration Melatonin 3 mg 05/14/25 17:00 05/15/25 22:03 Melatonin 3 Mg Tab PO 06/13/25 16:59 3 mg HS PRN Administration Sleep Multivitamins 1 tab 05/15/25 09:00 05/15/25 09:26 Multivitamin Tab PO 06/14/25 08:59 1 tab DAILY YUKI Administration Tamsulosin HCl 0.4 mg 05/14/25 21:00 05/15/25 22:03 Tamsulosin Hcl 0.4 Mg Cap PO 06/13/25 20:59 0.4 mg QPM YUKI Administration Past Medical History Medical History (Updated 05/16/25 @ 08:41 by Renzo Villegas MD) CKD (chronic kidney disease) Anticoagulated Weakness Chronic diastolic heart failure Acute blood loss anemia GIB (gastrointestinal bleeding) Hypertension Aortic stenosis Persistent atrial fibrillation Benign prostatic hyperplasia without urinary obstruction PAD (peripheral artery disease) CHF (congestive heart failure) Bilateral edema of lower extremity SOB (shortness of breath) Elevated PSA Benign prostatic hyperplasia with urinary obstruction Past Family History Family History Other Heart disease Past Surgical History Surgical History History of dental surgery Social History Smoking Status: Current every day smoker tobacco type: pipe Do You Dip or Chew Tobacco: No Hx Alcohol Use: No Alcohol type: beer alcohol intake frequency: holidays/special occasions only Hx Substance Use: No Physical Exam Vital Signs Last Vital Signs Temp 36.5 C 05/16/25 07:34 Pulse 71 05/16/25 07:34 Resp 18 05/16/25 07:34 BP 110/71 05/16/25 07:34 Pulse Ox 95 05/16/25 07:34 O2 Del Method Room Air 05/16/25 07:34 Testing Laboratory Results 05/16/25 07:35 05/16/25 07:35 PT 11.3 Seconds (9.0-12.0) 05/14/25 14:18 INR 1.0 (0.9-1.1) 05/14/25 14:18 APTT 25 Seconds (21-31) 05/14/25 14:18 Urine Color Yellow 05/14/25 12:35 Urine Appearance Clear (Clear) 05/14/25 12:35 Urine pH 6.5 (4.5-7.5) 05/14/25 12:35 Ur Specific Orange 1.010 (1.000-1.030) 05/14/25 12:35 Urine Protein Negative (Negative) 05/14/25 12:35 Urine Glucose (UA) Negative (Negative) 05/14/25 12:35 Urine Ketones Negative (Negative) 05/14/25 12:35 Urine Nitrite Negative (Negative) 05/14/25 12:35 Ur Leukocyte Esterase Trace (Negative) H 05/14/25 12:35 Urine WBC (Auto) 0-5 /hpf (0-5) 05/14/25 12:35 Urine RBC (Auto) 0-2 /hpf (0-2) 05/14/25 12:35 U Hyaline Cast (Auto) 0-2 /lpf (0-2) 05/14/25 12:35 U Epithel Cells (Auto) 0-2 /hpf (0-2) 05/14/25 12:35 Urine Bacteria (Auto) None Seen (None Seen) 05/14/25 12:35 Blood Type A Positive 05/14/25 14:18 Antibody Screen NEGATIVE 05/14/25 14:18 05/14/25 14:18 Aerobic Blood Culture - Preliminary Blood No growth in Aerobic bottle after 24 hours. Anaerobic Blood Culture - Preliminary No growth in Anaerobic bottle after 24 hours. 05/14/25 13:54 Aerobic Blood Culture - Preliminary Blood No growth in Aerobic bottle after 24 hours. Anaerobic Blood Culture - Preliminary No growth in Anaerobic bottle after 24 hours. Echocardiogram Date: 04/20/25 LV Function: normal Valvular Disease: + (moderate) and + MR (mild)
--- NOTE | 2025-05-16 09:24 | Gastroenterology Progress Note ---
Date of Service May 16, 2025 Assessment & Plan (1) GI bleed: Plan 89-year-old male with a history of chronic HFpEF, permanent atrial fibrillation on Eliquis, HLD, mild aortic stenosis, HTN, anemia with history of GI bleed, BPH who presents to the ED with weakness lethargy and shortness of breath worsening over the last 2 to 3 days. Hemoglobin of 6.2. He was found to have Hemoccult positive black stool on rectal exam. He was started on IV PPI and started transfusion of 1 unit of PRBCs. Hgb 8.6 g/dl today without overt signs of GI bleeding at this time. (1) GI bleeding. - Educated on rationale for EGD and colonoscopy. Patient agrees. - Plan to start Clear liquids. NPO after midnight. Complete Golytely split prep. - Rescheduled EGD and Colonoscopy for tomorrow 05/17/25. - Continue to monitor CBC and transfuse as needed to maintain Hgb > 7g/dl primary care team. - Continue with IV PPI therapy per primary team. - Continue to monitor for overt GI bleeding. - F/U with EGD and Colonoscopy tomorrow. Admission and Anticipated Discharge Date Admission Date: May 14, 2025 Supervising Physician Co-Signing Physician Notes I saw and examined this patient with our nurse practitioner and agree with her assessment and plan. Hemodynamically stable hemoglobin improved posttransfusion. Incomplete bowel prep today will reprep for tomorrow's endoscopy and colonoscopy. Subjective 89-year-old male with a history of chronic HFpEF, permanent atrial fibrillation on Eliquis, HLD, mild aortic stenosis, HTN, anemia with history of GI bleed, BPH who presents to the ED with weakness lethargy and shortness of breath worsening over the last 2 to 3 days. In the ED, he was found to have a hemoglobin of 6.2. He was found to have Hemoccult positive black stool on rectal exam in the ED. He was started on IV PPI and started transfusion of 1 unit of PRBCs. He was given a dose of Kcentra. We prepped him for colonoscopy and EGD to be completed today. However he only took a little under half of prep. Stools are brown liquid. He denies any fevers, chills, abdominal pain, N/V/D, melena or hematochezia. Hemoglobin stable at 8.6g/dl down from 8.8 g/dl. Review of Systems Review of Systems: See HPI Physical Exam Physical Exam: Constitutional: NAD. Alert. Answering questions appropriately. Respiratory: Breathing is even, non-labored. Lungs keene are clear to auscultation anteriorly. Cardiovascular: Regular Rate and Rhythm, no murmurs, rubs or gallops appreciated. Gastrointestinal (Abdomen): Normoactive bowel sounds x4, soft, non-distended, non-tender. Musculoskeletal: Lying in bed comfortably. No peripheral edema. Results & Data Results & Data Vital Signs (Past 12 Hours) Vital Signs Temp Pulse Pulse Resp BP Pulse Ox O2 Del Method 05/16/25 08:23 Room Air 05/16/25 07:34 97.7 F 71 18 110/71 95 Room Air 05/16/25 03:43 97.9 F 88 18 95/65 L 93 Room Air 05/16/25 00:54 97.5 F L 83 20 106/67 96 Room Air 05/15/25 22:51 105 H Laboratory Results Laboratory Results - last 48 hr 05/14/25 05/14/25 05/15/25 14:18 22:27 06:37 WBC 4.88 6.20 RBC 2.56 L 3.12 L Hgb 6.9 L* 8.8 L Hct 21.9 L 26.6 L MCV 85.5 85.3 MCH 27.0 28.2 MCHC 31.5 L 33.1 RDW Std Deviation 45.7 45.7 RDW Coeff of Don 15.2 H 15.3 H Plt Count 208 210 MPV 9.8 10.0 Immature Gran % (Auto) 0.3 Neut % (Auto) 83.2 Lymph % (Auto) 6.6 [place] % (Auto) 8.2 Eos % (Auto) 1.5 Baso % (Auto) 0.2 Neut # (Auto) 5.16 Lymph # (Auto) 0.41 L [place] # (Auto) 0.51 Eos # (Auto) 0.09 Baso # (Auto) 0.01 Immature Gran # (Auto) 0.02 PT 11.3 INR 1.0 APTT 25 PTT Ratio 0.9 Sodium 139 Potassium 3.6 Chloride 106 Carbon Dioxide 24 Anion Gap 9 BUN 43 H Creatinine 1.69 H Est Cr Clr Drug Dosing 22.9 eGFR 38.33 BUN/Creatinine Ratio 25.4 H Glucose 89 Calcium 8.8 Magnesium 1.9 Troponin I High Sens 13.1 B-Natriuretic Peptide 197 H Blood Type A Positive Antibody Screen NEGATIVE Crossmatch See Detail 05/16/25 07:35 WBC 4.27 L RBC 3.01 L Hgb 8.6 L Hct 25.6 L MCV 85.0 MCH 28.6 MCHC 33.6 RDW Std Deviation 46.5 H RDW Coeff of Don 15.3 H Plt Count 205 MPV 9.5 Immature Gran % (Auto) 0.2 Neut % (Auto) 74.3 Lymph % (Auto) 10.5 [place] % (Auto) 13.1 Eos % (Auto) 1.9 Baso % (Auto) 0.0 Neut # (Auto) 3.17 Lymph # (Auto) 0.45 L [place] # (Auto) 0.56 Eos # (Auto) 0.08 Baso # (Auto) 0.00 Immature Gran # (Auto) 0.01 PT INR APTT PTT Ratio Sodium 138 Potassium 3.1 L Chloride 104 Carbon Dioxide 27 Anion Gap 7 BUN 28 H Creatinine 1.47 H Est Cr Clr Drug Dosing 25.5 eGFR 45.31 BUN/Creatinine Ratio 19.0 Glucose 93 Calcium 8.6 Magnesium 1.7 Troponin I High Sens B-Natriuretic Peptide Blood Type Antibody Screen Crossmatch PG Care Time/CCT Total # of Minutes Spent Total Time Spent with Patient: Total time spent is greater than 50% in coordination of care (as documented) at patient's floor/unit and/or counseling patient: Coding Level of Care Code 96766 SUB INP/OBS CARE 2/35MIN Diagnoses GI bleed K92.1 GI bleed type/associated pathology: melena (1) GI bleed GI bleed type/associated pathology: melena Qualified Code(s): K92.1 - Melena
[2025-05-16] MEDS: MAGNESIUM SULFATE / D5W 1 GM/100 ML BAG IV ONE (09:27)
[2025-05-16] MEDS: POTASSIUM CHLORIDE / WTR 10 MEQ/100 ML PLCT IV SCH (09:28)
[2025-05-16] MEDS: POTASSIUM CHLORIDE CRTAB 20 MEQ TABCR PO STA (14:25)
[2025-05-16] MEDS ORDERED: LAVAGE SOLUTION 4000ML PO SCH (15:00)
--- NOTE | 2025-05-16 15:01 | Hospitalist Progress Note ---
Date of Service May 16, 2025 Assessment & Plan (1) Acute blood loss anemia: (2) GIB (gastrointestinal bleeding): (3) CHF (congestive heart failure): (4) Persistent atrial fibrillation: Plan This patient is an 89-year-old male with a history of chronic HFpEF, permanent atrial fibrillation on Eliquis, HLD, mild aortic stenosis, HTN, anemia with history of GI bleed, BPH who presents to the ED with weakness lethargy and shortness of breath worsening x 2 to 3 days. He reports taking iron pills which make his stool turned dark but he may have noticed some red blood in the stool in the recent past. He denies any bleeding from anywhere else, no vomiting. Denies abdominal pains or nausea. In the ED, he was found to have a hemoglobin of 6.2. He was found to have Hemoccult positive black stool on rectal exam in the ED. He was given a dose of Kcentra. He is admitted for acute symptomatic anemia with GI bleed. #Acute blood loss anemia/GI bleed/symptomatic anemia-with black stools from iron pills versus upper GI bleed. Also with red blood in the stool prior to that, could be lower GI bleed as well. He was told by his PCP that his Hgb was around 11 a month ago and that he did not need to take the iron pills anymore so he did stop for a few weeks but resumed them 5 days prior to admission as they help him move his bowels regularly. His thinks he had an EGD at [facility] several years ago when he had another GI bleed. He then had a negative video capsule endoscopy in 2022. He was resumed on Eliquis since that time and has remained with a mild anemia until now. Hgb improved after 2 units PRBCs, now at 8.6 and stable from previous. With some black stools with initial bowel prep but no stool watery brown. With soft blood pressures but hemodynamically stable - Continue IV Protonix drip - follow CBC again in AM - Consult GI appreciated-plan for EGD and colonoscopy 05/17 after repeat bowel prep-NPO after midnight, bowel prep ordered - Avoid maintenance IV fluids due to heart failure and getting PRBC transfusion - continue to hold Eliquis and will determine if safe to restart after scopes-if no source found, recommend remaining off Eliquis and having video capsule endoscopy as an outpatient #JOSEPH on CKD stage III-creatinine elevated from baseline at 1.7 on admission and improved to 1.47 with PRBC transfusion. Likely on the basis of hypovolemia/ATN from acute blood loss anemia. Baseline tube cleaner 1.3-1.4 - Okay to continue home lasix - Follow BMP #Chronic HFpEF/permanent atrial fibrillation on Eliquis/mild aortic stenosis/HTN/HLD-with crackles on examination and CXR with evidence of CHF on admission now resolved. In permanent atrial fibrillation, rate controlled. With mild aortic stenosis on last echo reviewed in the chart. Blood pressures here are soft due to acute blood loss. - Okay to resume home lasix - Continue atorvastatin every other day #BPH-no acute issues - Continue home tamsulosin and monitor for urinary retention #Glaucoma-no acute issues - Continue home latanoprost eyedrops #Osteoporosis-no acute issues, is on Prolia - Continue home Caltrate D DVT prophylaxis-SCDs Disposition-continued stay on [facility], plan for EGD/colonoscopy on 05/17. He will likely need to stay overnight again and likely discharge on 05/18. He is refusing rehab as recommended by PT/OT Admission and Anticipated Discharge Date Admission Date: May 14, 2025 Subjective Patient did not finish his bowel prep overnight and was still having brown watery stool this morning so colonoscopy was canceled. He reports he drinks 7 cups but could not finish the rest. He is willing to try again this evening. His reports that his stools initially were black and then turned to brown. Patient denies abdominal pain or nausea. No shortness of breath. I discussed his care with gastroenterology Telemetry with atrial fibrillation with rates in the 70s to 80s Physical Exam Constitutional: WD/WN, vitals as above Neck: trachea midline, no thyromegaly Respiratory: normal respiratory effort; no cough Auscultation: no crackles and no wheezes Cardiovascular: Rate/Rhythm: regular rate and + irregularly irregular Heart Sounds: + murmur (2/6 TIANNA at the RUSB) Extremities: no edema Chest (Breasts): Chest: normal inspection of chest Gastrointestinal (Abdomen): normal bowel sounds, soft, nontender, no hepatosplenomegaly Musculoskeletal: Extremities: extremities normal to inspection; no cyanosis and no clubbing Skin: no rashes, warm and dry Neurologic: moves all extremities and awake; no focal motor deficits Psychiatric: A+Ox3, euthymic affect Lymphatic: no lymphedema Results & Data Results & Data Vital Signs (Past 12 Hours) Vital Signs Temp Pulse Resp BP Pulse Ox O2 Del Method 05/16/25 11:39 36.6 C 81 18 96/57 L 95 Room Air 05/16/25 08:23 Room Air 05/16/25 07:34 36.5 C 71 18 110/71 95 Room Air 05/16/25 03:43 36.6 C 88 18 95/65 L 93 Room Air Laboratory Results CBC, BMP, magnesium reviewed PG Care Time/CCT Total # of Minutes Spent Total Time Spent with Patient: Total time spent is greater than 50% in coordination of care (as documented) at patient's floor/unit and/or counseling patient: Coding Level of Care Code 71507 SUB INP/OBS CARE 3/50MIN Diagnoses Acute blood loss anemia D62 GIB (gastrointestinal bleeding) K92.2 CHF (congestive heart failure) I50.9 Heart failure chronicity: acute on chronic Heart failure type: unspecified Persistent atrial fibrillation I48.19 (3) CHF (congestive heart failure) Heart failure chronicity: acute on chronic Heart failure type: unspecified Qualified Code(s): I50.9 - Heart failure, unspecified
[2025-05-16] MEDS: POLYETHYLENE (MIRALAX) 17 GM PACK PO SCH (17:43)
[2025-05-17 07:00] LABS: Hematocrit (blood only) 28.2 % (42.0-52.0); Hemoglobin 9.2 g/dl (14.0-18.0); Immature Granulocytes # (auto) 0.02 K/uL (0.01-0.20); Immature Granulocytes % (auto) 0.4 %; Mean Corpuscular Hemoglobin 28.2 pg (25.0-34.0); Mean Corpuscular Volume 86.5 fL (80.0-100.0); Platelet Count 224 K/uL (130-400); RDW Standard Deviation 48.2 fL (36.4-46.3); Red Blood Count 3.26 M/uL (4.70-6.10); White Blood Count 5.38 K/ul (4.8-10.8)
[2025-05-17 07:26] LABS: Alanine Aminotransferase 16.0 U/L (7-52); Albumin Globulin Ratio 1.1 (0.9-2); Alkaline Phosphatase 64.0 U/L (34-104); Anion Gap 7.0 (3-11); Bilirubin,Total 1.2 mg/dl (0.2-1.0); Blood Urea Nitrogen 18.0 mg/dl (6-23); Calcium 9.0 mg/dl (8.6-10.3); Carbon Dioxide 26.0 mmol/L (21-32); Chloride 103.0 mmol/L (98-107); Creatinine Clr Calc Pharmacy 28.9 ml/min; Globulin 3.0 gm/dl (2.5-4.0); Glucose 85.0 mg/dl (70-99(Fasting)); Magnesium 1.8 mg/dl (1.7-2.4); Potassium 3.9 mmol/L (3.5-5.1); Sodium 136.0 mmol/L (136-145); Total Protein 6.4 gm/dl (6.0-8.3)
--- NOTE | 2025-05-17 08:20 | History & Physical Bridge Note ---
Date of Service May 17, 2025 History & Physical Bridge Note I have examined the patient, reviewed the History & Physical and in the interval since the performance of the History & Physical I have noted the following changes of clinical significance: no changes noted Patient denies any issues. Having clear stools. Completed prep. He's following NPO orders. Plan to proceed with EGD and Colonoscopy today as scheduled. Supervising Physician Co-Signing Physician Notes I saw and examined this patient with our nurse practitioner and agree with her assessment and plan. Tolerated bowel prep yesterday ready for endoscopy and colonoscopy today.
--- NOTE | 2025-05-17 11:10 | Anesthesiology Consultation ---
Date of Service May 17, 2025 Assessment & Plan (1) Encounter for pre-operative examination: Chart Review Chart Review: Acceptable Risk for Surgery and Patient NOT seen in Pre Admission Testing Consults Requested none History Surgery Operation Date: 05/17/25 16:30 Proposed Procedures p Colonoscopy EGD Dr. Fabienne Loving MD Height/Weight Height: 5 ft 2 in Weight: 53.5 kg Allergies Allergy/AdvReac Type Severity Reaction Status Date / Time No Known Allergies Allergy Unknown Verified 05/14/25 14:13 Medications Home Medications Medication Instructions Recorded Confirmed Last Taken latanoprost 0.005 % eye drops 1 drp OPB HS 02/06/20 05/14/25 05/13/25 calcium 600 mg-D3 800 unit-mag11 1 tab PO DAILY 11/20/22 05/14/25 05/14/25 50 qp-whmu-klpkzz-susanne-s.borat tablet (Caltrate 600-D Plus Minerals) pantoprazole 40 mg tablet,delayed 40 mg PO DAILY 11/20/22 05/14/25 05/14/25 release denosumab 60 mg/mL subcutaneous 60 mg subcut DIRECTED 12/02/22 05/14/25 6 Months Ago syringe (Prolia) ~11/13/24 diphenhydramine 25 1 - 2 tab PO HS 03/18/23 05/14/25 05/13/25 mg-acetaminophen 500 mg tablet (Tylenol PM Extra Strength) multivitamin 1 tab PO DAILY 03/18/23 05/14/25 05/14/25 ferrous sulfate 325 mg (65 mg 325 mg PO BID #60 tabs 03/20/23 05/14/25 05/14/25 iron) tablet apixaban 2.5 mg tablet (Eliquis) 2.5 mg PO BID #60 tabs 12/30/23 05/14/25 05/14/25 atorvastatin 40 mg tablet 40 mg PO Q OTHER DAY #45 tabs 03/14/24 05/14/25 Unknown furosemide 40 mg tablet 40 mg PO QAM #90 tabs 01/22/25 05/14/25 05/14/25 tamsulosin 0.4 mg capsule 0.4 mg PO QPM #30 caps 03/14/25 05/14/25 05/13/25 coenzyme Q10 100 mg capsule (Co 100 mg PO DAILY 05/14/25 05/14/25 05/14/25 Q-10) Active Medications Generic Name Dose Route Start Last Admin Trade Name Freq PRN Reason Stop Dose Admin Acetaminophen 650 mg 05/14/25 17:00 05/14/25 21:27 Acetaminophen 325 Mg Tab PO 06/13/25 16:59 650 mg Q4H PRN Administration Pain or Fever Atorvastatin Calcium 40 mg 05/14/25 21:00 05/16/25 20:03 Atorvastatin 40 Mg Tab PO 06/13/25 20:59 40 mg Q2D@2100 YUKI Administration Calcium/Vitamin D 1 tab 05/15/25 09:00 05/17/25 08:50 Calcium 600mg + Vit D 400 Iu Tab PO 06/14/25 08:59 1 tab DAILY YUKI Administration Furosemide 40 mg 05/15/25 09:00 05/17/25 08:50 Furosemide 40 Mg Tab PO 06/14/25 08:59 40 mg QAM YUKI Administration Pantoprazole Sodium 40 mg/ 100 mls @ 20 mls/hr 05/14/25 17:30 05/17/25 06:08 Dextrose IV 06/13/25 17:29 8 mg/hr Q5H YUKI 20 mls/hr Administration 8 MG/HR Latanoprost 1 drops 05/14/25 21:00 05/16/25 20:03 Latanoprost 0.005% Op Soln 2.5 Ml Btl OPB 06/13/25 20:59 1 drops HS YUKI Administration Melatonin 3 mg 05/14/25 17:00 05/17/25 00:01 Melatonin 3 Mg Tab PO 06/13/25 16:59 3 mg HS PRN Administration Sleep Multivitamins 1 tab 05/15/25 09:00 05/17/25 08:50 Multivitamin Tab PO 06/14/25 08:59 1 tab DAILY YUKI Administration Tamsulosin HCl 0.4 mg 05/14/25 21:00 05/16/25 20:02 Tamsulosin Hcl 0.4 Mg Cap PO 06/13/25 20:59 0.4 mg QPM YUKI Administration Past Medical History Medical History CKD (chronic kidney disease) Anticoagulated Weakness Chronic diastolic heart failure Acute blood loss anemia GIB (gastrointestinal bleeding) Hypertension Aortic stenosis Persistent atrial fibrillation Benign prostatic hyperplasia without urinary obstruction PAD (peripheral artery disease) CHF (congestive heart failure) Bilateral edema of lower extremity SOB (shortness of breath) Elevated PSA Benign prostatic hyperplasia with urinary obstruction Exercise / Class Metabolic Activity III < 4 Walking/Shop/Light housework Past Family History Family History Other Heart disease Past Surgical History Surgical History History of dental surgery Past Anesthesia History No Hx of Anesthesia Complications and No Family Hx of Anesthesia Complications Social History Smoking Status: Current every day smoker tobacco type: pipe Do You Dip or Chew Tobacco: No Hx Alcohol Use: No Alcohol type: beer alcohol intake frequency: holidays/special occasions only Hx Substance Use: No Physical Exam Vital Signs Last Vital Signs Temp 36.2 C L 05/17/25 07:49 Pulse 88 05/17/25 08:00 Resp 16 05/17/25 07:49 BP 126/74 05/17/25 07:49 Pulse Ox 92 05/17/25 07:49 O2 Del Method Room Air 05/17/25 07:49 Testing Laboratory Results 05/17/25 06:40 05/17/25 06:40 PT 11.3 Seconds (9.0-12.0) 05/14/25 14:18 INR 1.0 (0.9-1.1) 05/14/25 14:18 APTT 25 Seconds (21-31) 05/14/25 14:18 Urine Color Yellow 05/14/25 12:35 Urine Appearance Clear (Clear) 05/14/25 12:35 Urine pH 6.5 (4.5-7.5) 05/14/25 12:35 Ur Specific [place] 1.010 (1.000-1.030) 05/14/25 12:35 Urine Protein Negative (Negative) 05/14/25 12:35 Urine Glucose (UA) Negative (Negative) 05/14/25 12:35 Urine Ketones Negative (Negative) 05/14/25 12:35 Urine Nitrite Negative (Negative) 05/14/25 12:35 Ur Leukocyte Esterase Trace (Negative) H 05/14/25 12:35 Urine WBC (Auto) 0-5 /hpf (0-5) 05/14/25 12:35 Urine RBC (Auto) 0-2 /hpf (0-2) 05/14/25 12:35 U Hyaline Cast (Auto) 0-2 /lpf (0-2) 05/14/25 12:35 U Epithel Cells (Auto) 0-2 /hpf (0-2) 05/14/25 12:35 Urine Bacteria (Auto) None Seen (None Seen) 05/14/25 12:35 Blood Type A Positive 05/14/25 14:18 Antibody Screen NEGATIVE 05/14/25 14:18 05/14/25 14:18 Aerobic Blood Culture - Preliminary Blood No growth in Aerobic bottle after 48 hours. Anaerobic Blood Culture - Preliminary No growth in Anaerobic bottle after 48 hours. 05/14/25 13:54 Aerobic Blood Culture - Preliminary Blood No growth in Aerobic bottle after 48 hours. Anaerobic Blood Culture - Preliminary No growth in Anaerobic bottle after 48 hours. Electrocardiogram Date: 05/14/25 Findings: + AFIB @ (99) Echocardiogram Date: 04/20/25 EF: 55% LV Function: normal Valvular Disease: + (moderate) and + MR (mild)
--- NOTE | 2025-05-17 14:14 | GI REPORT ---
[facility] Patient: TAMMI GIRON : 1935 Sex at : Male Age: 89 Years Procedure: Colonoscopy Date: 05/17/2025 Attending Physician: Pilo Loving MD Referring MD: Referred Self Indications: - GI bleed Medications: - Monitored Anesthesia Care Complications: - No immediate complications. Procedure: - Prior to the procedure, a History and Physical was performed, and patient medications, allergies and sensitivities were reviewed. The patient's tolerance of previous anesthesia was reviewed. - The risks and benefits of the procedure and the sedation options and risks were discussed with the patient. All questions were answered and informed consent was obtained. - ASA Grade Assessment: I - A normal, healthy patient. - Prior Anticoagulants: The patient has taken no anticoagulant or antiplatelet agents. - The adult colonoscope was introduced through the anus and advanced to the cecum, identified by appendiceal orifice and ileocecal valve. - The appendiceal orifice and the ileocecal valve were photographed. - The colonoscopy was performed without difficulty. - The patient tolerated the procedure well. - The quality of the bowel preparation was adequate. Findings: - The perianal and digital rectal examinations were normal. - A few localized angioectasias without bleeding were found in the cecum. Not treated. - No other significant abnormalities were identified in a careful examination of the remainder of the colon. Impression: - A few non-bleeding colonic angioectasias. - No specimens collected. Recommendation: - Discharge patient to home. - Patient has a contact number available for emergencies. The signs and symptoms of potential delayed complications were discussed with the patient. Return to normal activities tomorrow. Written discharge instructions were provided to the patient. - Resume previous diet. 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 All Rights Reserved. The CPT codes, CCI edits and ICD codes generated are intended as suggestions and were generated based on input data. These codes are preliminary and upon school psychological examiner review may be revised to meet current compliance and payer requirements. The provider is responsible for the final determination of appropriate codes, and modifiers. Pilo Loving MD This document has been electronically signed. Note Initiated:05/17/2025 Note Completed:05/17/2025 2:13 PM \\[email or web address]\Central\InterfaceData\Data\Provation\Results\LIVE\[id number].pdf
--- NOTE | 2025-05-17 14:15 | GI REPORT ---
[facility] Patient: TAMMI GIRON : 1935 Sex at : Male Age: 89 Years Procedure: Upper GI endoscopy Date: 05/17/2025 Attending Physician: Pilo Loving MD Referring MD: Referred Self Indications: - Suspected upper gastrointestinal bleeding Medications: - Monitored Anesthesia Care Complications: - No immediate complications. Procedure: - Prior to the procedure, a History and Physical was performed, and patient medications and allergies were reviewed. The patient's tolerance of previous anesthesia was also reviewed. The risks and benefits of the procedure and the sedation options and risks were discussed with the patient. All questions were answered, and informed consent was obtained. [Anticoagulant Agents] [Days Prior to Procedure]. [ASA Grade]. After reviewing the risks and benefits, the patient was deemed in satisfactory condition to undergo the procedure. - The EGD scope was introduced through the mouth and advanced to the second part of the duodenum. - The upper GI endoscopy was accomplished without difficulty. - The patient tolerated the procedure well. Findings: - The examined esophagus was normal. - The entire examined stomach was normal. - The examined duodenum was normal. Impression: - Normal esophagus. - Normal stomach. - Normal examined duodenum. - No specimens collected. Recommendation: - Resume previous diet. - Patient has a contact number available for emergencies. The signs and symptoms of potential delayed complications were discussed with the patient. Return to normal activities tomorrow. Written discharge instructions were provided to the patient. Procedure Code(s): - 44150, Esophagogastroduodenoscopy, flexible, transoral; diagnostic, including collection of specimen(s) by brushing or washing, when performed (separate procedure) CPT(R) - 2023 copyright [employer]. All Rights Reserved. The CPT codes, CCI edits and ICD codes generated are intended as suggestions and were generated based on input data. These codes are preliminary and upon clinical coder review may be revised to meet current compliance and payer requirements. The provider is responsible for the final determination of appropriate codes, and modifiers. Pilo Loving MD This document has been electronically signed. Note Initiated:05/17/2025 Note Completed:05/17/2025 2:14 PM \\[email or web address]\Central\[email or web address]\Data\Provation\Results\LIVE\[id number].pdf
--- NOTE | 2025-05-17 14:25 | Communication Note ---
Date of Service: May 17, 2025 Reviewed EGD and Colonoscopy. No signs of bleeding in EGD or Colonoscopy. He did have some non-bleeding AVMs in the cecum. No treatment necessary. Hgb has been stable since arrival to hospital. No overt signs of active bleeding since arrival. Therefore patient would be cleared from GI perspective to restart AC and may f/u with PCP and specialist upon discharge. Please feel free to reach out with any concerns. Thank you kindly for the consult.
--- NOTE | 2025-05-17 14:47 | Anesthesiology Progress Note ---
Date of Service May 17, 2025 Anesthesia Post Procedure Vital Signs Vital Signs: Temp Pulse Pulse Pulse Resp BP Pulse Ox 05/17/25 14:31 84 17 137/79 98 05/17/25 14:15 92 H 17 118/70 98 05/17/25 14:01 97 H 18 109/68 99 05/17/25 13:12 36.8 C 97 H 16 101/78 95 05/17/25 11:29 36.5 C 105 H 20 124/80 96 05/17/25 08:00 88 05/17/25 07:49 36.2 C L 97 H 16 126/74 92 05/17/25 04:25 36.9 C 92 H 18 123/66 96 05/16/25 23:27 36.5 C 94 H 20 102/76 95 05/16/25 23:05 72 05/16/25 19:41 05/16/25 19:27 36.4 C L 78 18 105/65 93 05/16/25 17:00 05/16/25 15:35 36.9 C 92 H 18 98 05/16/25 15:12 83 Pulse Ox O2 Del Method O2 Del Method 05/17/25 14:31 Room Air 05/17/25 14:15 Room Air 05/17/25 14:01 Room Air 05/17/25 13:12 Room Air 05/17/25 11:29 Room Air 05/17/25 08:00 05/17/25 07:49 Room Air 05/17/25 04:25 Room Air 05/16/25 23:27 Room Air 05/16/25 23:05 05/16/25 19:41 Room Air 05/16/25 19:27 Room Air 05/16/25 17:00 98 Room Air 05/16/25 15:35 Room Air 05/16/25 15:12 Transfer of Care Handoff Completed per policy Notes Mental Status: alert / awake / arousable and participated in evaluation Patient Amnestic to Procedure: Yes Nausea / Vomiting: adequately controlled Pain: adequately controlled Airway Patency, RR, SpO2: stable & adequate BP & HR: stable & adequate Hydration State: stable & adequate Anesthetic Complications: no major complications apparent and Pt Satisfied with anesthetic care
--- NOTE | 2025-05-17 17:48 | Hospitalist Progress Note ---
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 He reports taking iron pills which make his stool turned dark but he may have noticed some red blood in the stool in the recent past. He denies any bleeding from anywhere else, no vomiting. Denies abdominal pains or nausea. In the ED, he was found to have a hemoglobin of 6.2. He was found to have Hemoccult positive black stool on rectal exam in the ED. He was given a dose of Kcentra. He is admitted for acute symptomatic anemia with GI bleed. #Acute blood loss anemia/GI bleed/symptomatic anemia-with black stools from iron pills versus upper GI bleed. Also with red blood in the stool prior to that, could be lower GI bleed as well. He was told by his PCP that his Hgb was around 11 a month ago and that he did not need to take the iron pills anymore so he did stop for a few weeks but resumed them 5 days prior to admission as they help him move his bowels regularly. His thinks he had an EGD at [facility] several years ago when he had another GI bleed. He then had a negative video capsule endoscopy in 2022. He was resumed on Eliquis since that time and has remained with a mild anemia until now. Hgb improved after 2 units PRBCs, now increased further to 9.2. With some black stools with initial bowel prep but then turned to clear in color. Remains with soft blood pressures but hemodynamically stable. EGD normal and colonoscopy only showed a few nonbleeding colonic angioectasias. - Will now discontinue IV Protonix drip - follow CBC again in AM - Consult GI appreciated-plan for outpatient video capsule endoscopy - GI thinks it is okay to resume Eliquis on discharge - Recommend once weekly CBCs after discharge once on Eliquis - Recommend remaining off oral iron pills on discharge so as not to confuse the picture if he has dark stools #JOSEPH on CKD stage III-creatinine elevated from baseline at 1.7 on admission and improved to 1.31 with PRBC transfusion. Likely on the basis of hypovolemia/ATN from acute blood loss anemia. 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 In permanent atrial fibrillation, rate controlled. With mild aortic stenosis on last echo reviewed in the chart. Blood pressures here are soft due to acute blood loss. - Continue home lasix - Continue atorvastatin every other day #BPH-no acute issues - Continue home tamsulosin and monitor for urinary retention #Glaucoma-no acute issues - Continue home latanoprost eyedrops #Osteoporosis-no acute issues, is on Prolia - Continue home Caltrate D DVT prophylaxis-SCDs Disposition-continued stay on tele, but likely discharge to home on 05/18 if blood counts remain stable and he is tolerating p.o. He is refusing rehab placement as recommended by PT/OT. customer logistics manager to set up home health Admission and Anticipated Discharge Date Admission Date: May 14, 2025 Subjective Patient had clear bowel movements at the beginning of the morning after his bowel prep overnight. He had an EGD and colonoscopy which did not show a source of bleeding. He denies abdominal pains. He is a little bit confused after anesthesia when I saw him. His is at the bedside. I did discuss his care with GI. Telemetry with atrial fibrillation with rates in the 90s. Patient is anxious to return home. Physical Exam Constitutional: WD/WN, vitals as above Neck: trachea midline, no thyromegaly Respiratory: normal respiratory effort; no cough Auscultation: no crackles and no wheezes Cardiovascular: Rate/Rhythm: regular rate and + irregularly irregular Heart Sounds: + murmur (2/6 TIANNA at the RUSB) Extremities: no edema Chest (Breasts): Chest: normal inspection of chest Gastrointestinal (Abdomen): normal bowel sounds, soft, nontender, no hepatosplenomegaly Musculoskeletal: Extremities: extremities normal to inspection; no cyanosis and no clubbing Skin: no rashes, warm and dry Neurologic: moves all extremities and awake; no focal motor deficits Lymphatic: no lymphedema Results & Data Results & Data Vital Signs (Past 12 Hours) Vital Signs Temp Pulse Pulse Pulse Resp BP BP 05/17/25 16:19 36.4 C L 90 20 103/68 05/17/25 14:48 36.2 C L 88 18 114/85 05/17/25 14:31 84 17 137/79 05/17/25 14:15 92 H 17 118/70 05/17/25 14:01 97 H 18 109/68 05/17/25 13:12 36.8 C 97 H 16 101/78 05/17/25 11:29 36.5 C 105 H 20 124/80 05/17/25 08:00 88 05/17/25 07:49 36.2 C L 97 H 16 126/74 Pulse Ox O2 Del Method 05/17/25 16:19 98 Room Air 05/17/25 14:48 98 Room Air 05/17/25 14:31 98 Room Air 05/17/25 14:15 98 Room Air 05/17/25 14:01 99 Room Air 05/17/25 13:12 95 Room Air 05/17/25 11:29 96 Room Air 05/17/25 08:00 05/17/25 07:49 92 Room Air Laboratory Results CBC, BMP, LFTs reviewed PG Care Time/CCT Total # of Minutes Spent Total Time Spent with Patient: Total time spent is greater than 50% in coordination of care (as documented) at patient's floor/unit and/or counseling patient: Coding Level of Care Code 31440 SUB INP/OBS CARE 3/50MIN Diagnoses Acute blood loss anemia D62 GIB (gastrointestinal bleeding) K92.2 CHF (congestive heart failure) I50.9 Heart failure chronicity: acute on chronic Heart failure type: unspecified Persistent atrial fibrillation I48.19 (3) CHF (congestive heart failure) Heart failure chronicity: acute on chronic Heart failure type: unspecified Qualified Code(s): I50.9 - Heart failure, unspecified
[2025-05-17] MEDS: PROPOFOL IV EMULSION 10 MG/ML 20 ML VIAL IV ONE ×2 (19:09)
[2025-05-17] MEDS: LIDOCAINE 2% 2 ML VIAL/AMP(20MG/ML) INFIL ONE ×2 (19:09)
[2025-05-18 07:15] LABS: Hematocrit (blood only) 29.4 % (42.0-52.0); Hemoglobin 9.2 g/dl (14.0-18.0); Immature Granulocytes # (auto) 0.02 K/uL (0.01-0.20); Immature Granulocytes % (auto) 0.4 %; Mean Corpuscular Hemoglobin 27.5 pg (25.0-34.0); Mean Corpuscular Volume 87.8 fL (80.0-100.0); Platelet Count 239 K/uL (130-400); RDW Standard Deviation 49.3 fL (36.4-46.3); Red Blood Count 3.35 M/uL (4.70-6.10); White Blood Count 5.34 K/ul (4.8-10.8)
[2025-05-18 07:46] LABS: Alanine Aminotransferase 15.0 U/L (7-52); Albumin Globulin Ratio 1.2 (0.9-2); Alkaline Phosphatase 62.0 U/L (34-104); Anion Gap 7.0 (3-11); Bilirubin,Total 0.9 mg/dl (0.2-1.0); Blood Urea Nitrogen 21.0 mg/dl (6-23); Calcium 9.2 mg/dl (8.6-10.3); Carbon Dioxide 28.0 mmol/L (21-32); Chloride 104.0 mmol/L (98-107); Creatinine Clr Calc Pharmacy 23.0 ml/min; Globulin 2.9 gm/dl (2.5-4.0); Glucose 88.0 mg/dl (70-99(Fasting)); Magnesium 1.8 mg/dl (1.7-2.4); Potassium 3.9 mmol/L (3.5-5.1); Sodium 139.0 mmol/L (136-145); Total Protein 6.3 gm/dl (6.0-8.3)
--- NOTE | 2025-05-18 08:07 | Gastroenterology Progress Note ---
Date of Service May 18, 2025 Assessment & Plan (1) GI bleed: Plan: Clinically resolved hemoglobin stable. Etiology unclear. Only finding on endoscopic procedures were nonbleeding vascular ectasias in the cecum which could be incidental. Stable for discharge from GI standpoint. Discussed planning to do a small bowel capsule endoscopy as an outpatient to complete her evaluation. Will need to rule out small bowel vascular ectasias as well. Admission and Anticipated Discharge Date Admission Date: May 14, 2025 Subjective Denies shortness of breath chest pain or abdominal pain. Denies any GI bleeding. Physical Exam Physical Exam: No acute distress Respiratory rate regular Cardiac rhythm regular Abdomen soft nontender Results & Data Results & Data Vital Signs (Past 12 Hours) Vital Signs Temp Pulse Resp BP Pulse Ox O2 Del Method 05/18/25 02:30 36.6 C 65 18 101/66 96 Room Air 05/17/25 22:33 36.7 C 96 H 18 92/61 L 96 Room Air Laboratory Results Laboratory Results - last 48 hr 05/14/25 05/16/25 05/17/25 14:18 07:35 06:40 WBC 5.38 RBC 3.26 L Hgb 9.2 L Hct 28.2 L MCV 86.5 MCH 28.2 MCHC 32.6 RDW Std Deviation 48.2 H RDW Coeff of Don 15.5 H Plt Count 224 MPV 9.7 Immature Gran % (Auto) 0.4 Neut % (Auto) 74.7 Lymph % (Auto) 11.9 Letcher % (Auto) 10.8 Eos % (Auto) 2.2 Baso % (Auto) 0.0 Neut # (Auto) 4.02 Lymph # (Auto) 0.64 L Letcher # (Auto) 0.58 Eos # (Auto) 0.12 Baso # (Auto) 0.00 Immature Gran # (Auto) 0.02 Sodium 138 136 Potassium 3.1 L 3.9 D Chloride 104 103 Carbon Dioxide 27 26 Anion Gap 7 7 BUN 28 H 18 Creatinine 1.47 H 1.31 Est Cr Clr Drug Dosing 25.5 28.9 eGFR 45.31 52.03 BUN/Creatinine Ratio 19.0 13.7 Glucose 93 85 Calcium 8.6 9.0 Magnesium 1.7 1.8 Total Bilirubin 1.2 H AST 28 ALT 16 Alkaline Phosphatase 64 Total Protein 6.4 Albumin 3.4 Globulin 3.0 Albumin/Globulin Ratio 1.1 Crossmatch See Detail 05/18/25 06:45 WBC 5.34 RBC 3.35 L Hgb 9.2 L Hct 29.4 L MCV 87.8 MCH 27.5 MCHC 31.3 L RDW Std Deviation 49.3 H RDW Coeff of Don 15.9 H Plt Count 239 MPV 10.0 Immature Gran % (Auto) 0.4 Neut % (Auto) 76.2 Lymph % (Auto) 9.7 Letcher % (Auto) 12.2 Eos % (Auto) 1.5 Baso % (Auto) 0.0 Neut # (Auto) 4.07 Lymph # (Auto) 0.52 L Letcher # (Auto) 0.65 H Eos # (Auto) 0.08 Baso # (Auto) 0.00 Immature Gran # (Auto) 0.02 Sodium 139 Potassium 3.9 Chloride 104 Carbon Dioxide 28 Anion Gap 7 BUN 21 Creatinine 1.64 H D Est Cr Clr Drug Dosing 23.0 eGFR 39.74 BUN/Creatinine Ratio 12.8 Glucose 88 Calcium 9.2 Magnesium 1.8 Total Bilirubin 0.9 AST 25 ALT 15 Alkaline Phosphatase 62 Total Protein 6.3 Albumin 3.4 Globulin 2.9 Albumin/Globulin Ratio 1.2 Crossmatch PG Care Time/CCT Total # of Minutes Spent Total Time Spent with Patient: Total time spent is greater than 50% in coordination of care (as documented) at patient's floor/unit and/or counseling patient: Coding Level of Care Code 50774 SUB INP/OBS CARE 2/35MIN Diagnoses GI bleed K92.1 GI bleed type/associated pathology: melena (1) GI bleed GI bleed type/associated pathology: melena Qualified Code(s): K92.1 - Melena
[2025-05-18] MEDS: SODIUM CHLORIDE 0.9% 250 ML IV ONE (09:56)
[2025-05-18 11:50] VITALS: BP 94/62; RESP 17; TEMP 97.9; O2SAT 96
--- NOTE | 2025-05-18 12:15 | Discharge Summary ---
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 He reports taking iron pills which make his stool turned dark but he may have noticed some red blood in the stool in the recent past. He denies any bleeding from anywhere else, no vomiting. Denies abdominal pains or nausea. In the ED, he was found to have a hemoglobin of 6.2. He was found to have Hemoccult positive black stool on rectal exam in the ED. He was given a dose of Kcentra. He was admitted for acute symptomatic anemia with GI bleed. #Acute blood loss anemia/GI bleed/symptomatic anemia-with black stools from iron pills versus upper GI bleed. Also with red blood in the stool prior to that, could be lower GI bleed as well. He was told by his PCP that his Hgb was around 11 a month ago and that he did not need to take the iron pills anymore so he did stop for a few weeks but resumed them 5 days prior to admission as they (oddly enough) help him move his bowels regularly. His thinks he had an EGD at [facility] several years ago when he had another GI bleed. He then had a negative video capsule endoscopy in 2022. He was resumed on Eliquis since that time and has remained with a mild anemia until now. Hgb improved after 2 units PRBCs, now increased further to 9.2 and remained stable. With some black stools with initial bowel prep but then turned to clear in color. Remains with soft blood pressures but hemodynamically stable. EGD normal and colonoscopy only showed a few nonbleeding colonic angioectasias, but no source of bleeding found. - Consult GI appreciated-plan for outpatient video capsule endoscopy-I have asked our nurse navigator to ensure this gets arranged - GI thinks it is okay to resume Eliquis on discharge-patient counseled to watch his stool closely for black or red/maroon stools-if this happens, he knows to stop Eliquis and come get checked out at the hospital - Recommend once weekly CBCs after discharge once on Eliquis-this can be done through his PCP - Recommend remaining off oral iron pills on discharge so as not to confuse the picture if he has dark stools #JOSEPH on CKD stage III-creatinine elevated from baseline at 1.7 on admission and improved to 1.31 with PRBC transfusion. Likely on the basis of hypovolemia/ATN from acute blood loss anemia. 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 On the day of discharge, creatinine back up slightly to 1.6. He was given 250 mL of normal saline and I suspect this will improve. - Decrease home Lasix dose to 20 mg daily - Follow BMP as an outpatient periodically #Chronic HFpEF/permanent atrial fibrillation on Eliquis/mild aortic stenosis/HTN/HLD-with crackles on examination and CXR with evidence of CHF on admission now resolved. In permanent atrial fibrillation, rate controlled. With mild aortic stenosis on last echo reviewed in the chart. Blood pressures here are soft due to acute blood loss and some lower blood pressures on the day of discharge due to dehydration from bowel prep the day before. Lasix was held and he was given a small bolus of fluid with improvement to his baseline blood pressures in the 90s systolic. He was asymptomatic with the lower blood pressures. - Continue Lasix but reducing dose to 20 mg daily after discharge - Continue atorvastatin every other day - Monitor for fluid overload signs and symptoms reviewed with patient after discharge. Monitor blood pressures at home #BPH-no acute issues - Continue home tamsulosin and monitor for urinary retention #Glaucoma-no acute issues - Continue home latanoprost eyedrops #Osteoporosis-no acute issues, is on Prolia - Continue home Caltrate D DVT prophylaxis-SCDs Disposition-stable for discharge to home. He is refusing rehab placement as recommended by PT/OT. 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 He reports taking iron pills which make his stool turned dark but he may have noticed some red blood in the stool in the recent past. He denies any bleeding from anywhere else, no vomiting. Denies abdominal pains or nausea. In the ED, he was found to have a hemoglobin of 6.2. He was found to have Hemoccult positive black stool on rectal exam in the ED. He was started on IV PPI and started transfusion of 1 unit of PRBCs. He was also given a dose of Kcentra He will be admitted for acute symptomatic anemia with GI bleed. Discharge Exam Constitutional WD/WN, vitals as above Neck trachea midline, no thyromegaly Respiratory normal respiratory effort; no cough Auscultation: no crackles and no wheezes Cardiovascular Rate/Rhythm: regular rate and + irregularly irregular Heart Sounds: + murmur (2/6 TIANNA at the RUSB) Extremities: no edema Chest (Breasts) Chest: normal inspection of chest Gastrointestinal (Abdomen) normal bowel sounds, soft, nontender, no hepatosplenomegaly Musculoskeletal Extremities: extremities normal to inspection; no cyanosis and no clubbing Skin no rashes, warm and dry Neurologic moves all extremities and awake; no focal motor deficits Psychiatric A+Ox3, euthymic affect Lymphatic no lymphedema Discharge Plan Discharge Items Patient Disposition: Home - Home Health Services Reason For Visit: GI BLEED,ACUTE BLOOD LOSS ANEMIA Discharge Diagnosis: GI bleed Acute blood loss anemia Acute kidney injury on CKD stage III Condition on Discharge: Good Activity: As commented below Lifting: Gradually increase as tolerated Bathing: No limitations Exercise/Sports: Gradually increase as tolerated Exercise Comment: With home PT/OT Non-emergency contact: Primary Care Provider and Engraver Call non-emergency contact if: you have any medication questions and your symptoms worsen Follow-up/Referrals: Fransisco Moncada MD [Primary Care Provider] - (Please follow-up within 1 to 2 weeks) Pilo Loving MD [Physician] - (Please follow-up with Dr. Loving or one of his gastroenterology partners to arrange your video capsule endoscopy) Diet: Heart Healthy Addtl Attending Provider Instructions: You were admitted with severe anemia from a gastrointestinal bleed. The bleeding stopped with holding your Eliquis and giving you Kcentra which helped to thicken your blood. Unfortunately, the source of bleeding was not found on an upper and lower endoscopy with gastroenterology. It is recommended that you have a video capsule endoscopy as an outpatient. This is a procedure where you swallow a camera and it takes pictures while passing through your intestine. The talent specialist will arrange for this test to be done for you and contact you with your appointment date and time. If you have not heard about the scheduling of this procedure, please contact the talent specialist office at the number listed above. In the meantime, you can restart your Eliquis and watch carefully for black stools or red blood in the stools. Please have your primary care physician check your blood counts once a week at least for the next month to monitor for worsening anemia or bleeding. Please do not restart your iron pills at this time as they can cause dark stools which may make it difficult to tell if you are having dark stools from bleeding or not. If you have bleeding again in the future, you will need to talk to Dr. Arredondo, your patient companion, about if you are a candidate for the Watchman procedure so that you would no longer have to take blood thinners for your atrial fibrillation. Please have your primary care physician check your blood count once a week for at least the next 4 weeks to make sure your blood count is continuing to improve. You had some mild kidney failure from loss of blood but this improved with giving you blood transfusions. Your blood pressure was a little bit low on the day of discharge and your Lasix dose will be cut in half down to 20 mg daily. You may have just been a little dehydrated from the bowel prep for the colonoscopy the day before. Please follow up on your blood pressures at home. If you feel lightheaded, lie down and call your doctor for help. Pending Studies at Discharge: No Stand-Alone Forms: [facility], Smoking Cessation Medications and DC Order Prescriptions: Continued Eliquis 2.5 mg tablet 2.5 mg PO BID Qty: 60 11RF atorvastatin 40 mg tablet 40 mg PO Q OTHER DAY Qty: 45 3RF latanoprost 0.005 % drops 1 drp OPB HS Caltrate 600-D Plus Minerals 600 mg calcium- 800 unit-50 mg tablet 1 tab PO DAILY pantoprazole 40 mg tablet,delayed release (DR/EC) 40 mg PO DAILY Prolia 60 mg/mL syringe 60 mg subcut DIRECTED Rx Instructions: subcutaneously q 6 months tamsulosin 0.4 mg capsule 0.4 mg PO QPM Qty: 30 11RF multivitamin Tablet 1 tab PO DAILY diphenhydramine-acetaminophen [Tylenol PM Extra Strength] 25-500 mg Tablet 1 - 2 tab PO HS coenzyme Q10 [Co Q-10] 100 mg Capsule 100 mg PO DAILY Changed furosemide 40 mg tablet 20 mg PO QAM Qty: 90 3RF Discontinued ferrous sulfate 325 mg (65 mg iron) tablet 325 mg PO BID Qty: 60 0RF Discharge Orders: Discharge Order (Routine); Ordered 05/18/25 Ordered By: Ngozi Marlow Admission Data Admit Date/Time: 05/14/25 15:59 Attending Provider: Ngozi Marlow Admit Provider: Ngozi Marlow Primary Care Provider: Fransisco Moncada Other Providers: Ngozi Marlow; Pilo Loving I Hospital Stay Data Consultations 05/14/25 13:43 ED Decision to Admit Stat 05/14/25 16:20 Consult Gastroenterology Routine Procedures Performed Operation Date: 05/17/25 16:30 Actual Procedures p Esophagogastroduodenoscopy - Pilo Loving MD s Colonoscopy - Pilo Loving MD Diagnostic Imagining Performed 05/14/25 12:56 CT head/brain wo con Stat Pending Results Patient Have Any Pending Studies at Discharge: No Discharge Instructions Given to Patient (Per Discharging Provider) You were admitted with severe anemia from a gastrointestinal bleed. The bleeding stopped with holding your Eliquis and giving you Kcentra which helped to thicken your blood. Unfortunately, the source of bleeding was not found on an upper and lower endoscopy with gastroenterology. It is recommended that you have a video capsule endoscopy as an outpatient. This is a procedure where you swallow a camera and it takes pictures while passing through your intestine. The talent specialist will arrange for this test to be done for you and contact you with your appointment date and time. If you have not heard about the scheduling of this procedure, please contact the talent specialist office at the number listed above. In the meantime, you can restart your Eliquis and watch carefully for black stools or red blood in the stools. Please have your primary care physician check your blood counts once a week at least for the next month to monitor for worsening anemia or bleeding. Please do not restart your iron pills at this time as they can cause dark stools which may make it difficult to tell if you are having dark stools from bleeding or not. If you have bleeding again in the future, you will need to talk to Dr. Arredondo, your patient companion, about if you are a candidate for the Watchman procedure so that you would no longer have to take blood thinners for your atrial fibrillation. Please have your primary care physician check your blood count once a week for at least the next 4 weeks to make sure your blood count is continuing to improve. You had some mild kidney failure from loss of blood but this improved with giving you blood transfusions. Your blood pressure was a little bit low on the day of discharge and your Lasix dose will be cut in half down to 20 mg daily. You may have just been a little dehydrated from the bowel prep for the colonoscopy the day before. Please follow up on your blood pressures at home. If you feel lightheaded, lie down and call your doctor for help. Total Time Total Time Spent Total Time Spent (In Minutes): 35 minutes Total Time Includes: Examination of the Patient, Discharge Planning and Medication Reconciliation Coding Level of Care Code 95579 INP/OBS DISCH >30 MIN Diagnoses Acute blood loss anemia D62 GIB (gastrointestinal bleeding) K92.2 CHF (congestive heart failure) I50.9 Heart failure chronicity: acute on chronic Heart failure type: unspecified Persistent atrial fibrillation I48.19
[2025-05-18 12:52] VITALS: PULSE 105
== END 2025-05-18 13:52 | disposition home health service (06) | DRG 377 ==
LOC: SUATTDRO → ED 12:11 → 2S 15:59
DX: N17.0 Acute kidney failure with tubular necrosis; I50.32 Chronic diastolic (congestive) heart failure; I48.21 Permanent atrial fibrillation; D62 Acute posthemorrhagic anemia; M81.0 Age-related osteoporosis without current pathological fracture; Z79.01 Long term (current) use of anticoagulants; I35.0 Nonrheumatic aortic (valve) stenosis; H40.9 Unspecified glaucoma; N18.30 Chronic kidney disease, stage 3 unspecified; I13.0 Hypertensive heart and chronic kidney disease with heart failure and stage 1 through stage 4 chronic kidney disease, or unspecified chronic kidney disease; N40.0 Benign prostatic hyperplasia without lower urinary tract symptoms; F17.200 Nicotine dependence, unspecified, uncomplicated; K92.2 Gastrointestinal hemorrhage, unspecified

== ENCOUNTER 2025-06-21 10:02 | Inpatient (IN) ==
--- NOTE | 2025-06-21 10:25 | Emergency Department Note ---
Impression & Plan Acute on chronic heart failure with preserved ejection fraction, Atrial fibrillation, permanent, CHF (congestive heart failure), Anemia ED Provider Note CHIEF COMPLAINT: Shortness of breath HISTORY OF PRESENTING ILLNESS: The patient is a pleasant, 89-year-old male who arrives to the emergency department for evaluation of low hemoglobin. The patient has been having his hemoglobin trended every Wednesday, and was called to come to the emergency department for a blood transfusion. The patient's hemoglobin on Wednesday was 7.7. He reports he is not having shortness of breath, dizziness, and increased fluid retention in his lower extremities. He reports dyspnea on exertion, with just a few steps. He states no chest pain, nausea, diaphoresis, abdominal pain. He states he is currently on chronic anticoagulation, however notes no blood in his stool, or urine. He is well- appearing otherwise, with stable vital signs. REVIEW OF SYSTEMS: See HPI for pertinent positives and pertinent negatives. ALLERGIES: See below MEDICATIONS: See below PAST MEDICAL HISTORY: See below PHYSICAL EXAM: VITALS: Vitals are noted on the nurse's note and reviewed by myself. Vital signs stable. GENERAL: 89-year-old male, in no acute distress, nondiaphoretic, well-developed well-nourished. SKIN: The skin was without rashes, erythema, edema, or bruising. HEAD: Normocephalic atraumatic. EARS: External auditory canals clear, tympanic membranes pearly garduno without erythema or effusion bilaterally. EYES: Pupils equal round and reactive to light and accommodation. Conjunctivae without injection, sclerae without icterus. Extraocular movements intact. NOSE: Patent, turbinates without inflammation or discharge. No sinus tenderness. NECK: Supple without nuchal rigidity. No JVD. HEART: Regular rate and rhythm without murmurs gallops or rubs. LUNGS: Crackles right base. Clear otherwise. ABDOMEN: Positive bowel sounds x 4. Soft, nontender, without masses or organomegaly. Del Real sign negative. No guarding or rebound tenderness. MUSCULOSKELETAL: No muscle atrophy, erythema, or edema noted. Normal gait. Strength 5/5 throughout. NEURO: Patient was alert and oriented to person place and time. No focal neurological deficits. DIFFERENTIAL DIAGNOSIS: Reactive airway disease, pneumonia, pneumothorax, COPD, CHF, infections, cardiac ischemia, pulmonary embolism, musculoskeletal, gastrointestinal, as well as other pathologies. ED COURSE AND MEDICAL DECISION MAKING: HISTORY FROM INDEPENDENT HISTORIAN: at bedside serving as secondary historian. MEDICATIONS GIVEN: 40 mg IV Lasix MONITOR: Continuous monitoring specialist: Order was placed for continuous monitoring specialist. Patient was placed on the monitoring specialist and continuous pulse ox. Patient was noted to be in normal sinus rhythm at an initial rate of 104 bpm per my interpretation. EKG: EKG was interpreted by myself as afib with RVR at a rate of 104 with new T wave inversion in inferior leads. INTERPRETATION OF LABS: I interpreted the labs with full lab results as below in the lab section of this note. Pertinent lab results discussed in the MDM section below. INTERPRETATION OF IMAGING: Imaging studies were interpreted by myself and read by radiology as per the imaging section of this note. CHRONIC MEDICAL/SOCIAL CONDITIONS AFFECTING CARE: Labs chronic heart failure with preserved ejection fraction, chronic anticoagulation, permanent atrial fibrillation, anemia. MDM SUMMARY: The patient is a pleasant, 89-year-old male who arrives to the emergency department for evaluation of the above-stated complaint. Saline lock was established, lab work was obtained. CBC shows no leukocytosis, hemoglobin 7.9, hematocrit 25.8. PT/INR within normal limits. CMP shows 33 BUN, creatinine 1.47. Troponin 25.6, with repeat 26.1, BNP 184. Chest x-ray shows per my interpretation CHF, and small right pleural effusion. EKG interpreted as above. Patient was provided 40 mg of IV Lasix. Do believe the patient requires admission for CHF exacerbation versus symptomatic anemia. I contacted admission, for evaluation of the patient. Dr. Abrams from the [facility] hospitalist group agreed to evaluate and accept the patient for admission. Please refer to his documentation for further patient workup and care. DIAGNOSIS: Anemia, permanent atrial fibrillation, acute on chronic congestive heart failure, with preserved ejection fraction The patient's case was discussed with Dr. Turner, who agreed with my evaluation and treatment plan. The chart was completed utilizing [employer] Speech voice recognition software. Grammatical errors, random word insertions, pronoun errors, and incomplete sentences are an occasional consequence of this system due to software limitations, ambient noise, and hardware issues. Any formal questions or concerns about the content, text, or information contained within the body of this dictation should be directly addressed to the provider for clarification. 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 Acute diastolic (congestive) heart failure Arthritis (Acute) Medical History GI bleed CKD (chronic kidney disease) Weakness Acute blood loss anemia GIB (gastrointestinal bleeding) Hypertension Aortic stenosis Persistent atrial fibrillation Benign prostatic hyperplasia without urinary obstruction PAD (peripheral artery disease) CHF (congestive heart failure) Bilateral edema of lower extremity SOB (shortness of breath) Elevated PSA Benign prostatic hyperplasia with urinary obstruction Surgical History History of dental surgery Family History Other Heart disease Social History Smoking Status: Current every day smoker Tobacco Type: Pipe Second Hand Exposure: No; Do You Dip or Chew Tobacco: No; Hx Alcohol Use: No Hx Substance Use: No Preferred Language: Albanian Communication Ability: Effective Real Estate Operations Manager Required: No Beliefs That Will Affect Care: None marital status: Current Living Situation: Spouse current occupational status: employed Feels Safe at Home: Yes Assistive Devices: Cane and Walker Allergies Allergies Allergy/AdvReac Type Severity Reaction Status Date / Time No Known Allergies Allergy Unknown Verified 06/21/25 15:36 Home Meds Home Medications Medication Instructions Recorded Confirmed latanoprost 0.005 % eye drops 1 drp OPB HS 02/06/20 06/21/25 calcium 600 mg-D3 800 unit-mag11 1 tab PO DAILY 11/20/22 06/21/25 50 mg-xhvu-zjwckn-susanne-s.borat tablet (Caltrate 600-D Plus Minerals) pantoprazole 40 mg tablet,delayed 40 mg PO DAILY 11/20/22 06/21/25 release denosumab 60 mg/mL subcutaneous 60 mg subcut DIRECTED 12/02/22 06/21/25 syringe (Prolia) diphenhydramine 25 1 - 2 tab PO HS SLEEP 03/18/23 06/21/25 mg-acetaminophen 500 mg tablet (Tylenol PM Extra Strength) multivitamin 1 tab PO DAILY 03/18/23 06/21/25 ascorbic acid (vitamin C) 500 mg 500 mg PO DAILY 06/21/25 06/21/25 tablet (Vitamin C) cholecalciferol (vitamin D3) 50 50 mcg PO DAILY 06/21/25 06/21/25 mcg (2,000 unit) capsule (Vitamin D3) docusate sodium 100 mg capsule 100 mg PO DAILY 06/21/25 06/21/25 (Stool Softener) Previous Rx's Medication Instructions Recorded apixaban 2.5 mg tablet (Eliquis) 2.5 mg PO BID #60 tabs 12/30/23 atorvastatin 40 mg tablet 40 mg PO Q OTHER DAY #45 tabs 03/14/24 tamsulosin 0.4 mg capsule 0.4 mg PO QPM #30 caps 03/14/25 furosemide 40 mg tablet 40 mg PO QAM #90 tabs 06/23/25 Results & Data (ED) Vital Signs Vital Signs - 24 hr 06/21/25 10:09 Temperature 36.7 C Temperature Source Temporal Artery Scan Pulse Rate 104 H Respiratory Rate 17 Blood Pressure 110/73 Blood Pressure Mean 85 Pulse Oximetry 98 Oxygen Delivery Method Room Air Sepsis Recent Fever Within 48 Hours No Sepsis New/Unexplained Change in Mental Status N/A Sepsis Action Taken by Nursing No Action Required Home Medications Current Medication List: was personally reviewed by me Laboratory Data Attestation: I reviewed the patient's lab results. 06/23/25 07:44 06/23/25 06:47 Lab Results 06/21/25 06/21/25 06/21/25 Range/Units 10:25 10:30 12:10 WBC 5.45 (4.8-10.8) K/ul RBC 3.13 L (4.70-6.10) M/uL Hgb 7.9 L (14.0-18.0) g/dl POC Hgb 8.8 L (14.0-18.0) g/dl Hct 25.8 L (42.0-52.0) % POC Hct 26 L (42-52) % MCV 82.4 (80.0-100.0) fL MCH 25.2 (25.0-34.0) pg MCHC 30.6 L (32.0-36.0) g/dL RDW Std Deviation 50.9 H (36.4-46.3) fL RDW Coeff of Don 17.2 H (11.5-14.5) % Plt Count 259 (130-400) K/uL MPV 9.6 (9.4-12.4) fL Immature Gran % (Auto) 0.4 % Neut % (Auto) 73.3 % Lymph % (Auto) 11.6 % Perry % (Auto) 12.3 % Eos % (Auto) 2.2 % Baso % (Auto) 0.2 % Neut # (Auto) 4.00 (1.40-6.50) K/uL Lymph # (Auto) 0.63 L (1.20-3.40) K/uL Perry # (Auto) 0.67 H (0.11-0.59) K/uL Eos # (Auto) 0.12 (0.00-0.50) K/uL Baso # (Auto) 0.01 (0.00-0.20) K/uL Immature Gran # (Auto) 0.02 (0.01-0.20) K/uL Polychromasia 1+ Acanthocytes (Spur) 1+ PT 10.7 (9.0-12.0) Seconds INR 1.0 (0.9-1.1) APTT 26 (21-31) Seconds PTT Ratio 1.0 POC Sodium 138 (135-144) mmol/L Sodium 137 (136-145) mmol/L POC Potassium 4.2 (3.3-5.0) mmol/L Potassium 4.2 (3.5-5.1) mmol/L POC Chloride 104 (101-112) mmol/L Chloride 104 (98-107) mmol/L Carbon Dioxide 25 (21-32) mmol/L POC Total CO2 22 L (24-31) mmol/L Anion Gap 8 (3-11) POC Anion Gap 18.0 (16-25) mmol/L POC BUN 31 H (7-18) mg/dl BUN 33 H (6-23) mg/dl Creatinine 1.47 H (0.6-1.4) mg/dl POC Creatinine 1.6 H (0.6-1.3) mg/dl Est Cr Clr Drug Dosing 24.1 ml/min eGFR 45.31 BUN/Creatinine Ratio 22.4 H (10-20) Glucose 88 (70-99(Fasting)) mg/dl POC Glucose (other) 90 (70-99) mg/dl Calcium 8.9 (8.6-10.3) mg/dl POC Ioniz Calcium Hay 1.14 (1.12-1.32) mmol/l Magnesium 1.9 (1.7-2.4) mg/dl Iron 17 L (35-175) mcg/dl TIBC 427 (250-450) mcg/dl Transferrin 305 (200-360) mg/dl Transferrin % Sat 4 L (20-50) % Ferritin 12.8 (8-388) ng/ml Total Bilirubin 0.4 (0.2-1.0) mg/dl AST 28 (13-39) U/L ALT 16 (7-52) U/L Alkaline Phosphatase 82 (34-104) U/L Lactate Dehydrogenase 280 H (86-244) U/L Troponin I High Sens 25.6 H 26.1 H (0-20) pg/ml B-Natriuretic Peptide 184 H (0-100) pg/ml Total Protein 7.9 (6.0-8.3) gm/dl Albumin 4.0 (3.4-5.0) gm/dl Globulin 3.9 (2.5-4.0) gm/dl Albumin/Globulin Ratio 1.0 (0.9-2) Vitamin B12 311 (180-914) pg/ml Folate > 22.30 (>5.38) ng/ml Administered Medications Discontinued Medications Atorvastatin Calcium (Atorvastatin 40 Mg Tab) [address] [facility] Stop: 07/22/25 08:59 Last Admin: 06/22/25 08:06 Dose: 40 mg Documented By: MED Cyanocobalamin (Cyanocobalamin (B-12) 500 Mcg Tablet) [address] [facility] Stop: 07/22/25 08:59 Last Admin: 06/23/25 08:24 Dose: 500 mcg Documented By: SURVEILLANCE INVESTIGATOR Admin: 06/22/25 09:43 Dose: 500 mcg Documented By: MED Docusate Sodium (Docusate Sodium 100 Mg Cap) [address] [facility] Stop: 07/22/25 08:59 Last Admin: 06/23/25 08:23 Dose: 100 mg Documented By: Admin: 06/22/25 08:05 Dose: 100 mg Documented By: DOV Furosemide (Furosemide 40 Mg/4 Ml Vial) 40 mg IV ONE ONE Stop: 06/21/25 11:18 Last Admin: 06/21/25 11:46 Dose: 40 mg Documented By: ESTEE Furosemide (Furosemide 40 Mg/4 Ml Vial) 40 mg IV QAM [facility] Stop: 07/22/25 08:59 Last Admin: 06/22/25 08:06 Dose: 40 mg Documented By: DOV Iron Sucrose 300 mg/ Sodium (Chloride) 265 mls @ 176.667 mls/hr IV TODAY ONE Stop: 06/23/25 10:59 Last Infusion: 06/23/25 12:20 Dose: Infused Documented By: Admin: 06/23/25 10:04 Dose: 176.7 mls/hr Documented By: FARIDA Latanoprost (Latanoprost 0.005% Op Soln 2.5 Ml Btl) 1 drops OPB HS YUKI Stop: 07/21/25 20:59 Last Admin: 06/22/25 19:26 Dose: 1 drops Documented By: Admin: 06/21/25 21:34 Dose: 1 drops Documented By: ALEXI Melatonin (Melatonin 3 Mg Tab) 3 mg PO HS PRN PRN Reason: Sleep Stop: 07/21/25 19:51 Last Admin: 06/22/25 20:05 Dose: 3 mg Documented By: Admin: 06/21/25 21:19 Dose: 3 mg Documented By: ALEXI Pantoprazole Sodium (Pantoprazole 40 Mg Tab) 40 mg PO DAILY Y[facility] Stop: 07/22/25 08:59 Last Admin: 06/23/25 08:24 Dose: 40 mg Documented By: Admin: 06/22/25 08:06 Dose: 40 mg Documented By: DOV Tamsulosin HCl (Tamsulosin Hcl 0.4 Mg Cap) 0.4 mg PO QPM [facility] Stop: 07/21/25 20:59 Last Admin: 06/22/25 19:25 Dose: 0.4 mg Documented By: Admin: 06/21/25 21:19 Dose: 0.4 mg Documented By: ALEXI Imaging Data Attestation: I personally reviewed and interpreted this imaging study as follows: Discharge Plan Visit Data Chief Complaint: Shortness of Breath/Dyspnea Stated Complaint: SOB/FLUID ED Provider: Lamberto Turner ED Midlevel Provider: Ximena Hung Discharge Problem: Acute on chronic heart failure with preserved ejection fraction, Atrial fibrillation, permanent, CHF (congestive heart failure), Anemia Patient Disposition: Admitted As Inpatient Condition: Good Discharge Instructions Interventions: ED Discharge Assessment Last Done: 06/21/25 16:19
[2025-06-21 10:49] LABS: Hematocrit (blood only) 25.8 % (42.0-52.0); Hemoglobin 7.9 g/dl (14.0-18.0); Immature Granulocytes # (auto) 0.02 K/uL (0.01-0.20); Immature Granulocytes % (auto) 0.4 %; Mean Corpuscular Hemoglobin 25.2 pg (25.0-34.0); Mean Corpuscular Volume 82.4 fL (80.0-100.0); Platelet Count 259 K/uL (130-400); RDW Standard Deviation 50.9 fL (36.4-46.3); Red Blood Count 3.13 M/uL (4.70-6.10); White Blood Count 5.45 K/ul (4.8-10.8)
--- NOTE | 2025-06-21 10:56 | XRay Report ---
XR chest 1V portable CLINICAL HISTORY: Dyspnea COMPARISON STUDY: 05/14/2025 FINDINGS: Stable mild cardiomegaly with pulmonary vascular congestion. Stable mild diffuse pulmonary interstitial prominence. Stable hazy opacity at the right lung base with blunting of the right costop hrenic angle. No pneumothorax. IMPRESSION: Stable exam with CHF and small right pleural effusion. ACT 112: Negative or not required by law. Electronically signed by: Ace Santoyo M.D. 06/21/2025 10:55 AM
[2025-06-21 11:17] LABS: Alanine Aminotransferase 16.0 U/L (7-52); Albumin Globulin Ratio 1.0 (0.9-2); Alkaline Phosphatase 82.0 U/L (34-104); Anion Gap 8.0 (3-11); Bilirubin,Total 0.4 mg/dl (0.2-1.0); Blood Urea Nitrogen 33.0 mg/dl (6-23); Calcium 8.9 mg/dl (8.6-10.3); Carbon Dioxide 25.0 mmol/L (21-32); Chloride 104.0 mmol/L (98-107); Creatinine Clr Calc Pharmacy 24.1 ml/min; Globulin 3.9 gm/dl (2.5-4.0); Glucose 88.0 mg/dl (70-99(Fasting)); Magnesium 1.9 mg/dl (1.7-2.4); Potassium 4.2 mmol/L (3.5-5.1); Sodium 137.0 mmol/L (136-145); Total Protein 7.9 gm/dl (6.0-8.3)
[2025-06-21 11:21] LABS: Acanthocytes 1+; Polychromasia 1+
[2025-06-21 11:24] LABS: INR 1.0 (0.9-1.1); Partial Thromboplastin Time 26 Seconds (21-31); Prothrombin Time 10.7 Seconds (9.0-12.0)
[2025-06-21] MEDS: FUROSEMIDE 40 MG/4 ML VIAL IV ONE (11:46)
--- NOTE | 2025-06-21 11:53 | Electrocardiogram Report ---
Test Reason : Blood Pressure : */* mmHG Vent. Rate : 104 BPM Atrial Rate : * BPM P-R Int : * ms QRS Dur : 82 ms QT Int : 348 ms P-R-T Axes : * -9 -4 degrees QTcB Int : 457 ms Atrial fibrillation with rapid ventricular response Abnormal ECG When compared with ECG of 14-May-2025 12:26, T wave inversion now evident in Inferior leads Confirmed by Erick Mayes ([id number]) on 06/21/2025 11:53:09 AM Referred By: Confirmed By: Erick Mayes
[2025-06-21 11:57] LABS: Appearance Urine Clear (Clear); Glucose Urine UA Negative (Negative)
--- NOTE | 2025-06-21 14:21 | History & Physical Report ---
Date of Service June 21, 2025 Assessment & Plan (1) Acute on chronic heart failure with preserved ejection fraction: (2) Atrial fibrillation, permanent: (3) Anemia: (4) Aortic stenosis: (5) GIB (gastrointestinal bleeding): Plan 89 year old male presents to the ER with shortness of breath. Recent diagnosis of gastrointestinal bleed - discharged on Eliquis but subsequently stopped by [facility]. Lasix dose halved on discharge due to concern #Acute on chronic heart failure with preserved ejection fraction / shortness of breath Bladder scan PVR 155ml, UA without protein TTE April 2024 - LVEF 55%, right ventricle function normal, moderate aortic sten osis, moderate tricuspid regurgitation BNP down from April admission - suspected to be hypovolemic at that time therefore not a completely clear diagnosis. 2 hour spot urine sodium 115 from Lasix 40mg IV given in the ER suggesting adequate diuresis therefore will prelaminarly start on 40mg IV daily (double his prior usual dose) Daily weight Strict I&Os #Chronic blood loss anemia / gastrointestinal bleeding Hemoglobin appears to be stable the last few weeks, recommend against blood tranfusion at this time unless he fails to improve with Lasix #BPH-no acute issues - Continue home tamsulosin and monitor for urinary retention #Glaucoma-no acute issues - Continue home latanoprost eyedrops #Osteoporosis-no acute issues, is on Prolia - Continue home Caltrate D VTE Prophylaxis - no chemical prophylaxis due to concern for ongoing GI bleed Disposition - admit to med/tele Admission and Anticipated Discharge Date Admission Date: June 21, 2025 History of Present Illness Chief Complaint: Shortness of breath and fatigue Primary Care Provider: Fransisco Moncada MD Joey Mejia is an 89 year old male who presents to the ER with shortness of breath and fatigue. He notes having some bad and good days but on a whole has been getting progressively worse since his discharge on May 18 2025 due to acute blood loss anemia suspected to be from gastrointestinal bleeding. He has been having CBC checks with his [facility] PCP and reports his hemoglobin was 7.7 on Wednesday and 8.1 the week before. He was initially discharged back on his usual apixaban for atrial fibrillation as EGD and colonoscopy did not show a bleed. However he reports following up with [facility] PCP they stopped his Eliquis (confirmed he saw family practice in [facility] for follow up for his hospitalization although in this note it reports the Eliquis was stopped on the recommendations of his PCP Dr Moncada. He has a planned capsule endoscopy or at least GI appointment on July 09. His Lasix was also halved during his last admission due to concern for hypovolemia and he has stayed on this dose up until the last 2 days when he increased back to his 40mg PO daily dose due to increased leg swelling and his shortness of breath. He denies any chest pain or palpitations. Allergies Allergy/AdvReac Type Severity Reaction Status Date / Time No Known Allergies Allergy Unknown Verified 06/21/25 15:36 Home Medications Medication Instructions Recorded Confirmed Type latanoprost 0.005 % eye drops 1 drp OPB HS 02/06/20 06/21/25 History calcium 600 mg-D3 800 unit-mag11 1 tab PO DAILY 11/20/22 06/21/25 History 50 dc-ztgq-bekrkl-susanne-s.borat tablet (Caltrate 600-D Plus Minerals) pantoprazole 40 mg tablet,delayed 40 mg PO DAILY 11/20/22 06/21/25 History release denosumab 60 mg/mL subcutaneous 60 mg subcut DIRECTED 12/02/22 06/21/25 History syringe (Prolia) diphenhydramine 25 1 - 2 tab PO HS SLEEP 03/18/23 06/21/25 History mg-acetaminophen 500 mg tablet (Tylenol PM Extra Strength) multivitamin 1 tab PO DAILY 03/18/23 06/21/25 History apixaban 2.5 mg tablet (Eliquis) 2.5 mg PO BID #60 tabs 12/30/23 06/21/25 Rx atorvastatin 40 mg tablet 40 mg PO Q OTHER DAY #45 tabs 03/14/24 06/21/25 Rx tamsulosin 0.4 mg capsule 0.4 mg PO QPM #30 caps 03/14/25 06/21/25 Rx furosemide 40 mg tablet 20 mg (1/2 x 40 mg) PO QAM #90 tabs 05/18/25 06/21/25 Rx ascorbic acid (vitamin C) 500 mg 500 mg PO DAILY 06/21/25 06/21/25 History tablet (Vitamin C) cholecalciferol (vitamin D3) 50 50 mcg PO DAILY 06/21/25 06/21/25 History mcg (2,000 unit) capsule (Vitamin D3) docusate sodium 100 mg capsule 100 mg PO DAILY 06/21/25 06/21/25 History (Stool Softener) Past Med/Surg History Problem List (Updated 06/22/25 @ 18:35 by Andrea Hinton MD) Acute on chronic heart failure with preserved ejection fraction Anticoagulated Chronic diastolic heart failure Atrial fibrillation, permanent CHF (congestive heart failure) (Acute) Anemia (Acute) Benign localized prostatic hyperplasia with lower urinary tract symptoms (LUTS) Iron deficiency anemia GRAY (dyspnea on exertion) (Acute) 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 Acute diastolic (congestive) heart failure Arthritis (Acute) Medical History CKD (chronic kidney disease) Anticoagulated Weakness Chronic diastolic heart failure Acute blood loss anemia GIB (gastrointestinal bleeding) Hypertension Aortic stenosis Persistent atrial fibrillation Benign prostatic hyperplasia without urinary obstruction PAD (peripheral artery disease) CHF (congestive heart failure) Bilateral edema of lower extremity SOB (shortness of breath) Elevated PSA Benign prostatic hyperplasia with urinary obstruction Surgical History History of dental surgery Family History Other Heart disease Social History Smoking Status: Current every day smoker Tobacco Type: Pipe Second Hand Exposure: No; Do You Dip or Chew Tobacco: No; Hx Alcohol Use: No Hx Substance Use: No Preferred Language: Montenegrin Communication Ability: Effective Artist Mannequin Coloring Required: No Beliefs That Will Affect Care: None marital status: Current Living Situation: Spouse current occupational status: employed Feels Safe at Home: Yes Assistive Devices: Cane and Walker Review of Systems Review of Systems: All systems reviewed & are unremarkable except as noted in HPI & below Physical Exam Constitutional: WD/WN, vitals as above Respiratory: normal respiratory effort; no respiratory distress Auscultation: + crackles (bibasal); breath sounds present, no diminished lung sounds, no rhonchi and no wheezes Cardiovascular: Rate/Rhythm: + tachycardic and + irregularly irregular Heart Sounds: + murmur (systolic) Extremities: + pedal edema (1+ bilateral pitting) Gastrointestinal (Abdomen): normal bowel sounds, soft, nontender, no hepatosplenomegaly Skin: no rashes, warm and dry Results & Data Results & Data Vital Signs (Past 12 Hours) Vital Signs Temp Pulse Pulse Resp BP BP Pulse Ox 06/21/25 13:13 90 18 130/87 96 06/21/25 11:30 88 18 137/95 96 06/21/25 11:01 97 06/21/25 11:00 93 H 18 137/92 96 06/21/25 10:38 108 H 06/21/25 10:09 36.7 C 104 H 17 110/73 98 O2 Del Method 06/21/25 13:13 Room Air 06/21/25 11:30 Room Air 06/21/25 11:01 Room Air 06/21/25 11:00 Room Air 06/21/25 10:38 06/21/25 10:09 Room Air Diagnostic Findings XR chest 1V portable CLINICAL HISTORY: Dyspnea COMPARISON STUDY: 05/14/2025 FINDINGS: Stable mild cardiomegaly with pulmonary vascular congestion. Stable mild diffuse pulmonary interstitial prominence. Stable hazy opacity at the right lung base with blunting of the right costophrenic angle. No pneumothorax. IMPRESSION: Stable exam with CHF and small right pleural effusion. Medications Administered ER Medications Given: Lasix 40mg IV ECG Rate (beats per minute): 104 Rhythm: atrial fibrillation Findings: + T-wave inversion (Inferior) Comparison ECG Date: from (May 14, 2025) Change: the following changes noted (TWO now evident in inferior leads) Code Status & VTE Plan Code Status Full VTE Prophylaxis Plan VTE Prophylaxis will be ordered: No PG Care Time/CCT Total # of Minutes Spent Total Time Spent with Patient: Total time spent is greater than 50% in coordination of care (as documented) at patient's floor/unit and/or counseling patient: Coding Level of Care Code 65672 INT INP/OBS CARE 3/75MIN Diagnoses Acute on chronic heart failure with preserved ejection fraction I50.33 Atrial fibrillation, permanent I48.21 Anemia D64.9 Anemia type: unspecified type Aortic stenosis I35.0 GIB (gastrointestinal bleeding) K92.2 (3) Anemia Anemia type: unspecified type Qualified Code(s): D64.9 - Anemia, unspecified
[2025-06-21 14:51] LABS: Iron 17.0 mcg/dl (35-175); Total Iron Binding Cap Calc 427.0 mcg/dl (250-450); Transferrin 305.0 mg/dl (200-360); Transferrin (FE) Percent Satur 4.0 % (20-50)
[2025-06-21 15:22] LABS: Ferritin 12.8 ng/ml (8-388)
[2025-06-21 15:30] LABS: Folate (Folic Acid),Ser orPlas > 22.30 ng/ml (>5.38)
[2025-06-21 15:31] LABS: Vitamin B12 311 pg/ml (180-914)
[2025-06-21 16:11] LABS: Reticulocytes # 0.040 10^6/uL (0.020-0.100)
[2025-06-21] MEDS: TAMSULOSIN HCL 0.4 MG CAP PO SCH (21:19)
[2025-06-21] MEDS: MELATONIN 3 MG TAB PO PRN (21:19)
[2025-06-21] MEDS: LATANOPROST 0.005% OP SOLN 2.5 ML BTL OPB SCH (21:34)
[2025-06-22 04:39] LABS: Hematocrit (blood only) 22.3 % (42.0-52.0); Hemoglobin 7.1 g/dl (14.0-18.0); Mean Corpuscular Hemoglobin 25.9 pg (25.0-34.0); Mean Corpuscular Volume 81.4 fL (80.0-100.0); Platelet Count 221 K/uL (130-400); RDW Standard Deviation 51.0 fL (36.4-46.3); Red Blood Count 2.74 M/uL (4.70-6.10); White Blood Count 4.72 K/ul (4.8-10.8)
[2025-06-22 04:54] LABS: Anion Gap 6.0 (3-11); Blood Urea Nitrogen 34.0 mg/dl (6-23); Calcium 8.4 mg/dl (8.6-10.3); Carbon Dioxide 25.0 mmol/L (21-32); Chloride 107.0 mmol/L (98-107); Creatinine Clr Calc Pharmacy 23.8 ml/min; Glucose 82.0 mg/dl (70-99(Fasting)); Potassium 3.9 mmol/L (3.5-5.1); Sodium 138.0 mmol/L (136-145)
[2025-06-22] MEDS ORDERED: SODIUM CHLORIDE 0.9% 100 ML IV PRN (07:05)
[2025-06-22] MEDS: DOCUSATE SODIUM 100 MG CAP PO SCH (08:05)
[2025-06-22] MEDS: FUROSEMIDE 40 MG/4 ML VIAL IV SCH (08:06)
[2025-06-22] MEDS: ATORVASTATIN 40 MG TAB PO SCH (08:06)
[2025-06-22] MEDS: CYANOCOBALAMIN (B-12) 500 MCG TABLET PO SCH (09:43)
--- NOTE | 2025-06-22 18:38 | Hospitalist Progress Note ---
Date of Service June 22, 2025 Assessment & Plan (1) Acute on chronic heart failure with preserved ejection fraction: (2) Atrial fibrillation, permanent: (3) Anemia: (4) Aortic stenosis: (5) GIB (gastrointestinal bleeding): Plan 89 year old male presents to the ER with shortness of breath. Recent diagnosis of gastrointestinal bleed - discharged on Eliquis but subsequently stopped by [facility]. #Acute on chronic heart failure with preserved ejection fraction / shortness of breath Bladder scan PVR 155ml, UA without protein TTE April 2024 - LVEF 55%, right ventricle function normal, moderate aortic stenosis, moderate tricuspid regurgitation BNP down from April admission - suspected to be hypovolemic at that time therefore not a completely clear diagnosis. No clear improvement overnight and creatinine increased, will discontinue fur ther lasix until he is reviewed tomorrow especially with positive orthostasis (measured not felt) today. Suspect his shortness of breath more related to anemia given decrease today. #Chronic blood loss anemia / iron deficiency anemia / gastrointestinal bleeding Hemoglobin decreased to 7.1 today, discussed with patient and his and will give 2 units of blood with recheck hemoglobin with AM labs Will consider iron transfusion prior to discharge depending on amount of blood transfusion needed #BPH-no acute issues - Continue home tamsulosin and monitor for urinary retention #Glaucoma-no acute issues - Continue home latanoprost eyedrops #Osteoporosis-no acute issues, is on Prolia - Continue home Caltrate D VTE Prophylaxis - mechanical prophylaxis only due to drop in hemoglobin Disposition - admit to med/tele Admission and Anticipated Discharge Date Admission Date: June 21, 2025 Subjective In bed this morning therefore unable to tell me if any worsening shortness of breath as he has't yet been out of bed and only gets short of breath walking around Physical Exam Constitutional: WD/WN, vitals as above Respiratory: normal respiratory effort, lungs clear to auscultation normal respiratory effort; no respiratory distress Auscultation: + crackles (bibasal); breath sounds present, no diminished lung sounds, no rhonchi and no wheezes Cardiovascular: Rate/Rhythm: + tachycardic and + irregularly irregular Heart Sounds: + murmur (systolic) Extremities: + pedal edema (1+ bilateral pitting) Gastrointestinal (Abdomen): normal bowel sounds, soft, nontender, no hepatosplenomegaly Skin: no rashes, warm and dry Results & Data Results & Data Vital Signs (Past 12 Hours) Vital Signs Temp Pulse Pulse Resp BP BP Pulse Ox 06/22/25 18:24 36.9 C 93 H 18 106/66 96 06/22/25 17:54 36.5 C 94 H 18 106/56 L 96 06/22/25 17:39 36.7 C 90 18 102/64 98 06/22/25 17:15 36.4 C L 87 18 105/66 98 06/22/25 17:11 36.4 C L 87 18 105/66 98 06/22/25 16:37 06/22/25 16:14 36.5 C 87 18 96/65 L 98 06/22/25 15:44 36.6 C 86 18 97/60 L 96 06/22/25 15:29 36.6 C 79 18 98/60 L 97 06/22/25 15:12 36.6 C 83 18 100/62 98 06/22/25 13:45 84 06/22/25 11:16 36.4 C L 69 20 123/75 94 06/22/25 10:18 06/22/25 08:15 36.7 C 98 H 20 106/64 94 Pulse Ox O2 Del Method O2 Del Method 06/22/25 18:24 06/22/25 17:54 06/22/25 17:39 06/22/25 17:15 06/22/25 17:11 06/22/25 16:37 98 Room Air 06/22/25 16:14 06/22/25 15:44 06/22/25 15:29 06/22/25 15:12 06/22/25 13:45 06/22/25 11:16 Room Air 06/22/25 10:18 Room Air 06/22/25 08:15 Room Air PG Care Time/CCT Total # of Minutes Spent Total Time Spent with Patient: Total time spent is greater than 50% in coordination of care (as documented) at patient's floor/unit and/or counseling patient: Coding Level of Care Code 24442 SUB INP/OBS CARE 2/35MIN Diagnoses Acute on chronic heart failure with preserved ejection fraction I50.33 Atrial fibrillation, permanent I48.21 Anemia D64.9 Anemia type: unspecified type Aortic stenosis I35.0 GIB (gastrointestinal bleeding) K92.2 (3) Anemia Anemia type: unspecified type Qualified Code(s): D64.9 - Anemia, unspecified
[2025-06-23 07:40] LABS: Anion Gap 7.0 (3-11); Blood Urea Nitrogen 37.0 mg/dl (6-23); Calcium 8.4 mg/dl (8.6-10.3); Carbon Dioxide 25.0 mmol/L (21-32); Chloride 104.0 mmol/L (98-107); Creatinine Clr Calc Pharmacy 27.6 ml/min; Glucose 81.0 mg/dl (70-99(Fasting)); Potassium 3.9 mmol/L (3.5-5.1); Sodium 136.0 mmol/L (136-145)
[2025-06-23 07:58] VITALS: RESP 18; O2SAT 94
[2025-06-23 08:11] LABS: Hematocrit (blood only) 30.1 % (42.0-52.0); Hemoglobin 10.1 g/dl (14.0-18.0); Mean Corpuscular Hemoglobin 27.1 pg (25.0-34.0); Mean Corpuscular Volume 80.7 fL (80.0-100.0); Platelet Count 197 K/uL (130-400); RDW Standard Deviation 49.0 fL (36.4-46.3); Red Blood Count 3.73 M/uL (4.70-6.10); White Blood Count 4.66 K/ul (4.8-10.8)
[2025-06-23] MEDS: IRON SUCROSE 300 MG in SODIUM CHLORIDE 0.9% 250 ML IV ONE (10:04)
[2025-06-23 11:33] VITALS: BP 100/68; TEMP 97.7
--- NOTE | 2025-06-23 14:07 | Discharge Summary ---
Discharge Summary Date of Service June 23, 2025 Principal Dx & Hospital Course #1 = Principal Diagnosis (1) Acute on chronic heart failure with preserved ejection fraction: (2) Atrial fibrillation, permanent: (3) Anemia: (4) Aortic stenosis: (5) GIB (gastrointestinal bleeding): Plan Joey Mejia is an 89 year old male admitted to [facility] due to shortness of breath. He was initially diagnosed with acute on chronic heart failure and treated with intravenous Lasix however suspect with hindsight his shortness of breath was more due to his anemia. He was diagnosed with acute on chronic iron deficiency anemia which was treated with 2 units packed red blood cell transfusion and intravenous iron (Venofer 300mg IV). He has known chronic gastrointestinal bleeding and due to follow up with gastroenterology on July 09 for capsule endoscopy. Notes For Next Care Provider Follow hemoglobin as outpatient and arrange iron or blood transfusions as needed. Hemoglobin 10.1 on discharge. Medication Changes From Visit No changes - changes mentioned below he was already doing Admission HPI Per Admitting Provider Joey Mejia is an 89 year old male who presents to the ER with shortness of breath and fatigue. He notes having some bad and good days but on a whole has been getting progressively worse since his discharge on May 18 2025 due to acute blood loss anemia suspected to be from gastrointestinal bleeding. He has been having CBC checks with his [facility] PCP and reports his hemoglobin was 7.7 on Wednesday and 8.1 the week before. He was initially discharged back on his usual apixaban for atrial fibrillation as EGD and colonoscopy did not show a bleed. However he reports following up with [facility] PCP they stopped his Eliquis (confirmed he saw family practice in [facility] for follow up for his hospi talization although in this note it reports the Eliquis was stopped on the recommendations of his PCP Dr Moncada. He has a planned capsule endoscopy or at least GI appointment on July 09. His Lasix was also halved during his last admission due to concern for hypovolemia and he has stayed on this dose up until the last 2 days when he increased back to his 40mg PO daily dose due to increased leg swelling and his shortness of breath. He denies any chest pain or palpitations. Discharge Exam Constitutional WD/WN, vitals as above Respiratory normal respiratory effort, lungs clear to auscultation Cardiovascular Rate/Rhythm: + tachycardic and + irregularly irregular Heart Sounds: + murmur (systolic) Extremities: + pedal edema (1+ bilateral pitting) Gastrointestinal (Abdomen) normal bowel sounds, soft, nontender, no hepatosplenomegaly Skin no rashes, warm and dry Discharge Plan Discharge Items Patient Disposition: Home - Self-Care Reason For Visit: ACUTE ON CHRONIC HEART FAILURE WITH PRESERVED EJEC Discharge Diagnosis: Acute on chronic iron deficiency anemia Acute on chronic heart failure with preserved ejection fraction Condition on Discharge: Good Activity: Resume your previous activity Non-emergency contact: Primary Care Provider Call non-emergency contact if: you have any medication questions and your symptoms worsen Follow-up/Referrals: Fransisco Moncada MD [Primary Care Provider] - (PLEASE CALL YOUR PRIMARY CARE PROVIDER TO SCHEDULE A HOSPITAL FOLLOW-UP APPOINTMENT WITHIN 7-10 DAYS) Diet: Heart Healthy and Low Sodium (2gm) Addtl Attending Provider Instructions: You were admitted to [facility] due to shortness of breath. You were diagnosed with acute on chronic heart failure and treated with intravenous Lasix. You were also diagnosed with acute on chronic iron deficiency anemia which was treated with 2 units packed red blood cell transfusion and intravenous iron (Venofer). You are now medically stable for discharge. Recommend resuming your previous dose of Lasix at 40mg PO daily. Continue to follow up for potential watchman device with Dr Clark and capsule endoscopy with gastroenterology. Continue to hold your Eliquis unless told to restart by your PCP or gastroenterology. Pending Studies at Discharge: No Stand-Alone Forms: My [facility], Smoking Cessation Medications and DC Order Prescriptions: Continued atorvastatin 40 mg tablet 40 mg PO Q OTHER DAY Qty: 45 3RF Rx Instructions: PER PT "RAN OUT AND NEVER GOT A NEW SCRIPT TO REFILL, MONTHS AGO". latanoprost 0.005 % drops 1 drp OPB HS Caltrate 600-D Plus Minerals 600 mg calcium- 800 unit-50 mg tablet 1 tab PO DAILY pantoprazole 40 mg tablet,delayed release (DR/EC) 40 mg PO DAILY Prolia 60 mg/mL syringe 60 mg subcut DIRECTED Rx Instructions: subcutaneously q 6 months tamsulosin 0.4 mg capsule 0.4 mg PO QPM Qty: 30 11RF multivitamin Tablet 1 tab PO DAILY diphenhydramine-acetaminophen [Tylenol PM Extra Strength] 25-500 mg Tablet 1 - 2 tab PO HS ascorbic acid (vitamin C) [Vitamin C] 500 mg Tablet 500 mg PO DAILY docusate sodium [Stool Softener] 100 mg Capsule 100 mg PO DAILY cholecalciferol (vitamin D3) [Vitamin D3] 50 mcg (2,000 unit) Capsule 50 mcg PO DAILY Changed furosemide 40 mg tablet 40 mg PO QAM Qty: 90 3RF Held Eliquis 2.5 mg tablet 2.5 mg PO BID Qty: 60 11RF Hold Instructions: Resume on 07/16/25. Resume when ok from GI or PCP perspective Rx Instructions: TOLD TO STOP TAKING Discharge Orders: Discharge Order (Routine); Ordered 06/23/25 Ordered By: Andrea Archer/Other Patient Handouts: Coping with Heart Failure, ED Shortness of Breath (Dyspnea) Admission Data Admit Date/Time: 06/21/25 15:04 Attending Provider: Andrea Hinton Admit Provider: Andrea Hinton Primary Care Provider: Fransisco Moncada Other Interventions: Discharge Summary Assessment (RN) Last Done: 06/23/25 14:19 Hospital Stay Data Pending Results Patient Have Any Pending Studies at Discharge: No Discharge Instructions Given to Patient (Per Discharging Provider) You were admitted to [facility] due to shortness of breath. You were diagnosed with acute on chronic heart failure and treated with intravenous Lasix. You were also diagnosed with acute on chronic iron deficiency anemia which was treated with 2 units packed red blood cell transfusion and intravenous iron (Venofer). You are now medically stable for discharge. Recommend resuming your previous dose of Lasix at 40mg PO daily. Continue to follow up for potential watchman device with Dr Clark and capsule endoscopy [facility] gastroenterology. Continue to hold your Eliquis unless told to restart by your PCP or gastroenterology. Total Time Total Time Spent Total Time Spent (In Minutes): 55 Coding Level of Care Code 77737 INP/OBS DISCH >30 MIN Diagnoses Acute on chronic heart failure with preserved ejection fraction I50.33 Atrial fibrillation, permanent I48.21 Anemia D64.9 Anemia type: unspecified type Aortic stenosis I35.0 GIB (gastrointestinal bleeding) K92.2
[2025-06-23 14:19] VITALS: PULSE 93
[2025-06-24] MEDS ORDERED: FUROSEMIDE 40 MG TAB PO SCH (09:00)
--- NOTE | 2025-06-26 06:44 | Coding Query ---
CODING QUERY To promote full compliance with coding requirements relating to patient care, provider participation is requested in all cases of certified substance abuse counselor uncertainty. Please assist us with the question(s) below: Coding Question(s): There is documentation in the record and on the Discharge Summary of, "Chronic blood loss anemia / iron deficiency anemia / gastrointestinal bleeding", and the 06/22 Progress Note and Discharge Summary document, "Suspect his shortness of breath more related to anemia given decrease today, and the Discharge Summary documents, "Acute on chronic iron deficiency anemia", and, "You were also diagnosed with acute on chronic iron deficiency anemia which was treated with 2 units packed red blood cell transfusion and intravenous iron (Venofer)". Pleased specify below, in your clinical opinion, regarding the Acute Iron Deficiency Anemia: ( X ) Acute Iron Deficiency Anemia, secondary to blood loss ( ) Acute Iron Deficiency Anemia, not secondary to blood loss, or unspecified ( ) Other Acute Iron Deficiency Anemia - Please Specify Physician's Response(s): Thank you Manid Ramirez Principal Diagnosis: "that condition established after study, to be chiefly responsible for occasioning the admission of the patient to the hospital for care." Co-Existing Principal Diagnosis: "when two or more diagnoses equally meet the criteria for principal diagnosis as determined by the circumstances of admission, diagnostic work up, and/or therapy provided, and the Alphabetic Index, Tabular List, or another coding guideline does not provide sequencing direction, any one of the diagnoses may be sequenced first." "When the physician has documented what appears to be a current diagnosis in the body of the record, but has not included the diagnosis in the final diagnostic statement, the physician should be asked whether the diagnosis should be added." (Source Coding Clinic 2 QTR90. p3-4) LUCY
== END 2025-06-23 15:22 | disposition home or self-care (01) | DRG 811 ==
LOC: ED 10:02 → 2N 15:04

== ENCOUNTER 2025-07-23 10:43 | Inpatient (IN) ==
--- NOTE | 2025-07-23 11:28 | Emergency Department Note ---
ED Provider Note CHIEF COMPLAINT: [] HISTORY OF PRESENTING ILLNESS: [] REVIEW OF SYSTEMS: See HPI for pertinent positives and pertinent negatives. ALLERGIES: See below MEDICATIONS: See below PAST MEDICAL HISTORY: See below PHYSICAL EXAM: [] DIFFERENTIAL DIAGNOSIS: [] ED COURSE AND MEDICAL DECISION MAKING: HISTORY FROM INDEPENDENT HISTORIAN: [] MEDICATIONS GIVEN: [] MONITOR: Continuous school lunch monitor: Order was placed for continuous school lunch monitor. Patient was placed on the school lunch monitor and continuous pulse ox. Patient was noted to be in normal sinus rhythm at an initial rate of [] bpm per my interpretation. EKG: EKG was interpreted by myself as []. INTERPRETATION OF LABS: I interpreted the labs with full lab results as below in the lab section of this note. Pertinent lab results discussed in the MDM section below. INTERPRETATION OF IMAGING: Imaging studies were interpreted by myself and read by radiology as per the imaging section of this note. EXTERNAL RECORDS REVIEWED: [] CHRONIC MEDICAL/SOCIAL CONDITIONS AFFECTING CARE: [] ESCALATION OF CARE CONSIDERED: [] CONSULTATIONS: [] PROCEDURES: [] MDM SUMMARY: The patient is a pleasant, [] who arrives to the emergency department for evaluation of the above-stated complaint. []. DIAGNOSIS: [] The chart was completed utilizing [employer] Speech voice recognition software. Grammatical errors, random word insertions, pronoun errors, and incomplete sentences are an occasional consequence of this system due to software limitations, ambient noise, and hardware issues. Any formal questions or concerns about the content, text, or information contained within the body of this dictation should be directly addressed to the provider for clarification. 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 Acute diastolic (congestive) heart failure Arthritis (Acute) Medical History GI bleed CKD (chronic kidney disease) Weakness Acute blood loss anemia GIB (gastrointestinal bleeding) Hypertension Aortic stenosis Persistent atrial fibrillation Benign prostatic hyperplasia without urinary obstruction PAD (peripheral artery disease) CHF (congestive heart failure) Bilateral edema of lower extremity SOB (shortness of breath) Elevated PSA Benign prostatic hyperplasia with urinary obstruction Surgical History History of dental surgery Family History Other Heart disease Social History Smoking Status: Current every day smoker Tobacco Type: Pipe Second Hand Exposure: No; Do You Dip or Chew Tobacco: No; Hx Alcohol Use: No Hx Substance Use: No Preferred Language: Azeri Communication Ability: Effective Kiln Loader Required: No Beliefs That Will Affect Care: None marital status: Current Living Situation: Spouse current occupational status: employed Feels Safe at Home: Yes Assistive Devices: Cane and Walker Allergies Allergies Allergy/AdvReac Type Severity Reaction Status Date / Time No Known Allergies Allergy Unknown Verified 06/21/25 15:36 Home Meds Home Medications Medication Instructions Recorded Confirmed latanoprost 0.005 % eye drops 1 drp OPB HS 02/06/20 06/21/25 calcium 600 mg-D3 800 unit-mag11 1 tab PO DAILY 11/20/22 06/21/25 50 [id number]-susanne-[id number].borat tablet (Caltrate 600-D Plus Minerals) pantoprazole 40 mg tablet,delayed 40 mg PO DAILY 11/20/22 06/21/25 release denosumab 60 mg/mL subcutaneous 60 mg subcut DIRECTED 12/02/22 06/21/25 syringe (Prolia) diphenhydramine 25 1 - 2 tab PO HS SLEEP 03/18/23 06/21/25 mg-acetaminophen 500 mg tablet (Tylenol PM Extra Strength) multivitamin 1 tab PO DAILY 03/18/23 06/21/25 ascorbic acid (vitamin C) 500 mg 500 mg PO DAILY 06/21/25 06/21/25 tablet (Vitamin C) cholecalciferol (vitamin D3) 50 50 mcg PO DAILY 06/21/25 06/21/25 mcg (2,000 unit) capsule (Vitamin D3) docusate sodium 100 mg capsule 100 mg PO DAILY 06/21/25 06/21/25 (Stool Softener) Previous Rx's Medication Instructions Recorded apixaban 2.5 mg tablet (Eliquis) 2.5 mg PO BID #60 tabs 12/30/23 atorvastatin 40 mg tablet 40 mg PO Q OTHER DAY #45 tabs 03/14/24 tamsulosin 0.4 mg capsule 0.4 mg PO QPM #30 caps 03/14/25 furosemide 40 mg tablet 40 mg PO QAM #90 tabs 06/23/25 Results & Data (ED) Vital Signs Vital Signs - 24 hr 07/23/25 11:14 Temperature 36.6 C Temperature Source Temporal Artery Scan Pulse Rate 83 Pulse Rhythm Regular Pulse Strength Normal Respiratory Rate 18 Respiratory Effort / Characteristics Non-Labored Spontaneous Respiratory Depth Normal Respiratory Pattern Regular Blood Pressure 73/51 L Blood Pressure Mean 58 Blood Pressure Position Sitting Pulse Oximetry 95 Oxygen Delivery Method Room Air Sepsis Recent Fever Within 48 Hours No Sepsis New/Unexplained Change in Mental Status N/A Sepsis Action Taken by Nursing No Action Required Discharge Plan Visit Data Chief Complaint: Rectal Bleed Stated Complaint: ANAL BLEEDING ED Provider: Paige Avilez ED Midlevel Provider: Ximena Hung Forms Stand Alone Forms: My [facility] Prescriptions Prescriptions: No Action Eliquis 2.5 mg tablet 2.5 mg PO BID Qty: 60 11RF Hold Instructions: Resume on 07/16/25. Resume when ok from GI or PCP perspective Rx Instructions: TOLD TO STOP TAKING atorvastatin 40 mg tablet 40 mg PO Q OTHER DAY Qty: 45 3RF Rx Instructions: PER PT "RAN OUT AND NEVER GOT A NEW SCRIPT TO REFILL, MONTHS AGO". latanoprost 0.005 % drops 1 drp OPB HS Caltrate 600-D Plus Minerals 600 mg calcium- 800 unit-50 mg tablet 1 tab PO DAILY pantoprazole 40 mg tablet,delayed release (DR/EC) 40 mg PO DAILY Prolia 60 mg/mL syringe 60 mg subcut DIRECTED Rx Instructions: subcutaneously q 6 months tamsulosin 0.4 mg capsule 0.4 mg PO QPM Qty: 30 11RF multivitamin Tablet 1 tab PO DAILY diphenhydramine-acetaminophen [Tylenol PM Extra Strength] 25-500 mg Tablet 1 - 2 tab PO HS ascorbic acid (vitamin C) [Vitamin C] 500 mg Tablet 500 mg PO DAILY docusate sodium [Stool Softener] 100 mg Capsule 100 mg PO DAILY cholecalciferol (vitamin D3) [Vitamin D3] 50 mcg (2,000 unit) Capsule 50 mcg PO DAILY furosemide 40 mg tablet 40 mg PO QAM Qty: 90 3RF Referrals Referrals: Fransisco Moncada MD [Primary Care Provider] -
[2025-07-23] MEDS: SODIUM CHLORIDE 0.9% 1,000 ML IV STA (11:57)
[2025-07-23 11:58] LABS: Hematocrit (blood only) 27.5 % (42.0-52.0); Hemoglobin 8.8 g/dl (14.0-18.0); Immature Granulocytes # (auto) 0.03 K/uL (0.01-0.20); Immature Granulocytes % (auto) 0.4 %; Mean Corpuscular Hemoglobin 26.9 pg (25.0-34.0); Mean Corpuscular Volume 84.1 fL (80.0-100.0); Platelet Count 195 K/uL (130-400); RDW Standard Deviation 67.6 fL (36.4-46.3); Red Blood Count 3.27 M/uL (4.70-6.10); White Blood Count 7.09 K/ul (4.8-10.8)
[2025-07-23 12:14] LABS: Anisocytosis Present; Ovalocytes 1+
[2025-07-23 12:17] LABS: Alanine Aminotransferase 13.0 U/L (7-52); Albumin Globulin Ratio 0.9 (0.9-2); Alkaline Phosphatase 76.0 U/L (34-104); Anion Gap 11.0 (3-11); Bilirubin,Total 0.6 mg/dl (0.2-1.0); Blood Urea Nitrogen 49.0 mg/dl (6-23); Calcium 9.1 mg/dl (8.6-10.3); Carbon Dioxide 25.0 mmol/L (21-32); Chloride 102.0 mmol/L (98-107); Creatinine Clr Calc Pharmacy 19.0 ml/min; Globulin 3.8 gm/dl (2.5-4.0); Glucose 85.0 mg/dl (70-99(Fasting)); Potassium 4.9 mmol/L (3.5-5.1); Sodium 138.0 mmol/L (136-145); Total Protein 7.4 gm/dl (6.0-8.3)
--- NOTE | 2025-07-23 12:21 | XRay Report ---
XR chest 1V portable CLINICAL HISTORY: GIB COMPARISON STUDY: 06/21/2025 FINDINGS: Left atrial appendage occlusion device is present. There is mild cardiomegaly without pulmo nary vascular congestion. No consolidation or pleural effusion seen. No pneumothorax. IMPRESSION: No acute findings. ACT 112: Negative or not required by law. Electronically signed by: Ace Santoyo M.D. 07/23/2025 12:20 PM
[2025-07-23 12:27] LABS: INR 1.0 (0.9-1.1); Partial Thromboplastin Time 26 Seconds (21-31); Prothrombin Time 10.7 Seconds (9.0-12.0)
--- NOTE | 2025-07-23 12:41 | History & Physical Report ---
"Date of Service July 23, 2025 Assessment & Plan (1) Acute blood loss anemia: (2) Atrial fibrillation, permanent: (3) Acute lower GI bleeding: Plan This patient is an 89-year-old male who presented on 07/23 for rectal bleed. Recent [place] hospitalization 05/14 and 06/21 for acute blood loss anemia in setting of GI bleed and symptomatic anemia. Colonoscopy on 05/17/2025 revealed several localized angioectasias without bleeding; no other significant abnormalities were identified at that time. ? Possible that the angioectasias are now bleeding. 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 BCs ordered, held Trend H&H q6h overnight Signed out to overnight team; transfuse PRN 2 large bore IVs ordered Strict n.p.o. IVF with LR at 80mL/hr x 2 L Gastroenterology consult appreciated #Atrial fibrillation Patient had Watchman procedure done at [facility] on 07/20 Was placed on Plavix and aspirin postoperatively Hold in the setting of acute lower GI bleed Cardiology consult appreciated Disposition: Admit to PCU telemetry PT PPx: Hold chemical DVT PPx in setting of GI bleed History of Present Illness Chief Complaint: Rectal bleed Primary Care Provider: Fransisco Moncada MD Mr. Lamas is an 89-year-old male with PMH of iron deficiency anemia, atherogenic dyslipidemia, chronic blood loss anemia, and HFpEF. He presented on 07/23 after developing abdominal pain around 4 AM this morning. Patient woke up from the abdominal pain, then went to use the bathroom and found that he had bright red blood with clots in his commode. Patient also reports he has been feeling dizzy/lightheaded. Patient recently had a Watchman procedure done at [facility] on Friday 07/20. He reports he has been taking aspirin and Plavix since that time, and did take them this morning, as well as his calcium and PPI. Patient was originally supposed to have a capsule endoscopy done following his last hospitalization for rectal bleeding, but reports that they have had difficulty scheduling this procedure. Patient was recently hospitalized in May and June for rectal bleed, requiring blood transfusions both times. No PMH of hemorrhoids or IBD. Patient does not use up on oxygen at home or CPAP at night. He is a tobacco pipe smoker. Per , his hemoglobin was around 10 approximately 2 weeks ago when he had his labs drawn at [facility]. These labs were not drawn last Wednesday prior to his watchman being placed. Patient is mildly tachycardic at 99 bpm at time admission; vitals otherwise stable. ED course: NSS 1000 L IV ROS: Patient endorses BRB in stool, straining to move bowels this morning, abdominal pain (resolved after bowel movements),and chronic GRAY. Patient denies fever, chills, night-sweats, chest pain, SOB at rest, changes in urinary habits (blood in urine, burning with urination, etc.), saddle anesthesia, or N/T in the legs. Allergies Allergy/AdvReac Type Severity Reaction Status Date / Time No Known Allergies Allergy Unknown Verified 07/23/25 14:24 Home Medications Medication Instructions Recorded Confirmed Type latanoprost 0.005 % eye drops 1 drp OPB HS 02/06/20 07/23/25 History calcium 600 mg-D3 800 unit-mag11 1 tab PO DAILY 11/20/22 07/23/25 History 50 xx-oufw-ohkuqm-susanne-s.borat tablet (Caltrate 600-D Plus Minerals) pantoprazole 40 mg tablet,delayed 40 mg PO DAILY 11/20/22 07/23/25 History release denosumab 60 mg/mL subcutaneous 0 mg subcut DIRECTED 12/02/22 07/23/25 History syringe (Prolia) diphenhydramine 25 1 - 2 tab PO HS SLEEP 03/18/23 07/23/25 History mg-acetaminophen 500 mg tablet (Tylenol PM Extra Strength) multivitamin 1 tab PO DAILY 03/18/23 07/23/25 History tamsulosin 0.4 mg capsule 0.4 mg PO QPM #30 caps 03/14/25 07/23/25 Rx ascorbic acid (vitamin C) 500 mg 500 mg PO DAILY 06/21/25 07/23/25 History tablet (Vitamin C) cholecalciferol (vitamin D3) 50 50 mcg PO DAILY 06/21/25 07/23/25 History mcg (2,000 unit) capsule (Vitamin D3) docusate sodium 100 mg capsule 100 mg PO DAILY 06/21/25 07/23/25 History (Stool Softener) furosemide 40 mg tablet 40 mg PO QAM #90 tabs 06/23/25 07/23/25 Rx apixaban 2.5 mg tablet (Eliquis) 0 mg PO BID 07/23/25 07/23/25 History atorvastatin 40 mg tablet 0 mg PO Q OTHER DAY 07/23/25 07/23/25 History clopidogrel 75 mg tablet 75 mg PO DAILY 07/23/25 07/23/25 History Past Med/Surg History Problem List (Updated 07/24/25 @ 09:10 by Lyndon Forrester PA-C) Presence of Watchman left atrial appendage closure device Lower GI bleed Acute lower GI bleeding Acute blood loss anemia Hypotension (Acute) Atrial fibrillation with rapid ventricular response (Acute) BRBPR (bright red blood per rectum) (Acute) Acute on chronic heart failure with preserved ejection fraction (Acute) Chronic diastolic heart failure Atrial fibrillation, permanent (Acute) CHF (congestive heart failure) (Acute) Anemia (Acute) Benign localized prostatic hyperplasia with lower urinary tract symptoms (LUTS) Iron deficiency anemia GRAY (dyspnea on exertion) (Acute) 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 Acute diastolic (congestive) heart failure Arthritis (Acute) Medical History (Updated 07/24/25 @ 09:10 by Lyndon Forrester PA-C) Anticoagulated GI bleed CKD (chronic kidney disease) Weakness GIB (gastrointestinal bleeding) Hypertension Aortic stenosis Persistent atrial fibrillation Benign prostatic hyperplasia without urinary obstruction PAD (peripheral artery disease) CHF (congestive heart failure) Bilateral edema of lower extremity SOB (shortness of breath) Elevated PSA Benign prostatic hyperplasia with urinary obstruction Surgical History History of dental surgery Family History Other Heart disease Social History Smoking Status: Current every day smoker Tobacco Type: Cigarettes Cigarettes Per Day: every day; Second Hand Exposure: No; Do You Dip or Chew Tobacco: No; Tobacco Cessation Education Requested by Patient: No Hx Alcohol Use: No Hx Substance Use: No Preferred Language: Brazilian Communication Ability: Effective 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 Beliefs That Will Affect Care: None marital status: Current Living Situation: Spouse current occupational status: employed Other Information That Helps Us Care for You: No Feels Safe at Home: Yes Safety Concerns: Feels Safe At This Time Assistive Devices: Cane Assistive Devices Comment: wears brace on Review of Systems Review of Systems: See HPI above Physical Exam Physical Exam: General: no acute distress; non-toxic appearing; frail appearing; cooperative; SpO2 98% on RA HEENT: normocephalic, atraumatic; no scleral icterus; PERRLA; vision and hearing intact Neck: supple; no lymphadenopathy; trachea midline Skin: warm, dry without signs of tenting; no cyanosis; no rashes, bruising, lesions, or erythema noted CV: chest wall NTP; irregularly irregular rhythm, tachycardic around 100-110 bpm; S1/S2 normal; no murmurs/rubs/gallops; pulses intact and symmetric at radial, DP, and PT Lungs: no acute respiratory distress; symmetrical chest wall expansion; clear breath sounds across all lung keene w/o adventitious sounds; no wheezing ABD: Soft, NTP in all 4 quadrants; no rashes or bruising appreciated abdomen or flanks bilaterally; BS present; no rebound/guarding; no distention MSK: no tics or fasciculations; no edema noted in the LEs b/l, nonerythematous Neuro: A&Ox3; normal mood and affect; fluent speech; no focal deficits; sensation grossly intact in the LEs b/l Results & Data Results & Data Vital Signs (Past 12 Hours) Vital Signs Temp Pulse Resp BP Pulse Ox O2 Del Method 07/23/25 12:30 99 H 19 105/79 98 07/23/25 12:15 102 H 24 07/23/25 12:00 94 H 15 108/74 98 07/23/25 11:51 98 H 15 07/23/25 11:51 99 H 18 94 Room Air 07/23/25 11:48 103 H 24 110/75 07/23/25 11:14 36.6 C 83 18 73/51 L 95 Room Air Laboratory Results Abnormal lab results 07/23/25 07/23/25 07/23/25 Range/Units 11:35 11:43 11:44 RBC 3.27 L (4.70-6.10) M/uL Hgb 8.8 L (14.0-18.0) g/dl POC Hgb 9.5 L (14.0-18.0) g/dl Hct 27.5 L (42.0-52.0) % POC Hct 28 L (42-52) % RDW Std Deviation 67.6 H (36.4-46.3) fL RDW Coeff of Don 22.1 H (11.5-14.5) % Lymph # (Auto) 0.48 L (1.20-3.40) K/uL POC Total CO2 22 L (24-31) mmol/L POC BUN 41 H (7-18) mg/dl BUN 49 H (6-23) mg/dl Creatinine 1.86 H (0.6-1.4) mg/dl POC Creatinine 2.0 H (0.6-1.3) mg/dl BUN/Creatinine Ratio 26.3 H (10-20) POC Stool Occult Blood (Negative) Antibody Screen POSITIVE A Crossmatch See Detail 07/23/25 07/23/25 Range/Units 12:10 16:46 RBC (4.70-6.10) M/uL Hgb 7.8 L (14.0-18.0) g/dl POC Hgb (14.0-18.0) g/dl Hct 24.4 L (42.0-52.0) % POC Hct (42-52) % RDW Std Deviation (36.4-46.3) fL RDW Coeff of Don (11.5-14.5) % Lymph # (Auto) (1.20-3.40) K/uL POC Total CO2 (24-31) mmol/L POC BUN (7-18) mg/dl BUN (6-23) mg/dl Creatinine (0.6-1.4) mg/dl POC Creatinine (0.6-1.3) mg/dl BUN/Creatinine Ratio (10-20) POC Stool Occult Blood Positive A (Negative) Antibody Screen Crossmatch Diagnostic Findings Chest X-Ray 07/23/25 11:46 XR chest 1V portable CLINICAL HISTORY: GIB COMPARISON STUDY: 06/21/2025 FINDINGS: Left atrial appendage occlusion device is present. There is mild cardiomegaly without pulmonary vascular congestion. No consolidation or pleural effusion seen. No pneumothorax. IMPRESSION: No acute findings. ACT 112: Negative or not required by law. Electronically signed by: Ace Santoyo M.D. 07/23/2025 12:20 PM ECG Additional Comments: ECG revealed atrial fibrillation with RVR at 103 bpm; QTc 448 Code Status & VTE Plan Code Status Full code VTE Prophylaxis Plan VTE Prophylaxis will be ordered: Yes Supervising Physician Co-Signing Physician Notes During face to face encounter, I obtained a history and physical examination, discussed plan of care with patient and answered any questions. I discussed plan of care with CHIKA Gaemz. I reviewed above note and agree with it except for the following: Patient will be admitted with acute blood loss anemia secondary to a lower GI bleed Will consult GI, hold plavix, ASA. PG Care Time/CCT Total # of Minutes Spent Total Time Spent with Patient: Total time spent is greater than 50% in coordination of care (as documented) at patient's floor/unit and/or counseling patient: C[place] [address] INT INP/OBS CARE 3/75MIN Patient Type Established Medical Decision Making High Complexity Diagnoses Acute blood loss anemia D62 Atrial fibrillation, permanent I48.21 Acute lower GI bleeding K92.2"
--- NOTE | 2025-07-23 12:51 | Electrocardiogram Report ---
Test Reason : Blood Pressure : */* mmHG Vent. Rate : 103 BPM Atrial Rate : * BPM P-R Int : * ms QRS Dur : 76 ms QT Int : 342 ms P-R-T Axes : * 27 6 degrees QTcB Int : 448 ms Atrial fibrillation with rapid ventricular response with premature ventricular or aberrantly conducte d complexes Abnormal ECG When compared with ECG of 21-Jun-2025 10:25, No significant change was found Confirmed by Mp Chen ([id number]) on 07/23/2025 12:51:10 PM Referred By: Confirmed By: Mp Chen
[2025-07-23] MEDS ORDERED: SODIUM CHLORIDE 0.9% 100 ML IV PRN ×3 (13:25→19:13)
--- NOTE | 2025-07-23 14:17 | Emergency Department Note ---
Impression & Plan BRBPR (bright red blood per rectum), Atrial fibrillation with rapid ventricular response, Hypotension ED Provider Note CHIEF COMPLAINT: rectal bleed HISTORY OF PRESENT ILLNESS: This 89 yo male patient past medical history of atrial fibrillation, chronic heart failure, status post recent Watchman procedure on aspirin and Plavix presents to the emergency department with complaints of bright red blood per rectum. His at the bedside states this has happened several times in the past. He was recently taken off of his anticoagulation. Patient denies any chest pain or shortness of breath at this time. He states he did pass a small bowel movement prior to the episode of bleeding. mentions he has had 2 blood transfusions recently. They are attempting to have a capsule study done, but have been unable to obtain the capsule in a timely manner. REVIEW OF SYSTEMS: A review of systems was performed with positives and pertinent negatives listed in the history of present illness. 10 systems were reviewed and are otherwise negative. ALLERGIES: see below MEDICATIONS: see below PMH: see below SOCIAL HISTORY: see below DDx: Lower GI bleed, rectal fissure, diverticulitis, rectal mass, among others. PHYSICAL EXAM: Vital signs reviewed. General: Chronically ill-appearing 89-year-old male, in no significant distress. HEENT: No scleral icterus, PERRLA, neck supple. Atraumatic. Cardiovascular: Tachycardic and irregular Pulmonary: Clear to auscultation bilaterally, normal work of breathing. Abdomen: Soft, nontender, nondistended, positive bowel sounds. Musculoskeletal: Atraumatic, no peripheral edema. Neurologic: Patient awake alert and oriented x 3, speech is clear Rectal: Normal external mucosa with grossly positive for bright red blood on DEVIN Skin: Warm, dry, no rash EMERGENCY DEPARTMENT COURSE/MDM: This patient was evaluated and appeared to be in no significant distress. IV access was obtained and laboratory work was drawn. EKG reveals atrial fibrillation with rapid ventricular response around 103 bpm. Patient's hemoglobin is noted to be 8.8. Type and screen has been sent. Patient did verbally consent to blood if needed. Given the bright red component of the blood, lower GI bleed is suspected. Patient was given 100 mL/h of normal saline solution for gentle hydration and support. Hemoglobin will require trending and blood transfusion is likely. Case has been discussed with the hospitalist service who will evaluate the patient for admission and further management. MONITORING: An order for cardiac monitoring was placed and the patient is noted to be in a atrial fibrillation at 107 beats per minute. RADIOLOGY: Chest x-ray to my interpretation reveals no evidence of acute focal lung consolidation or failure. EKG: To my interpretation reveals atrial fibrillation at 103 bpm, rapid ventricular rate. QTc of 448. No evidence of acute ischemia. 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 Acute diastolic (congestive) heart failure Arthritis (Acute) Medical History GI bleed CKD (chronic kidney disease) Weakness Acute blood loss anemia GIB (gastrointestinal bleeding) Hypertension Aortic stenosis Persistent atrial fibrillation Benign prostatic hyperplasia without urinary obstruction PAD (peripheral artery disease) CHF (congestive heart failure) Bilateral edema of lower extremity SOB (shortness of breath) Elevated PSA Benign prostatic hyperplasia with urinary obstruction Surgical History History of dental surgery Family History Other Heart disease Social History Smoking Status: Current every day smoker Tobacco Type: Pipe Second Hand Exposure: No; Do You Dip or Chew Tobacco: No; Hx Alcohol Use: No Hx Substance Use: No Preferred Language: Cook Islander Communication Ability: Effective 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 Beliefs That Will Affect Care: None marital status: Current Living Situation: Spouse current occupational status: employed Feels Safe at Home: Yes Assistive Devices: Cane and Walker Allergies Allergies Allergy/AdvReac Type Severity Reaction Status Date / Time No Known Allergies Allergy Unknown Verified 07/23/25 14:24 Home Meds Home Medications Medication Instructions Recorded Confirmed latanoprost 0.005 % eye drops 1 drp OPB HS 02/06/20 07/23/25 calcium 600 mg-D3 800 unit-mag11 1 tab PO DAILY 11/20/22 07/23/25 50 br-pswm-tkjruu-susanne-s.borat tablet (Caltrate 600-D Plus Minerals) pantoprazole 40 mg tablet,delayed 40 mg PO DAILY 11/20/22 07/23/25 release denosumab 60 mg/mL subcutaneous 0 mg subcut DIRECTED 12/02/22 07/23/25 syringe (Prolia) diphenhydramine 25 1 - 2 tab PO HS SLEEP 03/18/23 07/23/25 mg-acetaminophen 500 mg tablet (Tylenol PM Extra Strength) multivitamin 1 tab PO DAILY 03/18/23 07/23/25 ascorbic acid (vitamin C) 500 mg 500 mg PO DAILY 06/21/25 07/23/25 tablet (Vitamin C) cholecalciferol (vitamin D3) 50 50 mcg PO DAILY 06/21/25 07/23/25 mcg (2,000 unit) capsule (Vitamin D3) docusate sodium 100 mg capsule 100 mg PO DAILY 06/21/25 07/23/25 (Stool Softener) apixaban 2.5 mg tablet (Eliquis) 0 mg PO BID 07/23/25 07/23/25 atorvastatin 40 mg tablet 0 mg PO Q OTHER DAY 07/23/25 07/23/25 clopidogrel 75 mg tablet 75 mg PO DAILY 07/23/25 07/23/25 Previous Rx's Medication Instructions Recorded tamsulosin 0.4 mg capsule 0.4 mg PO QPM #30 caps 03/14/25 furosemide 40 mg tablet 40 mg PO QAM #90 tabs 06/23/25 Results & Data (ED) Vital Signs Vital Signs - 24 hr 07/23/25 11:14 07/23/25 11:48 07/23/25 11:51 Temperature 36.6 C Temperature Source Temporal Artery Scan Pulse Rate 83 103 H 99 H Pulse Rate from SpO2 Sensor Pulse Rhythm Regular Irregular Pulse Strength Normal Respiratory Rate 18 24 18 Respiratory Effort / Characteristics Non-Labored Spontaneous Respiratory Depth Normal Respiratory Pattern Regular Blood Pressure 73/51 L 110/75 Blood Pressure Mean 58 78 Blood Pressure Position Sitting Pulse Oximetry 95 94 Oxygen Delivery Method Room Air Room Air Sepsis Recent Fever Within 48 Hours No Sepsis New/Unexplained Change in Mental Status N/A Sepsis Action Taken by Nursing No Action Required 07/23/25 11:51 07/23/25 12:00 07/23/25 12:15 Temperature Temperature Source Pulse Rate 98 H 94 H 102 H Pulse Rate from SpO2 Sensor Pulse Rhythm Pulse Strength Respiratory Rate 15 15 24 Respiratory Effort / Characteristics Respiratory Depth Respiratory Pattern Blood Pressure 108/74 Blood Pressure Mean 75 Blood Pressure Position Pulse Oximetry 98 Oxygen Delivery Method Sepsis Recent Fever Within 48 Hours Sepsis New/Unexplained Change in Mental Status Sepsis Action Taken by Nursing 07/23/25 12:30 07/23/25 12:48 Temperature Temperature Source Pulse Rate 99 H 108 H Pulse Rate from SpO2 Sensor 103 H Pulse Rhythm Pulse Strength Respiratory Rate 19 Respiratory Effort / Characteristics Respiratory Depth Respiratory Pattern Blood Pressure 105/79 Blood Pressure Mean 87 Blood Pressure Position Pulse Oximetry 98 Oxygen Delivery Method Sepsis Recent Fever Within 48 Hours Sepsis New/Unexplained Change in Mental Status Sepsis Action Taken by Residential Medications Current Medication List: was personally reviewed by me Laboratory Data Attestation: I reviewed the patient's lab results. 07/23/25 11:35 07/23/25 11:35 Lab Results 07/23/25 07/23/25 07/23/25 Range/Units 11:35 11:43 11:44 WBC 7.09 (4.8-10.8) K/ul RBC 3.27 L (4.70-6.10) M/uL Hgb 8.8 L (14.0-18.0) g/dl POC Hgb 9.5 L (14.0-18.0) g/dl Hct 27.5 L (42.0-52.0) % POC Hct 28 L (42-52) % MCV 84.1 (80.0-100.0) fL MCH 26.9 (25.0-34.0) pg MCHC 32.0 (32.0-36.0) g/dL RDW Std Deviation 67.6 H (36.4-46.3) fL RDW Coeff of Don 22.1 H (11.5-14.5) % Plt Count 195 (130-400) K/uL MPV 10.5 (9.4-12.4) fL Immature Gran % (Auto) 0.4 % Neut % (Auto) 84.9 % Lymph % (Auto) 6.8 % [place] % (Auto) 7.5 % Eos % (Auto) 0.4 % Baso % (Auto) 0.0 % Neut # (Auto) 6.02 (1.40-6.50) K/uL Lymph # (Auto) 0.48 L (1.20-3.40) K/uL [place] # (Auto) 0.53 (0.11-0.59) K/uL Eos # (Auto) 0.03 (0.00-0.50) K/uL Baso # (Auto) 0.00 (0.00-0.20) K/uL Immature Gran # (Auto) 0.03 (0.01-0.20) K/uL Anisocytosis Present Ovalocytes 1+ PT 10.7 (9.0-12.0) Seconds INR 1.0 (0.9-1.1) APTT 26 (21-31) Seconds PTT Ratio 1.0 POC Sodium 137 (135-144) mmol/L Sodium 138 (136-145) mmol/L POC Potassium 4.9 (3.3-5.0) mmol/L Potassium 4.9 (3.5-5.1) mmol/L POC Chloride 103 (101-112) mmol/L Chloride 102 (98-107) mmol/L Carbon Dioxide 25 (21-32) mmol/L POC Total CO2 22 L (24-31) mmol/L Anion Gap 11 (3-11) POC Anion Gap 18.0 (16-25) mmol/L POC BUN 41 H (7-18) mg/dl BUN 49 H (6-23) mg/dl Creatinine 1.86 H (0.6-1.4) mg/dl POC Creatinine 2.0 H (0.6-1.3) mg/dl Est Cr Clr Drug Dosing 19.0 ml/min eGFR 34.16 BUN/Creatinine Ratio 26.3 H (10-20) Glucose 85 (70-99(Fasting)) mg/dl POC Glucose (other) 88 (70-99) mg/dl Calcium 9.1 (8.6-10.3) mg/dl POC Ioniz Calcium Hay 1.13 (1.12-1.32) mmol/l Total Bilirubin 0.6 (0.2-1.0) mg/dl AST 30 (13-39) U/L ALT 13 (7-52) U/L Alkaline Phosphatase 76 (34-104) U/L Total Protein 7.4 (6.0-8.3) gm/dl Albumin 3.6 (3.4-5.0) gm/dl Globulin 3.8 (2.5-4.0) gm/dl Albumin/Globulin Ratio 0.9 (0.9-2) POC Stool Occult Blood (Negative) Blood Type A Positive Antibody Screen POSITIVE A Direct Antiglob Test Negative (Negative) NIKOLAS (IgG-AHG) Neg (Negative) NIKOLAS, Polyspecific Neg (Negative) NIKOLAS C3b, C3d 5 Min Neg (Negative) Crossmatch See Detail 07/23/25 Range/Units 12:10 WBC (4.8-10.8) K/ul RBC (4.70-6.10) M/uL Hgb (14.0-18.0) g/dl POC Hgb (14.0-18.0) g/dl Hct (42.0-52.0) % POC Hct (42-52) % MCV (80.0-100.0) fL MCH (25.0-34.0) pg MCHC (32.0-36.0) g/dL RDW Std Deviation (36.4-46.3) fL RDW Coeff of Don (11.5-14.5) % Plt Count (130-400) K/uL MPV (9.4-12.4) fL Immature Gran % (Auto) % Neut % (Auto) % Lymph % (Auto) % [place] % (Auto) % Eos % (Auto) % Baso % (Auto) % Neut # (Auto) (1.40-6.50) K/uL Lymph # (Auto) (1.20-3.40) K/uL [place] # (Auto) (0.11-0.59) K/uL Eos # (Auto) (0.00-0.50) K/uL Baso # (Auto) (0.00-0.20) K/uL Immature Gran # (Auto) (0.01-0.20) K/uL Anisocytosis Ovalocytes PT (9.0-12.0) Seconds INR (0.9-1.1) APTT (21-31) Seconds PTT Ratio POC Sodium (135-144) mmol/L Sodium (136-145) mmol/L POC Potassium (3.3-5.0) mmol/L Potassium (3.5-5.1) mmol/L POC Chloride (101-112) mmol/L Chloride (98-107) mmol/L Carbon Dioxide (21-32) mmol/L POC Total CO2 (24-31) mmol/L Anion Gap (3-11) POC Anion Gap (16-25) mmol/L POC BUN (7-18) mg/dl BUN (6-23) mg/dl Creatinine (0.6-1.4) mg/dl POC Creatinine (0.6-1.3) mg/dl Est Cr Clr Drug Dosing ml/min eGFR BUN/Creatinine Ratio (10-20) Glucose (70-99(Fasting)) mg/dl POC Glucose (other) (70-99) mg/dl Calcium (8.6-10.3) mg/dl POC Ioniz Calcium Hay (1.12-1.32) mmol/l Total Bilirubin (0.2-1.0) mg/dl AST (13-39) U/L ALT (7-52) U/L Alkaline Phosphatase (34-104) U/L Total Protein (6.0-8.3) gm/dl Albumin (3.4-5.0) gm/dl Globulin (2.5-4.0) gm/dl Albumin/Globulin Ratio (0.9-2) POC Stool Occult Blood Positive A (Negative) Blood Type Antibody Screen Direct Antiglob Test (Negative) NIKOLAS (IgG-AHG) (Negative) NIKOLAS, Polyspecific (Negative) NIKOLAS C3b, C3d 5 Min (Negative) Crossmatch Administered Medications Sodium Chloride (Nss) 1,000 mls @ 100 mls/hr IV .Q10H STA Stop: 07/23/25 21:45 Last Admin: 07/23/25 11:57 Dose: 100 mls/hr Documented By: FG Imaging Data Radiologist's Impression: Chest X-Ray 07/23/25 11:46 XR chest 1V portable CLINICAL HISTORY: GIB COMPARISON STUDY: 06/21/2025 FINDINGS: Left atrial appendage occlusion device is present. There is mild cardiomegaly without pulmonary vascular congestion. No consolidation or pleural effusion seen. No pneumothorax. IMPRESSION: No acute findings. ACT 112: Negative or not required by law. Electronically signed by: Ace Santoyo M.D. 07/23/2025 12:20 PM Discharge Plan Visit Data Chief Complaint: Rectal Bleed Stated Complaint: ANAL BLEEDING ED Provider: Paige Avilez Discharge Problem: BRBPR (bright red blood per rectum), Atrial fibrillation with rapid ventricular response, Hypotension Patient Disposition: Admitted As Inpatient Condition: Serious Discharge Instructions Interventions: ED Discharge Assessment Last Done: 07/23/25 15:20 Discharge Problem: Hypotension Qualifiers: Hypotension type: unspecified hypotension type Qualified Code(s): I95.9 - Hypotension, unspecified
[2025-07-23 17:13] LABS: Hematocrit (blood only) 24.4 % (42.0-52.0); Hemoglobin 7.8 g/dl (14.0-18.0)
[2025-07-23] MEDS: LACTATED RINGER'S 1,000 ML IV SCH (19:59)
[2025-07-24 00:23] LABS: Hematocrit (blood only) 22.6 % (42.0-52.0); Hemoglobin 7.2 g/dl (14.0-18.0)
[2025-07-24 06:01] LABS: Hematocrit (blood only) 23.6 % (42.0-52.0); Hemoglobin 7.7 g/dl (14.0-18.0); Immature Granulocytes # (auto) 0.01 K/uL (0.01-0.20); Immature Granulocytes % (auto) 0.3 %; Mean Corpuscular Hemoglobin 27.8 pg (25.0-34.0); Mean Corpuscular Volume 85.2 fL (80.0-100.0); Platelet Count 161 K/uL (130-400); RDW Standard Deviation 68.8 fL (36.4-46.3); Red Blood Count 2.77 M/uL (4.70-6.10); White Blood Count 3.47 K/ul (4.8-10.8)
[2025-07-24 06:17] LABS: Anion Gap 8.0 (3-11); Blood Urea Nitrogen 37.0 mg/dl (6-23); Calcium 8.4 mg/dl (8.6-10.3); Carbon Dioxide 23.0 mmol/L (21-32); Chloride 109.0 mmol/L (98-107); Creatinine Clr Calc Pharmacy 28.9 ml/min; Glucose 66.0 mg/dl (70-99(Fasting)); Magnesium 1.9 mg/dl (1.7-2.4); Potassium 4.2 mmol/L (3.5-5.1); Sodium 140.0 mmol/L (136-145)
[2025-07-24 07:00] LABS: Anisocytosis Present; Ovalocytes 1+
[2025-07-24] MEDS: PANTOprazole 40 MG/10 ML SYR IV SCH (08:12)
--- NOTE | 2025-07-24 08:53 | Cardiology Consultation ---
Date of Consultation July 24, 2025 Assessment & Plan (1) Acute lower GI bleeding: (2) Acute blood loss anemia: (3) Atrial fibrillation, permanent: (4) Presence of Watchman left atrial appendage closure device: (5) Chronic diastolic heart failure: (6) Atherogenic dyslipidemia: Plan Mr. 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 His Hgb was 7.8 g/dL on admission and is currently 7.7 g/dL. He had p assed carla blood and blood clots in his stool, but he states he is no longer bleeding. He needs to schedule a video capsule swallow. Suspect his GI bleeds have been secondary to angiodysplasias due to his history of aortic stenosis. Patient was previously hospitalized from 05/14/2025 through 05/18/2025 due to a GI bleed resulting in an Acute Blood Loss Anemia as his hemoglobin dropped down to 6 g/dL and he required 2 units packed red blood cells. This was the second significant GI bleed after starting on Eliquis. Patient underwent an EGD and Colonoscopy on 05/17/25 the EGD was completely normal, his colonoscopy showed non-bleeding angiodysplasias involving the large colon. He did have a prior video capsule swallow a couple of years ago, but the prep was not good and limited information was obtained. Because of his recurrent GI bleeding and his contraindication to anticoagulation -- I referred him to [facility] for a Watchman device -- this LAAO was deployed on 07/20/25 without complications. He subsequently stopped Eliquis and was placed on Aspirin 81 mg daily and Plavix 75 mg daily. These are both currently on hold. He remains asymptomatic from a cardiac standpoint. He denies any chest pain, heaviness, tightness, pressure, or discomfort. His breathing is at baseline. He denies any palpitations, syncope, or near syncope. He denies any focal neurologic symptoms suggestive of stroke or mini-stroke. He is in atrial fibrillation with a V-rate of 100 to 105 bpm -- this is likely physiologically appropriate due to the degree of his anemia. Recommend the followin. Stop Aspirin. 2. Stop Plavix. 3. Transfuse 2 units of PRBC's when available. 4. Video capsule swallow as an outpatient. 5. Do not restart Eliquis -- contraindicated due to recurrent GI bleeding. 6. Resume Atorvastatin and Furosemide when possible. 7. Monitor daily body weights and I&O's. 8. Low sodium diet. Thank you for asking us to see this patient in consultation. History of Present Illness Reason for Consultation: -- Permanent Atrial Fibrillation s/p Watchman Device 07/20/25. -- Management of Antiplatelets. -- Acute GI Bleed. Requesting Physician: Nav Rodríguez Attending Physician: Mp Chen MD History of Present Illness Mr. 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 His Hgb was 7.8 g/dL on admission and is currently 7.7 g/dL. He had passed carla blood and blood clots in his stool, but he states he is no longer bleeding. He needs to schedule a video capsule swallow. Suspect his GI bleeds have been secondary to angiodysplasias due to his history of aortic stenosis. Patient was previously hospitalized from 05/14/2025 through 05/18/2025 due to a GI bleed resulting in an Acute Blood Loss Anemia as his hemoglobin dropped down to 6 g/dL and he required 2 units packed red blood cells. This was the second significant GI bleed after starting on Eliquis. Patient underwent an EGD and Colonoscopy on 05/17/25 the EGD was completely normal, his colonoscopy showed non-bleeding angiodysplasias involving the large colon. He did have a prior video capsule swallow a couple of years ago, but the prep was not good and limited information was obtained. Because of his recurrent GI bleeding and his contraindication to anticoagulation -- I referred him to [facility] for a Watchman device -- this LAAO was deployed on 07/20/25 without complications. He subsequently stopped Eliquis and was placed on Aspirin 81 mg daily and Plavix 75 mg daily. These are both currently on hold. He remains asymptomatic from a cardiac standpoint. He denies any chest pain, heaviness, tightness, pressure, or discomfort. His breathing is at baseline. He denies any palpitations, syncope, or near syncope. He denies any focal neurologic symptoms suggestive of stroke or mini-stroke. He is in atrial fibrillation with a V-rate of 100 to 105 bpm -- this is likely physiologically appropriate due to degree of anemia. Allergies Allergy/AdvReac Type Severity Reaction Status Date / Time No Known Allergies Allergy Unknown Verified 07/23/25 14:24 Home Medications Medication Instructions Recorded Confirmed Type latanoprost 0.005 % eye drops 1 drp OPB HS 02/06/20 07/23/25 History calcium 600 mg-D3 800 unit-mag11 1 tab PO DAILY 11/20/22 07/23/25 History 50 qj-wnlg-yiftbo-susanne-s.borat tablet (Caltrate 600-D Plus Minerals) pantoprazole 40 mg tablet,delayed 40 mg PO DAILY 11/20/22 07/23/25 History release denosumab 60 mg/mL subcutaneous 0 mg subcut DIRECTED 12/02/22 07/23/25 History syringe (Prolia) diphenhydramine 25 1 - 2 tab PO HS SLEEP 03/18/23 07/23/25 History mg-acetaminophen 500 mg tablet (Tylenol PM Extra Strength) multivitamin 1 tab PO DAILY 03/18/23 07/23/25 History tamsulosin 0.4 mg capsule 0.4 mg PO QPM #30 caps 03/14/25 07/23/25 Rx ascorbic acid (vitamin C) 500 mg 500 mg PO DAILY 06/21/25 07/23/25 History tablet (Vitamin C) cholecalciferol (vitamin D3) 50 50 mcg PO DAILY 06/21/25 07/23/25 History mcg (2,000 unit) capsule (Vitamin D3) docusate sodium 100 mg capsule 100 mg PO DAILY 06/21/25 07/23/25 History (Stool Softener) furosemide 40 mg tablet 40 mg PO QAM #90 tabs 06/23/25 07/23/25 Rx apixaban 2.5 mg tablet (Eliquis) 0 mg PO BID 07/23/25 07/23/25 History atorvastatin 40 mg tablet 0 mg PO Q OTHER DAY 07/23/25 07/23/25 History clopidogrel 75 mg tablet 75 mg PO DAILY 07/23/25 07/23/25 History Patient History Medical History (Updated 07/24/25 @ 09:10 by Lyndon Forrester PA-C) Anticoagulated GI bleed CKD (chronic kidney disease) Weakness GIB (gastrointestinal bleeding) Hypertension Aortic stenosis Persistent atrial fibrillation Benign prostatic hyperplasia without urinary obstruction PAD (peripheral artery disease) CHF (congestive heart failure) Bilateral edema of lower extremity SOB (shortness of breath) Elevated PSA Benign prostatic hyperplasia with urinary obstruction Surgical History History of dental surgery Family History Other Heart disease Social History Smoking Status: Current every day smoker Tobacco Type: Cigarettes Cigarettes Per Day: every day; Second Hand Exposure: No; Do You Dip or Chew Tobacco: No; Tobacco Cessation Education Requested by Patient: No Hx Alcohol Use: No Hx Substance Use: No Preferred Language: Setswana Communication Ability: Effective Motor Equipment Captain Required: No Beliefs That Will Affect Care: None marital status: Current Living Situation: Spouse current occupational status: employed Other Information That Helps Us Care for You: No Feels Safe at Home: Yes Safety Concerns: Feels Safe At This Time Assistive Devices: Brace/Splint/Immobilizer, Cane, Walker and Wheelchair Assistive Devices Comment: wears brace on Review of Systems Review of Systems: -- As per HPI. Physical Exam Physical Exam: GENERAL: Patient in no acute distress. Complexion is pale. HEENT: Head is atraumatic, normocephalic. EOM's intact. Facies symmetric. No perioral cyanosis. NECK: No JVD. JVP is not elevated. Carotid upstrokes are + 2 bilaterally. No bruits. CHEST/LUNGS: Clear to auscultation throughout all lung keene. No wheezes, rales, or crackles. CVS: S1 and S2 are irregularly irregular with a grade 2/6 crescendo decrescendo basal systolic murmur heard best at the right 2nd intercostal space. No diastolic murmurs appreciated. No gallops or rubs. PMI is nonpalpable. No lifts, heaves, or thrills. No abdominal aortic or renal bruits. ABDOMINAL EXAM: Bowel sounds are present. EXTREMITIES: No clubbing or cyanosis. No edema. Extremities are well perfused. NEUROLOGIC EXAM: Patient is awake, alert, and oriented. Pleasant and cooperative. Answers questions appropriately. Speech is clear. MUSICIAN INSTRUMENTAL: -- Atrial fibrillation at 103 bpm. Results & Data Vital Signs (Past 12 Hours) Vital Signs Temp Pulse Pulse Resp BP Pulse Ox O2 Del Method 07/24/25 07:11 36.6 C 111 H 18 103/61 94 Room Air 07/24/25 02:44 36.8 C 85 14 107/71 92 Room Air 07/24/25 00:00 91 H Laboratory Results Laboratory Results - last 24 hr 07/23/25 07/23/25 07/23/25 11:35 11:43 11:44 WBC 7.09 RBC 3.27 L Hgb 8.8 L POC Hgb 9.5 L Hct 27.5 L POC Hct 28 L MCV 84.1 MCH 26.9 MCHC 32.0 RDW Std Deviation 67.6 H RDW Coeff of Don 22.1 H Plt Count 195 MPV 10.5 Immature Gran % (Auto) 0.4 Neut % (Auto) 84.9 Lymph % (Auto) 6.8 Jefferson % (Auto) 7.5 Eos % (Auto) 0.4 Baso % (Auto) 0.0 Neut # (Auto) 6.02 Lymph # (Auto) 0.48 L Jefferson # (Auto) 0.53 Eos # (Auto) 0.03 Baso # (Auto) 0.00 Immature Gran # (Auto) 0.03 Anisocytosis Present Ovalocytes 1+ PT 10.7 INR 1.0 APTT 26 PTT Ratio 1.0 POC Sodium 137 Sodium 138 POC Potassium 4.9 Potassium 4.9 POC Chloride 103 Chloride 102 Carbon Dioxide 25 POC Total CO2 22 L Anion Gap 11 POC Anion Gap 18.0 POC BUN 41 H BUN 49 H Creatinine 1.86 H POC Creatinine 2.0 H Est Cr Clr Drug Dosing 19.0 eGFR 34.16 BUN/Creatinine Ratio 26.3 H Glucose 85 POC Glucose (other) 88 Calcium 9.1 POC Ioniz Calcium Hay 1.13 Magnesium Total Bilirubin 0.6 AST 30 ALT 13 Alkaline Phosphatase 76 Total Protein 7.4 Albumin 3.6 Globulin 3.8 Albumin/Globulin Ratio 0.9 POC Stool Occult Blood Blood Type A Positive Antibody Screen POSITIVE A Antibody Identification Pending Antibody ID Referred Antibody ID Comment Pending Direct Antiglob Test Negative NIKOLAS (IgG-AHG) Neg NIKOLAS, Polyspecific Neg NIKOLAS C3b, C3d 5 Min Neg Crossmatch See Detail 07/23/25 07/23/25 07/23/25 12:10 16:46 23:39 WBC RBC Hgb 7.8 L 7.2 L POC Hgb Hct 24.4 L 22.6 L POC Hct MCV MCH MCHC RDW Std Deviation RDW Coeff of Don Plt Count MPV Immature Gran % (Auto) Neut % (Auto) Lymph % (Auto) Jefferson % (Auto) Eos % (Auto) Baso % (Auto) Neut # (Auto) Lymph # (Auto) Jefferson # (Auto) Eos # (Auto) Baso # (Auto) Immature Gran # (Auto) Anisocytosis Ovalocytes PT INR APTT PTT Ratio POC Sodium Sodium POC Potassium Potassium POC Chloride Chloride Carbon Dioxide POC Total CO2 Anion Gap POC Anion Gap POC BUN BUN Creatinine POC Creatinine Est Cr Clr Drug Dosing eGFR BUN/Creatinine Ratio Glucose POC Glucose (other) Calcium POC Ioniz Calcium Hay Magnesium Total Bilirubin AST ALT Alkaline Phosphatase Total Protein Albumin Globulin Albumin/Globulin Ratio POC Stool Occult Blood Positive A Blood Type Antibody Screen Antibody Identification Antibody ID Referred Pending Antibody ID Comment Direct Antiglob Test NIKOLAS (IgG-AHG) NIKOLAS, Polyspecific NIKOLAS C3b, C3d 5 Min Crossmatch 07/24/25 05:22 WBC 3.47 L RBC 2.77 L Hgb 7.7 L POC Hgb Hct 23.6 L POC Hct MCV 85.2 MCH 27.8 MCHC 32.6 RDW Std Deviation 68.8 H RDW Coeff of Don 22.2 H Plt Count 161 MPV 10.4 Immature Gran % (Auto) 0.3 Neut % (Auto) 68.0 Lymph % (Auto) 16.1 Jefferson % (Auto) 12.4 Eos % (Auto) 3.2 Baso % (Auto) 0.0 Neut # (Auto) 2.36 Lymph # (Auto) 0.56 L Jefferson # (Auto) 0.43 Eos # (Auto) 0.11 Baso # (Auto) 0.00 Immature Gran # (Auto) 0.01 Anisocytosis Present Ovalocytes 1+ PT INR APTT PTT Ratio POC Sodium Sodium 140 POC Potassium Potassium 4.2 POC Chloride Chloride 109 H Carbon Dioxide 23 POC Total CO2 Anion Gap 8 POC Anion Gap POC BUN BUN 37 H Creatinine 1.28 D POC Creatinine Est Cr Clr Drug Dosing 28.9 eGFR 53.50 BUN/Creatinine Ratio 28.9 H Glucose 66 L POC Glucose (other) Calcium 8.4 L POC Ioniz Calcium Hay Magnesium 1.9 Total Bilirubin AST ALT Alkaline Phosphatase Total Protein Albumin Globulin Albumin/Globulin Ratio POC Stool Occult Blood Blood Type Antibody Screen Antibody Identification Antibody ID Referred Antibody ID Comment Direct Antiglob Test NIKOLAS (IgG-AHG) NIKOLAS, Polyspecific NIKOLAS C3b, C3d 5 Min Crossmatch Diagnostic Findings CXR 07/23/25: FINDINGS: Left atrial appendage occlusion device is present. There is mild cardiomegaly without pulmonary vascular congestion. No consolidation or pleural effusion seen. No pneumothorax. IMPRESSION: No acute findings. Medications Administered Medication List Pantoprazole Sodium (Protonix) 40 mg in 10 mls @ 5 mls/min IV DAILY YUKI Stop: 08/23/25 08:59 Last Admin: 07/24/25 08:12 Dose: 5 mls/min Documented By: ALIRIO Lactated Ringer's (Lr) 1,000 mls @ 80 mls/hr IV .[id number] YUKI Stop: 07/24/25 20:14 Last Admin: 07/24/25 08:11 Dose: 80 mls/hr Documented By: Infusion: 07/24/25 08:11 Dose: Infused Documented By: Admin: 07/23/25 19:59 Dose: 80 mls/hr Documented By: RIDDHI Discontinued Medications Sodium Chloride (Nss) 1,000 mls @ 100 mls/hr IV .Q10H STA Stop: 07/23/25 21:45 Last Infusion: 07/23/25 19:00 Dose: Infused Documented By: Admin: 07/23/25 11:57 Dose: 100 mls/hr Documented By: ARIAS PG Care Time/CCT Total # of Minutes Spent Total Time Spent with Patient: Total time spent is greater than 50% in coordination of care (as documented) at patient's floor/unit and/or counseling patient:32 Coding [place] [address] INT INP/OBS CARE 2/55MIN Patient Type Established History Comprehensive Exam Comprehensive Medical Decision Making Moderate Complexity Diagnoses Acute lower GI bleeding K92.2 Acute blood loss anemia D62 Atrial fibrillation, permanent I48.21 Presence of Watchman left atrial appendage closure device Z95.818 Chronic diastolic heart failure I50.32 Atherogenic dyslipidemia E78.5 Time Spent (min) 58
--- NOTE | 2025-07-24 10:11 | Gastrointestinal Consultation ---
Date of Consultation July 24, 2025 Assessment & Plan (1) Presence of Watchman left atrial appendage closure device: 89 year old male with history of Atrial Fibrillation, aortic stenosis, Valvular Heart Disease, HFpEF, Hypertension, Dyslipidemia, PAD, recurrent GI bleeding, anemia, s/p Watchman procedure and others below admitted through the ED w/ rectal bleeding. EGD/Colon in May 2025 for anemia and rectal bleeding revealed non-bleeding angioectasia. These were not treated. HGB 10.1 --> 8.8 --> 7.7 Advised clear liquid diet today, golytely prep, w/ plan for colonoscopy for treatment of angiectasias on 07/25/25. He is not agreeable to colonoscopy. I advised him to reconsider this intervention and we can rediscuss on afternoon rounds. Continue supportive measures. Trend H&H. Monitor and document GI output. Transfuse PRN per primary service. I spent a total of 60 minutes on the date of service in review of patient's record, and previously obtained information in person and appropriate medical visit, discussion and education of plan, with patient and/or caregiver, placing orders for tests/referral/procedures as medically necessary and documentation of pertinent clinical information in patient's medical records for their visit today. (2) Lower GI bleed: Supervising Physician Co-Signing Physician Notes I personally saw and examined the patient. I have reviewed the chart and agree with the documentation provided by the PATIENT AMBASSADOR including discussion about the assessment, treatment and plan. Briefly, 89 year old male with history of Atrial Fibrillation, aortic stenosis, Valvular Heart Disease, HFpEF, H ypertension, Dyslipidemia, PAD, recurrent GI bleeding, anemia, s/p Watchman procedure and others below admitted through the ED w/ rectal bleeding. The patient had a recent bleed in [place] [facility] at [facility] when he presented with melena. He has had an EGD and colonoscopy by Dr. Amezcua in the past which only showed AVMs. His capsule endoscopy in 2022 is negative. He has aortic stenosis and his findings are very consistent of bleeding from AVMs. My suggestion to him is to get a blood transfusion, prep for a colonoscopy and a push enteroscopy tomorrow where I will cauterize any AVMs noted. He did have 3 in the colon that were not cauterized earlier. He should then follow-up with hematology outpatient for CBC checks and IV iron as needed. I think stopping the aspirin and Plavix will certainly help the bleeding. His past blelo endoscopies have not shown malignancy or colitis or ulcers. History of Present Illness Reason for Consultation: recurrent GI bleed Requesting Physician: Nav Rodríguez Attending Physician: Nav Rodríguez History of Present Illness 89 year old male with history of Atrial Fibrillation, aortic stenosis, Valvular Heart Disease, HFpEF, Hypertension, Dyslipidemia, PAD, recurrent GI bleeding, anemia, s/p Watchman procedure and others below admitted through the ED w/ rectal bleeding. GI was asked to evaluate. He suggests rectal bleeding starting on 07/23. Suggests he passed a few bouts of bloody stool. BRB. No black stool. Sought care in the ED. Since admission, no further BMs. No further blood in stools. HGB 10.1 --> 8.8 --> 7.8 --> 7.2 --> 7.7 EGD/Colon in May 2025 for anemia and rectal bleeding revealed non-bleeding angioectasia. These were not treated. EGD 2024: Normal esophagus. - Normal stomach. - Normal examined duodenum. - No specimens collected. Colonoscopy 2024: A few non-bleeding colonic angioectasias. - No specimens collected. VCE 2022: the entire visualized small intestina was normal, though limited by prep Allergies Allergy/AdvReac Type Severity Reaction Status Date / Time No Known Allergies Allergy Unknown Verified 07/23/25 14:24 Home Medications Medication Instructions Recorded Confirmed Type latanoprost 0.005 % eye drops 1 drp OPB HS 02/06/20 07/23/25 History calcium 600 mg-D3 800 unit-mag11 1 tab PO DAILY 11/20/22 07/23/25 History 50 ef-kzsa-ethdqn-susanne-s.borat tablet (Caltrate 600-D Plus Minerals) pantoprazole 40 mg tablet,delayed 40 mg PO DAILY 11/20/22 07/23/25 History release denosumab 60 mg/mL subcutaneous 0 mg subcut DIRECTED 12/02/22 07/23/25 History syringe (Prolia) diphenhydramine 25 1 - 2 tab PO HS SLEEP 03/18/23 07/23/25 History mg-acetaminophen 500 mg tablet (Tylenol PM Extra Strength) multivitamin 1 tab PO DAILY 03/18/23 07/23/25 History tamsulosin 0.4 mg capsule 0.4 mg PO QPM #30 caps 03/14/25 07/23/25 Rx ascorbic acid (vitamin C) 500 mg 500 mg PO DAILY 06/21/25 07/23/25 History tablet (Vitamin C) cholecalciferol (vitamin D3) 50 50 mcg PO DAILY 06/21/25 07/23/25 History mcg (2,000 unit) capsule (Vitamin D3) docusate sodium 100 mg capsule 100 mg PO DAILY 06/21/25 07/23/25 History (Stool Softener) furosemide 40 mg tablet 40 mg PO QAM #90 tabs 06/23/25 07/23/25 Rx apixaban 2.5 mg tablet (Eliquis) 0 mg PO BID 07/23/25 07/23/25 History atorvastatin 40 mg tablet 0 mg PO Q OTHER DAY 07/23/25 07/23/25 History clopidogrel 75 mg tablet 75 mg PO DAILY 07/23/25 07/23/25 History Patient History Medical History (Updated 07/24/25 @ 09:10 by Lyndon Forrester PA-C) Anticoagulated GI bleed CKD (chronic kidney disease) Weakness GIB (gastrointestinal bleeding) Hypertension Aortic stenosis Persistent atrial fibrillation Benign prostatic hyperplasia without urinary obstruction PAD (peripheral artery disease) CHF (congestive heart failure) Bilateral edema of lower extremity SOB (shortness of breath) Elevated PSA Benign prostatic hyperplasia with urinary obstruction Surgical History History of dental surgery Family History Other Heart disease Social History Smoking Status: Current every day smoker Tobacco Type: Cigarettes Cigarettes Per Day: every day; Second Hand Exposure: No; Do You Dip or Chew Tobacco: No; Tobacco Cessation Education Requested by Patient: No Hx Alcohol Use: No Hx Substance Use: No Preferred Language: Khmer Communication Ability: Effective Patroller Required: No Beliefs That Will Affect Care: None marital status: Current Living Situation: Spouse current occupational status: employed Other Information That Helps Us Care for You: No Feels Safe at Home: Yes Safety Concerns: Feels Safe At This Time Assistive Devices: Cane Assistive Devices Comment: wears brace on Review of Systems Review of Systems: All other findings negative except as noted in HPI. Physical Exam Constitutional: WD/WN, vitals as above Respiratory: normal respiratory effort, lungs clear to auscultation Cardiovascular: RRR, no murmur, no edema Gastrointestinal (Abdomen): normal bowel sounds, soft, nontender, no hepatosplenomegaly Skin: no rashes, warm and dry Results & Data Vital Signs (Past 12 Hours) Vital Signs Temp Pulse Pulse Resp BP Pulse Ox O2 Del Method 07/24/25 08:10 Room Air 07/24/25 07:11 97.9 F 111 H 18 103/61 94 Room Air 07/24/25 05:43 88 07/24/25 02:44 98.2 F 85 14 107/71 92 Room Air 07/24/25 00:00 91 H Laboratory Results 07/24/25 07/23/25 07/23/25 Range/Units 05:22 23:39 16:46 WBC 3.47 L (4.8-10.8) K/ul RBC 2.77 L (4.70-6.10) M/uL Hgb 7.7 L 7.2 L 7.8 L (14.0-18.0) g/dl POC Hgb (14.0-18.0) g/dl Hct 23.6 L 22.6 L 24.4 L (42.0-52.0) % POC Hct (42-52) % MCV 85.2 (80.0-100.0) fL MCH 27.8 (25.0-34.0) pg MCHC 32.6 (32.0-36.0) g/dL RDW Std Deviation 68.8 H (36.4-46.3) fL RDW Coeff of Don 22.2 H (11.5-14.5) % Plt Count 161 (130-400) K/uL MPV 10.4 (9.4-12.4) fL Immature Gran % (Auto) 0.3 % Neut % (Auto) 68.0 % Lymph % (Auto) 16.1 % [place] % (Auto) 12.4 % Eos % (Auto) 3.2 % Baso % (Auto) 0.0 % Neut # (Auto) 2.36 (1.40-6.50) K/uL Lymph # (Auto) 0.56 L (1.20-3.40) K/uL [place] # (Auto) 0.43 (0.11-0.59) K/uL Eos # (Auto) 0.11 (0.00-0.50) K/uL Baso # (Auto) 0.00 (0.00-0.20) K/uL Immature Gran # (Auto) 0.01 (0.01-0.20) K/uL Anisocytosis Present Ovalocytes 1+ PT (9.0-12.0) Seconds INR (0.9-1.1) APTT (21-31) Seconds PTT Ratio POC Sodium (135-144) mmol/L Sodium 140 (136-145) mmol/L POC Potassium (3.3-5.0) mmol/L Potassium 4.2 (3.5-5.1) mmol/L POC Chloride (101-112) mmol/L Chloride 109 H (98-107) mmol/L Carbon Dioxide 23 (21-32) mmol/L POC Total CO2 (24-31) mmol/L Anion Gap 8 (3-11) POC Anion Gap (16-25) mmol/L POC BUN (7-18) mg/dl BUN 37 H (6-23) mg/dl Creatinine 1.28 D (0.6-1.4) mg/dl POC Creatinine (0.6-1.3) mg/dl Est Cr Clr Drug Dosing 28.9 ml/min eGFR 53.50 BUN/Creatinine Ratio 28.9 H (10-20) Glucose 66 L (70-99(Fasting)) mg/dl POC Glucose (other) (70-99) mg/dl Calcium 8.4 L (8.6-10.3) mg/dl POC Ioniz Calcium Hay (1.12-1.32) mmol/l Magnesium 1.9 (1.7-2.4) mg/dl Total Bilirubin (0.2-1.0) mg/dl AST (13-39) U/L ALT (7-52) U/L Alkaline Phosphatase (34-104) U/L Total Protein (6.0-8.3) gm/dl Albumin (3.4-5.0) gm/dl Globulin (2.5-4.0) gm/dl Albumin/Globulin Ratio (0.9-2) POC Stool Occult Blood (Negative) Blood Type Antibody Screen Antibody Identification Antibody ID Referred Pending Antibody ID Comment Direct Antiglob Test (Negative) NIKOLAS (IgG-AHG) (Negative) NIKOLAS, Polyspecific (Negative) NIKOLAS C3b, C3d 5 Min (Negative) Crossmatch 07/23/25 07/23/25 07/23/25 Range/Units 12:10 11:44 11:43 WBC (4.8-10.8) K/ul RBC (4.70-6.10) M/uL Hgb (14.0-18.0) g/dl POC Hgb 9.5 L (14.0-18.0) g/dl Hct (42.0-52.0) % POC Hct 28 L (42-52) % MCV (80.0-100.0) fL MCH (25.0-34.0) pg MCHC (32.0-36.0) g/dL RDW Std Deviation (36.4-46.3) fL RDW Coeff of Don (11.5-14.5) % Plt Count (130-400) K/uL MPV (9.4-12.4) fL Immature Gran % (Auto) % Neut % (Auto) % Lymph % (Auto) % [place] % (Auto) % Eos % (Auto) % Baso % (Auto) % Neut # (Auto) (1.40-6.50) K/uL Lymph # (Auto) (1.20-3.40) K/uL [place] # (Auto) (0.11-0.59) K/uL Eos # (Auto) (0.00-0.50) K/uL Baso # (Auto) (0.00-0.20) K/uL Immature Gran # (Auto) (0.01-0.20) K/uL Anisocytosis Ovalocytes PT (9.0-12.0) Seconds INR (0.9-1.1) APTT (21-31) Seconds PTT Ratio POC Sodium 137 (135-144) mmol/L Sodium (136-145) mmol/L POC Potassium 4.9 (3.3-5.0) mmol/L Potassium (3.5-5.1) mmol/L POC Chloride 103 (101-112) mmol/L Chloride (98-107) mmol/L Carbon Dioxide (21-32) mmol/L POC Total CO2 22 L (24-31) mmol/L Anion Gap (3-11) POC Anion Gap 18.0 (16-25) mmol/L POC BUN 41 H (7-18) mg/dl BUN (6-23) mg/dl Creatinine (0.6-1.4) mg/dl POC Creatinine 2.0 H (0.6-1.3) mg/dl Est Cr Clr Drug Dosing ml/min eGFR BUN/Creatinine Ratio (10-20) Glucose (70-99(Fasting)) mg/dl POC Glucose (other) 88 (70-99) mg/dl Calcium (8.6-10.3) mg/dl POC Ioniz Calcium Hay 1.13 (1.12-1.32) mmol/l Magnesium (1.7-2.4) mg/dl Total Bilirubin (0.2-1.0) mg/dl AST (13-39) U/L ALT (7-52) U/L Alkaline Phosphatase (34-104) U/L Total Protein (6.0-8.3) gm/dl Albumin (3.4-5.0) gm/dl Globulin (2.5-4.0) gm/dl Albumin/Globulin Ratio (0.9-2) POC Stool Occult Blood Positive A (Negative) Blood Type A Positive Antibody Screen POSITIVE A Antibody Identification Pending Antibody ID Referred Antibody ID Comment Pending Direct Antiglob Test Negative (Negative) NIKOLAS (IgG-AHG) Neg (Negative) NIKOLAS, Polyspecific Neg (Negative) NIKOLAS C3b, C3d 5 Min Neg (Negative) Crossmatch See Detail 07/23/25 Range/Units 11:35 WBC 7.09 (4.8-10.8) K/ul RBC 3.27 L (4.70-6.10) M/uL Hgb 8.8 L (14.0-18.0) g/dl POC Hgb (14.0-18.0) g/dl Hct 27.5 L (42.0-52.0) % POC Hct (42-52) % MCV 84.1 (80.0-100.0) fL MCH 26.9 (25.0-34.0) pg MCHC 32.0 (32.0-36.0) g/dL RDW Std Deviation 67.6 H (36.4-46.3) fL RDW Coeff of Don 22.1 H (11.5-14.5) % Plt Count 195 (130-400) K/uL MPV 10.5 (9.4-12.4) fL Immature Gran % (Auto) 0.4 % Neut % (Auto) 84.9 % Lymph % (Auto) 6.8 % [place] % (Auto) 7.5 % Eos % (Auto) 0.4 % Baso % (Auto) 0.0 % Neut # (Auto) 6.02 (1.40-6.50) K/uL Lymph # (Auto) 0.48 L (1.20-3.40) K/uL [place] # (Auto) 0.53 (0.11-0.59) K/uL Eos # (Auto) 0.03 (0.00-0.50) K/uL Baso # (Auto) 0.00 (0.00-0.20) K/uL Immature Gran # (Auto) 0.03 (0.01-0.20) K/uL Anisocytosis Present Ovalocytes 1+ PT 10.7 (9.0-12.0) Seconds INR 1.0 (0.9-1.1) APTT 26 (21-31) Seconds PTT Ratio 1.0 POC Sodium (135-144) mmol/L Sodium 138 (136-145) mmol/L POC Potassium (3.3-5.0) mmol/L Potassium 4.9 (3.5-5.1) mmol/L POC Chloride (101-112) mmol/L Chloride 102 (98-107) mmol/L Carbon Dioxide 25 (21-32) mmol/L POC Total CO2 (24-31) mmol/L Anion Gap 11 (3-11) POC Anion Gap (16-25) mmol/L POC BUN (7-18) mg/dl BUN 49 H (6-23) mg/dl Creatinine 1.86 H (0.6-1.4) mg/dl POC Creatinine (0.6-1.3) mg/dl Est Cr Clr Drug Dosing 19.0 ml/min eGFR 34.16 BUN/Creatinine Ratio 26.3 H (10-20) Glucose 85 (70-99(Fasting)) mg/dl POC Glucose (other) (70-99) mg/dl Calcium 9.1 (8.6-10.3) mg/dl POC Ioniz Calcium Hay (1.12-1.32) mmol/l Magnesium (1.7-2.4) mg/dl Total Bilirubin 0.6 (0.2-1.0) mg/dl AST 30 (13-39) U/L ALT 13 (7-52) U/L Alkaline Phosphatase 76 (34-104) U/L Total Protein 7.4 (6.0-8.3) gm/dl Albumin 3.6 (3.4-5.0) gm/dl Globulin 3.8 (2.5-4.0) gm/dl Albumin/Globulin Ratio 0.9 (0.9-2) POC Stool Occult Blood (Negative) Blood Type Antibody Screen Antibody Identification Antibody ID Referred Antibody ID Comment Direct Antiglob Test (Negative) NIKOLAS (IgG-AHG) (Negative) NIOKLAS, Polyspecific (Negative) NIKOLAS C3b, C3d 5 Min (Negative) Crossmatch PG Care Time/CCT Total # of Minutes Spent Total Time Spent with Patient: Total time spent is greater than 50% in coordination of care (as documented) at patient's floor/unit and/or counseling patient: Coding Level of Care Code 28032 INT INP/OBS CARE 2/55MIN Diagnoses Presence of Watchman left atrial appendage closure device Z95.818 Lower GI bleed K92.2
[2025-07-24] MEDS ORDERED: SODIUM CHLORIDE 0.9% 100 ML IV PRN (13:28)
--- NOTE | 2025-07-24 14:30 | Hospitalist Progress Note ---
Date of Service July 24, 2025 Assessment & Plan (1) Acute blood loss anemia: (2) Atrial fibrillation, permanent: (3) Acute lower GI bleeding: Plan This patient is an 89-year-old male who presented on 07/23 for rectal bleed. Recent [place] hospitalization 05/14 and 06/21 for acute blood loss anemia in setting of GI bleed and symptomatic anemia. Colonoscopy on 05/17/2025 revealed several localized angioectasias without bleeding; no other significant abnormalities were identified at that time. ? Possible that the angioectasias are now bleeding. # Acute blood loss anemia | BRB in stool | acute lower GI bleed Per family, most recent Hgb was around 10.0 two weeks DIRECTOR OF INDUSTRIAL RELATIONS Hgb trend: 8.8 -> 7.8 -> 7.2 -> 7.7 Blood consent form obtained in the ED 1 unit PRBC ordered for symptomatic anemia (lightheaded in the ED, tachycardic at 106 bpm, hypotensive at 97/65 with additional episodes of BRB in the emergency department) Note: there was a delay in transport of blood from [place], and patient was not able to be transfused until the afternoon of 07/24 However, he reports no additional bloody bowel movements on 07/24 Additional 1 unit PRBCs ordered, held Gastroenterology consult appreciated Initially, patient reported he was not amenable to repeating a colonoscopy to assess for rebleed of angioectasias seen on colonoscopy in May 2025 However, after discussing with his family, patient will plan to undergo EGD/colonoscopy on 07/25 Clear liquid diet on 07/24 N.p.o. at midnight Bowel prep ordered #Atrial fibrillation Patient had Watch[facility]20 Was placed on Plavix and aspirin postoperatively Hold in the setting of acute lower GI bleed Cardiology consult appreciated Disposition: Admit to PCU telemetry PT PPx: Hold chemical DVT PPx in setting of GI bleed Admission and Anticipated Discharge Date Admission Date: July 23, 2025 Subjective Mr. Lamas is glad to report that he did not have any additional episodes of BRB in stool overnight, but has not had a bowel movement since being in the emergency department. He denies any abdominal pain at this time or difficulty breathing. He is also happy to report that, while yesterday he would feel lightheaded whenever he stood up, this is resolved. His only complaint is that he has increased urinary frequency due to being on fluids. When asked if he would be willing to undergo a repeat colonoscopy to assess for a "rebleed" of his angioectasias, patient declines at this time. ROS: Patient endorses increased urinary frequency Patient denies dysuria, burning with urination, chest pain, SOB, pleuritic CP, cough, abdominal pain, or additional episodes of BRB/clots in stool. Update at 1400: Touched base with GI, who reround on the patient. After patient had discussions with his family, he reports he would be amenable to a repeat colonoscopy and EGD if bleeding were unable to be controlled. Will plan for colonoscopy/EDG tomorrow. Review of Systems Review of Systems: See HPI above Physical Exam Physical Exam: General: lying in bed in no acute distress; patient exhibits ability to sit up on side of the bed to use the urinal; non-toxic appearing; frail appearing; cooperative; SpO2 94% on RA HEENT: normocephalic, atraumatic; no scleral icterus; PERRLA; vision and hearing intact Neck: supple; no lymphadenopathy; trachea midline Skin: warm, dry without signs of tenting; no cyanosis; no rashes, bruising, lesions, or erythema noted CV: chest wall NTP; irregularly irregular rhythm, tachycardic around 100 BPM Lungs: no acute respiratory distress; symmetrical chest wall expansion; clear breath sounds across all lung keene w/o adventitious sounds; no wheezing ABD: Soft, NTP in all 4 quadrants; no rashes or bruising appreciated abdomen or flanks bilaterally; BS present; no rebound/guarding; no distention MSK: no tics or fasciculations; no edema noted in the LEs b/l, nonerythematous Neuro: A&Ox3; normal mood and affect; fluent speech; no focal deficits; sensation intact and symmetric in the lower extremity bilaterally assessed via light touch Results & Data Results & Data Vital Signs (Past 12 Hours) Vital Signs Temp Pulse Pulse Resp BP Pulse Ox O2 Del Method 07/24/25 11:04 36.4 C L 100 H 18 110/66 94 Room Air 07/24/25 08:10 Room Air 07/24/25 07:11 36.6 C 111 H 18 103/61 94 Room Air 07/24/25 05:43 88 07/24/25 02:44 36.8 C 85 14 107/71 92 Room Air PG Care Time/CCT Total # of Minutes Spent Total Time Spent with Patient: Total time spent is greater than 50% in coordination of care (as documented) at patient's floor/unit and/or counseling patient: [place]oding [place] [address] SUB INP/OBS CARE 3/50MIN Patient Type Established History Comprehensive Exam Comprehensive Medical Decision Making High Complexity Diagnoses Acute blood loss anemia D62 Atrial fibrillation, permanent I48.21 Acute lower GI bleeding K92.2
[2025-07-24] MEDS: POLYETHYLENE (MIRALAX) 17 GM PACK PO ONE (18:14)
[2025-07-24] MEDS: ONDANSETRON INJ 2 MG/ML 2 ML VIAL IV PRN (23:52)
[2025-07-25] MEDS: LACTATED RINGER'S 1,000 ML IV SCH (03:33)
[2025-07-25 06:06] LABS: Hematocrit (blood only) 26.3 % (42.0-52.0); Hemoglobin 8.9 g/dl (14.0-18.0); Immature Granulocytes # (auto) 0.02 K/uL (0.01-0.20); Immature Granulocytes % (auto) 0.5 %; Mean Corpuscular Hemoglobin 28.7 pg (25.0-34.0); Mean Corpuscular Volume 84.8 fL (80.0-100.0); Platelet Count 149 K/uL (130-400); RDW Standard Deviation 62.4 fL (36.4-46.3); Red Blood Count 3.10 M/uL (4.70-6.10); White Blood Count 3.83 K/ul (4.8-10.8)
[2025-07-25 06:25] LABS: Anion Gap 5.0 (3-11); Blood Urea Nitrogen 27.0 mg/dl (6-23); Calcium 8.0 mg/dl (8.6-10.3); Carbon Dioxide 22.0 mmol/L (21-32); Chloride 111.0 mmol/L (98-107); Creatinine Clr Calc Pharmacy 31.4 ml/min; Glucose 86.0 mg/dl (70-99(Fasting)); Potassium 3.9 mmol/L (3.5-5.1); Sodium 138.0 mmol/L (136-145)
[2025-07-25 06:48] LABS: Anisocytosis Present; Ovalocytes 1+
--- NOTE | 2025-07-25 10:03 | Gastroenterology Progress Note ---
Date of Service July 25, 2025 Assessment & Plan (1) Presence of Watchman left atrial appendage closure device: Plan: 89 year old male with history of Atrial Fibrillation, aortic stenosis, Valvular Heart Disease, HFpEF, Hypertension, Dyslipidemia, PAD, recurrent GI bleeding, anemia, s/p Watchman procedure and others below admitted through the ED w/ rectal bleeding. NPO for EGD/Colon evaluation today. We appreciate assistance in the management of any serological abnormality and corrections to include: hemoglobin >7, INR <2, platelets >50,000, potassium levels >3.5 but <5.3, and sodium levels within 5 points of the reference range prior to endoscopic evaluation. (2) Lower GI bleed: Admission and Anticipated Discharge Date Admission Date: July 23, 2025 Supervising Physician Co-Signing Physician Notes I personally saw and examined the patient. I have reviewed the chart and agree with the documentation provided by the MARKETING AMBASSADOR including discussion about the assessment, treatment and plan. 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 Plan for EGD/enteroscopy and colonoscopy with laser of any visible AVMs Subjective NPO for EGD/Colon. Tolerated prep and believes he took this in completion. Stools are liquid. He is unsure of color. Unsure if any bleeding occurred w/ prep. Review of Systems Review of Systems: All other findings negative except as noted in HPI. Physical Exam Constitutional: WD/WN, vitals as above Respiratory: normal respiratory effort Cardiovascular: Rate/Rhythm: regular rate Gastrointestinal (Abdomen): normal bowel sounds, soft, nontender, no hepatosplenomegaly Skin: no rashes, warm and dry Results & Data Results & Data Vital Signs (Past 12 Hours) Vital Signs Temp Pulse Pulse Resp BP Pulse Ox O2 Del Method 07/25/25 08:12 98.1 F 88 20 132/80 95 Room Air 07/25/25 05:46 89 07/25/25 03:25 98.1 F 79 18 126/79 94 Room Air 07/24/25 23:49 98.1 F 103 H 17 123/87 97 Room Air Laboratory Results 07/25/25 07/25/25 07/23/25 Range/Units 05:25 04:51 11:43 WBC 3.83 L (4.8-10.8) K/ul RBC 3.10 L (4.70-6.10) M/uL Hgb 8.9 L (14.0-18.0) g/dl Hct 26.3 L (42.0-52.0) % MCV 84.8 (80.0-100.0) fL MCH 28.7 (25.0-34.0) pg MCHC 33.8 (32.0-36.0) g/dL RDW Std Deviation 62.4 H (36.4-46.3) fL RDW Coeff of Don 20.3 H (11.5-14.5) % Plt Count 149 (130-400) K/uL MPV 10.2 (9.4-12.4) fL Immature Gran % (Auto) 0.5 % Neut % (Auto) 73.9 % Lymph % (Auto) 11.2 % [place] % (Auto) 12.5 % Eos % (Auto) 1.6 % Baso % (Auto) 0.3 % Neut # (Auto) 2.83 (1.40-6.50) K/uL Lymph # (Auto) 0.43 L (1.20-3.40) K/uL [place] # (Auto) 0.48 (0.11-0.59) K/uL Eos # (Auto) 0.06 (0.00-0.50) K/uL Baso # (Auto) 0.01 (0.00-0.20) K/uL Immature Gran # (Auto) 0.02 (0.01-0.20) K/uL Anisocytosis Present Ovalocytes 1+ Sodium 138 (136-145) mmol/L Potassium 3.9 (3.5-5.1) mmol/L Chloride 111 H (98-107) mmol/L Carbon Dioxide 22 (21-32) mmol/L Anion Gap 5 (3-11) BUN 27 H (6-23) mg/dl Creatinine 1.18 (0.6-1.4) mg/dl Est Cr Clr Drug Dosing 31.4 ml/min eGFR 58.98 BUN/Creatinine Ratio 22.9 H (10-20) Glucose 86 (70-99(Fasting)) mg/dl POC Glucose 90 (70-99) mg/dl Calcium 8.0 L (8.6-10.3) mg/dl Blood Type Antibody Screen Antibody Identification Anti-Kpa Antibody ID Comment Not Reportable Direct Antiglob Test Negative (Negative) NIKOLAS (IgG-AHG) Neg (Negative) NIKOLAS, Polyspecific Neg (Negative) NIKOLAS C3b, C3d 5 Min Neg (Negative) Crossmatch See Detail 07/23/25 Range/Units 11:43 WBC (4.8-10.8) K/ul RBC (4.70-6.10) M/uL Hgb (14.0-18.0) g/dl Hct (42.0-52.0) % MCV (80.0-100.0) fL MCH (25.0-34.0) pg MCHC (32.0-36.0) g/dL RDW Std Deviation (36.4-46.3) fL RDW Coeff of Don (11.5-14.5) % Plt Count (130-400) K/uL MPV (9.4-12.4) fL Immature Gran % (Auto) % Neut % (Auto) % Lymph % (Auto) % [place] % (Auto) % Eos % (Auto) % Baso % (Auto) % Neut # (Auto) (1.40-6.50) K/uL Lymph # (Auto) (1.20-3.40) K/uL [place] # (Auto) (0.11-0.59) K/uL Eos # (Auto) (0.00-0.50) K/uL Baso # (Auto) (0.00-0.20) K/uL Immature Gran # (Auto) (0.01-0.20) K/uL Anisocytosis Ovalocytes Sodium (136-145) mmol/L Potassium (3.5-5.1) mmol/L Chloride (98-107) mmol/L Carbon Dioxide (21-32) mmol/L Anion Gap (3-11) BUN (6-23) mg/dl Creatinine (0.6-1.4) mg/dl Est Cr Clr Drug Dosing ml/min eGFR BUN/Creatinine Ratio (10-20) Glucose (70-99(Fasting)) mg/dl POC Glucose (70-99) mg/dl Calcium (8.6-10.3) mg/dl Blood Type A Positive Antibody Screen POSITIVE A Antibody Identification Anti-E Antibody ID Comment Direct Antiglob Test (Negative) NIKOLAS (IgG-AHG) (Negative) NIKOLAS, Polyspecific (Negative) NIKOLAS C3b, C3d 5 Min (Negative) Crossmatch PG Care Time/CCT Total # of Minutes Spent Total Time Spent with Patient: Total time spent is greater than 50% in coordination of care (as documented) at patient's floor/unit and/or counseling patient: Coding Level of Care Code None Diagnoses Presence of Watchman left atrial appendage closure device Z95.818 Lower GI bleed K92.2
--- NOTE | 2025-07-25 13:21 | Anesthesiology Consultation ---
Date of Service July 25, 2025 Assessment & Plan Chart Review Chart Review: Acceptable Risk for Surgery Consults Requested none History Surgery Operation Date: 07/25/25 16:30 Proposed Procedures p Colonoscopy EGD Pastor Baumann MD Height/Weight Height: 5 ft 1 in Weight: 54.975 kg Allergies Allergy/AdvReac Type Severity Reaction Status Date / Time No Known Allergies Allergy Unknown Verified 07/23/25 14:24 Medications Home Medications Medication Instructions Recorded Confirmed Last Taken latanoprost 0.005 % eye drops 1 drp OPB HS 02/06/20 07/23/25 06/20/25 calcium 600 mg-D3 800 unit-mag11 1 tab PO DAILY 11/20/22 07/23/25 06/21/25 50 fd-qyfb-sktjdr-susanne-s.borat tablet (Caltrate 600-D Plus Minerals) pantoprazole 40 mg tablet,delayed 40 mg PO DAILY 11/20/22 07/23/25 06/21/25 release denosumab 60 mg/mL subcutaneous 0 mg subcut DIRECTED 12/02/22 07/23/25 6 Months Ago syringe (Prolia) ~11/13/24 diphenhydramine 25 1 - 2 tab PO HS SLEEP 03/18/23 07/23/25 06/20/25 mg-acetaminophen 500 mg tablet (Tylenol PM Extra Strength) multivitamin 1 tab PO DAILY 03/18/23 07/23/25 06/21/25 tamsulosin 0.4 mg capsule 0.4 mg PO QPM #30 caps 03/14/25 07/23/25 06/20/25 ascorbic acid (vitamin C) 500 mg 500 mg PO DAILY 06/21/25 07/23/25 06/21/25 tablet (Vitamin C) cholecalciferol (vitamin D3) 50 50 mcg PO DAILY 06/21/25 07/23/25 06/21/25 mcg (2,000 unit) capsule (Vitamin D3) docusate sodium 100 mg capsule 100 mg PO DAILY 06/21/25 07/23/25 06/21/25 (Stool Softener) furosemide 40 mg tablet 40 mg PO QAM #90 tabs 06/23/25 07/23/25 06/21/25 apixaban 2.5 mg tablet (Eliquis) 0 mg PO BID 07/23/25 07/25/25 Unknown atorvastatin 40 mg tablet 0 mg PO Q OTHER DAY 07/23/25 07/23/25 Unknown clopidogrel 75 mg tablet 75 mg PO DAILY 07/23/25 07/25/25 07/23/25 Active Medications Generic Name Dose Route Start Last Admin Trade Name Freq PRN Reason Stop Dose Admin Pantoprazole Sodium 40 mg in 10 mls @ 5 mls/min 07/24/25 09:00 07/25/25 08:05 Protonix IV 08/23/25 08:59 5 mls/min DAILY YUKI Administration Lactated Ringer's 1,000 mls @ 80 mls/hr 07/25/25 06:00 07/25/25 03:33 Lr IV 07/25/25 18:29 80 mls/hr .[id number] YUKI Administration Ondansetron HCl 4 mg 07/23/25 15:36 07/24/25 23:52 Ondansetron Inj 2 Mg/Ml 2 Ml Vial IV 08/22/25 15:35 4 mg Q6H PRN Administration Nausea NPO Date Last Intake of Fluids: 07/25/25 Time Last Intake of Fluids: 06:00 Date Last Intake of Solids: 07/23/25 Time Last Intake of Solids: 18:00 Past Medical History Medical History (Updated 07/24/25 @ 09:10 by Lyndon Forrester PA-C) Anticoagulated GI bleed CKD (chronic kidney disease) Weakness GIB (gastrointestinal bleeding) Hypertension Aortic stenosis Persistent atrial fibrillation Benign prostatic hyperplasia without urinary obstruction PAD (peripheral artery disease) CHF (congestive heart failure) Bilateral edema of lower extremity SOB (shortness of breath) Elevated PSA Benign prostatic hyperplasia with urinary obstruction Past Family History Family History Other Heart disease Past Surgical History Surgical History History of dental surgery Social History Smoking Status: Current every day smoker tobacco type: pipe Smoking cigarettes per day: every day Do You Dip or Chew Tobacco: No Hx Alcohol Use: No Alcohol type: beer alcohol intake frequency: holidays/special occasions only Hx Substance Use: No substance use type: does not use Physical Exam Vital Signs Last Vital Signs Temp 36.7 C 07/25/25 13:09 Pulse 91 H 07/25/25 13:09 Resp 18 07/25/25 13:09 BP 134/91 07/25/25 13:09 Pulse Ox 97 07/25/25 13:09 O2 Del Method Room Air 07/25/25 13:09 Testing Laboratory Results 07/25/25 05:25 07/25/25 05:25 PT 10.7 Seconds (9.0-12.0) 07/23/25 11:35 INR 1.0 (0.9-1.1) 07/23/25 11:35 APTT 26 Seconds (21-31) 07/23/25 11:35 Blood Type A Positive 07/23/25 11:43 Antibody Screen POSITIVE A 07/23/25 11:43 07/25/25 04:51 POC Glucose 90
--- NOTE | 2025-07-25 14:21 | GI REPORT ---
[facility] Patient: MACK CADENA : 1935 Sex at : Male Age: 89 Years Procedure: Colonoscopy Date: 07/25/2025 Attending Physician: Chandrakant Baumann MD Referring MD: Referred Self Indications: - Gastrointestinal bleeding - Hematochezia - Acute post hemorrhagic anemia Medications: - Monitored Anesthesia Care Complications: - No immediate complications. Estimated Blood Loss: - Estimated blood loss: None. - Estimated blood loss was minimal. Procedure: - Prior to the procedure, a History and Physical was performed, and patient medications and allergies were reviewed. The patient's tolerance of previous anesthesia was also reviewed. The risks and benefits of the procedure and the sedation options and risks were discussed with the patient. All questions were answered, and informed consent was obtained. Prior Anticoagulants: The patient has taken Plavix (clopidogrel), last dose was 4 days prior to procedure. ASA Grade Assessment: IV - A patient with severe systemic disease that is a constant threat to life. After reviewing the risks and benefits, the patient was deemed in satisfactory condition to undergo the procedure. - The pediatric colonoscope was introduced through the anus and advanced to the cecum, identified by appendiceal orifice and ileocecal valve. - The colonoscopy was performed without difficulty. - The patient tolerated the procedure well. - The quality of the bowel preparation was fair. - The ileocecal valve, appendiceal orifice, and rectum were photographed. Findings: - The exam was otherwise without abnormality on direct and retroflexion views. - Multiple small-mouthed diverticula were found in the sigmoid colon. - Four medium-sized localized angioectasias with stigmata of recent bleeding were found in the cecum. Coagulation for hemostasis using argon plasma was successful. For hemostasis, one hemostatic clip was successfully placed. Clip timber packer: [employer]. There was no bleeding during, or at the end, of the procedure. - Two medium-sized localized angioectasias with stigmata of recent bleeding were found in the ascending colon. Coagulation for hemostasis using argon plasma was successful. For hemostasis, one hemostatic clip was successfully placed. There was no bleeding at the end of the procedure. Impression: - Preparation of the colon was fair. - The examination was otherwise normal on direct and retroflexion views. - Diverticulosis in the sigmoid colon. - Four recently bleeding colonic angioectasias. Treated with argon plasma coagulation (APC). Clip was placed. Clip timber packer: [employer]idian. - Two recently bleeding colonic angioectasias. Treated with argon plasma coagulation (APC). Clip was placed. - No specimens collected. Recommendation: - Discharge patient to home (ambulatory). - Full liquid diet and advance diet as tolerated. - Continue present medications. - Repeat colonoscopy is not recommended due to current age (66 years or older) for screening purposes. - Return to referring physician as previously scheduled. - Patient has a contact number available for emergencies. The signs and symptoms of potential delayed complications were discussed with the patient. Return to normal activities tomorrow. Written discharge instructions were provided to the patient. Procedure Code(s): - 72174, Colonoscopy, flexible; with control of bleeding, any method Diagnosis Code(s): - K92.2, Gastrointestinal hemorrhage, unspecified - K92.1, Melena (includes Hematochezia) - D62, Acute posthemorrhagic anemia - K55.21, Angiodysplasia of colon with hemorrhage - K57.30, Diverticulosis of large intestine without perforation or abscess without bleeding CPT(R) - 2023 copyright [employer]. All Rights Reserved. The CPT codes, CCI edits and ICD codes generated are intended as suggestions and were generated based on input data. These codes are preliminary and upon sheep killer review may be revised to meet current compliance and payer requirements. The provider is responsible for the final determination of appropriate codes, and modifiers. Chandrakant Baumann MD This document has been electronically signed. Note Initiated:07/25/2025 Note Completed:07/25/2025 2:21 PM \\[email or web address]\Central\[email or web address]\Data\Provation\Results\LIVE\[id number]
--- NOTE | 2025-07-25 14:29 | GI REPORT ---
[facility] Patient: MACK CADENA : 1935 Sex at : Male Age: 89 Years Procedure: Small bowel enteroscopy Date: 07/25/2025 Attending Physician: Chandrakant Baumann MD Referring MD: Referred Self Indications: - Melena - Iron deficiency anemia - Obscure gastrointestinal bleeding Medications: Complications: - No immediate complications. Estimated Blood Loss: - Estimated blood loss: None. Procedure: - Prior to the procedure, a History and Physical was performed, and patient medications and allergies were reviewed. The patient's tolerance of previous anesthesia was also reviewed. The risks and benefits of the procedure and the sedation options and risks were discussed with the patient. All questions were answered, and informed consent was obtained. Prior Anticoagulants: The patient has taken Plavix (clopidogrel), last dose was 4 days prior to procedure. ASA Grade Assessment: IV - A patient with severe systemic disease that is a constant threat to life. After reviewing the risks and benefits, the patient was deemed in satisfactory condition to undergo the procedure. - The pediatric colonoscope was introduced through the mouth and advanced to the mid-jejunum. Findings: - The examined esophagus was normal. - Four small angiodysplastic lesions with no bleeding were found in the gastric body and in the gastric antrum. Coagulation for hemostasis using argon plasma was successful. - A single angiodysplastic lesion with no bleeding was found in the second portion of the duodenum. Coagulation for hemostasis using argon plasma was successful. Impression: - Normal esophagus. 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 Treated with argon plasma coagulation (APC). - A single non-bleeding angiodysplastic lesion in the duodenum. Treated with argon plasma coagulation (APC). - No specimens collected. Recommendation: - Start a full liquid diet and advance. I will avoid anticoagulants. Patient should get PPI once daily. He needs IV iron outpatient to keep up as he will continue to develop AVMs with his known aortic stenosis. Procedure Code(s): - 77471, Small intestinal endoscopy, enteroscopy beyond second portion of duodenum, not including ileum; with control of bleeding (eg, injection, bipolar cautery, unipolar cautery, laser, heater probe, stapler, plasma acid dipper) Diagnosis Code(s): - K92.1, Melena (includes Hematochezia) - D50.9, Iron deficiency anemia, unspecified - K92.2, Gastrointestinal hemorrhage, unspecified - K31.819, Angiodysplasia of stomach and duodenum without bleeding CPT(R) - 2023 copyright [employer]. All Rights Reserved. The CPT codes, CCI edits and ICD codes generated are intended as suggestions and were generated based on input data. These codes are preliminary and upon nougat cutter machine review may be revised to meet current compliance and payer requirements. The provider is responsible for the final determination of appropriate codes, and modifiers. Chandrakant Baumann MD This document has been electronically signed. Note Initiated:07/25/2025 Note Completed:07/25/2025 2:28 PM \\[email or web address]\Central\InterfaceData\Data\Provation\Results\LIVE\[id number]
--- NOTE | 2025-07-25 14:31 | Communication Note ---
Date of Service: July 25, 2025 Push enteroscopy done with ablation of 4 gastric AVMs and 1 duodenal AVM. The rest of the enteroscopy was normal Colonoscopy done and there was clearly old blood flecks in the transverse and right colon. There were 2 large AVMs noted: 1 in the cecum and 1 in the ascending colon. These bled on air contact. These 2 were ablated via APC and then 2 clips placed for complete hemostasis. Four other AVMs were cauterized. These are likely the source of his anemia and recent melena and rectal bleeding. Start a full liquid diet and advance today. He should stay away from anticoagulants. He needs IV iron outpatient and follow-up with hematology. Pastor
--- NOTE | 2025-07-25 15:07 | Anesthesiology Progress Note ---
Date of Service July 25, 2025 Anesthesia Post Procedure Vital Signs Vital Signs: Temp Pulse Pulse Pulse Resp BP BP 07/25/25 14:50 92 H 18 119/85 07/25/25 14:29 85 18 115/84 07/25/25 14:14 93 H 18 126/90 07/25/25 13:09 36.7 C 91 H 18 134/91 07/25/25 12:30 36.6 C 94 H 18 07/25/25 08:12 36.7 C 88 20 07/25/25 08:00 07/25/25 05:46 89 07/25/25 03:25 36.7 C 79 18 07/24/25 23:49 36.7 C 103 H 17 07/24/25 19:50 36.6 C 90 20 116/69 07/24/25 18:56 36.3 C L 82 18 07/24/25 18:07 36.6 C 89 20 116/69 07/24/25 17:37 36.3 C L 109 H 20 120/70 07/24/25 17:22 36.5 C 101 H 20 113/68 07/24/25 17:02 36.7 C 95 H 20 125/78 07/24/25 15:43 36.6 C 90 18 07/24/25 15:36 BP Pulse Ox O2 Del Method O2 Del Method 07/25/25 14:50 95 Room Air 07/25/25 14:29 96 Room Air 07/25/25 14:14 97 Room Air 07/25/25 13:09 97 Room Air 07/25/25 12:30 143/84 H 96 Room Air 07/25/25 08:12 132/80 95 Room Air 07/25/25 08:00 Room Air 07/25/25 05:46 07/25/25 03:25 126/79 94 Room Air 07/24/25 23:49 123/87 97 Room Air 07/24/25 19:50 97 07/24/25 18:56 156/75 H 97 Room Air 07/24/25 18:07 98 07/24/25 17:37 97 07/24/25 17:22 96 07/24/25 17:02 97 07/24/25 15:43 113/74 98 Room Air 07/24/25 15:36 Room Air Transfer of Care Handoff Completed per policy Notes Mental Status: alert / awake / arousable and participated in evaluation Patient Amnestic to Procedure: Yes Nausea / Vomiting: adequately controlled Pain: adequately controlled Airway Patency, RR, SpO2: stable & adequate BP & HR: stable & adequate Hydration State: stable & adequate Anesthetic Complications: no major complications apparent
[2025-07-25] MEDS: LIDOCAINE 2% 2 ML VIAL/AMP(20MG/ML) INFIL ONE (16:29)
[2025-07-25] MEDS: PROPOFOL IV EMULSION 10 MG/ML 20 ML VIAL IV ONE ×2 (16:29)
[2025-07-25] MEDS: PHENYLEPHRINE 100MCG/ML 5ML SYR ONE (16:29)
--- NOTE | 2025-07-25 17:01 | Hospitalist Progress Note ---
Date of Service July 25, 2025 Assessment & Plan (1) Acute blood loss anemia: (2) Atrial fibrillation, permanent: (3) Acute lower GI bleeding: Plan This patient is an 89-year-old male who presented on 07/23 for rectal bleed. Recent [place] hospitalization 05/14 and 06/21 for acute blood loss anemia in setting of GI bleed and symptomatic anemia. Colonoscopy on 05/17/2025 revealed several localized angioectasias without bleeding; no other significant abnormalities were identified at that time. ? Possible that the angioectasias are now bleeding. # Acute blood loss anemia | BRB in stool | acute lower GI bleed On the morning of 07/25, Hgb is 8.9 s/p 1 unit PRBC N.p.o. preop Gastroenterology consult appreciated Patient underwent colonoscopy and EGD on 07/25 4 gastric AVMs and 1 duodenal AVM were identified and cauterized; likely the source of his recent melena/rectal bleed Advance to full liquid diet following the procedure Avoid anticoagulants moving forward IV iron as an outpatient and follow-up with hematology #Atrial fibrillation Patient had [facility] Was placed on Plavix and aspirin postoperatively Given today's finding on colonoscopy, recommend discontinuing all anticoagulations (Eliquis, aspirin, and Plavix) moving forward Disposition: Continued stay on PCU telemetry while recovering from EGD/colonoscopy, and slowly advancing diet; hopeful discharge home tomorrow if hemoglobin remains stable Admission and Anticipated Discharge Date Admission Date: July 23, 2025 Supervising Physician Co-Signing Physician Notes Attending Attestation - Chart reviewed, care plan d/w VENKATA Gamez. I agree w/ the gamez components of his documentation. Appreciate GI assistance. EGD/colonoscopy findings noted. Andrea Mart MD Subjective Mr. Lamas is in good spirits today. He reports he had difficulty tolerating the bowel prep yesterday, but manage to have "multiple" bowel movements last night. These bowel movements were all liquidy, and contained bright red blood, as well as dark/liquidy stool. There are also clots in his blood. Patient did experience 1 episode of abdominal cramping and vomiting, but he attributes this to the bowel prep. He is eager to have his EGD/colonoscopy done today as soon as possible. ROS: Patient endorses nausea, 1 episode of vomiting, abdominal cramping, and recurrence of bright red blood in stool. Patient denies lightheadedness, chest pain, SOB, or changes in urinary habits. Review of Systems Review of Systems: See HPI above Physical Exam Physical Exam: General: Sitting upright in his chair in no acute distress; at bedside; non-toxic appearing; frail appearing; cooperative; SpO2 95% on RA HEENT: normocephalic, atraumatic; no scleral icterus; PERRLA; vision and hearing intact Neck: supple; no lymphadenopathy; trachea midline Skin: warm, dry without signs of tenting; no cyanosis; no rashes, bruising, lesions, or erythema noted CV: chest wall NTP; irregularly irregular rhythm, tachycardic around 100 BPM Lungs: no acute respiratory distress; symmetrical chest wall expansion; clear breath sounds across all lung keene w/o adventitious sounds; no wheezing ABD: Soft, NTP in all 4 quadrants; no rashes or bruising appreciated abdomen or flanks bilaterally; BS present; no rebound/guarding; no distention MSK: no tics or fasciculations; no edema noted in the LEs b/l, nonerythematous Neuro: A&Ox3; normal mood and affect; fluent speech; no focal deficits; sensation intact and symmetric in the lower extremity bilaterally assessed via light touch Results & Data Results & Data Vital Signs (Past 12 Hours) Vital Signs Temp Pulse Pulse Pulse Resp BP BP 07/25/25 15:48 36.4 C L 86 20 146/82 H 07/25/25 14:50 92 H 18 119/85 07/25/25 14:29 85 18 115/84 07/25/25 14:14 93 H 18 126/90 07/25/25 13:09 36.7 C 91 H 18 134/91 07/25/25 12:30 36.6 C 94 H 18 143/84 H 07/25/25 08:12 36.7 C 88 20 132/80 07/25/25 08:00 07/25/25 05:46 89 Pulse Ox O2 Del Method 07/25/25 15:48 95 Room Air 07/25/25 14:50 95 Room Air 07/25/25 14:29 96 Room Air 07/25/25 14:14 97 Room Air 07/25/25 13:09 97 Room Air 07/25/25 12:30 96 Room Air 07/25/25 08:12 95 Room Air 07/25/25 08:00 Room Air 07/25/25 05:46 PG Care Time/CCT Total # of Minutes Spent Total Time Spent with Patient: Total time spent is greater than 50% in coordination of care (as documented) at patient's floor/unit and/or counseling patient: Coding [place] [address] SUB INP/OBS CARE 2/35MIN Patient Type Established Medical Decision Making Moderate Complexity Diagnoses Acute blood loss anemia D62 Atrial fibrillation, permanent I48.21 Acute lower GI bleeding K92.2
[2025-07-26 06:19] LABS: Hematocrit (blood only) 28.4 % (42.0-52.0); Hemoglobin 9.1 g/dl (14.0-18.0); Immature Granulocytes # (auto) 0.02 K/uL (0.01-0.20); Immature Granulocytes % (auto) 0.4 %; Mean Corpuscular Hemoglobin 27.4 pg (25.0-34.0); Mean Corpuscular Volume 85.5 fL (80.0-100.0); Platelet Count 147 K/uL (130-400); RDW Standard Deviation 62.3 fL (36.4-46.3); Red Blood Count 3.32 M/uL (4.70-6.10); White Blood Count 4.86 K/ul (4.8-10.8)
[2025-07-26 06:42] LABS: Anion Gap 7.0 (3-11); Blood Urea Nitrogen 17.0 mg/dl (6-23); Calcium 8.0 mg/dl (8.6-10.3); Carbon Dioxide 22.0 mmol/L (21-32); Chloride 110.0 mmol/L (98-107); Creatinine Clr Calc Pharmacy 34.9 ml/min; Glucose 77.0 mg/dl (70-99(Fasting)); Potassium 3.8 mmol/L (3.5-5.1); Sodium 139.0 mmol/L (136-145)
[2025-07-26 06:45] LABS: Anisocytosis Present; Ovalocytes 1+; Polychromasia 1+
[2025-07-26 07:46] VITALS: RESP 18
--- NOTE | 2025-07-26 09:22 | Gastroenterology Progress Note ---
Date of Service July 26, 2025 Assessment & Plan (1) Presence of Watchman left atrial appendage closure device: Plan: 89 year old male with history of Atrial Fibrillation, aortic stenosis, Valvular Heart Disease, HFpEF, Hypertension, Dyslipidemia, PAD, recurrent GI bleeding, anemia, s/p Watchman procedure and others below admitted through the ED w/ rectal bleeding. S/P EGD/Colonoscopy w/ APC of four recently bleeding colonic angioectasias in cecum, two recently bleeding colonic angioectasias in ascending colon, four non-bleeding angiodysplastic lesions in the stomach, and a single non-bleeding angiodysplastic lesion in the duodenum Continue diet as tolerated No GI contraindication to discharge Recommend anticoagulant avoidance if appropriate Life long PPI 40 mg once daily recommend he establish with hematology as OP for frequent blood draws and IV iron as appropriate as he will likely develop additional AVMs given his cardiac conditions Thank you for allowing us to participate in the care of this patient. Please call with any acute changes, questions or concerns. Please see addendum below with additional recommendation from my supervising physician. I spent a total of 40 minutes on the date of service in review of patient's record, and previously obtained information in person and appropriate medical visit, discussion and education of plan, with patient and/or caregiver, placing orders for tests/referral/procedures as medically necessary and documentation of pertinent clinical information in patient's medical records for their visit today. (2) Lower GI bleed: Admission and Anticipated Discharge Date Admission Date: July 23, 2025 Subjective Feeling well s/p EGD/Colonoscopy w/ APC. Tolerating diet, no abd pain, no further BMs. Desires to go home. EGD 2024: Normal esophagus. 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 Treated with argon plasma coagulation (APC). - A single non-bleeding angiodysplastic lesion in the duodenum. Treated with argon plasma coagulation (APC). - No specimens collected. Colonoscopy 2024: Preparation of the colon was fair. - The examination was otherwise normal on direct and retroflexion views. - Diverticulosis in the sigmoid colon. - Four recently bleeding colonic angioectasias. Treated with argon plasma coagulation (APC). Clip was placed. Clip field specialist: Talkray. - Two recently bleeding colonic angioectasias. Treated with argon plasma coagulation (APC). Clip was placed. - No specimens collected. Review of Systems Review of Systems: All other findings negative except as noted in HPI. Physical Exam Gastrointestinal (Abdomen): normal bowel sounds, soft, nontender, no hepatosplenomegaly Results & Data Results & Data Vital Signs (Past 12 Hours) Vital Signs Temp Pulse Resp BP BP Pulse Ox O2 Del Method 07/26/25 07:46 97.9 F 86 18 129/85 95 Room Air 07/26/25 04:08 97.9 F 90 16 130/80 93 Room Air 07/25/25 23:00 97.7 F 91 H 16 133/83 92 Room Air Laboratory Results 07/26/25 07/23/25 Range/Units 05:35 16:46 WBC 4.86 (4.8-10.8) K/ul RBC 3.32 L (4.70-6.10) M/uL Hgb 9.1 L (14.0-18.0) g/dl Hct 28.4 L (42.0-52.0) % MCV 85.5 (80.0-100.0) fL MCH 27.4 (25.0-34.0) pg MCHC 32.0 (32.0-36.0) g/dL RDW Std Deviation 62.3 H (36.4-46.3) fL RDW Coeff of Don 20.1 H (11.5-14.5) % Plt Count 147 (130-400) K/uL MPV 10.0 (9.4-12.4) fL Immature Gran % (Auto) 0.4 % Neut % (Auto) 81.3 % Lymph % (Auto) 7.4 % [place] % (Auto) 9.7 % Eos % (Auto) 1.0 % Baso % (Auto) 0.2 % Neut # (Auto) 3.95 (1.40-6.50) K/uL Lymph # (Auto) 0.36 L (1.20-3.40) K/uL [place] # (Auto) 0.47 (0.11-0.59) K/uL Eos # (Auto) 0.05 (0.00-0.50) K/uL Baso # (Auto) 0.01 (0.00-0.20) K/uL Immature Gran # (Auto) 0.02 (0.01-0.20) K/uL Polychromasia 1+ Anisocytosis Present Ovalocytes 1+ Sodium 139 (136-145) mmol/L Potassium 3.8 (3.5-5.1) mmol/L Chloride 110 H (98-107) mmol/L Carbon Dioxide 22 (21-32) mmol/L Anion Gap 7 (3-11) BUN 17 (6-23) mg/dl Creatinine 1.06 (0.6-1.4) mg/dl Est Cr Clr Drug Dosing 34.9 ml/min eGFR 67.08 BUN/Creatinine Ratio 16.0 (10-20) Glucose 77 (70-99(Fasting)) mg/dl Calcium 8.0 L (8.6-10.3) mg/dl Antibody ID Referred PG Care Time/CCT Total # of Minutes Spent Total Time Spent with Patient: Total time spent is greater than 50% in coordination of care (as documented) at patient's floor/unit and/or counseling patient: Coding Level of Care Code 57969 SUB INP/OBS CARE 2/35MIN Diagnoses Presence of Watchman left atrial appendage closure device Z95.818 Lower GI bleed K92.2
--- NOTE | 2025-07-26 09:37 | Discharge Summary ---
Discharge Summary Date of Service July 26, 2025 Principal Dx & Hospital Course #1 = Principal Diagnosis (1) Acute blood loss anemia: (2) Atrial fibrillation, permanent: (3) Acute lower GI bleeding: (4) Iron deficiency anemia: Plan This patient is an 89-year-old male who presented on 07/23 for rectal bleed. Recent [place] hospitalization 05/14 and 06/21 for acute blood loss anemia in setting of GI bleed and symptomatic anemia. Colonoscopy on 05/17/2025 revealed several localized angioectasias without bleeding; no other significant abnormalities were identified at that time. Suspected on arrival but her his angioectasias were now possibly rebleeding. Day of discharge 07/26: VSS Mr. Lamas is in good spirits this morning. He was able to eat a full breakfast of eggs, toast, banana, and orange juice without recurrence of abdominal pain. Patient overall feels well and is ready to go home at this time. He has not had any bowel movements since his EGD/colonoscopy, but reports this is the first meal he has eaten in a couple days. He understands that there might be some blood or black stool in the next several days, and that he has not been warmed. He denies any blood in his urine. No fevers overnight. No abdominal pain this morning. ROS: Patient denies fever, chills, night sweats, chest pain, chest palpitations, SOB, abdominal pain, recurrence of nausea or vomiting, or change in urinary habits. 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 iron due to concern for black stool Patient will need to establish with hematology outpatient for IV iron Tolerating solid diet on 07/26 without recurrence of abdominal pain Safe for discharge home at this time #Atrial fibrillation Patient had Watchman procedure done at [facility] on 07/20 Was placed on Plavix and aspirin postoperatively Given findings on colonoscopy, recommend discontinuing all anticoagulations (Eliquis, aspirin, and Plavix) moving forward Disposition: Discharge home with GI and hematology follow-up Notes For Next Care Provider Patient hospitalized for recurrent rectal bleed. Underwent an EGD/colonoscopy on 07/25. 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 Avoid all forms of anticoagulation moving forward. Protonix 40 mg p.o. daily indefinitely. Patient will need to establish with hematology outpatient for IV iron. Admission HPI Per Admitting Provider Mr. Lamas is an 89-year-old male with PMH of iron deficiency anemia, atherogenic dyslipidemia, chronic blood loss anemia, and HFpEF. He presented on 07/23 after developing abdominal pain around 4 AM this morning. Patient woke up from the abdominal pain, then went to use the bathroom and found that he had bright red blood with clots in his commode. Patient also reports he has been feeling dizzy/lightheaded. Patient recently had a Watchman procedure done at [facility] on Friday 07/20. He reports he has been taking aspirin and Plavix since that time, and did take them this morning, as well as his calcium and PPI. Patient was originally supposed to have a capsule endoscopy done following his last hospitalization for rectal bleeding, but reports that they have had difficulty scheduling this procedure. Patient was recently hospitalized in May and June for rectal bleed, requiring blood transfusions both times. No PMH of hemorrhoids or IBD. Patient does not use up on oxygen at home or CPAP at night. He is a tobacco pipe smoker. Per , his hemoglobin was around 10 approximately 2 weeks ago when he had his labs drawn at [facility]. These labs were not drawn last Wednesday prior to his watchman being placed. Patient is mildly tachycardic at 99 bpm at time admission; vitals otherwise stable. ED course: NSS 1000 L IV ROS: Patient endorses BRB in stool, straining to move bowels this morning, abdominal pain (resolved after bowel movements),and chronic GRAY. Patient denies fever, chills, night-sweats, chest pain, SOB at rest, changes in urinary habits (blood in urine, burning with urination, etc.), saddle anesthesia, or N/T in the legs. Admission Exam Per Admitting Provider General: no acute distress; non-toxic appearing; frail appearing; cooperative; SpO2 98% on RA HEENT: normocephalic, atraumatic; no scleral icterus; PERRLA; vision and hearing intact Neck: supple; no lymphadenopathy; trachea midline Skin: warm, dry without signs of tenting; no cyanosis; no rashes, bruising, lesions, or erythema noted CV: chest wall NTP; irregularly irregular rhythm, tachycardic around 100-110 bpm; S1/S2 normal; no murmurs/rubs/gallops; pulses intact and symmetric at radial, DP, and PT Lungs: no acute respiratory distress; symmetrical chest wall expansion; clear breath sounds across all lung keene w/o adventitious sounds; no wheezing ABD: Soft, NTP in all 4 quadrants; no rashes or bruising appreciated abdomen or flanks bilaterally; BS present; no rebound/guarding; no distention MSK: no tics or fasciculations; no edema noted in the LEs b/l, nonerythematous Neuro: A&Ox3; normal mood and affect; fluent speech; no focal deficits; sensation grossly intact in the LEs b/l Discharge Exam General: Sitting upright in his bed in no acute distress; non-toxic appearing; frail appearing; cooperative; SpO2 95% on RA HEENT: normocephalic, atraumatic; no scleral icterus; PERRLA; vision and hearing intact Neck: supple; trachea midline Skin: warm, dry without signs of tenting; no cyanosis; no rashes, bruising, lesions, or erythema noted CV: chest wall NTP; irregularly irregular rhythm around 94 bpm Lungs: no acute respiratory distress; symmetrical chest wall expansion; clear breath sounds across all lung keene w/o adventitious sounds; no wheezing ABD: Soft, NTP in all 4 quadrants; no rashes or bruising appreciated abdomen or flanks bilaterally; BS present; no rebound/guarding; no distention MSK: no tics or fasciculations; no edema noted in the LEs b/l, nonerythematous Neuro: A&Ox3; normal mood and affect; fluent speech; no focal deficits; sensation intact and symmetric in the lower extremity bilaterally assessed via light touch Discharge Plan Discharge Items Patient Disposition: Home - Self-Care Reason For Visit: RECTAL BLEEDING Discharge Diagnosis: Rectal bleeding Condition on Discharge: Fair Activity: Resume your previous activity Non-emergency contact: Primary Care Provider and Cushion Gum Applicator Call non-emergency contact if: you have any medication questions, your symptoms worsen, your pain is not controlled, your pain is worsening and you have a fever Follow-up/Referrals: Fransisco Moncada MD [Primary Care Provider] - Diet: Regular Addtl Attending Provider Instructions: You were hospitalized from 07/23 to 07/26 for a rectal bleed. On arrival, your hemoglobin level dropped from 8.8 to a low of 7.2. You received a blood transfusion (1 unit of packed red blood cells) and your hemoglobin level gradually improved. He also underwent a colonoscopy/endoscopy with our gastroenterology team (Dr. 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 These are the sites where your your bleeding was occurring, and the sites were cauterized during the procedure to prevent further bleeding. On the morning of 07/26, you reported that you had no abdominal pain, and were tolerating a regular diet. Your hemoglobin level was back up to 9.1, and your vitals are stable at time of discharge. For these reasons, we feel that you are safe to return home at this time. You are to avoid taking all anticoagulation moving forward. Please do not take Eliquis, aspirin, or Plavix. Please also plan to follow-up with your PCP in the next 7 to 10 days for a transitional care appointment. Prior to this appointment, we recommend that you have blood work drawn to assess your hemoglobin levels. We also recommend that you follow-up with hematology as an outpatient for IV iron infusions. Some blood and dark/black stool is to be expected following your procedure. However, if you develop any new or worsening symptoms, such as recurrence of intractable bright red blood in stool, severe abdominal pain, nausea, vomiting, fevers, trouble breathing, or chest pain, please return to the Emergency Department immediately. It was a pleasure taking care of you. Please reach out with any questions or concerns. Sincerely, The Hospital medicine team at [facility] Pending Studies at Discharge: No Stand-Alone Forms: My [facility] Medications and DC Order Prescriptions: Continued latanoprost 0.005 % drops 1 drp OPB HS Caltrate 600-D Plus Minerals 600 mg calcium- 800 unit-50 mg tablet 1 tab PO DAILY Patient Comments: Unable to verify med at this date/time. 07/23/25 pantoprazole 40 mg tablet,delayed release (DR/EC) 40 mg PO DAILY Prolia 60 mg/mL syringe 0 mg subcut DIRECTED Patient Comments: Original Directions: Inject 60mg once every 6 months. Unable to verify med at this date/time. 07/23/25 Rx Instructions: subcutaneously q 6 months tamsulosin 0.4 mg capsule 0.4 mg PO QPM Qty: 30 11RF multivitamin Tablet 1 tab PO DAILY Patient Comments: Unable to verify med at this date/time. 07/23/25 diphenhydramine-acetaminophen [Tylenol PM Extra Strength] 25-500 mg Tablet 1 - 2 tab PO HS Patient Comments: Unable to verify med at this date/time. 07/23/25 ascorbic acid (vitamin C) [Vitamin C] 500 mg Tablet 500 mg PO DAILY Patient Comments: Unable to verify med at this date/time. 07/23/25 docusate sodium [Stool Softener] 100 mg Capsule 100 mg PO DAILY Patient Comments: Unable to verify med at this date/time. 07/23/25 cholecalciferol (vitamin D3) [Vitamin D3] 50 mcg (2,000 unit) Capsule 50 mcg PO DAILY Patient Comments: Unable to verify med at this date/time. 07/23/25 furosemide 40 mg tablet 40 mg PO QAM Qty: 90 3RF atorvastatin 40 mg tablet 0 mg PO Q OTHER DAY Patient Comments: Original Directions: 40mg by mouth every other day. Unable to verify if pt still taking or not. 07/23/25 Discontinued clopidogrel 75 mg tablet 75 mg PO DAILY Eliquis 2.5 mg tablet 0 mg PO BID Patient Comments: Original Directions: 2.5mg by mouth twice daily. Note in system says to start back taking on 07/16/25 if OK'd by GI or PCP. Unable to verify if pt restarted or not. 07/23/25 Discharge Orders: Discharge Order (Routine); Ordered 07/26/25 Ordered By: Ronald Gamez Admission Data Admit Date/Time: 07/23/25 13:42 Attending Provider: Andrea Mart Admit Provider: Nav Rodríguez Primary Care Provider: Fransisco Moncada Other Providers: Nav Rodríguez; Alicia Baumann,Elmer C. Other Interventions: Discharge Summary Assessment (RN) Last Done: 07/25/25 14:38 Hospital Stay Data Consultations 07/23/25 12:51 ED Decision to Admit Stat 07/23/25 13:43 Consult Gastroenterology Routine 07/23/25 19:07 Consult Cardiology Routine Procedures Performed Operation Date: 07/25/25 16:30 Actual Procedures p EGD Hemostasis - Chandrakant Baumann MD s Colonoscopy Hemostasis - Chandrakant Baumann MD Discharge Instructions Given to Patient (Per Discharging Provider) You were hospitalized from 07/23 to 07/26 for a rectal bleed. On arrival, your hemoglobin level dropped from 8.8 to a low of 7.2. You received a blood transfusion (1 unit of packed red blood cells) and your hemoglobin level gradual ly improved. He also underwent a colonoscopy/endoscopy with our gastroenterology team (Dr. 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 These are the sites where your your bleeding was occurring, and the sites were cauterized during the procedure to prevent further bleeding. On the morning of 07/26, you reported that you had no abdominal pain, and were tolerating a regular diet. Your hemoglobin level was back up to 9.1, and your vitals are stable at time of discharge. For these reasons, we feel that you are safe to return home at this time. You are to avoid taking all anticoagulation moving forward. Please do not take Eliquis, aspirin, or Plavix. Please also plan to follow-up with your PCP in the next 7 to 10 days for a trans itional care appointment. Prior to this appointment, we recommend that you have blood work drawn to assess your hemoglobin levels. We also recommend that you follow-up with hematology as an outpatient for IV iron infusions. Some blood and dark/black stool is to be expected following your procedure. However, if you develop any new or worsening symptoms, such as recurrence of intractable bright red blood in stool, severe abdominal pain, nausea, vomiting, fevers, trouble breathing, or chest pain, please return to the Emergency Department immediately. It was a pleasure taking care of you. Please reach out with any questions or concerns. Sincerely, The Hospital medicine team at [facility] Total Time Total Time Spent Total Time Spent (In Minutes): 25 Coding Level of Care Code 42641 IN/OBS DISCH 30 MIN/LESS Diagnoses Acute blood loss anemia D62 Atrial fibrillation, permanent I48.21 Acute lower GI bleeding K92.2 Iron deficiency anemia D50.9
[2025-07-26 11:15] VITALS: BP 119/73; PULSE 80; TEMP 97.5; O2SAT 94
== END 2025-07-26 13:42 | disposition home or self-care (01) | DRG 378 ==
LOC: SUATTDRO → ED 10:43 → 4W 13:42 → SUATTDRO 13:42 → 4W 15:20